=== PATIENT | female | born 1945 | race Caucasian/White ===

== ENCOUNTER → 2023-04-27 16:15 | Outpatient (REF) | payer MEDICARE, OTHER, SELFPAY | LOC: RAD 16:15 | PROVIDERS: ATTENDING PHYSICIAN Internal Medicine; FAMILY PHYSICIAN Student in an Organized Health Care Education/Training Program | DX: R91.1 Solitary pulmonary nodule (principal) | CPT/HCPCS: 71250 ==

== ENCOUNTER → 2023-09-13 09:53 | Outpatient (REF) | payer MEDICARE, OTHER, SELFPAY | LOC: RCS 09:53 | PROVIDERS: ATTENDING PHYSICIAN Internal Medicine Cardiovascular Disease; FAMILY PHYSICIAN Family Medicine | DX: I10 Essential (primary) hypertension (principal) | CPT/HCPCS: 93306 ==

== ENCOUNTER → 2023-10-02 09:34 | Outpatient (REF) | payer MEDICARE, OTHER, SELFPAY | LOC: RAD 09:34 | PROVIDERS: ATTENDING PHYSICIAN Student in an Organized Health Care Education/Training Program | DX: Z00.00 Encounter for general adult medical examination without abnormal findings (principal); M85.859 Other specified disorders of bone density and structure, unspecified thigh; M81.0 Age-related osteoporosis without current pathological fracture | CPT/HCPCS: 77080 ==

== ENCOUNTER 2024-03-03 15:19 | Emergency (ER) | payer MEDICARE, OTHER, SELFPAY ==
[2024-03-03 15:38] VITALS: BP 188/75
--- NOTE | 2024-03-03 15:43 | ED.GENMED ---
ED Provider Triage
<Vishal Emmanuel Jr., PA-C - Last Filed: 03/03/24 15:45>
-
Patient seen by provider in Triage?: Seen in Triage
Attestation: A medical screening examination has been initiated by a qualified medical provider. Based on the assessment performed at this time, it has been determined that an emergent medical condition may exist and the patient has been informed
that further medical evaluation and possible additional diagnostic testing may be needed.
HPI: 78-year-old female mechanical fall down a few stairs hitting her left forehead no loss of consciousness currently taking aspirin no other blood thinners. No additional concerns. Patient does have a laceration to her left forehead.
GENERAL: Alert , in no apparent distress
EYE: No visual abnormalities.
NECK: Trachea midline
ENT: No visible abnormalities.
LUNGS: No acute respiratory distress
NEUROLOGICAL: Alert and oriented
SKIN: Skin intact. No visible changes.
MUSCULOSKELETAL: Moving extremities normally
PSYCH: Normal and appropriate interaction.
This is a medical evaluation conducted in person to initiate diagnostic evaluation and provide initial therapeutics. Please see further documentation by the treating clinician.
History of Present Illness
<Vishal Emmanuel Jr., PA-C - Last Filed: 03/03/24 15:45>
General
Chief Complaint: Fall
Time Seen by Provider: 03/03/24 16:51
<Shay Duque DO - Last Filed: 03/03/24 17:50>
General
Source: patient
Exam Limitations: none
Nursing documentation reviewed up to this point in time: agreed with
History of Present Illness
History of Present Illness:
78-year-old female presents emergency department after a fall, hitting her left forehead. No loss of consciousness., Agree with ED provider triage HPI
Past History
<DO Pablo Mead Last Filed: 03/03/24 17:50>
Past History
ED Past Medical History: Hypothyroidism and Other (Dermatomyositis)
ED Past Surgical History: Orthopedic (Left arthroscopic knee surgery, right knee arthroscopy, left foot, bilateral total knee replacement, carpal tunnel)
Social History
Tobacco: Non-smoker
Alcohol: None
Drug: None
Personal:
Living: with family
Employment: Retired
Review of Systems
<Shay Duque, DO - Last Filed: 03/03/24 17:50>
Review of Systems
Allergies reviewed?: Yes
All Other Systems: Not applicable
Constitutional: Reports no symptoms
EENT: Reports no symptoms
Respiratory: Reports no symptoms
Cardiac: Reports no symptoms
ABD/GI: Reports no symptoms
: Reports no symptoms
Musculoskeletal: Reports no symptoms
Skin: Reports no symptoms
Neurological: Reports no symptoms
Endocrine: Reports no symptoms
Hematologic/Lymphatic: Reports no symptoms
Psychiatric: Reports no symptoms
Phy Exam
<Shay Duque DO - Last Filed: 03/03/24 17:50>
Physical Exam
Physical Exam:
Physical Exam
General: no apparent distress, not acutely ill
Neck: supple. no meningeal signs. normal posterior pharynx
Heart: s1/s2 regular rate and rhythm, no murmur. equal radial
pulses.
HEENT: Pupils equal round reactive to light, EOMI
Lungs: no acute respiratory distress. clear bilaterally
Abdomen: normal bowel sounds. not tender. no CVAT
Neuro: alert and oriented. no focal neurological deficits cranial nerves II through XII intact
Skin: no rash, laceration contusion left forehead
Psychiatric: well kept. interactive and cooperative
Extremities: no edema. no calf tenderness. negative homans. good distal pulses
Course
<Vishal Emmanuel Jr. PAPabloC - Last Filed: 03/03/24 15:45>
Orders/Labs/Results
Orders:
Orders
03/03/24 15:45
CT Head W/o Iv Contrast Urgent
Comment:
Reason For Exam: fall hit head
03/03/24 16:23
CT Cervical Spine W/o Iv Contr Urgent
Comment:
Reason For Exam: fall
Vital Signs
Initial and Last Documented VS:
Initial Vital Signs
Temp Pulse Resp BP Pulse Ox
98.3 F 65 18 188/75 99
03/03/24 15:38 03/03/24 15:38 03/03/24 15:38 03/03/24 15:38 03/03/24 15:38
Last Documented Vital Signs
Temp Pulse Resp BP Pulse Ox
98.3 F 65 18 188/75 99
03/03/24 15:38 03/03/24 15:38 03/03/24 15:38 03/03/24 15:38 03/03/24 15:38
<Shay Duque, DO - Last Filed: 03/03/24 17:50>
Orders/Labs/Results
Orders:
Orders
03/03/24 15:45
CT Head W/o Iv Contrast Urgent
Comment:
Reason For Exam: fall hit head
03/03/24 16:23
CT Cervical Spine W/o Iv Contr Urgent
Comment:
Reason For Exam: fall
Vital Signs
Initial and Last Documented VS:
Initial Vital Signs
Temp Pulse Resp BP Pulse Ox
98.3 F 65 18 188/75 99
03/03/24 15:38 03/03/24 15:38 03/03/24 15:38 03/03/24 15:38 03/03/24 15:38
Last Documented Vital Signs
Temp Pulse Resp BP Pulse Ox
98.3 F 65 18 188/75 99
03/03/24 15:38 03/03/24 15:38 03/03/24 15:38 03/03/24 15:38 03/03/24 15:38
Procedures
<DO Pablo Mead Last Filed: 03/03/24 17:50>
Laceration Closure
Left Forehead:
Status of Wound: clean
Size of Wound in cm: 2
Description of Wound Edges: sharp and flap-well vascularized
Preparation: cleaned with saline
Anesthesia: 1% Lidocaine with epi
Revision/Debridement: routine- no revision
Wound exploration: explored to base- no FB
Type of Closure: single layer closure
Skin Closure Material: 4-0 nylon
Number of sutures: 4
<DO Pablo Mead Last Filed: 03/03/24 17:50>
MDM/Problems Addressed
Differential Diagnosis Includes:
Intracranial hemorrhage, facial fracture, C-spine fracture
MDM/Problems Addressed:
78-year-old female with fall, head contusion, left forehead laceration. CT head and cervical spine showed no fracture or intracranial hemorrhage. Tetanus within 5 years.
Chronic conditions affecting care: HTN
Acute Exacerbation and/or Progression of Chronic Illness: HTN
<Shay Duque, DO - Last Filed: 03/03/24 17:50>
*Radiology
Radiology exam reviewed: preliminary read by ED provider (CT head and cervical spine no acute findings) and radiology read reviewed (CT head and cervical spine no acute findings)
*Pulse Oximetry
Patient hypoxic: no
*Critical Care Note
Total Time (30-74mins, 75-104mins- exclusive of procedures): Not Applicable
<Shay Duque DO - Last Filed: 03/03/24 17:50>
Patient Management
Social determinants of health affecting care: Living situation
Escalation/DeEscalation of care consider admission/obs:
admit not indicated
ED Attending Note
<Vishal Emmanuel Jr., CHERELLE - Last Filed: 03/03/24 15:45>
-
Portions of this chart may have been created with voice recognition software.� Occasional wrong word or��sound alike� substitutions may have occurred due to the inherent limitations of voice recognition software.
Discharge Plan
Departure
Patient Disposition: Home (Routine Discharge)
Date of Disposition: 03/03/24
Time of Disposition: 17:49
Patient with high blood pressure during this ER visit?: Yes
Condition: Good
Discharge Problem:
Forehead laceration, Fall
Instructions: Wound Care (DC), Head Injury in Adults (DC), Laceration Repair With Stitches (DC), Preventing falls in adults
Prescriptions:
No Action
levothyroxine [Levothroid] 75 MCG tablet
75 mcg PO DAILY
trazodone 50 MG tablet
50 mg PO HS PRN (Reason: sleep)
furosemide [Lasix] 40 MG tablet
40 mg PO BID
carvedilol 6.25 MG tablet
6.25 mg PO BID
cyanocobalamin (vitamin B-12) 1,000 MCG tablet
2,000 mcg PO DAILY
amlodipine [Norvasc] 5 MG tablet
5 mg PO DAILY
aspirin [Aspir-Low] 81 MG tablet,delayed release (DR/EC)
81 mg PO DAILY
gabapentin 100 MG capsule
100 mg PO DAILY PRN (Reason: pain)
benazepril 40 MG tablet
40 mg PO DAILY
Centrum Silver 1 EACH tablet
1 tab PO DAILY
Cholecalciferol (Vitamin D3) [Vitamin D3] 50 MCG Capsule
50 mcg PO DAILY
acetaminophen 650 mg Tablet
650 mg PO Q8HPRN PRN (Reason: pain)
ezetimibe [Zetia] 10 mg Tablet
10 mg PO DAILY
CoQmax Ubiquinol 200 mg Capsule
400 mg PO DAILY
prednisone 50 mg tablet
50 mg PO DAILY Qty: 4 0RF
albuterol sulfate 90 mcg/actuation HFA aerosol inhaler
2 puff inhalation Q6H PRN (Reason: shortness of breath or wheezing) Qty: 8.5 0RF
Referrals:
UNKNOWN - PT DOES,NOT KNOW [Family Provider] -
Activity Restrictions/Additional Instructions:
Follow-up with primary care in 4 to 5 days for suture removal. Return for any concerns.
Interventions
Interventions:
*Risk Screen - Suicide Last Done: 03/03/24 17:20
*General Assessment Last Done: 03/03/24 17:20
*Neglect/Abuse Screening Last Done: 03/03/24 17:20
ED- Fall Risk Assessment Last Done: 03/03/24 17:23
*ED COVID-19 Vaccine History Last Done: 03/03/24 15:38
ED-Musculoskeletal Assessment Last Done: 03/03/24 17:22
ED- Neurological Assessment Last Done: 03/03/24 17:22
ED-Skin Assessment Last Done: 03/03/24 17:22
Discharge Date and Time
Print Language: FRISIAN
== END 2024-03-03 18:07 | disposition home or self-care (01) ==
LOC: EMR 15:19
PROVIDERS: EMERGENCY PHYSICIAN Emergency Medicine
DX: S01.81XA Laceration without foreign body of other part of head, initial encounter (principal); W10.9XXA Fall (on) (from) unspecified stairs and steps, initial encounter; E03.9 Hypothyroidism, unspecified; M33.90 Dermatopolymyositis, unspecified, organ involvement unspecified; I10 Essential (primary) hypertension; Z96.653 Presence of artificial knee joint, bilateral
CPT/HCPCS: 99284; 12011; 70450; 72125

== ENCOUNTER → 2024-04-07 15:02 | Outpatient (REF) | payer MEDICARE, OTHER, SELFPAY | LOC: RAD 15:02 | PROVIDERS: ATTENDING PHYSICIAN Family Medicine; REFERRING PHYSICIAN Emergency Medicine | DX: R29.6 Repeated falls (principal); I65.29 Occlusion and stenosis of unspecified carotid artery; I67.2 Cerebral atherosclerosis | CPT/HCPCS: 93880 ==

== ENCOUNTER → 2024-05-09 09:51 | Outpatient (REF) | payer MEDICARE, OTHER, SELFPAY | LOC: PAVMRI 09:51 | PROVIDERS: ATTENDING PHYSICIAN Internal Medicine Gastroenterology; FAMILY PHYSICIAN Emergency Medicine | DX: K86.1 Other chronic pancreatitis (principal) | CPT/HCPCS: 74183; A9575 ==

== ENCOUNTER 2024-05-15 06:23 | Day surgery (SDC) | payer MEDICARE, OTHER, SELFPAY | END 2024-05-15 09:36 | disposition home or self-care (01) | LOC: GI 06:23 | PROVIDERS: ATTENDING PHYSICIAN Internal Medicine Gastroenterology | DX: Z12.11 Encounter for screening for malignant neoplasm of colon (principal); K64.8 Other hemorrhoids; K57.30 Diverticulosis of large intestine without perforation or abscess without bleeding; D12.0 Benign neoplasm of cecum; D12.2 Benign neoplasm of ascending colon; D12.3 Benign neoplasm of transverse colon; D12.4 Benign neoplasm of descending colon; D12.8 Benign neoplasm of rectum; Z86.0101 Personal history of adenomatous and serrated colon polyps | CPT/HCPCS: 45385; 45380; 88305 ==

== ENCOUNTER 2024-05-28 18:14 | Inpatient (IN) | payer MEDICARE, OTHER, SELFPAY ==
[2024-05-28] VITALS (20 sets, daily range): BP systolic 140–249; BP diastolic 59–185; BMI 32.7
[2024-05-28 14:57] LABS: Hematocrit 33.5 % (37.0-47.0); Hemoglobin 11.1 g/dL (12.0-16.0); Mean Corp Hgb Conc. 33.1 g/dL (33.0-37.0); Mean Corpuscular Hgb 30.7 pg (27.0-31.0); Mean Corpuscular Volume 92.5 fL (81.0-99.0); Platelet Count 137 10^3/uL (130-400); Red Blood Cell Count 3.62 10^6/uL (4.20-5.40); White Blood Cell Count 6.3 10^3/uL (4.8-10.8)
[2024-05-28 15:15] LABS: ALT (SGPT) 322 U/L (0-35); AST (SGOT) 193 U/L (14-36); Albumin 3.4 g/dl (3.5-5.0); Alkaline Phosphatase 134 U/L (38-126); Blood Urea Nitrogen 42 mg/dl (7-17); Calcium 9.1 mg/dl (8.4-10.2); Carbon Dioxide 22 mmol/L (22-30); Chloride 112 mmol/L (98-107); Glucose 113 mg/dl (70-99); Sodium 141 mmol/L (135-145); Total Bilirubin 0.7 mg/dl (0.2-1.3); Total Protein 5.3 g/dl (6.3-8.2); eGFR 22.39
--- NOTE | 2024-05-28 15:48 | ED.GENMED ---
History of Present Illness
General
Chief Complaint: Fall
Time Seen by Provider: 05/28/24 14:22
History of Present Illness
History of Present Illness:
78-year-old female with history of hypertension, hyperlipidemia, and hypothyroidism presents to the emergency department for evaluation of multiple falls occurring since 1 AM tonight. These falls have occurred when she is attempting to get herself
out of bed to go to the bathroom. She typically ambulates with a walker. She does have a history of frequent falls but her is concerned due to the frequency of these today. She denies other complaints. Specifically denies headache, chest
pain, shortness of breath, or hip/back pain after these falls.
Past History
Past History
ED Past Medical History: Hypothyroidism and Other (Dermatomyositis)
ED Past Surgical History: Orthopedic (Left arthroscopic knee surgery, right knee arthroscopy, left foot, bilateral total knee replacement, carpal tunnel)
Social History
Tobacco: Non-smoker
Alcohol: None
Drug: None
Personal:
Living: with family
Employment: Retired
Review of Systems
Review of Systems
Allergies reviewed?: Yes
All Other Systems: ROS reviewed and negative except as documented in HPI and ROS
Phy Exam
Physical Exam
Physical Exam:
GEN: Well appearing, NAD, WDWN
HEENT: Oral mucosa moist, no scleral icterus
Cardiac: Regular rate and rhythm
Lung: No respiratory distress, no tachypnea, lungs clear to auscultation bilaterally
MSK: No gross deformity or injuries, moderate to severe lower extremity edema. No tenderness or crepitus to bilateral hips, no midline cervical, thoracic, or lumbar spinal tenderness, minor ecchymosis noted to the left superior scapula, nontender
Skin: Good color, no pallor or jaundice, no rashes
Neuro: AO x3, moves all extremities freely
Psych: Calm, cooperative
Course
Orders/Labs/Results
Orders:
Orders
05/28/24 14:40
CR Hip - LT w/wo Pel 2-3 Vw* Urgent
Comment:
Reason For Exam: pain
Include a pelvis x-ray?: No
CR Hip - RT w/wo Pel 2-3 Vw* Urgent
Comment:
Reason For Exam: fall
Include a pelvis x-ray?: No
05/28/24 14:41
CT Head W/o Iv Contrast Urgent
Comment:
Reason For Exam: falls
CR Chest - 2 Views Urgent
Comment:
Reason For Exam: fall, chest injury
05/28/24 14:49
Complete Blood Count/No Diff Urgent
Comprehensive Metabolic Panel Urgent
05/28/24 15:45
HydrALAZINE [Apresoline] 10 mg IV NOW STA
05/28/24 16:34
Labetalol HCl [Trandate] 10 mg IV NOW STA
05/28/24 16:54
Labetalol HCl [Trandate] 10 mg IV NOW STA
US Abdomen Complete/Upper Urgent
Comment:
Reason For Exam: transaminitis
05/28/24 16:55
Add On- LAB Urgent
Tests Added?: acetaminophen level
Prothrombin Time Urgent
Abnormal Lab Results
05/28/24
14:49
RBC 3.62 L 10^6/uL
(4.20-5.40)
Hgb 11.1 L g/dL
(12.0-16.0)
Hct 33.5 L %
(37.0-47.0)
MPV 11.0 H fL
(7.4-10.4)
Chloride 112 H mmol/L
(98-107)
BUN 42 H mg/dl
(7-17)
Creatinine 2.2 H mg/dL
(0.6-1.0)
Glucose 113 H mg/dl
(70-99)
AST 193 H U/L
(14-36)
ALT 322 H U/L
(0-35)
Alkaline Phosphatase 134 H U/L
(38-126)
Total Protein 5.3 L g/dl
(6.3-8.2)
Albumin 3.4 L g/dl
(3.5-5.0)
05/28/24 14:49
05/28/24 14:49
Vital Signs
Initial and Last Documented VS:
Initial Vital Signs
Temp Pulse Resp BP Pulse Ox
97.8 F 81 16 227/104 98
05/28/24 13:45 05/28/24 13:45 05/28/24 13:45 05/28/24 13:45 05/28/24 13:45
Last Documented Vital Signs
Temp Pulse Resp BP Pulse Ox
97.8 F 67 22 211/95 99
05/28/24 13:45 05/28/24 16:45 05/28/24 16:45 05/28/24 16:40 05/28/24 16:45
MDM/Problems Addressed
MDM/Problems Addressed:
78-year-old female presenting after multiple falls, seems that she has severe difficulty get herself up out of bed. No findings of traumatic injuries on x-rays or head CT. She is noted to have transaminitis of uncertain etiology however T. bili is
normal. On questioning it appears the patient does take at least 1 g of Tylenol 3-4 times daily for the past several months thus we will send Tylenol levels to assess for chronic toxicity as well as coags. Will send for ultrasound for further
workup of the transaminitis. She is also noted to be profoundly hypertensive requiring numerous doses of IV antihypertensives for further control. While at this time she does not have symptoms of endorgan damage it is certainly concerning that she
remains this uncontrolled. Given the multitude of issues we will admit to the hospitalist service for further blood pressure management and workup of transaminitis
*Critical Care Note
Total Time (30-74mins, 75-104mins- exclusive of procedures): Not Applicable
ED Attending Note
-
Portions of this chart may have been created with voice recognition software.� Occasional wrong word or��sound alike� substitutions may have occurred due to the inherent limitations of voice recognition software.
Discharge Plan
Departure
Patient Disposition: Admit
Date of Disposition: 05/28/24
Time of Disposition: 16:56
Admit to: Med/Surg
Presentation/result/management discussed w/ accepting MD/DO: Hospitalist
Discharge Problem:
Hypertensive urgency, Transaminitis
Prescriptions:
No Action
levothyroxine [Levothroid] 75 MCG tablet
75 mcg PO DAILY
trazodone 50 MG tablet
50 mg PO HS PRN (Reason: sleep)
furosemide [Lasix] 40 MG tablet
40 mg PO BID
carvedilol 6.25 MG tablet
6.25 mg PO BID
cyanocobalamin (vitamin B-12) 1,000 MCG tablet
2,000 mcg PO DAILY
amlodipine [Norvasc] 5 MG tablet
5 mg PO DAILY
aspirin [Aspir-Low] 81 MG tablet,delayed release (DR/EC)
81 mg PO DAILY
gabapentin 100 MG capsule
100 mg PO DAILY PRN (Reason: pain)
benazepril 40 MG tablet
40 mg PO DAILY
Centrum Silver 1 EACH tablet
1 tab PO DAILY
Cholecalciferol (Vitamin D3) [Vitamin D3] 50 MCG Capsule
50 mcg PO DAILY
acetaminophen 650 mg Tablet
650 mg PO Q8HPRN PRN (Reason: pain)
ezetimibe [Zetia] 10 mg Tablet
10 mg PO DAILY
CoQmax Ubiquinol 200 mg Capsule
400 mg PO DAILY
prednisone 50 mg tablet
50 mg PO DAILY Qty: 4 0RF
albuterol sulfate 90 mcg/actuation HFA aerosol inhaler
2 puff inhalation Q6H PRN (Reason: shortness of breath or wheezing) Qty: 8.5 0RF
Referrals:
Osei Hay DO [Family Provider] -
Interventions
Interventions:
*Risk Screen - Suicide Last Done: 05/28/24 13:45
*General Assessment Last Done: 05/28/24 14:25
*Neglect/Abuse Screening Last Done: 05/28/24 13:45
*ED- Fall Risk Assessment Last Done: 05/28/24 14:25
*ED COVID-19 Vaccine History Last Done: 05/28/24 14:25
ED-Musculoskeletal Assessment Last Done: 05/28/24 14:25
ED- Neurological Assessment Last Done: 05/28/24 14:25
ED-Skin Assessment Last Done: 05/28/24 14:25
Discharge Date and Time
Print Language: SYRIAC
[2024-05-28] MEDS: APRESOLINE 10 MG IV ×2 (15:53→20:25)
[2024-05-28] MEDS: TRANDATE 10 MG IV ×2 (16:36→17:01)
[2024-05-28 17:39] LABS: INR 0.98; PT 13.5 Sec (11.4-14.6)
[2024-05-28 17:41] LABS: Acetaminophen < 10 ug/ml (10-30)
--- NOTE | 2024-05-28 17:52 | W.PN.UPDATE ---
Update Note
Progress Note Update
I personally performed a history and physical exam of the patient and discussed management with the resident. I reviewed the resident's note and agree with the documented findings and plan of care HPI/CC.
Patient is a 78-year-old female with past medical history of multidrug-resistant hypertension, CKD stage IIIb, hyperlipidemia, history of atrial flutter, pulmonary nodules, hypothyroidism came to ER after having recurrent fall. Patient have history
of previous falls uses walker. Today patient unable to get out of bed and was having fall when trying to get around. Denies of having any dizziness. Denies of having any head trauma/laceration. Patient spouse was concerned and brought patient in
for further evaluation. Patient was incidentally found to be hypertensive with systolic blood pressure in 220, patient stated of not taking morning medication today. Patient has questionable compliance with patient stating of forgetting some time
nighttime medication. Patient denies of having any ongoing headaches/chest discomfort/shortness of breath/abdominal pain/nausea/vomiting.
HEENT: No pallor, cyanosis, or jaundice. Throat clear.
NECK: Supple. No JVD.
RESPIRATORY: Lungs clear to auscultation.
CVS: S1, S2 normal. RRR. No murmur, rub or gallop.
ABDOMEN: Soft, non-tender. No distension. BS+/normal.
EXTREMITIES: No peripheral cyanosis or edema.
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 No focal deficits.
Hypertensive urgency
Multidrug resistant hypertension
-Patient systolic blood pressure in 200-20 despite IV hydralazine/labetalol
-Resuming home medication of carvedilol/hydralazine/Norvasc for the night
-Patient takes benazepril in the morning
-Continue as needed IV hydralazine for systolic blood pressure greater than 160
-Will adjust further blood pressure medication based on response
-Patient may require Cardene drip if blood pressure continues to remain elevated despite taking oral medications for the evening
Recurrent fall
History of ambulatory dysfunction
-Patient denies of having any predizziness/cardiac symptoms
-PT OT evaluation ordered
Chronic diastolic congestive heart failure
Moderate to severe asymmetric septal hypertrophy
-Have some lower extremity swelling
-No crackles/dyspnea/hypoxia
-Continue home dose of oral Lasix 40 mg daily for now
CKD stage IIIb
-Last known creatinine of 2 in December 18, today creatinine 2.2
-Follows with Dr. Cortes
Acute transaminitis
-Check liver gallbladder ultrasound
-Follow-up LFT
-Denies abdominal pain/nausea vomiting
Full code
Total time spent : 78 mins
I personally saw and examined the patient.
I have reviewed all diagnostic interpretations and treatment plans as written.
Time includes patient management by me, time spent at the patients bedside, time to review lab and imaging results, discussing patient care, documentation in the medical record, and time spent with the family or caregiver and discussing care plan
with RN/Consultants.
[2024-05-28] MEDS: APRESOLINE 100 MG PO (18:08)
[2024-05-28] MEDS: COREG 12.5 MG PO (18:08)
--- NOTE | 2024-05-28 18:16 | HPS.HSE ---
Family Physician
-
Family Physician: Osei Hay, DO
Chief Complaint
-
Recurrent falls
History of Present Illness
73-year-old female with past medical history of HTN, hypothyroidism, dermatomyositis, osteoarthritis, PE, atrial arrhythmia, hyperlipidemia, focal segmental glomerulosclerosis presents, LVH to ED due to recurrent falls. In the last 2 days she has
fallen 3 times. She denies hitting her head. She states that she falls when she pivots too quickly and uses things around her house to balance. She denies passing out, feeling lightheaded, dizziness, vision changes prior to falling. She has
recently been having headaches for which she takes Tylenol close to 4 g a day (2 x650 up to 3x a day). She denies any abdominal pain, nausea, vomiting, change in bowel habits. She has not taking her home meds today. Her home blood pressure
usually runs around 140/90 when she takes her meds.
In the ED, blood pressure 227/104, heart rate 76, respiratory rate 22, afebrile, 99% on room air. AST 193, ALT 322, alk phos 134, Cr 2.2, BUN 42. Head CT, chest x-ray, hip x-ray all inconclusive for acute cause of fall. Hip x-ray does [place]
reveal severe osteoarthritis. Abdominal MRI on 05/09/2024 did reveal chronic pancreatitis and gallstones. She denied hearing of having chronic pancreatitis. She was labetalol 10 mg x 2 and hydralazine 10 mg x 1, however blood pressure still
elevated.
Medical History
Past Medical History
Past Medical History: Reports Other (Hypertension, hyperlipidemia, hypothyroidism, dermatomyositis, left ventricular hypertrophy, osteoarthritis, history of PE, atrial arrhythmia, focal segmental glomerulosclerosis)
Past Surgical History: Reports Other (Surgery for spinal stenosis, bilateral knee replacement)
Social History
Tobacco: Non-smoker
Alcohol: Occasional
Drug: None
Personal:
Living: With Family
Employment: Retired
Family History
Family History: Not pertinent
Allergies / Home Medications
Allergies reflects when Allergies were last updated in [employer].
Home Medications with original date entered in [employer]
Allergy/Medication List:
Allergies
Allergy/AdvReac Type Severity Reaction Status Date / Time
No Known Allergies Allergy Verified 05/28/24 13:45
Home Medications
trazodone 50 mg tablet 50 mg PO HSPRN PRN sleep 01/30/20
amlodipine 5 mg tablet (Norvasc) 5 mg PO BID 09/15/20
benazepril 40 mg tablet 40 mg PO DAILY 09/15/20
cholecalciferol (vitamin D3) 50 mcg (2,000 unit) tablet (Vitamin D3) 50 mcg PO DAILY 09/15/20
cyanocobalamin (vitamin B-12) 1,000 mcg tablet 2,000 mcg PO DAILY 09/15/20
furosemide 40 mg tablet (Lasix) 40 mg PO DAILY 09/15/20
coQ10 (ubiquinol) 200 mg capsule (CoQmax Ubiquinol) 400 mg PO DAILY 09/15/21
ezetimibe 10 mg tablet (Zetia) 10 mg PO DAILY 09/15/21
acetaminophen 650 mg tablet,extended release (Tylenol 8 Hour) 1,300 mg PO Q8HPRN PRN mild pain/fever 05/28/24
albuterol sulfate 90 mcg/actuation aerosol inhaler 2 puff inhalation R Q6HPRN PRN shortness of breath or wheezing 05/28/24
aspirin 81 mg tablet,delayed release 81 mg PO DAILY 05/28/24
carvedilol 12.5 mg tablet 12.5 mg PO BID 05/28/24
hydralazine 100 mg tablet 100 mg PO BID 05/28/24
levothyroxine 75 mcg tablet 75 mcg PO DAILY 05/28/24
mometasone 0.1 % topical cream 1 applic topical DAILYPRN PRN itching ear 05/28/24
sodium bicarbonate 650 mg tablet 1,300 mg PO BID 05/28/24
Review of Systems
-
A 12 point ROS was completed and negative except as noted: Yes
Respiratory: Reports No Symptoms
Cardiac: Reports No Symptoms
Abdomen/GI: Reports No Symptoms
: Reports No Symptoms
Musculoskeletal: Reports No Symptoms
Neurological: Reports No Symptoms
Psych: Reports Calm
Physical Exam
Vital Signs
Vital Signs
Temp Pulse Resp BP Pulse Ox
97.8 F 66 21 215/89 98
05/28/24 13:45 05/28/24 18:00 05/28/24 18:00 05/28/24 17:40 05/28/24 18:00
Physical Exam
General: No Apparent Distress and Comfortable
HEENT: NormoCephalic
Respiratory: Clear
Cardiac: S1/S2 and Regular Rhythm
GI: Soft, Non Tender, Non Distended and Normal Bowel Sounds
Musculoskeletal: No Edema and Other (Tenderness around bilateral rib cages with palpation)
Skin: Warm and Dry
Neuro: AO x 3
Psych: Calm
Laboratory Results
-
05/28/24 14:49
05/28/24 14:49
Laboratory Results
PT 13.5 Sec (11.4-14.6) 05/28/24 17:04
INR 0.98 05/28/24 17:04
Total Bilirubin 0.7 mg/dl (0.2-1.3) 05/28/24 14:49
AST 193 U/L (14-36) H 05/28/24 14:49
ALT 322 U/L (0-35) H 05/28/24 14:49
Alkaline Phosphatase 134 U/L (38-126) H 05/28/24 14:49
Impression/Plan
-
IMPRESSION:
73-year-old female with past medical history of HTN, hypothyroidism, dermatomyositis, osteoarthritis, PE, atrial arrhythmia, hyperlipidemia, focal segmental glomerulosclerosis presents, LVH to ED due to recurrent falls. In the last 2 days she has
fallen 3 times. Blood pressure 227/104 in ED. She was given labetalol 10 mg x 2, hydralazine 10 mg x 1 however remains hypertensive. She had not taken her home meds this morning. She is being admitted for hypertensive urgency and transaminitis
with concurrent comorbidities.
PLAN:
#Hypertensive urgency
-In ED blood pressure 227/104
-labetalol 10 mg x 2, hydralazine 10 mg x 1 however remains hypertensive
-Has not taken medications this a.m.
-Have patient take home medications amlodipine 5 BID, benzapril 40, hydralizine 100 BID, carvidolol 12.5 BID and reevaluate
-Hydralazine PRN sbp >160
-If remains hypertensive, consider nicardipine drip
-Admit to IMU
-Monitor for any neurologic changes as blood pressure is high increasing her risk for hemorrhage
#Transaminitis
-Takes on average close to 4g Tylenol daily
-Acetaminophen level less than 10
-Chronic pancreatitis noticed on abdominal MRI 05/09/2024 with gallstones
-Denies any abdominal pain, nausea, vomiting, diarrhea
-Right upper quadrant ultrasound pending
-Monitor CMP
#Fall
-Appears mechanical
-Head CT (-) for bleed, chest x-ray no signs of rib fracture, hip xray no fracture
-PT/OT
#Focal segmental glomerulosclerosis
-Creatinine 2.2, baseline 2.0
-Continue sodium bicarb
-Follows with Dr. Rooney
#Left ventricular hypertrophy
#Atrial arrhythmia
-Echo on 09/13/2023 revealed diastolic dysfunction, septal hypertrophy, LVEF 55%
-Atrial tach versus flutter per Dr. Florence's note, patient not interested in anticoagulation, cont,
-Cont ASA 81, lasix, carvedilol
-Follows with Dr. Lane
#sleep difficulties
-Continue trazodone
# Hypothyroidism
-Continue levothyroxine
# Hyperlipidemia
-Continue Zetia
# Osteoarthritis
# History of dermatomyositis 2010 stable
# History of PE follows with Dr. Arevalo
# History 1 cm pulmonary nodule
# Vitamin D deficiency
Full code
DVT heparin
Low-sodium diet
[2024-05-28 19:56] LABS: Lipase 29 U/L (23-300)
[2024-05-28] MEDS: HEPARIN 5000 UNITS SC (20:20)
[2024-05-28] MEDS: NORVASC 5 MG PO (20:21)
[2024-05-28] MEDS: ROXICODONE 2.5 MG PO (21:33)
--- NOTE | 2024-05-28 23:40 | PTCARENOTE ---
Assumed care of pt from keri DONATO. Pt aaox3, TANANA. Pt c/o 5/10 pain over her right ribs and 10/10 pain over her left ribs. Pt stated she is unable to describe the pain. Notified AYANNA Kenny and received an Rx for oxycodone (see MAR). NSR on
monitor. 95% on RA. Admission assessment as documented. Hygiene completed. Pt resting in bed with call hunter in reach.
[2024-05-29] VITALS (28 sets, daily range): BP systolic 80–190; BP diastolic 50–110; PULSE 77–81; O2SAT 94
[2024-05-29] MEDS: APRESOLINE 10 MG IV ×2 (00:25→04:53)
[2024-05-29 04:59] LABS: % Basophils 0.9 % (0-2); % Eosinophils 1.6 % (0-6); % Immature Granulocytes 0.4 % (0-0.5); % Lymphocytes 16.2 % (20.5-51.1); % Monocytes 7.5 % (1.7-9.3); % Neutrophils 73.4 % (42.2-75.2); Absolute Basophils 0.1 10^3/uL (0-0.2); Absolute Eosinophils 0.1 10^3/uL (0-0.7); Absolute Lymphocytes 0.9 10^3/uL (1.2-3.4); Absolute Monocytes 0.4 10^3/uL (0.1-0.6); Hematocrit 33.1 % (37.0-47.0); Mean Corp Hgb Conc. 33.2 g/dL (33.0-37.0); Mean Corpuscular Hgb 30.6 pg (27.0-31.0); Mean Corpuscular Volume 92.2 fL (81.0-99.0); Mean Platelet Volume 11.4 fL (7.4-10.4); Nucleated Red Blood Cells % 0 %; Platelet Count 141 10^3/uL (130-400); Red Blood Cell Count 3.59 10^6/uL (4.20-5.40); White Blood Cell Count 5.5 10^3/uL (4.8-10.8)
[2024-05-29 05:23] LABS: ALT (SGPT) 222 U/L (0-35); AST (SGOT) 94 U/L (14-36); Alkaline Phosphatase 123 U/L (38-126); Blood Urea Nitrogen 38 mg/dl (7-17); Calcium 8.9 mg/dl (8.4-10.2); Carbon Dioxide 20 mmol/L (22-30); Chloride 116 mmol/L (98-107); Estimated Creatinine Clearance 20 ml/min; Glucose 87 mg/dl (70-99); Potassium 3.9 mmol/L (3.5-5.1); Sodium 142 mmol/L (135-145); Total Bilirubin 0.6 mg/dl (0.2-1.3); Total Protein 4.8 g/dl (6.3-8.2); eGFR 23.67
[2024-05-29] MEDS: SYNTHROID 75 MCG PO (05:52)
[2024-05-29] MEDS: LASIX 40 MG PO (06:43)
[2024-05-29] MEDS: NORVASC 5 MG PO (06:43)
--- NOTE | 2024-05-29 08:18 | W.PN.HOSP.TC ---
Addendum entered and electronically signed by Antony Borjas MD 05/29/24 14:23:
I saw and evaluated the patient. I reviewed the resident�s note and agree with findings and plan as documented in the resident�s note.
Hypertensive urgency
Multidrug resistant hypertension
-Patient systolic blood pressure in 200-220 despite IV hydralazine/labetalol
-Continue as needed IV hydralazine for systolic blood pressure greater than 160
-Patient resumed on home blood pressure medication
-Amlodipine changed to nicardipine. Follow-up response and will increase medication further as needed
Recurrent fall
History of ambulatory dysfunction
-Patient denies of having any predizziness/cardiac symptoms
-PT OT evaluation ordered
Chronic diastolic congestive heart failure
Moderate to severe asymmetric septal hypertrophy
-Have some lower extremity swelling
-No crackles/dyspnea/hypoxia
-Continue home dose of oral Lasix 40 mg daily for now
CKD stage IIIb
-Last known creatinine of 2 in December 18, today creatinine 2.2
-Follows with Dr. Cortes
Acute transaminitis - Trending down
-Liver/gallbladder showing cholelithiasis. Minimal gallbladder wall thickening. No CBD dilation
-LFT trended down, reason for elevation remains unclear although Tylenol versus possible passed stone situation
Full code
If patient blood pressure control can be downgraded to MedSurg
Original Note:
Today's Communication/Plan
-
RUQ US pending
BP management
Likely discharge today pending [facility] results
Assessment / Plan
Assessment / Plan
73-year-old female with past medical history of HTN, hypothyroidism, dermatomyositis, osteoarthritis, PE, atrial arrhythmia, hyperlipidemia, focal segmental glomerulosclerosis presents, LVH to ED due to recurrent falls. In the last 2 days she has
fallen 3 times. Blood pressure 227/104 in ED. She was given labetalol 10 mg x 2, hydralazine 10 mg x 1 however remains hypertensive. She had not taken her home meds this morning. She is being admitted for hypertensive urgency and transaminitis
with concurrent comorbidities.
#Hypertensive emergency
#Multi drug resistant HTN
-In ED blood pressure 227/104
-labetalol 10 mg x 2, hydralazine 10 mg x 1 however remains hypertensive
-Has not taken medications this a.m.
-Have patient take home medications amlodipine 5 BID, benzapril 40, hydralizine 100 BID, carvidolol 12.5 BID and reevaluate
-Hydralazine PRN sbp >160
-If remains hypertensive, consider nicardipine drip
-Admit to IMU
-Monitor for any neurologic changes as blood pressure is high increasing her risk for hemorrhage
-Today, BP 160s/70s
-Add nifedipine ER 30 BID and dc amlodipine 5 BID
#Transaminitis
-Takes on average close to 4g Tylenol daily
-Acetaminophen level less than 10
-Chronic pancreatitis noticed on abdominal MRI 05/09/2024 with gallstones
-Denies any abdominal pain, nausea, vomiting, diarrhea
-Right upper quadrant ultrasound pending
-LFTs downtrending
-Monitor CMP
#Fall
-Appears mechanical
-Head CT (-) for bleed, chest x-ray no signs of rib fracture, hip x-ray no fracture
-PT/OT
#Focal segmental glomerulosclerosis
#CKD stage 3b
-Creatinine 2.2->2.1 today, baseline 2.0
-Continue sodium bicarb
-Follows with Dr. Rooney
#Left ventricular hypertrophy/ HFpEF
#Atrial arrhythmia
-Echo on 09/13/2023 revealed diastolic dysfunction, septal hypertrophy, LVEF 55%
-Atrial tach versus flutter per Dr. Florence's note, patient not interested in anticoagulation, cont,
-Cont ASA 81, lasix, carvedilol
-Follows with Dr. Lane
#sleep difficulties
-Continue trazodone
# Hypothyroidism
-Continue levothyroxine
# Hyperlipidemia
-Continue Zetia
# Osteoarthritis
# History of dermatomyositis 2010 stable
# History of PE follows with Dr. Arevalo
# History 1 cm pulmonary nodule
# Vitamin D deficiency
Full code
DVT heparin
Low-sodium diet
Anticipated Discharge: Within 24 hours
Subjective/Interval History
-
Date of Service: May 29, 2024
Objective Data
-
Labs:
Laboratory Results
05/29/24
04:38
WBC 5.5
Hgb 11.0 L
Hct 33.1 L
Plt Count 141
Sodium 142
Potassium 3.9
Chloride 116 H
Carbon Dioxide 20 L
BUN 38 H
Creatinine 2.1 H
Glucose 87
Calcium 8.9
Total Bilirubin 0.6
AST 94 H
ALT 222 H
Alkaline Phosphatase 123
Vital Signs:
Vital Signs
Temp Pulse Resp BP Pulse Ox
98.1 F 66 19 168/72 95
05/29/24 04:31 05/29/24 06:43 05/29/24 02:00 05/29/24 06:43 05/29/24 02:00
I&O
05/28/24 05/29/24 05/30/24
06:59 06:59 06:59
Output Total 150 / 150
Balance -150 / -150
Review of Systems
-
History Source: Patient
Respiratory: Reports No Symptoms
Cardiac: Reports No Symptoms
Abdomen/GI: Reports No Symptoms
Genitourinary: Reports No Symptoms
Musculoskeletal: Reports Other (Some bilateral rib cage pain )
Neuro: Reports No Symptoms
Physical Exam
-
General: No Apparent Distress and Comfortable
HEENT: Normocephalic
Respiratory: Clear to Auscultation
Cardiac: Regular Rhythm and S1/S2
GI: Soft, Nontender, Nondistended and Normal Bowel Sounds
Musculoskeletal: No Edema and Other (Bilateral lower rib cage tenderness with palpation )
Skin: Warm and Dry
Neuro: AO x 3
Psych: Calm
[2024-05-29] MEDS: ZESTRIL 40 MG PO (08:40)
[2024-05-29] MEDS: ZETIA 10 MG PO (08:40)
[2024-05-29] MEDS: VITAMIN B-12 2000 MCG PO (08:40)
[2024-05-29] MEDS: APRESOLINE 100 MG PO ×2 (08:40→19:50)
[2024-05-29] MEDS: VITAMIN D3 (cholecalciferol) 50 MCG PO (08:41)
[2024-05-29] MEDS: COREG 12.5 MG PO ×2 (08:42→19:50)
[2024-05-29] MEDS: HEPARIN 5000 UNITS SC ×2 (08:42→19:49)
[2024-05-29] MEDS: ASPIR LOW (ENTERIC COATED) 81 MG PO (08:42)
[2024-05-29] MEDS: PROCARDIA XL (EXTENDED RELEASE) 30 MG PO ×2 (08:45→19:49)
--- NOTE | 2024-05-29 08:59 | PTCARENOTE ---
Pt AAOx3 wants to go to [facility] , explained to pt until seen by therapy i was not getting her up, as she falls getting OOB and has hurt her ribs. She states she has fallen 3 times getting OOB . Pt sitting on bed burrell trying to have a BM
--- NOTE | 2024-05-29 09:18 | PN.CDI ---
CDI
- -
CDI:
Physician Documentation Request
Admit Date: 05/28/24 18:14
Dear Doctor Juan,
Please review the following and provide your response in the progress notes.
Clinical Indicators:
ED, 05/28
#...noted to be profoundly hypertensive requiring
#...numerous doses of IV antihypertensives for further control.
#...at this time she does not have symptoms of endorgan damage it is
#...certainly concerning that she remains this uncontrolled.
PN, 05/29
#Hypertensive urgency
#Multi drug resistant HTN
#...-In ED blood pressure 227/104
#-labetalol 10 mg x 2, hydralazine 10 mg x 1 however remains hypertensive
Based on the above and your clinical assessment, please clarify which, if any of the following, is a more accurate diagnosis reflecting the type and acuity of the documented hypertension:
Hypertensive Emergency - B/P is severely elevated (systolic > or = to 180 or diastolic > or = to 110) but can occur at lower levels especially in patients who did not previously have high B/P. There is usually associated organ damage. Symptoms may
include: memory loss, LOC, CVA, ME, angina, renal failure, pulmonary edema. Generally requires more aggressive treatment and a hospitalization.
Hypertensive Urgency - B/P is severely elevated (systolic > or = to 180 or diastolic > or = to 110) but there is no associated organ damage. Symptoms may include: headache, shortness of breath, nosebleeds, severe anxiety. Treatment usually consists
of addition to or adjusting of oral medications and does not generally necessitate hospitalization.
Hypertensive Crisis - an acute elevation in B/P that can lead to organ damage. Broad term that is further differentiated to include urgency or emergency based on presence of organ damage.
Other (please specify)
Use of terms such as suspected, likely, concern for, or probable (associated with a specific diagnosis that is being evaluated, monitored, or treated as if it exists) are acceptable and can be coded in the inpatient setting, when documented at the
time of discharge.
Thank you,
Holly Ledezma RN BSN CCDS
CDI Specialist
Please contact via tiger text
Please use your independent medical judgment in providing your response.
[2024-05-29 12:17] LABS: Glucose - Point of Care 185 mg/dl (70-99)
--- NOTE | 2024-05-29 16:12 | PTCARENOTE ---
Pt confused states she is cold,has her pants on and her jacket given blankets . Asked again not to get OOB by herself. Pt is impulsive and forgetful. states he is suing the hospital because the room is cold the heat in rom is turned up
--- NOTE | 2024-05-29 16:28 | PTCARENOTE ---
plant ops called to check heat in pt room
--- NOTE | 2024-05-29 17:24 | CM ---
Patient with Dx Hypertensive urgency, Recurrent falls. Room air. PT recommends home PT v skilled rehab. OT recommends skilled rehab.
Met with patient who resides at home with her in a 2 story house.
She has been independent in ADLs and ambulation.
The patient alternates using her RW, SPC and rollator.
Prior [facility]. No prior SNF.
PCP Osei Hay
Pharmacy - [facility]
Patient agreed to d/c to home with VN and chose [facility]
Spoke with patient's Kings; he confirms patient had 3 recent falls at home. ambulates with cane himself and cannot assist her with her mobility. There are 3 steps at entrance to house and 12 stairs up to Bedroom- there is no
ability to create a first floor bedroom. says patient has been showing signs of dementia since 2020 which is worsening. She resists doing anything that suggests. Patient has been mismanaging their finances and she can account for
the huge depletion of their savings from [phone] to [phone]. She is not taking all her BP meds as scheduled. He says patient will decline SNF for rehab so he would be in agreement with [facility]. They cannot afford to hire a caregiver at home.
His son in [place] does not help very much and the other son is in [place]. Suggested contact [facility] or [facility] re; getting POA to manage finances and other resources.
Plan referral to VN.
Plan home with VN.
--- NOTE | 2024-05-29 17:54 | CM ---
Patient with Dx Hypertensive urgency, Recurrent falls. Room air. PT recommends home PT v skilled rehab. OT recommends skilled rehab.
Met with patient who resides at home with her in a 2 story house.
She has been independent in ADLs and ambulation.
The patient alternates using her RW, SPC and rollator.
Prior [facility]. No prior SNF.
PCP Osei Hay
Pharmacy - [facility]
Patient agreed to d/c to home with VN and chose [facility]
Spoke with patient's Kings; he confirms patient had 3 recent falls at home. ambulates with cane himself and cannot assist her with her mobility. There are 3 steps at entrance to house and 12 stairs up to Bedroom- there is no
ability to create a first floor bedroom. says patient has been showing signs of dementia since 2020 which is worsening. She resists doing anything that suggests. Per , patient has been mismanaging their finances and she
cannot account for the huge depletion of their savings from $[phone] to [phone]. She is not taking all her BP meds as scheduled. He says patient will decline SNF for rehab so he would be in agreement with [facility] instead. They cannot afford to hire a
caregiver at home. His son in [place] does not help very much and the other son is in [place]. Suggested contact [facility] or [facility] re; getting POA to manage finances and other resources.
Plan referral to [facility].
Plan home with VN.
--- NOTE | 2024-05-29 18:08 | PTCARENOTE ---
Plant op checked room temp 78.8 in room. Pt remains impulsive and forgetful
[2024-05-29 19:44] LABS: Hepatitis C Antibody Negative (Negative)
[2024-05-29] MEDS: SODIUM BICARBONATE 1300 MG PO (19:49)
[2024-05-29] MEDS: DESYREL 50 MG PO (21:44)
--- NOTE | 2024-05-29 23:24 | PTCARENOTE ---
assumed care of patient from previous RN. Patient AAOx2, thinks she is home at times. Patient is very forgetful and can be confused at times. Explained to patient that she is not to get up without help from staff, chair alarm went off due to patient
attempting to get up on own. at bedside for a few hours. purewick in place while patient is in bed. assessment and vital signs as documented. call hunter in reach
[2024-05-30] VITALS (9 sets, daily range): BP systolic 114–153; BP diastolic 23–74; BMI 33.1
[2024-05-30] MEDS: SYNTHROID 75 MCG PO (04:46)
[2024-05-30 05:02] LABS: % Basophils 0.5 % (0-2); % Eosinophils 2.6 % (0-6); % Immature Granulocytes 0.2 % (0-0.5); % Lymphocytes 17.6 % (20.5-51.1); % Monocytes 9.6 % (1.7-9.3); % Neutrophils 69.5 % (42.2-75.2); Absolute Eosinophils 0.2 10^3/uL (0-0.7); Absolute Monocytes 0.6 10^3/uL (0.1-0.6); Hematocrit 32.5 % (37.0-47.0); Hemoglobin 10.9 g/dL (12.0-16.0); Mean Corp Hgb Conc. 33.5 g/dL (33.0-37.0); Mean Corpuscular Hgb 30.5 pg (27.0-31.0); Mean Platelet Volume 11.6 fL (7.4-10.4); Nucleated Red Blood Cells % 0 %; Platelet Count 173 10^3/uL (130-400); Red Blood Cell Count 3.57 10^6/uL (4.20-5.40); Red Cell Dist. Width 14.2 % (11.5-14.5); White Blood Cell Count 5.7 10^3/uL (4.8-10.8)
[2024-05-30 05:16] LABS: ALT (SGPT) 158 U/L (0-35); AST (SGOT) 49 U/L (14-36); Albumin 3.2 g/dl (3.5-5.0); Alkaline Phosphatase 120 U/L (38-126); Blood Urea Nitrogen 45 mg/dl (7-17); Calcium 8.9 mg/dl (8.4-10.2); Carbon Dioxide 18 mmol/L (22-30); Chloride 111 mmol/L (98-107); Estimated Creatinine Clearance 19 ml/min; Glucose 114 mg/dl (70-99); Sodium 140 mmol/L (135-145); Total Bilirubin 0.5 mg/dl (0.2-1.3); eGFR 22.39
--- NOTE | 2024-05-30 06:31 | PTCARENOTE ---
Patient was downgraded to 3 butte room 3360, called and gavee verbal report. Explained to patient she would be moving rooms and patient became very agitated and refused to move, began yelling and telling RN not to touch her or her belongings. Patient
wanted to talk to , call an explained to patient as well. 2 other RN also attempted to explain to patient why she was moving rooms but patient still very agitated and confused and refusing. Patient is now pulling at wires and
purewick. patient states she will not move until she speaks to her doctor. Continuing to monitor
--- NOTE | 2024-05-30 07:22 | W.PN.HOSP.TC ---
Addendum entered and electronically signed by Antony Borjas MD 05/30/24 13:16:
I saw and evaluated the patient. I reviewed the resident�s note and agree with findings and plan as documented in the resident�s note.
Hypertensive urgency
Multidrug resistant hypertension
-Patient systolic blood pressure in 200-220 despite IV hydralazine/labetalol
-Continue as needed IV hydralazine for systolic blood pressure greater than 160
-Patient resumed on home blood pressure medication
-Patient blood pressure better controlled with change of Norvasc to Procardia
Recurrent fall
History of ambulatory dysfunction
-Patient denies of having any predizziness/cardiac symptoms
-PT OT evaluated may benefit with SNF rehab although patient and spouse prefer for patient to go home
Chronic diastolic congestive heart failure
Moderate to severe asymmetric septal hypertrophy
-Have some lower extremity swelling
-No crackles/dyspnea/hypoxia
-Continue home dose of oral Lasix 40 mg daily for now
CKD stage IIIb
-Last known creatinine of 2 in December 18, today creatinine 2.2
-Follows with Dr. Cortes
Acute transaminitis - Trending down
-Liver/gallbladder showing cholelithiasis. Minimal gallbladder wall thickening. No CBD dilation
-LFT trended down, reason for elevation remains unclear although Tylenol versus possible passed stone situation
Cognitive changes
-spouse reported some ongoing problems with patient having good days. Have not been evaluated by neurology and recommended follow-up as patient potentially minimal dementia
-Patient seems more disoriented/confused today. Check vitamin B12/TSH/COVID/UA
-Hold home dose of trazodone providing Zyprexa 5 mg at night for sleep disturbance
Full code
/ patient's spouse updated over the phone. All questions answered. Clarified to spouse that patient may have undiagnosed dementia with which spouse in agreement and will try to have patient follow-up with neurology. Patient also have problem
with recurrent fall and spouse likely not in a condition to help the patient although preferring for patient to go home rather than to a SNF rehab. Patient herself wants to go home as well.
Total time spent : 52 mins
Original Note:
Today's Communication/Plan
-
Discharge pending results and discussion with about home vs SNF
Assessment / Plan
Assessment / Plan
73-year-old female with past medical history of HTN, hypothyroidism, dermatomyositis, osteoarthritis, PE, atrial arrhythmia, hyperlipidemia, focal segmental glomerulosclerosis presents, LVH to ED due to recurrent falls. In the last 2 days she has
fallen 3 times. Blood pressure 227/104 in ED. She was given labetalol 10 mg x 2, hydralazine 10 mg x 1 however remains hypertensive. She had not taken her home meds this morning. She is being admitted for hypertensive urgency and transaminitis
with concurrent comorbidities.
#Hypertensive emergency
#Multi drug resistant HTN
-In ED blood pressure 227/104
-labetalol 10 mg x 2, hydralazine 10 mg x 1 however remains hypertensive
-Has not taken medications this a.m.
-Have patient take home medications amlodipine 5 BID, benzapril 40, hydralizine 100 BID, carvidolol 12.5 BID and reevaluate
-Hydralazine PRN sbp >160
-If remains hypertensive, consider nicardipine drip
-Admit to IMU
-Monitor for any neurologic changes as blood pressure is high increasing her risk for hemorrhage
-Added nifedipine ER 30 BID and dc amlodipine 5 BID
-BP much better today. Well controlled.
#Confusion
-Pt woke up very confused this am
-Unaware why she changed rooms and why we were taking care of her
-No acute lab abnormalities to explain change, no FND, no hx alcohol use
-Denies any weakness, numbness, tinging, URI symptoms
-dc trazadone as could have contributed
-UA, Covid and flu pending
#Transaminitis
-Takes on average close to 4g Tylenol daily
-Acetaminophen level less than 10
-Chronic pancreatitis noticed on abdominal MRI 05/09/2024 with gallstones
-Denies any abdominal pain, nausea, vomiting, diarrhea
-Right upper quadrant ultrasound reveals no evidence of acute cholecystitis
-LFTs downtrending
-Monitor CMP
#Fall
-Appears mechanical
-Head CT (-) for bleed, chest x-ray no signs of rib fracture, hip x-ray no fracture
-PT/OT
#Focal segmental glomerulosclerosis
#CKD stage 3b
-Creatinine at baseline
-Continue sodium bicarb
-Follows with Dr. Rooney
#Left ventricular hypertrophy/ HFpEF
#Atrial arrhythmia
-Echo on 09/13/2023 revealed diastolic dysfunction, septal hypertrophy, LVEF 55%
-Atrial tach versus flutter per Dr. Florence's note, patient not interested in anticoagulation, cont,
-Cont ASA 81, lasix, carvedilol
-Follows with Dr. Lane
#sleep difficulties
-dc trazodone
# Hypothyroidism
-Continue levothyroxine
# Hyperlipidemia
-Continue Zetia
# Osteoarthritis
# History of dermatomyositis 2011 stable
# History of PE follows with Dr. Arevalo
# History 1 cm pulmonary nodule
# Vitamin D deficiency
#Bilateral renal cysts
#Left lobe liver cyst
Full code
DVT heparin
Low-sodium diet
Anticipated Discharge: Within 24 hours
Subjective/Interval History
-
Date of Service: May 30, 2024
New onset confusion. Pt was unaware why she moved rooms and why we were treating her.
Objective Data
-
Labs:
Laboratory Results
05/30/24
03:35
WBC 5.7
Hgb 10.9 L
Hct 32.5 L
Plt Count 173 D
Sodium 140
Potassium 4.0
Chloride 111 H
Carbon Dioxide 18 L
BUN 45 H
Creatinine 2.2 H
Glucose 114 H
Calcium 8.9
Total Bilirubin 0.5
AST 49 H
ALT 158 H
Alkaline Phosphatase 120
Vital Signs:
Vital Signs
Temp Pulse Resp BP Pulse Ox
98.0 F 80 20 128/23 92
05/30/24 03:00 05/30/24 04:00 05/30/24 04:00 05/30/24 03:00 05/30/24 02:00
I&O
05/29/24 05/30/24 05/31/24
06:59 06:59 06:59
Output Total 150 / 150 400 / 400
Balance -150 / -150 -400 / -400
Review of Systems
-
History Source: Patient
EENT: Reports No Symptoms Reported
Respiratory: Reports No Symptoms
Cardiac: Reports No Symptoms
Abdomen/GI: Reports No Symptoms
Genitourinary: Reports No Symptoms
Neuro: Reports No Symptoms
Physical Exam
-
General: No Apparent Distress and Comfortable
HEENT: Normocephalic
Respiratory: Clear to Auscultation
Cardiac: Regular Rhythm and S1/S2
GI: Soft, Nontender, Nondistended and Normal Bowel Sounds
Skin: Warm and Dry
Neuro: AO x 3 and No Motor Deficits; Negative Slurred Speech or Facial Droop
Psych: Confused
--- NOTE | 2024-05-30 09:01 | CM ---
Patient with Dx Hypertensive urgency, Recurrent falls. Room air. PT recommends home PT v skilled rehab. OT recommends skilled rehab.
Spoke with SHARON Miller; provided update for referral for SN/PT/OT re; patient's prior level of function and difficulty managing her medications at home.
Plan home with [facility].
[2024-05-30] MEDS: ASPIR LOW (ENTERIC COATED) 81 MG PO (09:11)
[2024-05-30] MEDS: ZETIA 10 MG PO (09:11)
[2024-05-30] MEDS: PROCARDIA XL (EXTENDED RELEASE) 30 MG PO ×2 (09:11→20:22)
[2024-05-30] MEDS: LASIX 40 MG PO (09:12)
[2024-05-30] MEDS: VITAMIN D3 (cholecalciferol) 50 MCG PO (09:12)
[2024-05-30] MEDS: VITAMIN B-12 2000 MCG PO (09:12)
[2024-05-30] MEDS: COREG 12.5 MG PO ×2 (09:12→20:17)
[2024-05-30] MEDS: APRESOLINE 100 MG PO ×2 (09:13→20:16)
[2024-05-30] MEDS: HEPARIN 5000 UNITS SC ×2 (09:13→20:18)
[2024-05-30] MEDS: SODIUM BICARBONATE 1300 MG PO ×2 (09:20→20:22)
[2024-05-30] MEDS: ZESTRIL 40 MG PO (09:46)
--- NOTE | 2024-05-30 11:55 | VNURNOTE ---
Home health liaison met with patient to discuss [facility] services, visit scheduling/frequency, homebound status and pet policy. Patient confused and irritable. Agreeable for home health liaison to call spouse. Spoke to spouse Kings about patient's
confusion and safety at home. Kings does not feel patient will do well in SNF and also does not feel she will be receptive to homecare services. Kings would like to go ahead and try [facility] and will be the primary contact for visits. Kings understands
home visits will be 1-2 times a week to assess and teach medical management. Kings is aware a visiting nurse will contact him for start of care within 1-2 days after discharge from . [facility] Referral completed in care port
[2024-05-30 13:32] LABS: Urine Albumin 4+ (Neg - Trace); Urine Bilirubin Negative (Negative); Urine Character Clear (Clear); Urine Color Yellow; Urine Glucose Negative (Negative); Urine Ketone Negative (Negative); Urine Leukocyte Negative (Negative); Urine Nitrite Negative (Negative); Urine Occult Blood Negative (Negative); Urine Specific Gravity 1.015 (<1.030); Urine Urobilinogen Negative (Neg - 1+)
[2024-05-30 14:22] LABS: Urine Bacteria Few (Negative); Urine Red Blood Cell 0-2 /HPF (0-2)
[2024-05-30 20:25] LABS: COVID-19 Antigen Negative (Negative)
[2024-05-30] MEDS: ZYPREXA 5 MG PO (21:26)
[2024-05-31 03:19] VITALS: BP 133/63
[2024-05-31] MEDS: SYNTHROID 75 MCG PO (05:50)
[2024-05-31 06:00] VITALS: BMI 32.9
[2024-05-31 07:49] VITALS: BP 160/67
[2024-05-31 08:03] LABS: Hematocrit 29.7 % (37.0-47.0); Hemoglobin 9.8 g/dL (12.0-16.0); Mean Corpuscular Hgb 30.6 pg (27.0-31.0); Mean Corpuscular Volume 92.8 fL (81.0-99.0); Mean Platelet Volume 10.3 fL (7.4-10.4); Platelet Count 132 10^3/uL (130-400); Red Cell Dist. Width 14.5 % (11.5-14.5); White Blood Cell Count 4.8 10^3/uL (4.8-10.8)
[2024-05-31 08:32] LABS: ALT (SGPT) 94 U/L (0-35); AST (SGOT) 27 U/L (14-36); Albumin 2.7 g/dl (3.5-5.0); Alkaline Phosphatase 94 U/L (38-126); Blood Urea Nitrogen 46 mg/dl (7-17); Calcium 8.4 mg/dl (8.4-10.2); Carbon Dioxide 21 mmol/L (22-30); Chloride 113 mmol/L (98-107); Estimated Creatinine Clearance 18 ml/min; Glucose 105 mg/dl (70-99); Potassium 3.5 mmol/L (3.5-5.1); Sodium 141 mmol/L (135-145); Total Bilirubin 0.4 mg/dl (0.2-1.3); Total Protein 4.5 g/dl (6.3-8.2); eGFR 21.22
[2024-05-31] MEDS: PROCARDIA XL (EXTENDED RELEASE) 30 MG PO ×2 (08:50→21:10)
[2024-05-31] MEDS: VITAMIN B-12 2000 MCG PO (08:50)
[2024-05-31] MEDS: VITAMIN D3 (cholecalciferol) 50 MCG PO (08:50)
[2024-05-31] MEDS: ZETIA 10 MG PO (08:50)
[2024-05-31] MEDS: LASIX 40 MG PO (08:50)
[2024-05-31] MEDS: APRESOLINE 100 MG PO ×2 (08:50→20:48)
[2024-05-31] MEDS: SODIUM BICARBONATE 1300 MG PO ×2 (08:51→21:11)
[2024-05-31] MEDS: ASPIR LOW (ENTERIC COATED) 81 MG PO (08:51)
[2024-05-31] MEDS: COREG 12.5 MG PO (08:51)
[2024-05-31] MEDS: ZESTRIL 40 MG PO (08:51)
[2024-05-31] MEDS: HEPARIN 5000 UNITS SC ×2 (08:51→21:07)
[2024-05-31 09:02] LABS: TSH 3.36 uIU/ml (0.47-4.68)
[2024-05-31 09:21] LABS: Vitamin B12 > 1000 pg/ml (239-931)
--- NOTE | 2024-05-31 10:27 | PTCARENOTE ---
HR decreased, 40's. Pt sleeping. made aware.
[2024-05-31 11:30] VITALS: BP 134/52
--- NOTE | 2024-05-31 13:10 | W.PN.HOSP.TC ---
Addendum entered and electronically signed by Antony Borjas MD 05/31/24 13:42:
I saw and evaluated the patient. I reviewed the resident�s note and agree with findings and plan as documented in the resident�s note.
Hypertensive urgency - discontinued
Multidrug resistant hypertension
Bradycardia
-Patient systolic blood pressure in 200-220 despite IV hydralazine/labetalol
-Continue as needed IV hydralazine for systolic blood pressure greater than 160
-Patient resumed on home blood pressure medication
-Patient blood pressure better controlled with change of Norvasc to Procardia
-Decreased dose of coreg as patient is asymptomatic bradycardic. will need to increase procardia if BP not controlled.
Recurrent fall
History of ambulatory dysfunction
-Patient denies of having any pre-dizziness/cardiac symptoms
-PT OT evaluated may benefit with SNF rehab , discussed with patient - who is agreeable for snf rehab
Chronic diastolic congestive heart failure
Moderate to severe asymmetric septal hypertrophy
-Have some lower extremity swelling
-No crackles/dyspnea/hypoxia
-Continue home dose of oral Lasix 40 mg daily for now
CKD stage IIIb
-Last known creatinine of 2 in December 18, today creatinine 2.2
-Follows with Dr. Cortes
Acute transaminitis - Trending down
-Liver/gallbladder showing cholelithiasis. Minimal gallbladder wall thickening. No CBD dilation
-LFT trended down, reason for elevation remains unclear although Tylenol versus possible passed stone situation
Cognitive changes
-spouse reported some ongoing problems with patient having good days. Have not been evaluated by neurology and recommended follow-up as patient potentially minimal dementia
- Test normal for B12/TSH/COVID/UA
-Patient mentation better with Zyprexa at night. Home dose of trazodone may have some added unwanted anticholinergic effect making patient confused during the daytime. This does not rule out any underlying cognitive impairment and will still need
to be evaluated by neurology
Full code
05/30 patient's spouse updated over the phone. All questions answered. Clarified to spouse that patient may have undiagnosed dementia with which spouse in agreement and will try to have patient follow-up with neurology. Patient also have problem
with recurrent fall and spouse likely not in a condition to help the patient although preferring for patient to go home rather than to a SNF rehab. Patient herself wants to go home as well.
Patient is medically stable and can be discharged to SNF rehab. Patient is agreeable for this
Original Note:
Today's Communication/Plan
-
Discharge pending bed placement
Assessment / Plan
Assessment / Plan
73-year-old female with past medical history of HTN, hypothyroidism, dermatomyositis, osteoarthritis, PE, atrial arrhythmia, hyperlipidemia, focal segmental glomerulosclerosis presents, LVH to ED due to recurrent falls. In the last 2 days she has
fallen 3 times. Blood pressure 227/104 in ED. She was given labetalol 10 mg x 2, hydralazine 10 mg x 1 however remains hypertensive. She had not taken her home meds this morning. She is being admitted for hypertensive urgency and transaminitis
with concurrent comorbidities.
#Hypertensive emergency
#Multi drug resistant HTN
-In ED blood pressure 227/104
-labetalol 10 mg x 2, hydralazine 10 mg x 1 however remains hypertensive
-home medications amlodipine 5 BID, benzapril 40, hydralizine 100 BID, carvidolol 12.5 BID and reevaluate
-Hydralazine PRN sbp >160
-Added nifedipine ER 30 BID and dc amlodipine 5 BID
-BP much better. Well controlled.
#Bradycardia
-Noted by nursing
-change carvedilol 12.5 BID to 6.25 BID
-Monitor
#Confusion
-Pt woke up very confused yesterday
-Unaware why she changed rooms and why we were taking care of her
-No acute lab abnormalities to explain change, no FND, no hx alcohol use
-Denies any weakness, numbness, tinging, URI symptoms
-dc trazodone as could have contributed
-UA, Covid and flu all (-)
-Resolved today after receiving olanzapine last night instead of trazodone
-Dc trazodone at discharge
#Transaminitis
-Takes on average close to 4g Tylenol daily
-Acetaminophen level less than 10
-Chronic pancreatitis noticed on abdominal MRI 05/09/2024 with gallstones
-Denies any abdominal pain, nausea, vomiting, diarrhea
-Right upper quadrant ultrasound reveals no evidence of acute cholecystitis
-LFTs downtrending
-Monitor CMP
#Fall
-Appears mechanical
-Head CT (-) for bleed, chest x-ray no signs of rib fracture, hip x-ray no fracture
-PT/OT
#Focal segmental glomerulosclerosis
#CKD stage 3b
-Creatinine at baseline
-Continue sodium bicarb
-Follows with Dr. Rooney
#Left ventricular hypertrophy/ HFpEF
#Atrial arrhythmia
-Echo on 09/13/2023 revealed diastolic dysfunction, septal hypertrophy, LVEF 55%
-Atrial tach versus flutter per Dr. Florence's note, patient not interested in anticoagulation, cont,
-Cont ASA 81, lasix, carvedilol
-Follows with Dr. Lane
#sleep difficulties
-dc trazodone
# Hypothyroidism
-Continue levothyroxine
# Hyperlipidemia
-Continue Zetia
# Osteoarthritis
# History of dermatomyositis 2011 stable
# History of PE follows with Dr. Arevalo
# History 1 cm pulmonary nodule
# Vitamin D deficiency
#Bilateral renal cysts
#Left lobe liver cyst
Full code
DVT heparin
Low-sodium diet
Pt agreeable to go to SNF today. She appears to be in a better mood. Ongoing discussions between CM, and pt.
Anticipated Discharge: Within 24 hours
Subjective/Interval History
-
Date of Service: May 31, 2024
Feeling much better than yesterday. Less groggy and in a good mood.
Objective Data
-
Labs:
Laboratory Results
05/31/24
07:45
WBC 4.8
Hgb 9.8 L
Hct 29.7 L
Plt Count 132 D
Sodium 141
Potassium 3.5
Chloride 113 H
Carbon Dioxide 21 L
BUN 46 H
Creatinine 2.3 H
Glucose 105 H
Calcium 8.4
Total Bilirubin 0.4
AST 27
ALT 94 H
Alkaline Phosphatase 94
Vital Signs:
Vital Signs
Temp Pulse Resp BP Pulse Ox
97.4 F 62 16 134/52 94
05/31/24 11:30 05/31/24 11:30 05/31/24 11:30 05/31/24 11:30 05/31/24 11:30
I&O
05/30/24 05/31/24 06/01/24
06:59 06:59 06:59
Intake Total 1060 / 1060
Output Total 400 / 400 300 / 300
Balance -400 / -400 760 / 760
Review of Systems
-
History Source: Patient
EENT: Reports No Symptoms Reported
Respiratory: Reports No Symptoms
Cardiac: Reports No Symptoms
Abdomen/GI: Reports No Symptoms
Genitourinary: Reports No Symptoms
Neuro: Reports No Symptoms
Physical Exam
-
General: No Apparent Distress and Comfortable
HEENT: Normocephalic
Respiratory: Clear to Auscultation
Cardiac: Regular Rhythm and S1/S2
GI: Soft, Nontender, Nondistended and Normal Bowel Sounds
Musculoskeletal: No Edema
Skin: Warm and Dry
Neuro: AO x 3
Psych: Calm
--- NOTE | 2024-05-31 13:48 | CM ---
Referral for [facility] confirmed for home care services via [facility].
[2024-05-31 15:32] VITALS: BP 124/52
--- NOTE | 2024-05-31 17:42 | SUR.PHASEI ---
Son informed this RN he is not comfortable with patient going home. made aware.
[2024-05-31 19:00] VITALS: BP 143/61
[2024-05-31] MEDS: COREG 6.25 MG PO (20:50)
[2024-05-31] MEDS: ZYPREXA 5 MG PO (22:29)
[2024-05-31 23:00] VITALS: BP 134/54
[2024-06-01] VITALS (8 sets, daily range): BP systolic 97–157; BP diastolic 50–99; PULSE 54; O2SAT 94–97; BMI 32.3
--- NOTE | 2024-06-01 04:19 | PTCARENOTE ---
Pt's HR consistenly dipping to 32-39 on tele monitor throughout shift. External medical summary stated 'Patient admits to snoring and EDS. Multiple risk factors suspicious for underlying OSAS. She never had a sleep study. She has declined testing'.
Pt denies sleep apnea and CPAP use. pt 94% on RA, placed on 2L and is 97%. LEGAL TECHNICIAN notified, O2 ordered. Plan of care ongoing.
[2024-06-01] MEDS: SYNTHROID 75 MCG PO (05:46)
[2024-06-01 06:40] LABS: Hematocrit 32.5 % (37.0-47.0); Hemoglobin 10.6 g/dL (12.0-16.0); Mean Corp Hgb Conc. 32.6 g/dL (33.0-37.0); Mean Corpuscular Hgb 30.8 pg (27.0-31.0); Mean Corpuscular Volume 94.5 fL (81.0-99.0); Mean Platelet Volume 11.3 fL (7.4-10.4); Platelet Count 170 10^3/uL (130-400); Red Blood Cell Count 3.44 10^6/uL (4.20-5.40); Red Cell Dist. Width 14.9 % (11.5-14.5); White Blood Cell Count 4.5 10^3/uL (4.8-10.8)
[2024-06-01 06:48] LABS: ALT (SGPT) 81 U/L (0-35); AST (SGOT) 22 U/L (14-36); Albumin 2.9 g/dl (3.5-5.0); Alkaline Phosphatase 97 U/L (38-126); Blood Urea Nitrogen 48 mg/dl (7-17); Calcium 8.6 mg/dl (8.4-10.2); Carbon Dioxide 23 mmol/L (22-30); Chloride 110 mmol/L (98-107); Estimated Creatinine Clearance 17 ml/min; Glucose 98 mg/dl (70-99); Potassium 3.8 mmol/L (3.5-5.1); Sodium 141 mmol/L (135-145); Total Bilirubin 0.4 mg/dl (0.2-1.3); Total Protein 4.8 g/dl (6.3-8.2)
[2024-06-01] MEDS: SODIUM BICARBONATE 1300 MG PO ×2 (08:38→20:44)
[2024-06-01] MEDS: PROCARDIA XL (EXTENDED RELEASE) 30 MG PO ×2 (08:38→20:43)
[2024-06-01] MEDS: ZETIA 10 MG PO (08:39)
[2024-06-01] MEDS: ASPIR LOW (ENTERIC COATED) 81 MG PO (08:39)
[2024-06-01] MEDS: COREG 6.25 MG PO (08:39)
[2024-06-01] MEDS: LASIX 40 MG PO (08:40)
[2024-06-01] MEDS: HEPARIN 5000 UNITS SC ×2 (08:40→20:41)
[2024-06-01] MEDS: ZESTRIL 40 MG PO (08:40)
[2024-06-01] MEDS: VITAMIN D3 (cholecalciferol) 50 MCG PO (08:40)
[2024-06-01] MEDS: APRESOLINE 100 MG PO ×2 (08:40→20:40)
[2024-06-01] MEDS: VITAMIN B-12 2000 MCG PO (08:40)
--- NOTE | 2024-06-01 08:56 | W.PN.HOSP.TC ---
Today's Communication/Plan
-
Hold lasix today - restart tmrw if cr good
dc carvidolol for low HR in 30s
Monitor BP - increase nifedipine dose if BP increases
Assessment / Plan
Assessment / Plan
73-year-old female with past medical history of HTN, hypothyroidism, dermatomyositis, osteoarthritis, PE, atrial arrhythmia, hyperlipidemia, focal segmental glomerulosclerosis presents, LVH to ED due to recurrent falls. In the last 2 days she has
fallen 3 times. Blood pressure 227/104 in ED. She was given labetalol 10 mg x 2, hydralazine 10 mg x 1 however remains hypertensive. She had not taken her home meds this morning. She is being admitted for hypertensive urgency and transaminitis
with concurrent comorbidities.
#Hypertensive emergency
#Multi drug resistant HTN
-In ED blood pressure 227/104
-labetalol 10 mg x 2, hydralazine 10 mg x 1 however remains hypertensive
-home medications amlodipine 5 BID, benzapril 40, hydralizine 100 BID, carvidolol 12.5 BID and reevaluate
-Hydralazine PRN sbp >160
-Added nifedipine ER 30 BID and dc amlodipine 5 BID
-BP much better. Well controlled.
#Bradycardia
-Noted by nursing
-change carvedilol 12.5 BID to 6.25 BID
-Overnight leah in the 30s, but no seg >3sec and asymptomatic
-dc carvedilol and monitor for BP changes
#Confusion
-Pt woke up very confused yesterday
-Unaware why she changed rooms and why we were taking care of her
-No acute lab abnormalities to explain change, no FND, no hx alcohol use
-Denies any weakness, numbness, tinging, URI symptoms
-dc trazodone as could have contributed
-UA, Covid and flu all (-)
-Resolved today after receiving olanzapine last night instead of trazodone
-Dc trazodone at discharge
-Consider outpatient neurology eval for underlying condition as pt appears to have moments where she is very with it, and others where she feels confused, although better on zyprexa.
#Transaminitis
-Takes on average close to 4g Tylenol daily
-Acetaminophen level less than 10
-Chronic pancreatitis noticed on abdominal MRI 05/09/2024 with gallstones
-Denies any abdominal pain, nausea, vomiting, diarrhea
-Right upper quadrant ultrasound reveals no evidence of acute cholecystitis
-LFTs downtrending
-Monitor CMP
#Fall
-Appears mechanical
-Head CT (-) for bleed, chest x-ray no signs of rib fracture, hip x-ray no fracture
-PT/OT
#Focal segmental glomerulosclerosis
#CKD stage 3b
-Creatinine slow trend upward - hold home lasix today and restart tmrw if cr okay
-Continue sodium bicarb
-Follows with Dr. Rooney
#Left ventricular hypertrophy/ HFpEF
#Atrial arrhythmia
-Echo on 09/13/2023 revealed diastolic dysfunction, septal hypertrophy, LVEF 55%
-Atrial tach versus flutter per Dr. Florence's note, patient not interested in anticoagulation, cont,
-Current EKG reveal junctional rhythm
-Cont ASA 81, lasix, carvedilol on hold for leah in 30s
-Follows with Dr. Lane
#sleep difficulties
-dc trazodone
# Hypothyroidism
-Continue levothyroxine
# Hyperlipidemia
-Continue Zetia
# Osteoarthritis
# History of dermatomyositis 2010 stable
# History of PE follows with Dr. Arevalo
# History 1 cm pulmonary nodule
# Vitamin D deficiency
#Bilateral renal cysts
#Left lobe liver cyst
Full code
DVT heparin
Low-sodium diet
Pt agreeable to go to SNF today. She appears to be in a better mood. Will go to SNF when bed available.
Anticipated Discharge: Within 24 hours
Subjective/Interval History
-
Date of Service: June 01, 2024
Objective Data
-
Labs:
Laboratory Results
06/01/24
04:50
WBC 4.5 L
Hgb 10.6 L
Hct 32.5 L
Plt Count 170 D
Sodium 141
Potassium 3.8
Chloride 110 H
Carbon Dioxide 23
BUN 48 H
Creatinine 2.5 H
Glucose 98
Calcium 8.6
Total Bilirubin 0.4
AST 22
ALT 81 H
Alkaline Phosphatase 97
Vital Signs:
Vital Signs
Temp Pulse Resp BP Pulse Ox
98.2 F 64 18 149/57 96
06/01/24 08:46 06/01/24 08:46 06/01/24 08:46 06/01/24 08:46 06/01/24 08:46
I&O
05/31/24 06/01/24 06/02/24
06:59 06:59 06:59
Intake Total 1060 / 1060 1380 / 1380
Output Total 300 / 300
Balance 760 / 760 1380 / 1380
Review of Systems
-
History Source: Patient
Constitutional: Reports No Symptoms
EENT: Reports No Symptoms Reported
Respiratory: Reports No Symptoms
Cardiac: Reports No Symptoms
Abdomen/GI: Reports No Symptoms
Musculoskeletal: Reports Other (Slight bilateral lower rib pain)
Neuro: Reports No Symptoms
Physical Exam
-
General: No Apparent Distress and Comfortable
HEENT: Normocephalic
Respiratory: Clear to Auscultation
Cardiac: Regular Rhythm and S1/S2
GI: Soft, Nontender, Nondistended and Normal Bowel Sounds
Musculoskeletal: No Edema and Other (Tenderness with palpation of bilateral lower ribs where pt fell)
Skin: Warm and Dry
Neuro: AO x 3
Psych: Calm
--- NOTE | 2024-06-01 11:08 | CM ---
CM following re: d/c planning.
CM met with pt and spouse at bedside.
At this time, they would like to proceed with SNF.
PT/OT will see pt for updated recs/notes.
Pt's spouse has been to [facility] and pt interested in this one, as well as [facility].
She is agreeable to other local referrals also.
[facility]s [facility], awaiting bed offers.
--- NOTE | 2024-06-01 12:12 | W.PN.UPDATE ---
Update Note
Progress Note Update
I saw and evaluated the patient. I reviewed the resident�s note and agree with findings and plan as documented in the resident�s note.
Hypertensive urgency - discontinued
Multidrug resistant hypertension
Bradycardia -asymptomatic
-Patient systolic blood pressure in 200-220 despite IV hydralazine/labetalol
-Continue as needed IV hydralazine for systolic blood pressure greater than 160
-Patient resumed on home blood pressure medication
-Patient blood pressure better controlled with change of Norvasc to Procardia.
-Continues to remains bradycardic in the night, discontinue coreg. will require dose escalation on other medication.
Recurrent fall
History of ambulatory dysfunction
-Patient denies of having any pre-dizziness/cardiac symptoms
-PT OT evaluated may benefit with SNF rehab , discussed with patient - who is agreeable for snf rehab
Chronic diastolic congestive heart failure
Moderate to severe asymmetric septal hypertrophy
-Have some lower extremity swelling
-No crackles/dyspnea/hypoxia
-Continue home dose of oral Lasix 40 mg daily for now
CKD stage IIIb
-Last known creatinine of 2 in December 18, today creatinine 2.2
-Follows with Dr. Cortes
Acute transaminitis - Trending down
-Liver/gallbladder showing cholelithiasis. Minimal gallbladder wall thickening. No CBD dilation
-LFT trended down, reason for elevation remains unclear although Tylenol versus possible passed stone situation
Cognitive changes
-spouse reported some ongoing problems with patient having good days. Have not been evaluated by neurology and recommended follow-up as patient potentially minimal dementia
-Test normal for B12/TSH/COVID/UA
-Patient mentation better with Zyprexa at night. Home dose of trazodone may have some added unwanted anticholinergic effect making patient confused during the daytime. This does not rule out any underlying cognitive impairment and will still need
to be evaluated by neurology outpatient.
Full code
05/30 patient's spouse updated over the phone. All questions answered. Clarified to spouse that patient may have undiagnosed dementia with which spouse in agreement and will try to have patient follow-up with neurology. Patient also have problem
with recurrent fall and spouse likely not in a condition to help the patient although preferring for patient to go home rather than to a SNF rehab. Patient herself wants to go home as well.
4/6 patient's family is agreeable to rehab at this point. Discussed with patient persistent bradycardia will need to monitor tonight and likely rehab early as tomorrow will be possible
[2024-06-01] MEDS: ZYPREXA 5 MG PO (22:14)
[2024-06-02 03:00] VITALS: BP 143/64
[2024-06-02] MEDS: SYNTHROID 75 MCG PO (05:48)
[2024-06-02 06:00] VITALS: BMI 31.9
[2024-06-02 06:51] LABS: Hematocrit 37.7 % (37.0-47.0); Hemoglobin 12.1 g/dL (12.0-16.0); Mean Corp Hgb Conc. 32.1 g/dL (33.0-37.0); Mean Corpuscular Hgb 30.9 pg (27.0-31.0); Mean Corpuscular Volume 96.4 fL (81.0-99.0); Mean Platelet Volume 11.1 fL (7.4-10.4); Platelet Count 227 10^3/uL (130-400); Red Blood Cell Count 3.91 10^6/uL (4.20-5.40); Red Cell Dist. Width 14.9 % (11.5-14.5); White Blood Cell Count 6.3 10^3/uL (4.8-10.8)
[2024-06-02 07:00] VITALS: BP 147/75
[2024-06-02 07:06] LABS: ALT (SGPT) 73 U/L (0-35); AST (SGOT) 21 U/L (14-36); Albumin 3.9 g/dl (3.5-5.0); Alkaline Phosphatase 108 U/L (38-126); Blood Urea Nitrogen 52 mg/dl (7-17); Calcium 9.4 mg/dl (8.4-10.2); Carbon Dioxide 24 mmol/L (22-30); Chloride 106 mmol/L (98-107); Estimated Creatinine Clearance 16 ml/min; Glucose 117 mg/dl (70-99); Potassium 4.2 mmol/L (3.5-5.1); Sodium 140 mmol/L (135-145); Total Bilirubin 0.6 mg/dl (0.2-1.3); Total Protein 5.9 g/dl (6.3-8.2); eGFR 18.32
[2024-06-02] MEDS: VITAMIN B-12 2000 MCG PO (07:49)
[2024-06-02] MEDS: ZETIA 10 MG PO (07:49)
[2024-06-02] MEDS: ZESTRIL 40 MG PO (07:49)
[2024-06-02] MEDS: ASPIR LOW (ENTERIC COATED) 81 MG PO (07:49)
[2024-06-02] MEDS: PROCARDIA XL (EXTENDED RELEASE) 30 MG PO ×2 (07:49→22:03)
[2024-06-02] MEDS: VITAMIN D3 (cholecalciferol) 50 MCG PO (07:49)
[2024-06-02] MEDS: HEPARIN 5000 UNITS SC ×2 (07:50→21:58)
[2024-06-02] MEDS: SODIUM BICARBONATE 1300 MG PO ×2 (07:50→21:59)
[2024-06-02] MEDS: APRESOLINE 100 MG PO ×2 (07:50→21:58)
--- NOTE | 2024-06-02 09:01 | W.PN.HOSP.TC ---
Addendum entered and electronically signed by Alonso Brandt MD 06/02/24 23:27:
Attending Addendum-
I saw and evaluated the patient. I reviewed the resident�s note and agree with findings and plan as documented in the resident�s note. Sub: seen with and son present. Feels weak urinating as usual. Was confused yesterday per son. 'I wanna
know whats going on' Full 12 point ROS reviewed and negative except as documented Exam: Vitals reviewed in chart GEN-NAD heart RRR lungs clear abd soft LE no missael Neuro AAO x 3
#Hypertensive emergency/TME
#Multi drug resistant HTN
-In ED blood pressure 227/104
-home medications amlodipine 5 BID, benzapril 40, hydralizine 100 BID, carvidolol 12.5 BID
-cont nifedipine hydralazine and lisinopril
-BP much better. Well controlled.
#Bradycardia
-dc carvedilol and monitor for BP changes
#TME from HTN Emergency
- waxing and waning
- possibly underlying dementia
-dc trazodone as could have contributed
-UA, Covid and flu all (-)
-cont new zypreza for now - not sleeping well
-Dc trazodone at discharge
-Consider outpatient neurology eval
#Transaminitis
-Takes on average close to 4g Tylenol daily
-Acetaminophen level less than 10
-Chronic pancreatitis noticed on abdominal MRI 05/09/2024 with gallstones
-Right upper quadrant ultrasound reveals no evidence of acute cholecystitis
-LFTs downtrending
-Monitor CMP
#Fall
-Appears mechanical
-Head CT (-) for bleed, chest x-ray no signs of rib fracture, hip x-ray no fracture
-PT/OT
#Focal segmental glomerulosclerosis
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
-Creatinine slow trend upward
-baseline @ 2.3
-Continue sodium bicarb
-Follows with Dr. Rooney
- c/s nephro for eval
#Left ventricular hypertrophy/ HFpEF
#Atrial arrhythmia
-Echo on 09/13/2023 revealed diastolic dysfunction, septal hypertrophy, LVEF 55%
-Atrial tach versus flutter, patient not interested in anticoagulation
-Cont ASA 81, lasix, carvedilol on hold for leah in 30s
-Follows with Dr. Lane
#sleep difficulties
-dc trazodone
- zyprexa should help
- start melatonin
# Hypothyroidism
-Continue levothyroxine
# Hyperlipidemia
-Continue Zetia
# Osteoarthritis
# History of dermatomyositis 2010 stable
# History of PE follows with Dr. Arevalo
# History 1 cm pulmonary nodule
# Vitamin D deficiency
#Bilateral renal cysts
#Left lobe liver cyst
Full code
DVT heparin
Low-sodium diet
Pt agreeable to go to SNF
Dispo DC to [facility] in am
Time spent coordinating care, review of plan of care with resident, personally reviewed records in EMR, med rec, consults, notes, labs, radiology, d/w nursing son and � 55 mins
Original Note:
Today's Communication/Plan
-
Dc planning
Assessment / Plan
Assessment / Plan
73-year-old female with history of HTN, hypothyroidism, dermatomyositis, osteoarthritis, PE, atrial arrhythmia, hyperlipidemia, focal segmental glomerulosclerosis, LVH presented with mechanical falls and hypertensive urgency (BP 227/104 on arrival).
#Hypertensive urgency
#Multi drug resistant HTN
227/104 on presentation, persistently high after labetalol and hydralazine.
Now better controlled after home Amlodipine 5mg BID was switched to Nifedipine 30mg BID
-continue home meds Benazepril (Lisinopril per formulary), hydralazine
-Continue hydralazine PRN sbp >160 - has not required in last 4 days
-Coreg discontinued for nocturnal bradycardia, BP and HR remains stable
#Recurrent falls:
Mechanical. Patient denies any prodromal symptoms. Known history of ambulatory dysfunction
CT head, CXR, hip xray with no evidence of trauma
-PT/OT eval with recs for SNF. Pt and family in agreement
#Cognitive changes:
Family reports some intermittent confusion at home although they state she appears more confused while admitted. reports that she has gotten lost in very familiar places and near her home. Pt with intermittent confusion here. Concern for
significant dementia.
CT head with no acute abnormality. B12/TSH/COVID/UA all normal
-Trazodone discontinued for potential contribution but confusion recurrent. Likely baseline dementia with hospital stay contributory.
-Continue Zyprexa HS
-Dc trazodone at discharge
-Recommend outpatient neurology eval
#Transaminitis
-Unclear cause. Tylenol use vs passed stone vs other cause. Took on average close to 4g Tylenol daily for headache, tylenol level <10 on arrival.
-Avoid acetaminophen with elevated transaminases
-Chronic pancreatitis noticed on abdominal MRI 05/09/2024 with gallstones. RUQ US showed no evidence of acute cholecystitis
-Denies any GI symptoms
-LFTs downtrending, Monitor CMP
#Focal segmental glomerulosclerosis
#CKD stage 4
-appreciate nephro recs
-Cr 2.6 not far from baseline of 2 in February.
-Continue holding lasix. Follow BMP
-Follows with Dr. Rooney, outpt follow up upon discharge. To undergo modality training
#Left ventricular hypertrophy/ HFpEF
#Atrial arrhythmia
-Echo on 09/13/2023 revealed diastolic dysfunction, septal hypertrophy, LVEF 55%
-Atrial tach versus flutter per Dr. Florence's note, patient not interested in anticoagulation, cont,
-Current EKG reveal junctional rhythm
-Cont ASA 81, lasix, carvedilol discontinued for leah in 30s
#sleep difficulties
-dc trazodone
# Hypothyroidism
-Continue levothyroxine
# Hyperlipidemia
-Continue Zetia
# Osteoarthritis
# History of dermatomyositis 2010 stable
# History of PE follows with Dr. Arevalo
# History 1 cm pulmonary nodule
# Vitamin D deficiency
#Bilateral renal cysts
#Left lobe liver cyst
Full code
DVT heparin
Low-sodium diet
Dispo: SNF
Anticipated Discharge: Within 24 hours
Subjective/Interval History
-
Date of Service: June 02, 2024
No acute events overnight
Pt offered no complaints today
Son reports months of forgetfulness and some confusion. Family states confusion 'never as bad as this'. does report that she gets lost in very familiar places, including her neighborhood.
Objective Data
-
Labs:
Laboratory Results
06/02/24
06:04
WBC 6.3
Hgb 12.1
Hct 37.7
Plt Count 227 D
Sodium 140
Potassium 4.2
Chloride 106
Carbon Dioxide 24
BUN 52 H
Creatinine 2.6 H
Glucose 117 H
Calcium 9.4
Total Bilirubin 0.6
AST 21
ALT 73 H
Alkaline Phosphatase 108
Vital Signs:
Vital Signs
Temp Pulse Resp BP Pulse Ox
97.5 F 71 16 147/75 97
06/02/24 07:00 06/02/24 07:00 06/02/24 07:00 06/02/24 07:00 06/02/24 07:00
I&O
06/01/24 06/02/24 06/03/24
06:59 06:59 06:59
Intake Total 1380 / 1380 720 / 720
Balance 1380 / 1380 720 / 720
Review of Systems
-
History Source: Patient
Respiratory: Denies Trouble Breathing
Cardiac: Denies Chest Pain
Abdomen/GI: Denies Nausea, Vomiting, Diarrhea or Constipated
Genitourinary: Denies Dysuria or Difficulty Voiding
Neuro: Denies Dizzy or Headache
Physical Exam
-
General: Well Developed, Well Nourished, No Apparent Distress and Comfortable
HEENT: Normocephalic, Atraumatic and Moist Mucous Membranes
Respiratory: Clear to Auscultation and Non Labored Respirations; Negative Wheezes, Rales, Rhonchi or Crackles
Cardiac: Regular Rhythm and S1/S2; Negative Murmur, Rub or Calf Tenderness
GI: Soft, Nontender, Nondistended and Normal Bowel Sounds
Musculoskeletal: Edema, Right Lower Extrem (mild), Edema, Left Lower Extrem (mild) and Other
Skin: Warm and Dry
Psych: Confused
--- NOTE | 2024-06-02 12:51 | CM ---
Patient seen at bedside with and son
Referrals in [facility] accepted, family agreeable
no preauth needed
PLAN: [facility], pending bed availability
family to transport
--- NOTE | 2024-06-02 12:52 | WOUNDNOTE ---
[facility] RN NOTE: Reviewed chart and met with patient. [facility] RN consult received for stage 2 of sacrum. No open wound noted at this time. Heels intact. Patient reports continence at home. Patient stood with minimal assistance. She is on a [facility]
bed. She reports good appetite and is awaiting placement. Will sign off.
--- NOTE | 2024-06-02 15:07 | W.CON.NEPH ---
Consultation
-
Date/Time Consultation Requested: 06/02/2024 2 PM
Date/Time Consultation Performed: 06/02/2024 3 PM
Requesting Provider: Dr. Borjas
Performing Provider: Dr. Allen
Reason for Consultation: CKD 4
Medical History
-
Chief Complaint: CKD 4
History of Present Illness:
This is a 78-year-old female who is well-known to Dr. Rooney who has CKD 4 with baseline creatinine running approximately 2.3 up to 2.6. She has biopsy-proven secondary focal segmental glomerulosclerosis, likely due to longstanding hypertension.
She also has proteinuria subnephrotic less than 1 g/day. Her hypertension is significant and currently controlled with a multidrug regimen though she was admitted with hypertensive urgency. This was ultimately corrected with adjustment of her
medications. She has metabolic acidosis which is controlled with bicarbonate therapy. Her last visit in our office was February of this year. It was recommended at that time that she undergo modality training though she never did. Creatinine at
the time of admission was 2. 2 and has risen slowly up to 2.6
Past Medical History
Hypertension, hyperlipidemia, hypothyroidism, dermatomyositis, left ventricular hypertrophy, osteoarthritis, history of PE, atrial arrhythmia, secondary focal segmental glomerulosclerosis, subnephrotic proteinuria, spinal stenosis surgery, bilateral
knee replacement
Social History
Tobacco: Non-Smoker
Alcohol: Occasional
Family History
Family History: Not Pertinent
Allergies / Home Medications
Allergy/AdvReac Type Severity Reaction Status Date / Time
No Known Allergies Allergy Verified 05/28/24 13:45
�Medication �Instructions �Recorded �Confirmed �Type
trazodone 50 mg tablet 50 mg PO HSPRN PRN sleep 01/30/20 05/28/24 History
amlodipine 5 mg tablet (Norvasc) 5 mg PO BID Blood Pressure 09/15/20 05/28/24 History
benazepril 40 mg tablet 40 mg PO DAILY Blood Pressure 09/15/20 05/28/24 History
cholecalciferol (vitamin D3) 50 50 mcg PO DAILY Supplement 09/15/20 05/28/24 History
mcg (2,000 unit) tablet (Vitamin
D3)
cyanocobalamin (vitamin B-12) 2,000 mcg PO DAILY Supplement 09/15/20 05/28/24 History
1,000 mcg tablet
furosemide 40 mg tablet (Lasix) 40 mg PO DAILY Fluid 09/15/20 05/28/24 History
Retention/Swelling
coQ10 (ubiquinol) 200 mg capsule 400 mg PO DAILY Supplement 09/15/21 05/28/24 History
(CoQmax Ubiquinol)
ezetimibe 10 mg tablet (Zetia) 10 mg PO DAILY High Cholesterol 09/15/21 05/28/24 History
acetaminophen 650 mg 1,300 mg PO Q8HPRN PRN mild 05/28/24 05/28/24 History
tablet,extended release (Tylenol 8 pain/fever
Hour)
albuterol sulfate 90 mcg/actuation 2 puff inhalation R Q6HPRN PRN 05/28/24 05/28/24 History
aerosol inhaler shortness of breath or wheezing
aspirin 81 mg tablet,delayed 81 mg PO DAILY Blood Clot 05/28/24 05/28/24 History
release Prevention/Tx
carvedilol 12.5 mg tablet 12.5 mg PO BID Blood Pressure 05/28/24 05/28/24 History
hydralazine 100 mg tablet 100 mg PO BID Blood Pressure 05/28/24 05/28/24 History
levothyroxine 75 mcg tablet 75 mcg PO DAILY Thyroid 05/28/24 05/28/24 History
mometasone 0.1 % topical cream 1 applic topical DAILYPRN PRN 05/28/24 05/28/24 History
itching ear
sodium bicarbonate 650 mg tablet 1,300 mg PO BID Electrolyte 05/28/24 05/28/24 History
Repletion
Review of Systems
-
No chest pain or shortness of breath
All other systems: Negative unless noted
Physical Exam
Vital Signs
Vital Signs
Temp Pulse Resp BP Pulse Ox
97.5 F 71 16 147/75 97
06/02/24 07:00 06/02/24 07:00 06/02/24 07:00 06/02/24 07:00 06/02/24 08:30
Lab Results
WBC 6.3 10^3/uL (4.8-10.8) 06/02/24 06:04
RBC 3.91 10^6/uL (4.20-5.40) L 06/02/24 06:04
Hgb 12.1 g/dL (12.0-16.0) 06/02/24 06:04
Hct 37.7 % (37.0-47.0) 06/02/24 06:04
Plt Count 227 10^3/uL (130-400) D 06/02/24 06:04
Sodium 140 mmol/L (135-145) 06/02/24 06:04
Potassium 4.2 mmol/L (3.5-5.1) 06/02/24 06:04
Chloride 106 mmol/L (98-107) 06/02/24 06:04
Carbon Dioxide 24 mmol/L (22-30) 06/02/24 06:04
BUN 52 mg/dl (7-17) H 06/02/24 06:04
Creatinine 2.6 mg/dL (0.6-1.0) H 06/02/24 06:04
eGFR 18.32 06/02/24 06:04
Glucose 117 mg/dl (70-99) H 06/02/24 06:04
Calcium 9.4 mg/dl (8.4-10.2) 06/02/24 06:04
Albumin 3.9 g/dl (3.5-5.0) 06/02/24 06:04
Laboratory Tests
12/04/22 05/28/24
14:18 14:49
Creatinine 2.0 H 2.2 H
Physical Exam
Patient is awake alert oriented and in no distress. Mood and affect were pleasant, insight and judgment were good. Pupils are equal round and reactive to light, extraocular movements are intact, sclera were anicteric. Hearing was normal, ears and
nose are intact. Oropharynx was clear. Neck was supple with trachea midline and no thyromegaly. Heart was regular rate and rhythm without rubs. Lower extremities without edema. Lungs were clear to auscultation bilaterally and with normal
excursion. Abdomen was soft, nontender, with normal active bowel sounds, and no hepatosplenomegaly. Skin was without rash and with normal turgor.
Data Reviewed
-
Radiology: Image Personally Visualized and interpreted (Chest x-ray 06-20 by my reading shows no acute disease)
Ultrasound: Report Reviewed by me (Abdominal ultrasound 05/29/2024 right kidney 11.6 cm, left kidney 10.9 cm no hydronephrosis)
Medical Tests (Nuc Med, Echo etc): Image Personally Visualized and interpreted (EKG 05/31/2024 by my reading shows a flutter LVH repolarization abnormality, prolonged QT)
Assessment/Plan
-
Assessment
CKD 4 progressive
Biopsy-proven secondary glomerulosclerosis
Hypertension
Metabolic acidosis
Heart failure preserved ejection fraction compensated
Plan
I discussed with the patient as well as the family at length. Her overall creatinine trend currently is not grossly unusual from her past.
We will follow her basic metabolic panel at this time to ensure that it is not continuing to climb further. If it is lisinopril will need to be discontinued
I discussed with her again regarding long-term management of her CKD. She will need to undergo modality training and I have emphasized this again.
We also discussed dialysis and she suggested that she would except dialysis should it be required in the future.
There is currently no objection to rehab placement at this time
[2024-06-02 15:09] VITALS: BP 135/65
[2024-06-02 19:00] VITALS: BP 177/65
[2024-06-02] MEDS: MELATONIN 5 MG PO (22:00)
[2024-06-02] MEDS: ZYPREXA 5 MG PO (22:00)
[2024-06-02 23:00] VITALS: BP 119/81
[2024-06-03 03:00] VITALS: BP 129/51
[2024-06-03 06:00] VITALS: BMI 32.3
[2024-06-03] MEDS: SYNTHROID 75 MCG PO (06:29)
[2024-06-03 06:56] LABS: Blood Urea Nitrogen 59 mg/dl (7-17); Calcium 8.4 mg/dl (8.4-10.2); Carbon Dioxide 25 mmol/L (22-30); Chloride 109 mmol/L (98-107); Estimated Creatinine Clearance 15 ml/min; Glucose 98 mg/dl (70-99); Sodium 141 mmol/L (135-145); eGFR 16.76
[2024-06-03 07:30] VITALS: BP 173/64
[2024-06-03] MEDS: ZETIA 10 MG PO (08:47)
[2024-06-03] MEDS: ASPIR LOW (ENTERIC COATED) 81 MG PO (08:48)
[2024-06-03] MEDS: VITAMIN D3 (cholecalciferol) 50 MCG PO (08:48)
[2024-06-03] MEDS: PROCARDIA XL (EXTENDED RELEASE) 30 MG PO ×2 (08:48→21:55)
[2024-06-03] MEDS: SODIUM BICARBONATE 1300 MG PO ×2 (08:48→21:56)
[2024-06-03] MEDS: VITAMIN B-12 2000 MCG PO (08:49)
[2024-06-03] MEDS: APRESOLINE 100 MG PO ×2 (08:49→21:57)
[2024-06-03] MEDS: ZESTRIL 40 MG PO (08:49)
[2024-06-03] MEDS: HEPARIN 5000 UNITS SC ×2 (08:53→21:57)
--- NOTE | 2024-06-03 10:06 | W.PN.HOSP.TC ---
Addendum entered and electronically signed by Alonso Brandt MD 06/03/24 22:18:
Attending Addendum-
I saw and evaluated the patient. I reviewed the resident�s note and agree with findings and plan as documented in the resident�s note. Sub: seen with present. Feels weak urinating as usual. complains if left sided rib pain. No CP Full 12
point ROS reviewed and negative except as documented Exam: Vitals reviewed in chart GEN-NAD heart RRR lungs clear abd soft LE +2 pitting edema B/L Neuro AAO x 3 MSK- TTP left side of lower ribcage
Plan:
#Hypertensive emergency/TME
#Multi drug resistant HTN
-In ED blood pressure 227/104
-home medications amlodipine, benzapril, hydralazine, carvedilol
-cont nifedipine hydralazine
-BP starting to increase-CTM adjust as able
#Bradycardia
-dc carvedilol and monitor for BP changes
#TME from HTN Emergency
- waxing and waning
- possibly underlying dementia
- dc trazodone
- cont new zypreza for now - not sleeping well
- Dc trazodone at discharge
- Consider outpatient neurology eval
#Transaminitis
-Takes on average close to 4g Tylenol daily
-Right upper quadrant ultrasound reveals no evidence of acute cholecystitis
-LFTs downtrending
-Monitor CMP in am
#Fall
-Appears mechanical
-Head CT (-) for bleed, chest x-ray, hip x-ray no fracture
-check cxr
-PT/OT
#Focal segmental glomerulosclerosis
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
-Creatinine trending upward
-baseline @ 2.3
-Continue sodium bicarb
-Follows with Dr. Rooney
-nephro on boards- patient amenable to HD if required
#Left ventricular hypertrophy/ HFpEF
#Atrial arrhythmia
-Echo on 09/13/2023 revealed diastolic dysfunction, septal hypertrophy, LVEF 55%
-Atrial tach versus flutter, patient not interested in anticoagulation
-Cont ASA 81
-check BNP
-lasix on hold due to ZAIRE, carvedilol on hold for leah in 30s
-Follows with Dr. Lane
#sleep difficulties
- dc trazodone
- zyprexa should help
- start melatonin
# Hypothyroidism
-Continue levothyroxine
# Hyperlipidemia
-Continue Zetia
# Osteoarthritis
# History of dermatomyositis 2010 stable
# History of PE follows with Dr. Arevalo
# History 1 cm pulmonary nodule
# Vitamin D deficiency
# Bilateral renal cysts
# Left lobe liver cyst
Full code
DVT heparin
Low-sodium diet
Pt agreeable to go to SNF
Dispo DC to [facility] when medically stable
Time spent coordinating care, review of plan of care with resident, personally reviewed records in EMR, med rec, consults, notes, labs, radiology, d/w nursing � 54 mins
Original Note:
Today's Communication/Plan
-
Hold lisinopril. Monitor BMP
Assessment / Plan
Assessment / Plan
73-year-old female with history of HTN, hypothyroidism, dermatomyositis, osteoarthritis, PE, atrial arrhythmia, hyperlipidemia, focal segmental glomerulosclerosis, LVH presented with mechanical falls and hypertensive urgency (BP 227/104 on arrival).
#Hypertensive urgency
#Multi drug resistant HTN
227/104 on presentation, persistently high after labetalol and hydralazine.
Now better controlled after home Amlodipine 5mg BID was switched to Nifedipine 30mg BID
-holding lisopril for worsening kidney function. Continue hydralazine BID
-Continue hydralazine PRN sbp >160
-Coreg discontinued for nocturnal bradycardia, HR remains stable
#Recurrent falls:
Mechanical. Patient denies any prodromal symptoms. Known history of ambulatory dysfunction
CT head, CXR, hip xray with no acute findings.
Patient complained of bilateral rib pain L>R, Rib xray showed old rib fractures with questionable L anterior 7th rib fracture.
-Incentive spirometry, lidocaine patch
-PT/OT eval with recs for SNF. Pt and family in agreement
#Cognitive changes:
Family reports some intermittent confusion at home although they state she appears more confused while admitted. reports that she has gotten lost in very familiar places and near her home. Pt with intermittent confusion here. Concern for
significant dementia.
CT head with no acute abnormality. B12/TSH/COVID/UA all normal
-Trazodone discontinued for potential contribution but confusion recurrent. Likely baseline dementia with hospital stay contributory.
-Continue Zyprexa HS
-Dc trazodone at discharge
-Recommend outpatient neurology eval
#Transaminitis
-Unclear cause. Tylenol use vs passed stone vs other cause. Took on average close to 4g Tylenol daily for headache, tylenol level <10 on arrival.
-Avoid acetaminophen with elevated transaminases
-Chronic pancreatitis noticed on abdominal MRI 05/09/2024 with gallstones. RUQ US showed no evidence of acute cholecystitis
-Denies any GI symptoms
-LFTs downtrending, Monitor CMP
#Focal segmental glomerulosclerosis
#CKD stage 4, progressive
-appreciate nephro recs
-Cr 2.6 with slow uptrend
-Continue holding lasix. hold Lisinopril. Follow BMP
-Follows with Dr. Rooney, outpt follow up upon discharge. To undergo modality training
#Left ventricular hypertrophy/ HFpEF
#Atrial arrhythmia
-Echo on 09/13/2023 revealed diastolic dysfunction, septal hypertrophy, LVEF 55%
-Atrial tach versus flutter, patient not interested in anticoagulation
-Cont ASA 81, lasix, carvedilol discontinued for leah in 30s
-Follows with Dr. Lane
#sleep difficulties
-dc trazodone
-Continue melatonin
Zyprexa HS should help
# Hypothyroidism
-Continue levothyroxine
# Hyperlipidemia
-Continue Zetia
# Osteoarthritis
# History of dermatomyositis 2010 stable
# History of PE follows with Dr. Arevalo
# History 1 cm pulmonary nodule
# Vitamin D deficiency
#Bilateral renal cysts
#Left lobe liver cyst
Full code
DVT heparin
Low-sodium diet
Dispo: SNF
Anticipated Discharge: Within 24 hours
Subjective/Interval History
-
Date of Service: June 03, 2024
Complains of left rib pain
Objective Data
-
Labs:
Laboratory Results
06/03/24
05:59
Sodium 141
Potassium 4.0
Chloride 109 H
Carbon Dioxide 25
BUN 59 H
Creatinine 2.8 H
Glucose 98
Calcium 8.4
Vital Signs:
Vital Signs
Temp Pulse Resp BP Pulse Ox
97.4 F 76 18 173/64 97
06/03/24 07:30 06/03/24 07:30 06/03/24 07:30 06/03/24 08:48 06/03/24 07:30
I&O
06/02/24 06/03/24 06/04/24
06:59 06:59 06:59
Intake Total 720 / 720 480 / 480
Balance 720 / 720 480 / 480
Review of Systems
-
History Source: Patient
EENT: Denies Blurry Vision
Respiratory: Denies Trouble Breathing
Cardiac: Denies Chest Pain
Abdomen/GI: Denies Abdominal Pain, Nausea, Vomiting, Diarrhea or Constipated
Genitourinary: Denies Dysuria or Difficulty Voiding
Musculoskeletal: Reports Other (left rib pain)
Neuro: Denies Headache
Physical Exam
-
General: Well Developed, Well Nourished, No Apparent Distress and Comfortable
HEENT: Normocephalic, Atraumatic, Moist Mucous Membranes and Anicteric
Respiratory: Clear to Auscultation and Non Labored Respirations; Negative Wheezes, Rales, Rhonchi or Crackles
Cardiac: Regular Rhythm and S1/S2
GI: Soft, Nontender, Nondistended and Normal Bowel Sounds
Musculoskeletal: No Clubbing, No Cyanosis, Edema, Right Lower Extrem, Edema, Left Lower Extrem and Other (Bilateral anterolateral rib pain L>R)
Skin: Warm and Dry
Neuro: Awake, Alert and Oriented
Psych: Calm
--- NOTE | 2024-06-03 10:09 | W.PN.NEPH.PH ---
Today's Communication / Plan
-
follow BMP
Assessment/Plan
-
Assessment
CKD 4 progressive
Biopsy-proven secondary glomerulosclerosis
Hypertension
Metabolic acidosis
Heart failure preserved ejection fraction compensated
Plan
hold lisinopril
follow BMP
d/w son. she seems to be sundowning. he has concerns about her competency as the is not able to manage anything at home (finances especially).
recommended that he seek POA. CM can offer assistance if able.
I discussed with her again regarding long-term management of her CKD. She will need to undergo modality training and I have emphasized this again.
We also discussed dialysis and she suggested that she would accept dialysis should it be required in the future.
There is currently no objection to rehab placement at this time
-
-
Date of Service: June 03, 2024
CC / HPI / ROS
-
Chief Complaint:
ZAIRE
History of Present Illness:
ZAIRE/Cr up to 2.8
BP stable high
confused at night
Review of Systems:
rib pain
no SOB
Labs
-
Labs:
WBC 6.3 10^3/uL (4.8-10.8) 06/02/24 06:04
RBC 3.91 10^6/uL (4.20-5.40) L 06/02/24 06:04
Hgb 12.1 g/dL (12.0-16.0) 06/02/24 06:04
Hct 37.7 % (37.0-47.0) 06/02/24 06:04
Plt Count 227 10^3/uL (130-400) D 06/02/24 06:04
Sodium 141 mmol/L (135-145) 06/03/24 05:59
Potassium 4.0 mmol/L (3.5-5.1) 06/03/24 05:59
Chloride 109 mmol/L (98-107) H 06/03/24 05:59
Carbon Dioxide 25 mmol/L (22-30) 06/03/24 05:59
BUN 59 mg/dl (7-17) H 06/03/24 05:59
Creatinine 2.8 mg/dL (0.6-1.0) H 06/03/24 05:59
eGFR 16.76 06/03/24 05:59
Glucose 98 mg/dl (70-99) 06/03/24 05:59
Calcium 8.4 mg/dl (8.4-10.2) 06/03/24 05:59
Albumin 3.9 g/dl (3.5-5.0) 06/02/24 06:04
Physical Exam
-
Vital Signs:
Vital Signs
Temp Pulse Resp BP Pulse Ox
97.4 F 76 18 173/64 97
06/03/24 07:30 06/03/24 07:30 06/03/24 07:30 06/03/24 08:48 06/03/24 07:30
Cardiovascular:: Regular rate and rhythm
Respiratory:: Bilateral: CTA
Lung Excursion:: Normal
Abdomen:: Nontender and Soft
Bowel Sounds:: Normal
Extremity Edema:: +1: Bilateral:
[2024-06-03] MEDS: LIDOCAINE 4% PATCH 1 PATCH TOPICAL (10:51)
--- NOTE | 2024-06-03 11:03 | CM ---
Met with son.
Requested information regarding [facility] glide. ([employer] number provided)
Called Mer at [facility] regarding bed availability, she will get back to CM
tt hospitalist
IMM explained & signed. In chart
PLAN: [facility] SNF, pending bed availaibility
--- NOTE | 2024-06-03 15:20 | PTCARENOTE ---
this am notified [facility] resident as patient c/o left rib pain intermittently with moving/coughing/deep breaths. she ordered Lidocaine patch and x-ray. x-ray report findings are negative for acute rib fracture. patient asleep currently,
vss, will continue to monitor.
[2024-06-03 15:30] VITALS: BP 141/52
[2024-06-03 19:30] VITALS: BP 176/63
[2024-06-03] MEDS: ZYPREXA 5 MG PO (21:56)
[2024-06-03] MEDS: MELATONIN 5 MG PO (21:56)
[2024-06-03 22:12] LABS: Glucose - Point of Care 199 mg/dl (70-99)
[2024-06-03 23:10] VITALS: BP 162/54
[2024-06-04 03:44] VITALS: BP 153/53
[2024-06-04 04:44] VITALS: BMI 32.9
[2024-06-04] MEDS: SYNTHROID 75 MCG PO (05:37)
[2024-06-04 06:41] LABS: NT-proBNP 14400 pg/ml
[2024-06-04 06:44] LABS: ALT (SGPT) 42 U/L (0-35); AST (SGOT) 18 U/L (14-36); Albumin 3.1 g/dl (3.5-5.0); Alkaline Phosphatase 94 U/L (38-126); Blood Urea Nitrogen 65 mg/dl (7-17); Calcium 8.8 mg/dl (8.4-10.2); Carbon Dioxide 25 mmol/L (22-30); Chloride 108 mmol/L (98-107); Direct Bilirubin 0.3 mg/dl (0.0-0.4); Estimated Creatinine Clearance 16 ml/min; Glucose 108 mg/dl (70-99); Potassium 4.2 mmol/L (3.5-5.1); Sodium 142 mmol/L (135-145); Total Bilirubin 0.5 mg/dl (0.2-1.3); Total Protein 5.1 g/dl (6.3-8.2); eGFR 17.51
[2024-06-04 07:24] VITALS: BP 157/72
[2024-06-04] MEDS: VITAMIN D3 (cholecalciferol) 50 MCG PO (08:55)
[2024-06-04] MEDS: SODIUM BICARBONATE 1300 MG PO (08:55)
[2024-06-04] MEDS: PROCARDIA XL (EXTENDED RELEASE) 30 MG PO (08:55)
[2024-06-04] MEDS: VITAMIN B-12 2000 MCG PO (08:55)
[2024-06-04] MEDS: ASPIR LOW (ENTERIC COATED) 81 MG PO (08:55)
[2024-06-04] MEDS: HEPARIN 5000 UNITS SC (08:55)
[2024-06-04] MEDS: ZETIA 10 MG PO (08:56)
[2024-06-04] MEDS: APRESOLINE 100 MG PO (08:56)
[2024-06-04] MEDS: LIDOCAINE 4% PATCH TOPICAL ×2 (08:56→09:02)
[2024-06-04 11:03] VITALS: BP 143/60
--- NOTE | 2024-06-04 11:36 | CM ---
Spoke with Mer at [facility]
bed available today
tt hospitalist
IMM signed yesterday
PLAN: [facility]
Report #: [phone]
Fax #: [phone]
to transport at 3:30 - notified [facility]
--- NOTE | 2024-06-04 13:20 | W.PN.NEPH.PH ---
Today's Communication / Plan
-
ok for d/c
f/u labs
Assessment/Plan
-
Assessment
CKD 4 progressive
Biopsy-proven secondary glomerulosclerosis
Hypertension
Metabolic acidosis
Heart failure preserved ejection fraction compensated
Plan
cr stable at 2.7
BP stable with adjustment,
holding ACEI -may need to resume based on renal function and proteinuria
Need labs Sunday or Sunday at [facility]
ok for d/c
d/w pt
d/w primary
f/u Dr Rooney
Dr Allen d/w son on 06/03. she seems to be . he has concerns about her competency as the is not able to manage anything at home (finances especially). recommended that he seek POA. CM can offer assistance if able.
discussed with her again regarding long-term management of her CKD. She will need to undergo modality training and I have emphasized this again.
We also discussed dialysis and she suggested that she would accept dialysis should it be required in the future.
-
-
Date of Service: June 04, 2024
CC / HPI / ROS
-
Chief Complaint:
ZAIRE
History of Present Illness:
ZAIRE/Cr stable 2.7
BP stable high
confused from baseline
Review of Systems:
no cp
no SOB
Labs
-
Labs:
WBC 6.3 10^3/uL (4.8-10.8) 06/02/24 06:04
RBC 3.91 10^6/uL (4.20-5.40) L 06/02/24 06:04
Hgb 12.1 g/dL (12.0-16.0) 06/02/24 06:04
Hct 37.7 % (37.0-47.0) 06/02/24 06:04
Plt Count 227 10^3/uL (130-400) D 06/02/24 06:04
Sodium 142 mmol/L (135-145) 06/04/24 05:50
Potassium 4.2 mmol/L (3.5-5.1) 06/04/24 05:50
Chloride 108 mmol/L (98-107) H 06/04/24 05:50
Carbon Dioxide 25 mmol/L (22-30) 06/04/24 05:50
BUN 65 mg/dl (7-17) H 06/04/24 05:50
Creatinine 2.7 mg/dL (0.6-1.0) H 06/04/24 05:50
eGFR 17.51 06/04/24 05:50
Glucose 108 mg/dl (70-99) H 06/04/24 05:50
Calcium 8.8 mg/dl (8.4-10.2) 06/04/24 05:50
Qai-Y-Tdszcrymrkq Pept 83895 pg/ml 06/04/24 05:50
Albumin 3.1 g/dl (3.5-5.0) L 06/04/24 05:50
Physical Exam
-
Vital Signs:
Vital Signs
Temp Pulse Resp BP Pulse Ox
97.6 F 64 17 143/60 97
06/04/24 11:03 06/04/24 11:03 06/04/24 11:03 06/04/24 11:03 06/04/24 11:03
Cardiovascular:: Regular rate and rhythm
Respiratory:: Bilateral: CTA
Lung Excursion:: Normal
Abdomen:: Nontender and Soft
Bowel Sounds:: Normal
Extremity Edema:: +1: Bilateral:
Richards Catheter: No
[2024-06-04 15:07] VITALS: BP 153/62
--- NOTE | 2024-06-04 16:56 | W.PN.HOSP.TC ---
Addendum entered and electronically signed by Alonso Brandt MD 06/04/24 23:21:
Attending Addendum-
I saw and evaluated the patient. I reviewed the resident�s note and agree with findings and plan as documented in the resident�s note. Sub: seen with present 'i feel pretty good'. Full 12 point ROS reviewed and negative except as documented
Exam: Vitals reviewed in chart GEN-NAD heart RRR lungs clear abd soft LE +2 pitting edema B/L Neuro AAO x 3 MSK- TTP left side of lower ribcage
Plan:
#Hypertensive emergency/TME
#Multi drug resistant HTN
-In ED blood pressure 227/104
-home medications amlodipine, benzapril, hydralazine, carvedilol
-cont nifedipine hydralazine
-BP starting to increase-CTM adjust as able
- d/w nephro restart lisinopril
#Bradycardia
-dc carvedilol and monitor for BP changes
#TME from HTN Emergency
- waxing and waning
- possibly underlying dementia
- dc'd trazodone
- cont new zypreza for now
- Consider outpatient neurology eval
#Transaminitis
-Takes on average close to 4g Tylenol daily
-Right upper quadrant ultrasound reveals no evidence of acute cholecystitis
-LFTs downtrending
-Monitor CMP in am
#Fall/rib fx
-Appears mechanical
-Head CT (-) for bleed, chest x-ray, hip x-ray no fracture
-PT/OT
#Focal segmental glomerulosclerosis
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
-Creatinine trending down
-baseline @ 2.3
-Continue sodium bicarb
-Follows with Dr. Ambrocio
-nephro on board- patient amenable to HD if required
#Left ventricular hypertrophy/ HFpEF
#Atrial arrhythmia
-Echo on 09/13/2023 revealed diastolic dysfunction, septal hypertrophy, LVEF 55%
-Atrial tach versus flutter, patient not interested in anticoagulation
-Cont ASA 81
-check BNP
-lasix on hold due to ZAIRE, carvedilol on hold for leah in 30s
-Follows with Dr. Lane
#sleep difficulties
- dc trazodone
- zyprexa should help
- start melatonin
# Hypothyroidism
-Continue levothyroxine
# Hyperlipidemia
-Continue Zetia
# Osteoarthritis
# History of dermatomyositis 2010 stable
# History of PE follows with Dr. Arevalo
# History 1 cm pulmonary nodule
# Vitamin D deficiency
# Bilateral renal cysts
# Left lobe liver cyst
Full code
DVT heparin
Low-sodium diet
Pt agreeable to go to SNF
Dispo DC to [place]
Time spent coordinating care, DC planning, review of DC plan of care with resident, transition of care, review of records, med rec/scripts sent electronically, consults, notes, d/w consultants, nursing, family, and CM� 35 mins
Original Note:
Today's Communication/Plan
-
DC planning
Assessment / Plan
Assessment / Plan
73-year-old female with history of HTN, hypothyroidism, dermatomyositis, osteoarthritis, PE, atrial arrhythmia, hyperlipidemia, focal segmental glomerulosclerosis, LVH presented with mechanical falls and hypertensive urgency (BP 227/104 on arrival).
#Hypertensive emergency
#Multi drug resistant HTN
227/104 on presentation, persistently high after labetalol and hydralazine.
Now better controlled after home Amlodipine 5mg BID was switched to Nifedipine 30mg BID
-holding lisopril for worsening kidney function. Continue hydralazine BID
-Continue hydralazine PRN sbp >160
-Coreg discontinued for nocturnal bradycardia, HR remains stable
#Recurrent falls:
Mechanical. Patient denies any prodromal symptoms. Known history of ambulatory dysfunction
CT head, CXR, hip xray with no acute findings.
Patient complained of bilateral rib pain L>R, Rib xray showed old rib fractures with questionable L anterior 7th rib fracture.
-Incentive spirometry, lidocaine patch
-PT/OT eval with recs for SNF. Pt and family in agreement
#Cognitive changes:
#TME from hypertensive emergency
Family reports some intermittent confusion at home although they state she appears more confused while admitted. Visit with Dr. ambrocio a few months ago with normal mentation noted.
reports that she has gotten lost in familiar places. There is concern for underlying dementia.
CT head with no acute abnormality. B12/TSH/COVID/UA all normal
-Trazodone discontinued for potential contribution but confusion recurrent. Likely baseline dementia with hospital stay contributory.
-Continue Zyprexa HS
-Dc trazodone at discharge
-Recommend outpatient neurology eval
#Transaminitis
-Unclear cause. Tylenol use vs passed stone vs other cause. Took on average close to 4g Tylenol daily for headache, tylenol level <10 on arrival.
-Avoid excessive acetaminophen with elevated transaminases
-Chronic pancreatitis noticed on abdominal MRI 05/09/2024 with gallstones. RUQ US showed no evidence of acute cholecystitis
-Denies any GI symptoms
-LFTs downtrending
#Focal segmental glomerulosclerosis
#CKD stage 4, progressive
-appreciate nephro recs
-Cr 2.7 today
-Continue holding lasix. hold Lisinopril. Follow BMP in 2-5 days upon discharge
-Follows with Dr. Ambrocio, outpt follow up upon discharge. To undergo modality training
#Left ventricular hypertrophy/ HFpEF
#Atrial arrhythmia
-Echo on 09/13/2023 revealed diastolic dysfunction, septal hypertrophy, LVEF 55%
-Atrial tach versus flutter, patient not interested in anticoagulation
-Cont ASA, continue lasix upon DC, carvedilol discontinued for leah in 30s
-Follows with Dr. Lane
#sleep difficulties
-dc trazodone since ineffective for sleep
-Continue melatonin
-Zyprexa HS should help
# Hypothyroidism
-Continue levothyroxine
# Hyperlipidemia
-Continue Zetia
# Osteoarthritis
# History of dermatomyositis 2010 stable
# History of PE follows with Dr. Arevalo
# History 1 cm pulmonary nodule
# Vitamin D deficiency
#Bilateral renal cysts
#Left lobe liver cyst
Full code
DVT heparin
Low-sodium diet
Dispo: SNF
Anticipated Discharge: Today
Subjective/Interval History
-
Date of Service: June 04, 2024
Objective Data
-
Labs:
Laboratory Results
06/04/24
05:50
Sodium 142
Potassium 4.2
Chloride 108 H
Carbon Dioxide 25
BUN 65 H
Creatinine 2.7 H
Glucose 108 H
Calcium 8.8
Total Bilirubin 0.5
AST 18
ALT 42 H
Alkaline Phosphatase 94
Vital Signs:
Vital Signs
Temp Pulse Resp BP Pulse Ox
97.4 F 65 16 153/62 98
06/04/24 15:07 06/04/24 15:07 06/04/24 15:07 06/04/24 15:07 06/04/24 15:07
I&O
06/03/24 06/04/24 06/05/24
06:59 06:59 06:59
Intake Total 480 / 480 1200 / 1200
Balance 480 / 480 1200 / 1200
Review of Systems
-
History Source: Patient
Respiratory: Denies Trouble Breathing
Cardiac: Denies Chest Pain
Abdomen/GI: Denies Abdominal Pain, Nausea or Vomiting
Genitourinary: Reports Other; Denies Dysuria or Difficulty Voiding
Musculoskeletal: Reports Edema and Other (right anterior rib pain)
Neuro: Denies Headache
Physical Exam
-
General: Well Developed, Well Nourished, No Apparent Distress and Comfortable
HEENT: Normocephalic, Atraumatic, Moist Mucous Membranes and Anicteric
Respiratory: Clear to Auscultation and Non Labored Respirations; Negative Wheezes, Rales, Rhonchi or Crackles
Cardiac: Regular Rhythm and S1/S2; Negative Murmur
GI: Soft, Nontender, Nondistended and Normal Bowel Sounds
Musculoskeletal: Edema, Right Lower Extrem and Edema, Left Lower Extrem
Skin: Warm and Dry
Neuro: Awake and Alert
Psych: Confused
--- NOTE | 2024-06-04 20:55 | W.DCSUMMARY ---
Addendum entered and electronically signed by Alonso Brandt MD 06/04/24 23:22:
Read, reviewed, and agree. See same day progress note for additional details. error on med rec- Coreg to be dc'd- d/w accepting facility
Vipul Brandt MD
Original Note:
Documented by User: Elizabeth Church MD, Resident 06/04/24 21:41
Discharge Summary
Discharge Data
Date of Admission: 05/28/24
Date of Discharge: 06/04/24
-
Pending Results: No
Hospital Course
Discharging Physician : Elizabeth Church MD., Alonso Brandt MD.
Disposition : SNF
Primary care physician : Osei Hay DO.
Principal Discharge diagnosis : Hypertensive emergency, multidrug resistant hypertension, hypertensive encephalopathy, falls, bradycardia, transaminitis, fall, ZAIRE on CKD 4, left anterior seventh rib fracture
Chronic Discharge diagnosis : Focal segmental glomerular sclerosis, HFpEF, atrial arrhythmia, left ventricular hypertrophy hypothyroidism, hyperlipidemia, osteoarthritis, history of dermatomyositis, history of pulmonary embolism, insomnia
Hospital Course :
73-year-old female with above past medical history who presents with hypertensive emergency, confusion, and multiple falls within the prior 2 days. She denied any headache chest pain shortness of breath or prodromal symptoms. In the ED, blood
pressure 227/104, heart rate 76, respiratory rate 22, afebrile, 99% on room air. AST 193, ALT 322, alk phos 134, Cr 2.2, BUN 42. Head CT, chest x-ray, hip x-ray all inconclusive for acute cause of fall. Hip x-ray revealed severe osteoarthritis. In
ED, she was given labetalol 10 mg x 2 and hydralazine 10 mg x 1, however hypertension persisted.
Initially home antihypertensives were continued including amlodipine 5 mg twice daily, Benzapril 40mg (Lisinopril hospital formulary), hydralazine 100 mg twice daily, carvedilol 12.5mg twice daily. However, with continuously elevated blood
pressures, amlodipine was switched to nifedipine 30 mg twice daily with significant improvement in blood pressures. As needed IV hydralazine for breakthrough hypertension was added. Unfortunately kidney function started to worsen with elevated
creatinine noted, and lasix was held. Creatinine continued to trend slowly upwards from 2.2 on arrival to 2.8 at time of discharge. She is known to our nephrology group, and creatinine elevation was noted to not be grossly unusual from her past.
Recurrent falls at home were deemed mechanical given no history of prodromal symptoms and known history of ambulatory dysfunction. PT/OT evaluation was done with recommendations for discharge to SNF. Patient and family was in agreement.
She did have intermittent confusion during her stay. While family noted intermittent confusion at home, states confusion was worse while admitted. Mental status change potentially related to hypertensive emergency in context of potential
underlying dementia.
She complained of left anterior rib pain, with rib x-ray showing questionable acute fracture in left anterior seventh rib. Lidocaine patch was applied for pain, and incentive spirometer prescribed. She was also prescribed 2.5 mg oxycodone as
needed for pain upon discharge.
Trazodone which she takes for insomnia was discontinued as it has been ineffective, and Zyprexa at bedtime was started for nighttime confusion, with melatonin added to aid sleep.
Other chronic home medications were continued as appropriate. Lasix was continued upon discharge.
She was deemed stable for discharge to [facility] with recommendations to:
- Monitor blood pressure, with potential adjustment to nifedipine dosing (currently at 30 mg twice daily)
- Repeat BMP in 2 to 5 days
- Monitor urine output for oliguria/anuria
- Outpatient nephrology follow-up with Dr. Rooney
- Outpatient neurology follow-up given concern for underlying dementia
- PCP follow-up shortly
Important imaging findings :
Bilateral hip x-ray 05/28/24:
No acute fracture or dislocation. Severe osteoarthrosis of the left hip.
Chest x-ray 05/28/24:
No acute cardiopulmonary process.
Head CT 05/28/24:
Moderate age-related parenchymal atrophy. No intra- or extra-axial mass, hemorrhage, or fluid collection. Moderate subcortical, deep, and periventricular white matter low-attenuation, compatible with changes of chronic small vessel ischemic disease.
The imaged paranasal sinuses and mastoid air cells are clear. No acute intracranial abnormality.
Abdomen ultrasound 05/29/24:
Single shadowing gallstone is identified. Gallbladder wall appears slightly thickened with no evidence of pericholecystic edema and negative sonographic Smart's sign. There is no evidence for biliary ductal dilation.
Bilateral rib x-ray 06/03/2024:
Findings suggesting multiple bilateral old rib fractures. No definitive acute fractures are noted. An acute fracture of the anterior right seventh rib is questioned on one view. Clinical correlation recommended.
Discharge Plan
-
Patient Disposition: Retirement/SNF
Discharge Diagnosis/Procedures: Hypertensive urgency, elevated transaminases, recurrent falls, cognitive impairment
Condition: Good
Diet: As tolerated
Activity: No restrictions
Driving Restrictions: No driving
Bathing Restrictions: None
Blood Work: BMP within 5 days
Referrals:
Aditya Patrick MD [Active] - in three to four weeks
Osei Hay DO [Family Provider] - in less than 1 week
Prescriptions:
New
nifedipine 30 mg Tablet Extended Release
30 mg PO BID 30 Days Qty: 0 0RF
olanzapine 5 mg Tablet
5 mg PO HS Qty: 30 0RF
lidocaine 4 % Adhesive Patch,Medicated
1 patch topical DAILY Qty: 0 0RF
melatonin 5 mg Tablet
5 mg PO HS Qty: 0 0RF
oxycodone 5 mg tablet
2.5 mg PO Q6H PRN (Reason: severe pain) Qty: 12 0RF
Continued
furosemide [Lasix] 40 MG tablet
40 mg PO DAILY
cyanocobalamin (vitamin B-12) 1,000 MCG tablet
2,000 mcg PO DAILY
benazepril 40 MG tablet
40 mg PO DAILY
cholecalciferol (vitamin D3) [Vitamin D3] 50 mcg (2,000 unit) Tablet
50 mcg PO DAILY
ezetimibe [Zetia] 10 mg Tablet
10 mg PO DAILY
CoQmax Ubiquinol 200 mg Capsule
400 mg PO DAILY
carvedilol 12.5 mg Tablet
12.5 mg PO BID
aspirin 81 mg Tablet,Delayed Release (Dr/Ec)
81 mg PO DAILY
levothyroxine 75 mcg Tablet
75 mcg PO DAILY
sodium bicarbonate 650 mg Tablet
1,300 mg PO BID
hydralazine 100 mg Tablet
100 mg PO BID
mometasone 0.1 % Cream
1 applic TOPICAL DAILYPRN PRN (Reason: itching ear)
albuterol sulfate 90 mcg/actuation HFA aerosol inhaler
2 puff inhalation R Q6HPRN PRN (Reason: shortness of breath or wheezing)
Changed
acetaminophen [Tylenol 8 Hour] 650 mg Tablet Extended Release
650 mg PO Q8HPRN PRN (Reason: mild pain/fever) Qty: 0 0RF
Discontinued
trazodone 50 MG tablet
50 mg PO HSPRN PRN (Reason: sleep)
amlodipine [Norvasc] 5 MG tablet
5 mg PO BID
Discharge Orders:
Discharge Patient (As Directed); Ordered 06/04/24
Ordered By: Elizabeth Church
Discharge Date and Time
Discharge Date/Time: 06/04/24 15:26
Print Language: ALBANIAN

Documented by User: Alonso Brandt MD 06/04/24 23:14
Discharge Summary
Discharge Data
Date of Admission: 05/28/24
Date of Discharge: 06/04/24
Discharge Plan
-
Patient Disposition: Retirement/SNF
Discharge Diagnosis/Procedures: Hypertensive urgency, elevated transaminases, recurrent falls, cognitive impairment
Condition: Good
Diet: As tolerated
Activity: No restrictions
Driving Restrictions: No driving
Bathing Restrictions: None
Blood Work: BMP within 5 days
Referrals:
Aditya Patrick MD [Active] - in three to four weeks
Osei Hay DO [Family Provider] - in less than 1 week
Prescriptions:
New
nifedipine 30 mg Tablet Extended Release
30 mg PO BID 30 Days Qty: 0 0RF
olanzapine 5 mg Tablet
5 mg PO HS Qty: 30 0RF
lidocaine 4 % Adhesive Patch,Medicated
1 patch topical DAILY Qty: 0 0RF
melatonin 5 mg Tablet
5 mg PO HS Qty: 0 0RF
oxycodone 5 mg tablet
2.5 mg PO Q6H PRN (Reason: severe pain) Qty: 12 0RF
Continued
furosemide [Lasix] 40 MG tablet
40 mg PO DAILY
cyanocobalamin (vitamin B-12) 1,000 MCG tablet
2,000 mcg PO DAILY
benazepril 40 MG tablet
40 mg PO DAILY
cholecalciferol (vitamin D3) [Vitamin D3] 50 mcg (2,000 unit) Tablet
50 mcg PO DAILY
ezetimibe [Zetia] 10 mg Tablet
10 mg PO DAILY
CoQmax Ubiquinol 200 mg Capsule
400 mg PO DAILY
carvedilol 12.5 mg Tablet
12.5 mg PO BID
aspirin 81 mg Tablet,Delayed Release (Dr/Ec)
81 mg PO DAILY
levothyroxine 75 mcg Tablet
75 mcg PO DAILY
sodium bicarbonate 650 mg Tablet
1,300 mg PO BID
hydralazine 100 mg Tablet
100 mg PO BID
mometasone 0.1 % Cream
1 applic TOPICAL DAILYPRN PRN (Reason: itching ear)
albuterol sulfate 90 mcg/actuation HFA aerosol inhaler
2 puff inhalation R Q6HPRN PRN (Reason: shortness of breath or wheezing)
Changed
acetaminophen [Tylenol 8 Hour] 650 mg Tablet Extended Release
650 mg PO Q8HPRN PRN (Reason: mild pain/fever) Qty: 0 0RF
Discontinued
trazodone 50 MG tablet
50 mg PO HSPRN PRN (Reason: sleep)
amlodipine [Norvasc] 5 MG tablet
5 mg PO BID
Discharge Orders:
Discharge Patient (As Directed); Ordered 06/04/24
Ordered By: Elizabeth Church
Discharge Date and Time
Discharge Date/Time: 06/04/24 15:26
Print Language: ALBANIAN
== END 2024-06-04 15:26 | DRG 305 ==
LOC: 3 WEST ACU 18:14
PROVIDERS: Physician Assistant; Student in an Organized Health Care Education/Training Program; ADMITTING PHYSICIAN Hospitalist; ATTENDING PHYSICIAN Family Medicine; EMERGENCY PHYSICIAN Emergency Medicine; FAMILY PHYSICIAN Family Medicine; OTHER PHYSICIAN Specialist
DX: I16.1 Hypertensive emergency (principal); N18.4 Chronic kidney disease, stage 4 (severe); I50.32 Chronic diastolic (congestive) heart failure; E87.20 Acidosis, unspecified; K86.1 Other chronic pancreatitis; E03.9 Hypothyroidism, unspecified; E78.00 Pure hypercholesterolemia, unspecified; I13.0 Hypertensive heart and chronic kidney disease with heart failure and stage 1 through stage 4 chronic kidney disease, or unspecified chronic kidney disease; E55.9 Vitamin D deficiency, unspecified; G47.00 Insomnia, unspecified; Z79.82 Long term (current) use of aspirin; Z79.899 Other long term (current) drug therapy; Z86.711 Personal history of pulmonary embolism; Z91.81 History of falling; Z96.653 Presence of artificial knee joint, bilateral
CPT/HCPCS: 70450; 71046; 71111; 73502; 76700; 80048; 80053; 80143; 81003; 81015; 82248; 82607; 82962; 83690; 83880; 84443; 85025; 85027; 85610; 86803; 87502; 87811; 93005; 96374; 96375; 97116; 97162; 97167; 97530; 99285

== ENCOUNTER → 2024-06-06 11:25 | Outpatient (REF) | payer OTHER, MEDICARE, SELFPAY ==
[2024-06-06 12:12] LABS: % Basophils 0.7 % (0-2); % Eosinophils 2.9 % (0-6); % Immature Granulocytes 0.7 % (0-0.5); % Lymphocytes 30.9 % (20.5-51.1); % Monocytes 11.3 % (1.7-9.3); % Neutrophils 53.5 % (42.2-75.2); Absolute Eosinophils 0.1 10^3/uL (0-0.7); Absolute Lymphocytes 1.4 10^3/uL (1.2-3.4); Absolute Monocytes 0.5 10^3/uL (0.1-0.6); Absolute Neutrophils 2.4 10^3/uL (1.4-6.5); Hematocrit 31.5 % (37.0-47.0); Mean Corp Hgb Conc. 31.7 g/dL (33.0-37.0); Mean Corpuscular Hgb 30.9 pg (27.0-31.0); Mean Corpuscular Volume 97.2 fL (81.0-99.0); Mean Platelet Volume 11.5 fL (7.4-10.4); Nucleated Red Blood Cells % 0 %; Platelet Count 244 10^3/uL (130-400); Red Blood Cell Count 3.24 10^6/uL (4.20-5.40); Red Cell Dist. Width 14.4 % (11.5-14.5); White Blood Cell Count 4.4 10^3/uL (4.8-10.8)
[2024-06-06 12:31] LABS: Blood Urea Nitrogen 74 mg/dl (7-17); Calcium 9.2 mg/dl (8.4-10.2); Carbon Dioxide 27 mmol/L (22-30); Chloride 106 mmol/L (98-107); Glucose 97 mg/dl (70-99); Sodium 140 mmol/L (135-145); eGFR 17.51
== END ==
LOC: OLABP 11:25
PROVIDERS: ATTENDING PHYSICIAN Family Medicine
DX: I16.1 Hypertensive emergency (principal); R41.0 Disorientation, unspecified; R00.1 Bradycardia, unspecified; N26.9 Renal sclerosis, unspecified
CPT/HCPCS: 36415; 80048; 85025

== ENCOUNTER → 2024-06-07 08:45 | Outpatient (REF) | payer OTHER, MEDICARE, SELFPAY ==
[2024-06-07 10:01] LABS: Urine Albumin 3+ (Neg - Trace); Urine Bilirubin Negative (Negative); Urine Character Clear (Clear); Urine Color Yellow; Urine Glucose Negative (Negative); Urine Ketone Negative (Negative); Urine Leukocyte Negative (Negative); Urine Nitrite Negative (Negative); Urine Occult Blood Negative (Negative); Urine Specific Gravity 1.015 (<1.030); Urine Urobilinogen Negative (Neg - 1+)
[2024-06-07 10:50] LABS: Urine Bacteria Few (Negative); Urine Red Blood Cell 0-2 /HPF (0-2); Urine Squamous Cell 0-2 /LPF (Few)
== END ==
LOC: OLABP 08:45
PROVIDERS: ATTENDING PHYSICIAN Family Medicine
DX: I16.1 Hypertensive emergency (principal); R00.1 Bradycardia, unspecified; R41.0 Disorientation, unspecified; N26.9 Renal sclerosis, unspecified; K86.1 Other chronic pancreatitis; I10 Essential (primary) hypertension; R74.01 Elevation of levels of liver transaminase levels; N18.4 Chronic kidney disease, stage 4 (severe); I50.9 Heart failure, unspecified
CPT/HCPCS: 81003; 81015; 87086

== ENCOUNTER → 2024-06-11 11:58 | Outpatient (REF) | payer OTHER, MEDICARE, SELFPAY ==
[2024-06-11 13:00] LABS: ALT (SGPT) 21 U/L (0-35); AST (SGOT) 18 U/L (14-36); Albumin 2.9 g/dl (3.5-5.0); Alkaline Phosphatase 89 U/L (38-126); Blood Urea Nitrogen 92 mg/dl (7-17); Calcium 8.3 mg/dl (8.4-10.2); Carbon Dioxide 22 mmol/L (22-30); Chloride 106 mmol/L (98-107); Glucose 87 mg/dl (70-99); Potassium 5.7 mmol/L (3.5-5.1); Sodium 137 mmol/L (135-145); Total Bilirubin 0.3 mg/dl (0.2-1.3); Total Protein 4.7 g/dl (6.3-8.2); eGFR 14.28
== END ==
LOC: OLABP 11:58
PROVIDERS: ATTENDING PHYSICIAN Family Medicine
DX: I50.9 Heart failure, unspecified (principal); N18.4 Chronic kidney disease, stage 4 (severe); I16.1 Hypertensive emergency; R00.1 Bradycardia, unspecified; R41.0 Disorientation, unspecified; N26.9 Renal sclerosis, unspecified; K86.1 Other chronic pancreatitis; R74.01 Elevation of levels of liver transaminase levels
CPT/HCPCS: 36415; 80053

== ENCOUNTER → 2024-06-13 11:30 | Outpatient (REF) | payer OTHER, MEDICARE, SELFPAY ==
[2024-06-13 12:56] LABS: Blood Urea Nitrogen 85 mg/dl (7-17); Calcium 8.5 mg/dl (8.4-10.2); Carbon Dioxide 23 mmol/L (22-30); Chloride 105 mmol/L (98-107); Glucose 85 mg/dl (70-99); Potassium 4.9 mmol/L (3.5-5.1); Sodium 142 mmol/L (135-145); eGFR 12.82
== END ==
LOC: OLABP 11:30
PROVIDERS: ATTENDING PHYSICIAN Family Medicine
DX: I16.1 Hypertensive emergency (principal); R00.1 Bradycardia, unspecified; R41.0 Disorientation, unspecified; N26.9 Renal sclerosis, unspecified; K86.1 Other chronic pancreatitis; I10 Essential (primary) hypertension; R74.01 Elevation of levels of liver transaminase levels; N18.4 Chronic kidney disease, stage 4 (severe); I50.9 Heart failure, unspecified
CPT/HCPCS: 36415; 80048

== ENCOUNTER → 2024-06-16 11:21 | Outpatient (REF) | payer OTHER, MEDICARE, SELFPAY ==
[2024-06-16 12:49] LABS: Blood Urea Nitrogen 81 mg/dl (7-17); Calcium 8.5 mg/dl (8.4-10.2); Carbon Dioxide 21 mmol/L (22-30); Chloride 109 mmol/L (98-107); Glucose 87 mg/dl (70-99); Potassium 5.1 mmol/L (3.5-5.1); Sodium 140 mmol/L (135-145); eGFR 12.82
== END ==
LOC: OLABP 11:21
PROVIDERS: ATTENDING PHYSICIAN Family Medicine
DX: I16.1 Hypertensive emergency (principal); R00.1 Bradycardia, unspecified; R41.0 Disorientation, unspecified; N26.9 Renal sclerosis, unspecified; K86.1 Other chronic pancreatitis; I10 Essential (primary) hypertension; R74.01 Elevation of levels of liver transaminase levels; N18.4 Chronic kidney disease, stage 4 (severe); I50.9 Heart failure, unspecified
CPT/HCPCS: 36415; 80048

== ENCOUNTER → 2024-06-19 12:27 | Outpatient (REF) | payer OTHER, MEDICARE, SELFPAY ==
[2024-06-19 13:48] LABS: Blood Urea Nitrogen 74 mg/dl (7-17); Calcium 8.5 mg/dl (8.4-10.2); Carbon Dioxide 18 mmol/L (22-30); Chloride 109 mmol/L (98-107); Glucose 87 mg/dl (70-99); Potassium 4.6 mmol/L (3.5-5.1); Sodium 141 mmol/L (135-145); eGFR 15.43
== END ==
LOC: OLABP 12:27
PROVIDERS: ATTENDING PHYSICIAN Family Medicine
DX: I16.1 Hypertensive emergency (principal); R00.1 Bradycardia, unspecified; R41.0 Disorientation, unspecified; N26.9 Renal sclerosis, unspecified; K86.1 Other chronic pancreatitis; I10 Essential (primary) hypertension; R74.01 Elevation of levels of liver transaminase levels; N18.4 Chronic kidney disease, stage 4 (severe); I50.9 Heart failure, unspecified
CPT/HCPCS: 36415; 80048

== ENCOUNTER → 2024-06-20 10:32 | Outpatient (REF) | payer OTHER, MEDICARE, SELFPAY ==
[2024-06-20 11:39] LABS: Blood Urea Nitrogen 71 mg/dl (7-17); Calcium 8.9 mg/dl (8.4-10.2); Carbon Dioxide 21 mmol/L (22-30); Chloride 110 mmol/L (98-107); Glucose 103 mg/dl (70-99); Potassium 4.5 mmol/L (3.5-5.1); Sodium 143 mmol/L (135-145); eGFR 14.83
== END ==
LOC: OLABP 10:32
PROVIDERS: ATTENDING PHYSICIAN Family Medicine
DX: I16.1 Hypertensive emergency (principal); R00.1 Bradycardia, unspecified; R41.0 Disorientation, unspecified; N26.9 Renal sclerosis, unspecified; K86.1 Other chronic pancreatitis; I10 Essential (primary) hypertension; R74.01 Elevation of levels of liver transaminase levels; N18.4 Chronic kidney disease, stage 4 (severe); I50.9 Heart failure, unspecified
CPT/HCPCS: 36415; 80048

== ENCOUNTER 2024-07-02 15:52 | Emergency (ER) | payer MEDICARE, OTHER, SELFPAY ==
[2024-07-02] VITALS (9 sets, daily range): BP systolic 161–231; BP diastolic 59–153; BMI 33.2
[2024-07-02 16:29] LABS: % Basophils 1.1 % (0-2); % Eosinophils 2.3 % (0-6); % Immature Granulocytes 0.4 % (0-0.5); % Lymphocytes 15.9 % (20.5-51.1); % Monocytes 9.6 % (1.7-9.3); % Neutrophils 70.7 % (42.2-75.2); Absolute Basophils 0.1 10^3/uL (0-0.2); Absolute Eosinophils 0.1 10^3/uL (0-0.7); Absolute Lymphocytes 0.9 10^3/uL (1.2-3.4); Absolute Monocytes 0.5 10^3/uL (0.1-0.6); Absolute Neutrophils 3.9 10^3/uL (1.4-6.5); Hematocrit 27.1 % (37.0-47.0); Hemoglobin 8.5 g/dL (12.0-16.0); Mean Corp Hgb Conc. 31.4 g/dL (33.0-37.0); Mean Corpuscular Hgb 30.8 pg (27.0-31.0); Mean Corpuscular Volume 98.2 fL (81.0-99.0); Mean Platelet Volume 11.2 fL (7.4-10.4); Nucleated Red Blood Cells % 0 %; Platelet Count 178 10^3/uL (130-400); Red Blood Cell Count 2.76 10^6/uL (4.20-5.40); Red Cell Dist. Width 14.2 % (11.5-14.5); White Blood Cell Count 5.5 10^3/uL (4.8-10.8)
[2024-07-02 16:40] LABS: ALT (SGPT) 20 U/L (0-35); AST (SGOT) 24 U/L (14-36); Albumin 3.4 g/dl (3.5-5.0); Alkaline Phosphatase 78 U/L (38-126); Blood Urea Nitrogen 62 mg/dl (7-17); Calcium 9.5 mg/dl (8.4-10.2); Carbon Dioxide 17 mmol/L (22-30); Chloride 116 mmol/L (98-107); Glucose 94 mg/dl (70-99); Potassium 4.8 mmol/L (3.5-5.1); Sodium 141 mmol/L (135-145); Total Bilirubin 0.4 mg/dl (0.2-1.3); Total Protein 5.4 g/dl (6.3-8.2); eGFR 18.32
--- NOTE | 2024-07-02 19:15 | ED.GENMED ---
History of Present Illness
General
Chief Complaint: Blood Pressure Problem
Source: patient and spouse
Time Seen by Provider: 07/02/24 19:01
History of Present Illness
History of Present Illness:
This patient is a 78-year-old female was recently admitted to the hospital for hypertensive urgency, had her medications adjusted, and transition to [place] before being discharged to home about a week ago. Today, the visiting nurse came to see
her and noted that her blood pressure was elevated and referred to the emergency department. The patient is completely asymptomatic. She denies headache, dizziness, numbness, tingling, visual changes, nausea, vomiting, chest pain, pressure,
dyspnea, abdominal pain, focal weakness, change in speech, change in balance, or any other complaints. She is urinating as usual. Patient admits that she is very reluctant to take her medications and has not been taking them recently. She also
recommit to being compliant with her medications given that her blood pressure is elevated without them. She denies side effects or unpleasant reactions to the medications
Past History
Past History
ED Past Medical History: Hypothyroidism and Other (Dermatomyositis, PE, heart failure, arthritis, LVH, hypertension)
ED Past Surgical History: Orthopedic (Left arthroscopic knee surgery, right knee arthroscopy, left foot, bilateral total knee replacement, carpal tunnel)
Social History
Tobacco: Non-smoker
Alcohol: None
Drug: None
Personal:
Living: with family
Employment: Retired
Phy Exam
Physical Exam
Physical Exam:
GENERAL: Alert , in no apparent distress
EYE: pupils equal and reactive, EOMI, no nystagmus
NECK: Supple, no significant adenopathy.
ENT: o/p clr, mmm.
CARDIAC: Regular rate and rhythm .
LUNGS: Clear breath sounds bilaterally, no acute respiratory distress, no wheezes/rales/rhonchi
ABDOMEN: Soft, without focal tenderness, no r/g, no cvat
NEUROLOGICAL: Alert and oriented, no focal neuro deficits, motor 5 out of 5, [id number] normal, sensory intact, cranial nerves II through XII intact
SKIN: Warm and dry, skin intact.
MUSCULOSKELETAL: 1+ bilateral lower extremity edema, well perfused.
PSYCH: Normal and appropriate interaction.
Course
Orders/Labs/Results
Orders:
Orders
07/02/24 16:12
Complete Blood Count/With Diff Urgent
Comprehensive Metabolic Panel Urgent
07/02/24 19:14
Carvedilol [Coreg] 12.5 mg PO NOW STA
HydrALAZINE [Apresoline] 100 mg PO NOW STA
Lisinopril [Zestril] 20 mg PO NOW STA
NIFEdipine EXTENDED RELEASE [Procardia Xl (Extended Release)] 30 mg PO NOW STA
07/02/24 19:15
Electrocardiogram (*1) Urgent
Reason for Study: Other
Other Reason for Exam: htn
EKG- Treatment ONCE
07/02/24 19:19
Lisinopril [Zestril] 40 mg PO NOW STA
Abnormal Lab Results
07/02/24
16:12
RBC 2.76 L 10^6/uL
(4.20-5.40)
Hgb 8.5 L g/dL
(12.0-16.0)
Hct 27.1 L %
(37.0-47.0)
MCHC 31.4 L g/dL
(33.0-37.0)
MPV 11.2 H fL
(7.4-10.4)
Absolute Lymphs (auto) 0.9 L 10^3/uL
(1.2-3.4)
Lymphocytes % 15.9 L %
(20.5-51.1)
Monocytes % 9.6 H %
(1.7-9.3)
Chloride 116 H mmol/L
(98-107)
Carbon Dioxide 17 L mmol/L
(22-30)
BUN 62 H mg/dl
(7-17)
Creatinine 2.6 H mg/dL
(0.6-1.0)
Total Protein 5.4 L g/dl
(6.3-8.2)
Albumin 3.4 L g/dl
(3.5-5.0)
07/02/24 16:12
07/02/24 16:12
Vital Signs
Initial and Last Documented VS:
Initial Vital Signs
Temp Pulse Resp BP Pulse Ox
97.6 F 72 16 221/92 98
07/02/24 16:03 07/02/24 16:03 07/02/24 16:03 07/02/24 16:03 07/02/24 16:03
Last Documented Vital Signs
Temp Pulse Resp BP Pulse Ox
97.6 F 69 17 214/73 98
07/02/24 16:03 07/02/24 20:00 07/02/24 20:00 07/02/24 20:00 07/02/24 19:45
Update Note
Update Note:
Patient presents to the Emergency Department with _elevated blood pressure
Number and Complexity of Problems Addressed at the Encounter
� Chronic conditions affecting care:
� Acute Exacerbation and/or Progression of Chronic Illness:
� Differential Diagnosis includes: But not limited to hypertensive urgency, hypertensive emergency, medication noncompliance, etc. etc.
Amount and/or Complexity of Data to be Reviewed and Analyzed
� I performed an independent evaluation of and my interpretation is:
EKG: Read by me, normal sinus rhythm, normal axis, no acute ischemia
CT:
Xrays:
Laboratory Studies: Essentially baseline, anemia slightly greater compared to baseline, renal function abnormal but unchanged.
Other:
� Review of other/old records reveals: Patient was admitted to the hospital recently discharge summary reviewed patient had medication modifications before discharge
� Clinical information was obtained by an independent historian: who is bedside
� Prescriptions/Medications Considered but not given:
� Further testing considered but not performed:
Risk of Complications and/or Morbidity or Mortality of Patient Management
� Social determinants of health affecting care:
� Discussion with other providers (PCP, Hospitalists, Consultants, etc):
� Escalation of care including admission/observation vs risk of discharge considered: Patient given her usual nighttime medications. Her blood pressure is now 161/59. She remains asymptomatic. Long discussion with patient
regarding importance of taking her medications and she is very agreeable to this. at bedside who is very supportive. Patient is lucid, and expresses understanding. Discussed with patient to follow-up and reasons to return to the ER.
NOte: pt also advised re:sl woreening of anemia and close f/u regarding.
ED Attending Note
-
Portions of this chart may have been created with voice recognition software.� Occasional wrong word or��sound alike� substitutions may have occurred due to the inherent limitations of voice recognition software.
Discharge Plan
Departure
Patient Disposition: Home (Routine Discharge)
Date of Disposition: 07/02/24
Time of Disposition: 21:41
Patient with high blood pressure during this ER visit?: Yes
Condition: Good
Discharge Problem:
Hypertension
Instructions: High Blood Pressure (DC), BLOOD PRESSURE
Prescriptions:
No Action
furosemide [Lasix] 40 MG tablet
40 mg PO DAILY
cyanocobalamin (vitamin B-12) 1,000 MCG tablet
2,000 mcg PO DAILY
benazepril 40 MG tablet
40 mg PO DAILY
cholecalciferol (vitamin D3) [Vitamin D3] 50 mcg (2,000 unit) Tablet
50 mcg PO DAILY
ezetimibe [Zetia] 10 mg Tablet
10 mg PO DAILY
CoQmax Ubiquinol 200 mg Capsule
400 mg PO DAILY
carvedilol 12.5 mg Tablet
12.5 mg PO BID
aspirin 81 mg Tablet,Delayed Release (Dr/Ec)
81 mg PO DAILY
levothyroxine 75 mcg Tablet
75 mcg PO DAILY
sodium bicarbonate 650 mg Tablet
1,300 mg PO BID
hydralazine 100 mg Tablet
100 mg PO BID
mometasone 0.1 % Cream
1 applic TOPICAL DAILYPRN PRN (Reason: itching ear)
albuterol sulfate 90 mcg/actuation HFA aerosol inhaler
2 puff inhalation R Q6HPRN PRN (Reason: shortness of breath or wheezing)
nifedipine 30 mg Tablet Extended Release
30 mg PO BID 30 Days Qty: 0 0RF
olanzapine 5 mg Tablet
5 mg PO HS Qty: 30 0RF
lidocaine 4 % Adhesive Patch,Medicated
1 patch topical DAILY Qty: 0 0RF
melatonin 5 mg Tablet
5 mg PO HS Qty: 0 0RF
oxycodone 5 mg tablet
2.5 mg PO Q6H PRN (Reason: severe pain) Qty: 12 0RF
acetaminophen [Tylenol 8 Hour] 650 mg Tablet Extended Release
650 mg PO Q8HPRN PRN (Reason: mild pain/fever) Qty: 0 0RF
Referrals:
Fozia Wing MD [Family Provider] - Tomorrow
Activity Restrictions/Additional Instructions:
IS VERY IMPORTANT THAT YOU TAKE YOUR MEDICATION PRESCRIBED! IF YOU HAVE ANY TROUBLE DOING THIS PLEASE NOTIFY YOUR DOCTOR IMMEDIATELY. IF YOU DEVELOP CHEST PAIN, SHORTNESS OF BREATH, DIZZINESS, SEVERE HEADACHE, NUMBNESS, WEAKNESS, OR OTHER
WORRISOME SIGNS, PLEASE RETURN TO THE ER IMMEDIATELY!
Interventions
Interventions:
*Risk Screen - Suicide Last Done: 07/02/24 19:12
*General Assessment Last Done: 07/02/24 18:25
*Neglect/Abuse Screening Last Done: 07/02/24 19:12
*ED- Fall Risk Assessment Last Done: 07/02/24 18:25
*ED COVID-19 Vaccine History Last Done: 07/02/24 18:25
ED- Cardiac Assessment Last Done: 07/02/24 18:27
ED- Neurological Assessment Last Done: 07/02/24 18:27
ED- Pulmonary Assessment Last Done: 07/02/24 18:27
Discharge Date and Time
Print Language: SAO TOMEAN
[2024-07-02] MEDS: PROCARDIA XL (EXTENDED RELEASE) 30 MG PO (19:22)
[2024-07-02] MEDS: APRESOLINE 100 MG PO (19:23)
[2024-07-02] MEDS: COREG 12.5 MG PO (19:23)
[2024-07-02] MEDS: ZESTRIL 40 MG PO (19:23)
== END 2024-07-02 22:00 | disposition home or self-care (01) ==
LOC: EMR 15:52
PROVIDERS: Emergency Medicine; EMERGENCY PHYSICIAN Emergency Medicine; FAMILY PHYSICIAN Emergency Medicine
DX: I11.0 Hypertensive heart disease with heart failure (principal); I50.9 Heart failure, unspecified; E03.9 Hypothyroidism, unspecified
CPT/HCPCS: 99283; 80053; 85025; 93005

== ENCOUNTER 2024-07-07 10:00 | Inpatient (IN) | payer MEDICARE, OTHER, SELFPAY ==
[2024-07-07] VITALS (14 sets, daily range): BP systolic 128–206; BP diastolic 56–88; BMI 35.5; BMI 34.7
[2024-07-07 03:40] LABS: % Basophils 1.1 % (0-2); % Eosinophils 3.9 % (0-6); % Immature Granulocytes 0.5 % (0-0.5); % Lymphocytes 21.2 % (20.5-51.1); % Monocytes 11.3 % (1.7-9.3); Absolute Basophils 0.1 10^3/uL (0-0.2); Absolute Eosinophils 0.2 10^3/uL (0-0.7); Absolute Lymphocytes 1.2 10^3/uL (1.2-3.4); Absolute Monocytes 0.6 10^3/uL (0.1-0.6); Absolute Neutrophils 3.5 10^3/uL (1.4-6.5); Hemoglobin 8.9 g/dL (12.0-16.0); Mean Corp Hgb Conc. 31.8 g/dL (33.0-37.0); Mean Corpuscular Hgb 31.9 pg (27.0-31.0); Mean Corpuscular Volume 100.4 fL (81.0-99.0); Mean Platelet Volume 10.8 fL (7.4-10.4); Nucleated Red Blood Cells % 0 %; Platelet Count 189 10^3/uL (130-400); Red Blood Cell Count 2.79 10^6/uL (4.20-5.40); Red Cell Dist. Width 15.3 % (11.5-14.5); White Blood Cell Count 5.7 10^3/uL (4.8-10.8)
[2024-07-07 03:55] LABS: ALT (SGPT) 43 U/L (0-35); AST (SGOT) 39 U/L (14-36); Albumin 3.8 g/dl (3.5-5.0); Alkaline Phosphatase 119 U/L (38-126); Blood Urea Nitrogen 75 mg/dl (7-17); Calcium 8.7 mg/dl (8.4-10.2); Carbon Dioxide 18 mmol/L (22-30); Chloride 116 mmol/L (98-107); Glucose 99 mg/dl (70-99); Potassium 5.1 mmol/L (3.5-5.1); Sodium 144 mmol/L (135-145); Total Bilirubin 0.4 mg/dl (0.2-1.3); Total Protein 5.6 g/dl (6.3-8.2); eGFR 15.43
[2024-07-07 04:03] LABS: NT-proBNP 12300 pg/ml
--- NOTE | 2024-07-07 06:49 | ED.GENMED ---
History of Present Illness
General
Chief Complaint: Breathing Problem
Time Seen by Provider: 07/07/24 06:48
History of Present Illness
History of Present Illness:
TIME OF INITIAL ENCOUNTER: 6:50 AM
HPI: Patient presents with shortness of breath associated with distal extremity edema over the last several days. Review of old records show history of HFpEF but she states she was not told about heart failure. There has been no cough. She has
not had any chest pain or pressure.
EXAM:
GENERAL: Well appearing in no distress
HEENT: Moist oral mucosa
CARDIOVASCULAR: No murmurs, normal heart rate, regular rhythm, No chest wall tenderness
PULMONARY: No respiratory distress but she does appear slightly tachypneic, breath sounds are somewhat diminished equally
ABDOMEN: Soft with no peritoneal signs, no tenderness
NEUROLOGIC: Excellent strength all extremities, no coordination deficits
PSYCHIATRIC: Appropriate mental status, normal insight and judgement
EXTREMITIES: Nontender, 2+ bilateral edema, moves all extremities equally, trace edema to the hands bilaterally
SKIN: No rash, no lesions
NUMBER AND COMPLEXITY OF PROBLEMS ADDRESSED AT THE ENCOUNTER
� Chronic conditions affecting care: High blood pressure, hyperlipidemia, dermatomyositis, hypothyroidism, CKD, HFpEF
� Acute Exacerbation and/or Progression of Chronic Illness: This is an acute problem
� Differential Diagnosis includes: Heart failure, hypertensive urgency, pneumonia unlikely as she has no cough
AMOUNT AND/OR COMPLEXITY OF DATA TO BE REVIEWED AND ANALYZED
� I performed an independent evaluation of and my interpretation is:
EKG: Suspect sinus with first-degree AV block, left axis deviation, rate 71
CT:
X-rays: Chest x-ray by my read suggests interstitial edema
Laboratory Studies: White count normal, hemoglobin 8.9 which is near baseline, bicarb 18, creatinine 3.0 which is near baseline, BNP 12,300
Other:
� Review of other/old records: The patient was admitted May 28 through June 04, 2024. She has history of HFpEF and FSGS who at that time came to the hospital with multiple falls and confusion. Her blood pressure was markedly
elevated at that time. She was discharged to a SNF. There was also question for potential underlying dementia. The patient had echo last August that showed normal LV function but did have grade 2 diastolic dysfunction.
� Clinical information was obtained by an independent historian: I spoke to at bedside
� Prescriptions/Medications Considered but not given:
� Further testing considered but not performed:
RISK OF COMPLICATIONS AND/OR MORBIDITY OR MORTALITY OF PATIENT MANAGEMENT
� Social determinants of health affecting care: Lives at home
� Discussion with other providers: Hospitalist, Dr. Cazares for admission.
� Escalation of care including admission/observation vs risk of discharge considered: The patient's BNP again is rather elevated but she is not aware of a history of heart failure. She reports several days of increasing
shortness of breath. She states she does take a diuretic related to swelling in the legs.
ANY OTHER UPDATES:
8:20 AM: The patient remains somewhat tachypneic. Labs are relatively unchanged. BNP remains elevated. Will give IV Lasix as I suspect that she does have worsening heart failure. Of note, the patient was not aware of any diagnosis of heart
failure.
Past History
Past History
ED Past Medical History: Hypothyroidism and Other (Dermatomyositis, PE, heart failure, arthritis, LVH, hypertension)
ED Past Surgical History: Orthopedic (Left arthroscopic knee surgery, right knee arthroscopy, left foot, bilateral total knee replacement, carpal tunnel)
Social History
Tobacco: Non-smoker
Alcohol: None
Drug: None
Personal:
Living: with family
Employment: Retired
Phy Exam
Physical Exam
Physical Exam:
See HPI
Scores
Heart Failure Risk
Heart Failure Risk Score: Not Applicable
Course
Orders/Labs/Results
Orders:
Orders
07/07/24 03:02
ECG [Electrocardiogram (*1)] Urgent
Reason for Study: Shortness of Breath
07/07/24 03:03
EKG- Treatment ONCE
07/07/24 03:20
Complete Blood Count/With Diff Urgent
Comprehensive Metabolic Panel Urgent
NT-proBNP Urgent
07/07/24 06:53
CR Chest - 2 Views Urgent
Comment:
Reason For Exam: sob
07/07/24 08:08
Furosemide [Lasix] 40 mg IV NOW STA
Abnormal Lab Results
07/07/24
03:20
RBC 2.79 L 10^6/uL
(4.20-5.40)
Hgb 8.9 L g/dL
(12.0-16.0)
Hct 28.0 L %
(37.0-47.0)
MCV 100.4 H fL
(81.0-99.0)
MCH 31.9 H pg
(27.0-31.0)
MCHC 31.8 L g/dL
(33.0-37.0)
RDW 15.3 H %
(11.5-14.5)
MPV 10.8 H fL
(7.4-10.4)
Monocytes % 11.3 H %
(1.7-9.3)
Chloride 116 H mmol/L
(98-107)
Carbon Dioxide 18 L mmol/L
(22-30)
BUN 75 H mg/dl
(7-17)
Creatinine 3.0 H mg/dL
(0.6-1.0)
AST 39 H U/L
(14-36)
ALT 43 H U/L
(0-35)
Total Protein 5.6 L g/dl
(6.3-8.2)
07/07/24 03:20
07/07/24 03:20
Vital Signs
Initial and Last Documented VS:
Initial Vital Signs
Temp Pulse Resp BP Pulse Ox
36.3 C 74 24 190/70 97
07/07/24 02:58 07/07/24 02:58 07/07/24 02:58 07/07/24 02:58 07/07/24 02:58
Last Documented Vital Signs
Temp Pulse Resp BP Pulse Ox
36.8 C 65 19 185/80 97
07/07/24 07:11 07/07/24 07:07 07/07/24 07:07 07/07/24 07:07 07/07/24 07:07
*Critical Care Note
Total Time (30-74mins, 75-104mins- exclusive of procedures): Not Applicable
ED Attending Note
-
Portions of this chart may have been created with voice recognition software.� Occasional wrong word or��sound alike� substitutions may have occurred due to the inherent limitations of voice recognition software.
Discharge Plan
Departure
Patient Disposition: Admit
Date of Disposition: 07/07/24
Time of Disposition: 08:17
Presentation/result/management discussed w/ accepting MD/DO: Hospitalist
Discharge Problem:
CHF (congestive heart failure)
Prescriptions:
No Action
furosemide [Lasix] 40 MG tablet
40 mg PO DAILY
cyanocobalamin (vitamin B-12) 1,000 MCG tablet
2,000 mcg PO DAILY
benazepril 40 MG tablet
40 mg PO DAILY
cholecalciferol (vitamin D3) [Vitamin D3] 50 mcg (2,000 unit) Tablet
50 mcg PO DAILY
ezetimibe [Zetia] 10 mg Tablet
10 mg PO DAILY
CoQmax Ubiquinol 200 mg Capsule
400 mg PO DAILY
carvedilol 12.5 mg Tablet
12.5 mg PO BID
aspirin 81 mg Tablet,Delayed Release (Dr/Ec)
81 mg PO DAILY
levothyroxine 75 mcg Tablet
75 mcg PO DAILY
sodium bicarbonate 650 mg Tablet
1,300 mg PO BID
hydralazine 100 mg Tablet
100 mg PO BID
mometasone 0.1 % Cream
1 applic TOPICAL DAILYPRN PRN (Reason: itching ear)
albuterol sulfate 90 mcg/actuation HFA aerosol inhaler
2 puff inhalation R Q6HPRN PRN (Reason: shortness of breath or wheezing)
nifedipine 30 mg Tablet Extended Release
30 mg PO BID 30 Days Qty: 0 0RF
olanzapine 5 mg Tablet
5 mg PO HS Qty: 30 0RF
lidocaine 4 % Adhesive Patch,Medicated
1 patch topical DAILY Qty: 0 0RF
melatonin 5 mg Tablet
5 mg PO HS Qty: 0 0RF
oxycodone 5 mg tablet
2.5 mg PO Q6H PRN (Reason: severe pain) Qty: 12 0RF
acetaminophen [Tylenol 8 Hour] 650 mg Tablet Extended Release
650 mg PO Q8HPRN PRN (Reason: mild pain/fever) Qty: 0 0RF
Referrals:
Fozia Wing MD [Family Provider] -
Interventions
Interventions:
*Risk Screen - Suicide Last Done: 07/07/24 02:58
*General Assessment Last Done: 07/07/24 07:07
*Neglect/Abuse Screening Last Done: 07/07/24 02:58
*ED- Fall Risk Assessment Last Done: 07/07/24 07:07
*ED COVID-19 Vaccine History Last Done: 07/07/24 07:07
ED- Cardiac Assessment Last Done: 07/07/24 07:07
ED- Pulmonary Assessment Last Done: 07/07/24 07:07
Discharge Date and Time
Print Language: WOLOF
--- NOTE | 2024-07-07 08:21 | HPS.HSE ---
Family Physician
-
Family Physician: Foiza Wing MD
Chief Complaint
-
Shortness of breath
History of Present Illness
Patient is a pleasant 78 years old with past medical history known for hypertension, hypothyroidism, osteoarthritis, history of PE, vitamin D deficiency, who was recently admitted to the hospital and discharged on June 04 with hypertensive
urgency/emergency who came to the ER today with shortness of breath and lower extremity edema, denies personal history of CHF but patient has documented history of diastolic CHF with echo done in August 2023 showing EF 55%, also patient takes Lasix at
home.
Patient seen and examined at bedside, denies any chest pain, no abdominal pain, no nausea, no vomiting, no diarrhea or constipation.
Patient received Lasix in the ER and will be admitted under hospitalist service.
Medical History
Past Medical History
Past Medical History: Reports Other
Additional Past Medical History:
Hypothyroidism and Other (Dermatomyositis, PE, heart failure, arthritis, LVH, hypertension)
Past Surgical History: Reports Other
Additional Past Surgical History:
Orthopedic (Left arthroscopic knee surgery, right knee arthroscopy, left foot, bilateral total knee replacement, carpal tunnel)
Social History
Tobacco: Non-smoker
Alcohol: None
Drug: None
Personal:
Living: With Family
Employment: Retired
Family History
Family History: Not pertinent
Allergies / Home Medications
Allergies reflects when Allergies were last updated in [employer].
Home Medications with original date entered in [employer]
Allergy/Medication List:
Allergies
Allergy/AdvReac Type Severity Reaction Status Date / Time
No Known Allergies Allergy Verified 07/02/24 16:07
Home Medications
benazepril 40 mg tablet 40 mg PO DAILY Blood Pressure 09/15/20
cholecalciferol (vitamin D3) 50 mcg (2,000 unit) tablet (Vitamin D3) 50 mcg PO DAILY Supplement 09/15/20
cyanocobalamin (vitamin B-12) 1,000 mcg tablet 2,000 mcg PO DAILY Supplement 09/15/20
furosemide 40 mg tablet (Lasix) 40 mg PO DAILY Fluid Retention/Swelling 09/15/20
coQ10 (ubiquinol) 200 mg capsule (CoQmax Ubiquinol) 400 mg PO DAILY Supplement 09/15/21
ezetimibe 10 mg tablet (Zetia) 10 mg PO DAILY High Cholesterol 09/15/21
albuterol sulfate 90 mcg/actuation aerosol inhaler 2 puff inhalation R Q6HPRN PRN shortness of breath or wheezing 05/28/24
aspirin 81 mg tablet,delayed release 81 mg PO DAILY Blood Clot Prevention/Tx 05/28/24
carvedilol 12.5 mg tablet 12.5 mg PO BID Blood Pressure 05/28/24
hydralazine 100 mg tablet 100 mg PO BID Blood Pressure 05/28/24
levothyroxine 75 mcg tablet 75 mcg PO DAILY Thyroid 05/28/24
mometasone 0.1 % topical cream 1 applic topical DAILYPRN PRN itching ear 05/28/24
sodium bicarbonate 650 mg tablet 1,300 mg PO BID Electrolyte Repletion 05/28/24
nifedipine 30 mg tablet,extended release 30 mg PO BID Blood pressure 30 days #0 tabs 05/30/24
olanzapine 5 mg tablet 5 mg PO HS Mental Health/Anxiety #30 tabs 06/03/24
acetaminophen 650 mg tablet,extended release (Tylenol 8 Hour) 650 mg PO Q8HPRN PRN mild pain/fever #0 tabs 06/04/24
lidocaine 4 % topical patch 1 patch topical DAILY #0 ea 06/04/24
melatonin 5 mg tablet 5 mg PO HS Sleep #0 tabs 06/04/24
oxycodone 5 mg tablet 2.5 mg (1/2 x 5 mg) PO Q6H PRN severe pain #12 tabs 06/04/24
Review of Systems
-
A 12 point ROS was completed and negative except as noted: Yes
Constitutional: Denies Fever, Weight Gain, Weight Loss, Fatigue or Sleep Disturbance
EENT: Denies Tearing, Sore Throat, Mouth Pain, Mouth Swelling or Runny Nose
Respiratory: Denies Cough, Hemoptysis or Trouble Breathing
Cardiac: Denies Chest Pain, Diaphoresis, Palpitations or Syncope
Abdomen/GI: Denies Abdominal Pain, Nausea, Vomiting, Diarrhea, Constipated, Bloody Stools or Black Stools
: Denies Dysuria, Frequency, Flank Pain, Incontinence, Difficulty Voiding, Urgency, Bleeding or Dark Urine
Musculoskeletal: Denies Joint Pain, Joint Swelling, Muscle Pain, Muscle Stiffness or Edema
Skin: Denies Itching or Rash
Neurological: Denies Dizzy, Headache, Weakness or Numbness
Endocrine: Denies Polyuria, Polydipsia or Temp Intolerance
Hematologic/Lymphatic: Denies Bleeding, Swollen Glands or Bruising
Psych: Reports Calm; Denies Depression, Anxiety or Panic Disorder
Physical Exam
Vital Signs
Vital Signs
Temp Pulse Resp BP Pulse Ox
98.2 F 65 19 185/80 97
07/07/24 07:11 07/07/24 07:07 07/07/24 07:07 07/07/24 07:07 07/07/24 07:07
Physical Exam
General: Well Developed, Well Nourished, No Apparent Distress, Comfortable and Good Appetite; No Pain, Chills or Sweats
HEENT: NormoCephalic, Moist mucous membranes, Atraumatic, Good Dentition, PERRLA, Nose Appears Normal and Ears Appear Normal
Respiratory: Rales, Rhonchi and Crackles
Cardiac: S1/S2 and Regular Rhythm
Breast: Deferred by me
GI: Soft, Non Tender, Non Distended and Normal Bowel Sounds
Genito-urinary: Deferred by me
Musculoskeletal: No Clubbing, No Cyanosis, Edema, Left Lower Extremity and Edema, Right Lower Extremity
Skin: Warm; No Rash, Jaundice, Ulcers, Lesions or Decubitus Ulcers
Neuro: Awake, Alert, Oriented, AO x 3, No Motor Deficits, Nonfocal/grossly intact and Cranial Nerves Intact
Hematologic/Lymphatic: No Lymphadenopathy
Psych: Calm
Laboratory Results
-
07/07/24 03:20
07/07/24 03:20
Laboratory Results
Total Bilirubin 0.4 mg/dl (0.2-1.3) 07/07/24 03:20
AST 39 U/L (14-36) H 07/07/24 03:20
ALT 43 U/L (0-35) H 07/07/24 03:20
Alkaline Phosphatase 119 U/L (38-126) 07/07/24 03:20
Data Reviewed
-
Diagnostic Radiology: Report Reviewed by me
CT Scan: Report Reviewed by me
Medical Tests (Nuc Med, Echo, EKG etc): Report Reviewed by me
Lab Data: Labs Reviewed by me
Old Records: Reviewed
Impression/Plan
-
IMPRESSION:
Patient is a pleasant 78 years old with past medical history known for hypertension, hypothyroidism, osteoarthritis, history of PE, vitamin D deficiency, who was recently admitted to the hospital and discharged on June 04 with hypertensive
urgency/emergency who came to the ER today with shortness of breath and lower extremity edema, denies personal history of CHF but patient has documented history of diastolic CHF with echo done in August 2023 showing EF 55%, patient readmitted for CHF
exacerbation, cardiology consulted.
Assessment/plan:
Acute CHF Exacerbation:
Patient Acute on chronic diastolic congestive heart failure.
Patient presented with shortness of breath and lower [place] [address]
Continue IV diuresing in form of Lasix 40 mg twice daily
Daily weight.
Strict I's and O's.
Consulted cardiology.
Echo on 09/13/2023 revealed diastolic dysfunction, septal hypertrophy, LVEF 55%
Echocardiogram pending
Uncontrolled hypertension
Continue carvedilol.
Hydralazine
Nifedipine
Continue Lasix
Bradycardia (noted on previous admit)
Carvedilol dose adjusted
Elevated LFTs
Patient had Right upper quadrant ultrasound on previous admission which revealed no evidence of acute cholecystitis
Continue to monitor
History of recent fall with rib fracture
Continue lidocaine patches
Chronic kidney disease stage IV
Creatinine at baseline.
Consider fluid consult if worsening creatinine after IV diuresis
Insomnia
Continue melatonin/trazodone
History of hypothyroidism
-Continue levothyroxine
History of Hyperlipidemia
-Continue Zetia
CODE STATUS: Full code
DVT prophylaxis: Heparin
Diet: cardiac diet
Total time spent on today's encounter was 75 minutes which included time spent in counseling the patient/family regarding diagnosis and treatment plan as listed above, goals of care, and symptom management. Case was discussed with nursing staff,
specialists, and care coordinators/case management. All labs and imaging personally reviewed by me. Remainder the time spent in detailed review of previous records, lab data, imaging, and other medical provider documentation.
[2024-07-07] MEDS: LASIX 40 MG IV ×2 (09:01→16:41)
--- NOTE | 2024-07-07 13:22 | CM ---
CM spoke with spouse
Pt and spouse reside in a 2SH with 3STE, full flight to 2nd floor
Unable to set up 1st floor set up in home due to clutter
Pt is typically indep with use of a rollator/WW/SPC
Pt with dementia and hoarding tendencies
Spouse ambulates with a SPC and not able to physically assist pt
Spouse notes being overwhelmed with caregiving burden
Pt has historically always managed finances and filing taxes, has not been doing so for the past few years
Spouse with little insight into their finances and starting process of taking over management
Spouse notes he is unable to leave the home due to pt's need for 24/7supervision
Pt has a son in [place] who is not helpful
Other son in [place] with plans to move to [place] next month
Spouse notes that son and DIL will be helpful
Not able to afford private duty care
Pt recently discharged from [facility] and current with [facility]
Will likely benefit from PT/OT
Spouse provided info on [employer] and [facility] info during last admission for home and community based services
Has not had time to call or set up
If plan for home with [facility], they might benefit from support for LTC planning and services
Discharge Disposition- anticipate home with [facility]
--- NOTE | 2024-07-07 14:32 | CON.CAR ---
Addendum entered and electronically signed by Delonte Duncan DO 07/07/24 17:27:
I saw and examined the patient.
The Log Cut Off Sawyer's note was reviewed and I agree with the note.
Comment:
Evidence of HF likely multifactorial including aFib, HTN.
IV lasix diuresis
Check echo
Cont rate control for AFib, cont Coreg.
Anticoagulation given elevlated CHADSVASC score.
Original Note:
Consultation
Consultation Request
Date/Time Consultation Requested: 07/07/24
Date/Time Consultation Performed: 07/07/24
Requesting Provider: Dr. Allen
Performing Provider: Dr. Duncan
Reason for Consultation: Acute HF
Medical History
-
History of Present Illness:
Patient came to [facility] ER early this morning with SOB and edema and was admitted with acute HF and cardiology has been consulted. Patient was just admitted to [facility] with HTN emergency 05/28/24 until 06/04/24. Patient's reported possible dementia to
CM at that time and reported that his had stopped paying bills and taxes and that large sums of money were missing. There was concern that patient was not taking BP meds and was in HTN emergency on admission. Patient went to rehab and then
returned home, but home care could not be established due to clutter in the home and patient's also reported that patient had been hoarding. Patient says that she has been taking meds, but just had an ER visit last week and reported that she
was not taking meds because she did not trust them. Patient complains of SOB, POE and edema, but denies chest pain. Patient denies palpitations and had new Afib on ECG. Patient had Atach vs atrial flutter on a pre-op ECG at [facility] years ago, but no
evidence of arrhythmia on monitor.
PMH:
h/o HTN
Recent admission for HTN emergency and HTN encephalopathy 05/28/24 until 06/04/24
Recent ER visit for HTN and medication noncompliance 07/02/24
Possible h/o atrial arrhythmia
Atach vs atrial flutter on ECG at [facility]
s/p coronary CTA with no significant disease LM, LAD, Circ, but mild prox RCA disease 01/30/20
CKD 4
Hypothyroid
Hyperlipidemia
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
Focal segmental glomerulosclerosis
h/o DVT/PE in 2010
h/o hyperkalemia with spironolactone
h/o fatigue and cough with metoprolol, although tolerating Coreg
Past Medical History
Past Medical History: Other (in HPI)
Past Surgical History: Orthopedic
Social History
Tobacco: Non-Smoker
Alcohol: Occasional (less than once a week)
Drug: None
Personal:
Living: With Family
Family History
Family History: Diabetes
Allergies / Home Medications
Allergy/AdvReac Type Severity Reaction Status Date / Time
No Known Allergies Allergy Verified 07/02/24 16:07
�Medication �Instructions �Recorded �Confirmed �Type
cholecalciferol (vitamin D3) 50 50 mcg PO DAILY Supplement 09/15/20 07/07/24 History
mcg (2,000 unit) tablet (Vitamin
D3)
cyanocobalamin (vitamin B-12) 2,000 mcg PO DAILY Supplement 09/15/20 07/07/24 History
1,000 mcg tablet
furosemide 40 mg tablet (Lasix) 60 mg PO DAILY Fluid 09/15/20 07/07/24 History
Retention/Swelling
coQ10 (ubiquinol) 200 mg capsule 400 mg PO DAILY Supplement 09/15/21 07/07/24 History
(CoQmax Ubiquinol)
ezetimibe 10 mg tablet (Zetia) 10 mg PO DAILY High Cholesterol 09/15/21 07/07/24 History
albuterol sulfate 90 mcg/actuation 2 puff inhalation R Q6HPRN PRN 05/28/24 07/07/24 History
aerosol inhaler shortness of breath or wheezing
aspirin 81 mg tablet,delayed 81 mg PO DAILY Blood Clot 05/28/24 07/07/24 History
release Prevention/Tx
carvedilol 12.5 mg tablet 6.25 mg PO BID Blood Pressure 05/28/24 07/07/24 History
hydralazine 100 mg tablet 100 mg PO TID Blood Pressure 05/28/24 07/07/24 History
levothyroxine 75 mcg tablet 75 mcg PO DAILY@0600 Thyroid 05/28/24 07/07/24 History
mometasone 0.1 % topical cream 1 applic topical DAILYPRN PRN 05/28/24 07/07/24 History
itching ear
sodium bicarbonate 650 mg tablet 1,300 mg PO BID Electrolyte 05/28/24 07/07/24 History
Repletion
nifedipine 30 mg tablet,extended 30 mg PO BID Blood pressure 30 05/30/24 07/07/24 Rx
release days #0 tabs
fluticasone propionate 50 1 spray intranasal DAILYPRN PRN 07/07/24 07/07/24 History
mcg/actuation nasal allergies
spray,suspension
lidocaine 4 % topical patch 1 patch topical DAILYPRN PRN rib 07/07/24 07/07/24 History
pain
trazodone 50 mg tablet 75 mg PO HS mental health/sleep 07/07/24 07/07/24 History
Review of Systems
-
History Source: Patient
All other systems: Negative unless noted
Physical Exam
Vital Signs
Temp Pulse Resp BP Pulse Ox
98.2 F 63 28 173/61 96
07/07/24 07:11 07/07/24 13:45 07/07/24 13:45 07/07/24 13:00 07/07/24 13:30
GEN: NAD. AAOx3
HEENT: EOMI
LUNGS: RA. Clear anterolaterally. No wheeze or rales B/L
CV: SR on tele. Reg, S1/S2, no murmur
ABD: soft, BS+, NT, ND
EXT: No clubbing, cyanosis, lesions or edema B/L
NEURO: Gross non-focal
SKIN: Warm, dry and pink. No rash
Lab Results
07/07/24 03:20
07/07/24 03:20
Ofe-A-Ljbkpunxidu Pept 18854 pg/ml 07/07/24 03:20
Impression / Plan
-
PCP: Dr. Wing
Card: Dr. Logan
Impression:
Admitted with acute HFpEF and newly diagnosed Afib 07/07/24
Acute HFpEF
HTN emergency
Elevated LFTs
h/o HTN
Recent admission for HTN emergency and HTN encephalopathy 05/28/24 until 06/04/24
Recent ER visit for HTN and medication noncompliance 07/02/24
Newly diagnosed paroxysmal Afib with controlled ventricular response
Possible h/o atrial arrhythmia
Atach vs atrial flutter on ECG at [facility]
s/p coronary CTA with no significant disease LM, LAD, Circ, but mild prox RCA disease 01/30/20
ZAIRE on CKD 4
Hypothyroid
Hyperlipidemia
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
Focal segmental glomerulosclerosis
h/o DVT/PE in 2010
h/o hyperkalemia with spironolactone
h/o fatigue and cough with metoprolol, although tolerating Coreg
Echo 09/13/23: EF 55%, mod to sev asymmetric septal hypertrophy, IVSD 1.7cm, grade 2 diastolic dysfunction, normal RV size and systolic function, no significant valve disease
Plan:
-Patient came to [facility] ER early this morning with SOB and edema and was admitted with acute HF and cardiology has been consulted. Patient was just admitted to [facility] with HTN emergency 05/28/24 until 06/04/24. Patient's reported possible dementia
to CM at that time and reported that his had stopped paying bills and taxes and that large sums of money were missing. There was concern that patient was not taking BP meds and was in HTN emergency on admission. Patient went to rehab and then
returned home, but home care could not be established due to clutter in the home and patient's also reported that patient had been hoarding. Patient says that she has been taking meds, but just had an ER visit last week and reported that she
was not taking meds because she did not trust them. Patient complains of SOB, POE and edema, but denies chest pain. Patient denies palpitations and had new Afib on ECG. Patient had Atach vs atrial flutter on a pre-op ECG at [facility] years ago, but no
evidence of arrhythmia on monitor.
-ECG reviewed by me is Afib
-Afib is a new diagnosis although patient was in atrial flutter during her 05/2024 admission and was in Afib in the ER 07/02/24. Patient is asymptomatic. Start Eliquis 5 mg BID (age 78, Cre 3.0, wt 80.5 kg) tonight. Will ask CM to check on cost.
-PT/OT, but patient denies falls
-Check echo
-Acute HF could be from HTN or Afib.
-Agree with Lasix 40 mg IV BID and follow Cre. Patient was taking Lasix 60 mg PO daily prior to admission
-Cont Coreg 6.25 mg BID, dose was lowered for bradycardia last admission
-Cannot add ADDISON/ARB/ARNI/aldosterone antagonist due to ZAIRE on CKD 4
-Would not add SGLT-2 inhibitor in a patient with probably dementia
--- NOTE | 2024-07-07 16:15 | PTCARENOTE ---
Received pt form ER via stretcher, accompanied by ER staff. Pt AAO x3, BAILON; ambulatory to bed with assist x1; occ uses walker. VSS. PLaced on telemetry:Afib. On room air- pulse ox 91 %, pt denies SOB at present; has (+) slight POE. Abd obese,
soft, to start chol lowering 2 Gm Na diet; 64 oz fl restriction reviewed with pt. Voided in BR; has stress incont; commode placed at bedside for use. Afebrile; skin warm and dry; scattered bruised areas on arms/legs; skin lower legs reddened.
Oriented to 4[place], resting in bed at present. Will continue to monitor.
[2024-07-07] MEDS: APRESOLINE 100 MG PO ×2 (16:35→22:46)
[2024-07-07] MEDS: HEPARIN 5000 UNITS SC (16:40)
[2024-07-07] MEDS: FLUSH (NSS) 1 FLUSH IV (16:41)
[2024-07-07] MEDS: ELIQUIS 5 MG PO (20:44)
[2024-07-07] MEDS: PROCARDIA XL (EXTENDED RELEASE) 30 MG PO (20:45)
[2024-07-07] MEDS: SODIUM BICARBONATE 1300 MG PO (20:45)
[2024-07-07] MEDS: COREG 6.25 MG PO (20:45)
[2024-07-07] MEDS: MELATONIN 5 MG PO (22:45)
[2024-07-07] MEDS: DESYREL 75 MG PO (22:46)
[2024-07-08] VITALS (9 sets, daily range): BP systolic 114–171; BP diastolic 47–74; PULSE 53; O2SAT 96; BMI 34.6
--- NOTE | 2024-07-08 06:02 | W.PN.UPDATE ---
Update Note
Progress Note Update
~ 5:51 Asked to evaluate patient for unwitnessed fall. RN found patient sitting on her buttocks on the floor. Reviewed event with patient, who stated she was walking to the bathroom and her feet got tripped up. Patient denied dizziness,
lightheadedness, palpitations, vertigo or syncope symptoms. Patient denied any injury, denied hitting her head. Evaluated patient, no acute injuries noted, able to move all extremities. Patient states she has no pain. Patient declined any additional
testing. Patient able to ambulate with assistance at baseline. Vital signs: BP 149/58, HR 78, Resp 18, 94% on Room air, temp 97.4. Pt on telemetry, noted occasional pauses approx 2-2.5 seconds throughout shift. Patient started on Eliquis 07/07/24 @
1999. Monitor for bruising. Repeat H&H Q6H.
Placed on bed alarm. Patient appreciative of care. RN to pass along in report. Cardiology previously consulted.
[2024-07-08] MEDS: SYNTHROID 75 MCG PO (06:05)
--- NOTE | 2024-07-08 06:22 | PTCARENOTE ---
Pt AAOx3, previously using the call hunter for assistance to bedside commode. Pt dropped call hunter button, attempted to push bedside table out of her way but pinned it over her bedside commode at the bedside, making it inaccessible. Pt was attempting
to use the restroom, denies dizziness, states she lost her footing and landed directly down on her buttocks. RN entered the room moments after on rounds/med pass. Pt remains AAOx3, denies pain/injury. VSS. Assisted up onto bedside commode, once pt
was standing on her feet, remained a standby assist with RW. Covering CASING GRADER notified, responded bedside for evaluation. Pt denies injury and has no visible signs fo injury. Received her first dose of Eliquis last night. Assisted back to bed without
issue. Yellow fall band in place, bed alarm in place, resting comfortably in bed, call hunter in left hand.
[2024-07-08 06:55] LABS: Hematocrit 30.8 % (37.0-47.0); Hemoglobin 9.5 g/dL (12.0-16.0); Mean Corp Hgb Conc. 30.8 g/dL (33.0-37.0); Mean Corpuscular Hgb 30.9 pg (27.0-31.0); Mean Corpuscular Volume 100.3 fL (81.0-99.0); Mean Platelet Volume 11.3 fL (7.4-10.4); Platelet Count 222 10^3/uL (130-400); Red Blood Cell Count 3.07 10^6/uL (4.20-5.40); Red Cell Dist. Width 15.7 % (11.5-14.5); White Blood Cell Count 4.6 10^3/uL (4.8-10.8)
[2024-07-08 07:01] LABS: NT-proBNP 13700 pg/ml
[2024-07-08 07:03] LABS: Troponin I 0.032 ng/ml
[2024-07-08 07:05] LABS: ALT (SGPT) 33 U/L (0-35); AST (SGOT) 25 U/L (14-36); Albumin 3.7 g/dl (3.5-5.0); Alkaline Phosphatase 113 U/L (38-126); Blood Urea Nitrogen 75 mg/dl (7-17); Calcium 8.8 mg/dl (8.4-10.2); Carbon Dioxide 17 mmol/L (22-30); Chloride 119 mmol/L (98-107); Direct Bilirubin 0.4 mg/dl (0.0-0.4); Estimated Creatinine Clearance 16 ml/min; Glucose 105 mg/dl (70-99); Magnesium 2.1 mg/dl (1.6-2.3); Potassium 5.3 mmol/L (3.5-5.1); Sodium 144 mmol/L (135-145); Total Bilirubin 0.5 mg/dl (0.2-1.3); Total Protein 5.6 g/dl (6.3-8.2); eGFR 16.76
[2024-07-08] MEDS: ZETIA 10 MG PO (08:18)
[2024-07-08] MEDS: ASPIR LOW (ENTERIC COATED) 81 MG PO (08:18)
[2024-07-08] MEDS: VITAMIN D3 (cholecalciferol) 50 MCG PO (08:18)
[2024-07-08] MEDS: PROCARDIA XL (EXTENDED RELEASE) 30 MG PO ×2 (08:18→21:11)
[2024-07-08] MEDS: COREG 6.25 MG PO (08:19)
[2024-07-08] MEDS: LASIX 40 MG IV ×2 (08:19→18:00)
[2024-07-08] MEDS: VITAMIN B-12 2000 MCG PO (08:19)
[2024-07-08] MEDS: ELIQUIS 5 MG PO (08:19)
[2024-07-08] MEDS: SODIUM BICARBONATE 1300 MG PO ×2 (08:19→21:14)
[2024-07-08] MEDS: APRESOLINE 100 MG PO ×3 (08:19→21:14)
--- NOTE | 2024-07-08 08:35 | VNURNOTE ---
Chart reviewed. Patient is current with [facility] nursing. Will continue to follow hospital course and DC plans.
--- NOTE | 2024-07-08 10:06 | W.PN.CARDCBS ---
Today's Communication / Plan
-
Remains rate controlled aFib.
With fall AM 07/08 will hold on further Eliquis for now and reassess fall risk with PT. Given possible dementia and falls she may be a poor candidate for anticoagulation
She received one dose of Eliquis before fall. She declined testing at that time. Defer further testing to hospital service with reference to fall.
Check echo
Hold Coreg with bradycardia and may resume at lower dose to 3.125 mg BID if HR improves. She had dose lowered previously for bradycardia. Patient was taking Lasix 60 mg PO daily prior to admission
No significant pauses with fall.
Cont IV lasix diuresis, cr improving with diuresis.
HF likely multifactorial and can be secondary to HTH and AFib.
Cannot add ADDISON/ARB/ARNI/aldosterone antagonist due to ZAIRE on CKD 4
Impression / Plan
-
.
PCP: Dr. Wing
Card: Dr. Logan
Impression:
Admitted with acute HFpEF and newly diagnosed Afib 07/07/24
Acute HFpEF
HTN emergency
s/p fall AM 07/08 2024
Bradycardia
Elevated LFTs
h/o HTN
Recent admission for HTN emergency and HTN encephalopathy 05/28/24 until 06/04/24
Recent ER visit for HTN and medication noncompliance 07/02/24
Newly diagnosed paroxysmal Afib with controlled ventricular response
Possible h/o atrial arrhythmia
Atach vs atrial flutter on ECG at [facility]
s/p coronary CTA with no significant disease LM, LAD, Circ, but mild prox RCA disease 01/30/20
ZAIRE on CKD 4
Hypothyroid
Hyperlipidemia
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
Focal segmental glomerulosclerosis
h/o DVT/PE in 2010
h/o hyperkalemia with spironolactone
h/o fatigue and cough with metoprolol, although tolerating Coreg
Echo 09/13/23: EF 55%, mod to sev asymmetric septal hypertrophy, IVSD 1.7cm, grade 2 diastolic dysfunction, normal RV size and systolic function, no significant valve disease
Plan:
Remains rate controlled aFib.
With fall AM 07/08 will hold on further Eliquis for now and reassess fall risk with PT. Given possible dementia and falls she may be a poor candidate for anticoagulation
She received one dose of Eliquis before fall. She declined testing at that time. Defer further testing to hospital service with reference to fall.
Check echo
Will hold Coreg for now with bradycardia and possibly resume Coreg at lower dose 3.125 mg BID if HR improves. She had dose lowered previously for bradycardia. Patient was taking Lasix 60 mg PO daily prior to admission
No significant pauses with fall.
Cont IV lasix diuresis, cr improving with diuresis.
HF likely multifactorial and can be secondary to HTH and AFib.
Cannot add ADDISON/ARB/ARNI/aldosterone antagonist due to ZAIRE on CKD 4
HPI: Patient came to [facility] ER early this morning with SOB and edema and was admitted with acute HF and cardiology has been consulted. Patient was just admitted to [facility] with HTN emergency 05/28/24 until 06/04/24. Patient's reported possible
dementia to at that time and reported that his had stopped paying bills and taxes and that large sums of money were missing. There was concern that patient was not taking BP meds and was in HTN emergency on admission. Patient went to rehab
and then returned home, but home care could not be established due to clutter in the home and patient's also reported that patient had been hoarding. Patient says that she has been taking meds, but just had an ER visit last week and reported
that she was not taking meds because she did not trust them. Patient complains of SOB, POE and edema, but denies chest pain. Patient denies palpitations and had new Afib on ECG. Patient had Atach vs atrial flutter on a pre-op ECG at [facility] years ago,
but no evidence of arrhythmia on monitor.
Progress Note - Technology Recruiter
Subjective
Date of Service: July 08, 2024
Pt seen and examined. No complaints. No chest pain or shortness of breath.
Objective
Labs:
07/08/24 06:09
Labs
Hgb 9.5 g/dL (12.0-16.0) L 07/08/24 06:09
Hct 30.8 % (37.0-47.0) L 07/08/24 06:09
Plt Count 222 10^3/uL (130-400) 07/08/24 06:09
Sodium 144 mmol/L (135-145) 07/08/24 06:09
Potassium 5.3 mmol/L (3.5-5.1) H 07/08/24 06:09
BUN 75 mg/dl (7-17) H 07/08/24 06:09
Creatinine 2.8 mg/dL (0.6-1.0) H 07/08/24 06:09
Glucose 105 mg/dl (70-99) H 07/08/24 06:09
Troponins
07/08/24
06:09
Troponin I 0.032
Vital Signs and I&O:
Vital Signs
Temp Pulse Resp BP Pulse Ox
97.6 F 65 20 171/72 97
07/08/24 07:30 07/08/24 08:19 07/08/24 07:30 07/08/24 08:19 07/08/24 07:30
Vital Signs
Temp Pulse Resp BP Pulse Ox
97.6 F 65 20 171/72 97
07/08/24 07:30 07/08/24 08:19 07/08/24 07:30 07/08/24 08:19 07/08/24 07:30
Intake & Output
07/06/24 07/07/24 07/08/24 07/09/24
06:59 06:59 06:59 06:59
Intake Total 600 / 600
Output Total 1000 / 1000
Balance -400 / -400
Physical Exam
Physical Exam
General: No acute distress, AAOX3
Neck: Negative JVD
Heart: Regular, Negative S3 positive S1/S2, Negative S4, No murmur
Lungs: CTA b/l, negative wheezes/rales/rhonchi
Abd: Positive BS, NT/ND, neg rebound/rigidity/guarding
Ext: Negative cyanosis/clubbing/edema
Neuro: nonfocal
--- NOTE | 2024-07-08 10:42 | W.PN.HOSP.TC ---
Today's Communication/Plan
-
Echo pending
Assessment / Plan
Assessment / Plan
Impression:
Patient is a pleasant 78 years old with past medical history known for hypertension, hypothyroidism, osteoarthritis, history of PE, vitamin D deficiency, who was recently admitted to the hospital and discharged on June 04 with hypertensive
urgency/emergency who came to the ER today with shortness of breath and lower extremity edema, denies personal history of CHF but patient has documented history of diastolic CHF with echo done in August 2023 showing EF 55%, patient readmitted for CHF
exacerbation, cardiology consulted.
The patient had a fall, denies hitting her head and denies further imaging or testing, cardiology commending to hold Eliquis and carvedilol for now.
Assessment/plan:
Acute CHF Exacerbation:
Patient Acute on chronic diastolic congestive heart failure.
Patient presented with shortness of breath and lower extremity.
[place] [address]
Continue IV diuresing in form of Lasix 40 mg twice daily
Daily weight.
Strict I's and O's.
Consulted cardiology.
Echo on 09/13/2023 revealed diastolic dysfunction, septal hypertrophy, LVEF 55%
Echocardiogram pending
Status post fall
Patient denies hitting her head.
Refused further testing and image
Fall precautions.
PT/OT consult.
Social service for discharge planning.
Check orthostatic.
Eliquis on hold.
Paroxysmal A-fib
Currently patient on A-fib with rate control.
Initially started on Eliquis which currently on hold secondary to fall.
Carvedilol on hold secondary to bradycardia
Appreciate cardiology input.
Uncontrolled hypertension
Carvedilol on hold
Hydralazine
Nifedipine
Continue Lasix
Bradycardia (noted on previous admit)
Carvedilol on hold-May resume at lower dose
Elevated LFTs
Patient had Right upper quadrant ultrasound on previous admission which revealed no evidence of acute cholecystitis
LFTs normalized.
History of recent fall with rib fracture
Continue lidocaine patches
Chronic kidney disease stage IV
Creatinine at baseline.
Consider fluid consult if worsening creatinine after IV diuresis
Insomnia
Continue melatonin/trazodone
History of hypothyroidism
-Continue levothyroxine
History of Hyperlipidemia
-Continue Zetia
CODE STATUS: Full code
DVT prophylaxis: Heparin
Diet: cardiac diet
Disposition: PT/OT
Total time spent on today's encounter was 65 minutes which included time spent in counseling the patient/family regarding diagnosis and treatment plan as listed above, goals of care, and symptom management. Case was discussed with nursing staff,
specialists, and care coordinators/case management. All labs and imaging personally reviewed by me. Remainder the time spent in detailed review of previous records, lab data, imaging, and other medical provider documentation.
Anticipated Discharge: 24 - 48 hours
Subjective/Interval History
-
Date of Service: July 08, 2024
Patient had unwitnessed fall last night, denies hitting her head and denies further testing.
Cardiac recommending to hold further Eliquis.
Also carvedilol held for bradycardia
Objective Data
-
Labs:
Laboratory Results
07/08/24 07/08/24
06:09 12:00
WBC 4.6 L
Hgb 9.5 L Pending
Hct 30.8 L Pending
Plt Count 222
Sodium 144
Potassium 5.3 H
Chloride 119 H
Carbon Dioxide 17 L
BUN 75 H
Creatinine 2.8 H
Glucose 105 H
Calcium 8.8
Total Bilirubin 0.5
AST 25
ALT 33
Alkaline Phosphatase 113
Vital Signs:
Vital Signs
Temp Pulse Resp BP Pulse Ox
97.6 F 65 20 171/72 97
07/08/24 07:30 07/08/24 08:19 07/08/24 07:30 07/08/24 08:19 07/08/24 07:30
I&O
07/07/24 07/08/24 07/09/24
06:59 06:59 06:59
Intake Total 600 / 600
Output Total 1000 / 1000
Balance -400 / -400
Physical Exam
-
General: Well Developed, Well Nourished, No Apparent Distress and Comfortable
HEENT: Normocephalic, Atraumatic, Moist Mucous Membranes, No Ptosis, PERRLA and Nose Appears Normal
Respiratory: Wheezes, Rales, Rhonchi, Crackles and Non Labored Respirations
Cardiac: S1/S2 and Irregular Rhythm
Breast: Deferred by me
GI: Soft, Nontender, Nondistended and Normal Bowel Sounds
Genito-urinary: No Costovertebral Tender
Musculoskeletal: No Clubbing, No Cyanosis, No Edema, Edema, Right Lower Extrem and Edema, Left Lower Extrem
Skin: Warm
Neuro: Awake, Alert, Oriented, AO x 3 and No Motor Deficits
Psych: Calm
Data Reviewed
-
Diagnostic Radiology: Image personally visualized and interpreted and Report Reviewed by me
CT Scan: Image personally visualized and interpreted and Report Reviewed by me
Ultrasound: Image personally visualized and interpreted and Report Reviewed by me
MRI: Image personally visualized and interpreted and Report Reviewed by me
Medical Tests (Nuc Med, Echo etc): Image personally visualized and interpreted and Report Reviewed by me
Labs: Labs Reviewed by me
Old Records: Reviewed
--- NOTE | 2024-07-08 12:03 | PTCARENOTE ---
Assumed care of pt from previous nurse. pt denies pain. Pt can be leah at times, running afib on the monitor. Pt back from [facility]. Pt call hunter is within reach, pt does not always ring, bed alarmed, alarm goes off. Pt educated on same, forgetful
and often refuses to ring despite fall risk. will cont to monitor.
[2024-07-08 12:10] LABS: Hematocrit 27.8 % (37.0-47.0); Hemoglobin 8.7 g/dL (12.0-16.0)
[2024-07-08] MEDS: HEPARIN 5000 UNITS SC (17:59)
[2024-07-08] MEDS: MELATONIN 5 MG PO (21:14)
[2024-07-08] MEDS: DESYREL 75 MG PO (21:15)
--- NOTE | 2024-07-08 22:43 | W.PN.UPDATE ---
Update Note
Progress Note Update
Patient noted to be bradycardic, HR in the 50's while awake, and dropping to mid 30's-low 40's while sleeping. Occasionally drops to low 20's and returns to 30's-40's. Noted pauses on video rental clerk 2.38, 2.55, did not note any pauses longer than
3 seconds. Procardia held by Cardiology. Pt received nighttime medications as ordered: Nifedipine 30 mg, Melatonin 5 mg, Sodium bicarb 1300, Hydralazine 100 mg, Trazadone 75 mg. Vital signs at 2100 stable: BP 160/70, HR 68, temp 97.3, resp 16, 97%
on room air.
~ 22:45 Patient noted to be more bradycardic, evaluated HR 20-30's irregular, more frequent and longer pauses measured at 3.4 seconds. EKG showed Junctional rhythm w/occasional PVC's was previously Atrial fibrillation. Patient more lethargic. Vital
signs: BP 119/53, HR 52, Resp 18, 95% on room air, rectal temp 96.0. Placed on barbara hugger.
TT placed to Cardiology, Dr. Rowan, already following patient this admission. Updated on above situation, telemetry strip w/pauses and EKG sent. Patient made NPO for possible pacer placement tomorrow, upgraded level of care and transfer to IVU.
Continue to monitor overnight.
[2024-07-09] VITALS (8 sets, daily range): BP systolic 118–159; BP diastolic 48–77; BMI 34.9
--- NOTE | 2024-07-09 00:17 | PTCARENOTE ---
2244 FOOT GATHERER notified pt's hr bradycardiac 20-30's while sleeping, pt states 'I feel fine', EKG obtained, VS done, temp 96.0 rectal. pt placed on bear hugger at 2300, FOOT GATHERER notified cardiology, junctional rhythm noted with pause of 3.4 secs. pt t/f to IMU
on cardiac transport monitor with 2 RNs.
[2024-07-09] MEDS: HEPARIN 5000 UNITS SC ×4 (01:05→23:09)
--- NOTE | 2024-07-09 01:19 | PTCARENOTE ---
Received report from fourth floor. Transferred patient to IVU. Afib on the monitor, HR in he 40-50s. Temp 97.5 Oriented to self and time, disoriented to place. Bed alarm on. Oriented pt to unit. No complaints from pt at this time, call hunter within
reach.
[2024-07-09 03:57] LABS: Hematocrit 26.2 % (37.0-47.0); Hemoglobin 8.5 g/dL (12.0-16.0); Mean Corp Hgb Conc. 32.4 g/dL (33.0-37.0); Mean Corpuscular Hgb 32.1 pg (27.0-31.0); Mean Corpuscular Volume 98.9 fL (81.0-99.0); Mean Platelet Volume 11.5 fL (7.4-10.4); Platelet Count 192 10^3/uL (130-400); Red Blood Cell Count 2.65 10^6/uL (4.20-5.40); Red Cell Dist. Width 15.4 % (11.5-14.5); White Blood Cell Count 4.4 10^3/uL (4.8-10.8)
[2024-07-09 04:24] LABS: Blood Urea Nitrogen 76 mg/dl (7-17); Calcium 8.6 mg/dl (8.4-10.2); Carbon Dioxide 20 mmol/L (22-30); Chloride 117 mmol/L (98-107); Estimated Creatinine Clearance 16 ml/min; Glucose 88 mg/dl (70-99); Potassium 5.1 mmol/L (3.5-5.1); Sodium 143 mmol/L (135-145); eGFR 16.76
[2024-07-09] MEDS: SYNTHROID 75 MCG PO (06:07)
[2024-07-09 06:48] LABS: Urine Albumin 3+ (Neg - Trace); Urine Bilirubin Negative (Negative); Urine Character Clear (Clear); Urine Color Yellow; Urine Glucose Negative (Negative); Urine Ketone Negative (Negative); Urine Leukocyte 1+ (Negative); Urine Nitrite Negative (Negative); Urine Occult Blood Negative (Negative); Urine Specific Gravity 1.015 (<1.030); Urine Urobilinogen Negative (Neg - 1+)
[2024-07-09 07:02] LABS: Urine Red Blood Cell 0-2 /HPF (0-2); Urine Squamous Cell 16-20 /LPF (Few)
[2024-07-09 07:03] LABS: Urine Bacteria Few (Negative); Urine White Cell 16-20 /HPF (0-5)
--- NOTE | 2024-07-09 08:15 | W.PN.CARDCBS ---
Addendum entered and electronically signed by Tyler Harrell MD 07/09/24 10:28:
I saw and examined the patient.
The Lap Winding Machine Operator's note was reviewed and I agree with the note.
Comment: Briefly, 78-year-old woman presenting with acute heart failure with preserved ejection fraction and newly diagnosed atrial fibrillation. Patient was noted to be bradycardic overnight including with 3-second pauses and she was transferred
to IVU for closer monitoring.
#HFpEF:
Still appears mildly volume overloaded on exam
Recommend continuing IV Lasix today
Follow daily standing weights, renal function/electrolytes
#Atrial fibrillation:
Has been bradycardic in atrial fibrillation including with nocturnal pauses of around 3 seconds overnight
Plan to hold beta-noble
Continue to monitor on telemetry
Eliquis on hold given fall risk; was found on the floor earlier this admission
Rest per Ceci Paul
Original Note:
Today's Communication / Plan
-
Persistent Afib with pauses up to 3 seconds on IVU tele, hold Coreg and assess for PAT with nocturnal pulse ox, ordered by me
Also hypothermic overnight and repeat urine culture pending
No indication for PPM at this point
Weight is up 1 lb overnight despite ongoing Lasix 40 mg IV BID, cont diuresis
Impression / Plan
-
PCP: Dr. Wing
Card: Dr. Logan
Impression:
Admitted with acute HFpEF and newly diagnosed Afib 07/07/24
Pause up to 3 seconds on tele 07/08/24 PM
Suspected PAT
Acute HFpEF
HTN emergency
s/p fall AM 07/08 2024
Bradycardia
Elevated LFTs
h/o HTN
Recent admission for HTN emergency and HTN encephalopathy 05/28/24 until 06/04/24
Recent ER visit for HTN and medication noncompliance 07/02/24
Newly diagnosed paroxysmal to persistent Afib with controlled ventricular response
Possible h/o atrial arrhythmia
Atach vs atrial flutter on ECG at [facility]
s/p coronary CTA with no significant disease LM, LAD, Circ, but mild prox RCA disease 01/30/20
ZAIRE on CKD 4
Hypothyroid
Hyperlipidemia
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
Focal segmental glomerulosclerosis
h/o DVT/PE in 2010
h/o hyperkalemia with spironolactone
h/o fatigue and cough with metoprolol, although tolerating Coreg
Echo 09/13/23: EF 55%, mod to sev asymmetric septal hypertrophy, IVSD 1.7cm, grade 2 diastolic dysfunction, normal RV size and systolic function, no significant valve disease
Echo 07/08/24: EF 55%, normal wall motion, mild MR, no /AI, mild TR with PAP 35-40 mmHg
Plan:
-Patient was newly diagnosed with Afib in controlled ventricular response on admission 07/07/24, but in hindsight was in atrial flutter during her 05/2024 admission and was in Afib in the ER 07/02/24.
-HRs controlled with her outpatient dose of Coreg 6.25 mg BID on admission, but noted to be bradycardic and Coreg placed on hold starting with 07/08/24 PM dose. Patient's tele and nursing notes reviewed by me from overnight, patient noted to be
bradycardic with HRs in the 30s while observed to be sleeping and patient was awakened and denied any symptoms. Patient was hypothermic with temp of 96.0 rectal and was placed on Yessenia hugger and then fell back to sleep. Patient then noted to recur
with bradycardia and a pause of 3.4 seconds. Patient was transferred to IVU and temperature improved. IVU tele reviewed by me 07/09/24 AM and patient with pauses up to 3 seconds that were associated with sleeping.
-Patient does not carry a diagnosis of PAT, but when she last saw Pulm in 2021 they suspected PAT and recommended a sleep study which the patient declined.
-Recommend holding Coreg and checking nocturnal pulse ox while inpatient and then strongly recommend an outpatient sleep study.
-Patient is more persistent with Afib/flutter. Overall HRs have been controlled and will continue to observe on tele now that Coreg is on hold
-Patient was started on Eliquis 5 mg BID 07/07/24 PM, but then had an unwitnessed fall on the night of 07/07/24 and OAC was held starting 07/08/24 AM. Patient had falls prior to her 05/2024 admission and completed rehab stay a few weeks prior to this
admission. PT is recommending rehab again as of 07/08/24. Will have to decide whether or not to restart Eliquis at rehab vs never restarting OAC due to likely dementia and fall risk
-Echo reviewed by me above and EF stable without significant valve disease
-Weight is up 1 lb overnight despite ongoing Lasix 40 mg IV BID. Patient was taking Lasix 60 mg PO daily prior to admission
-ZAIRE on CKD 4 on admission, Cre was 3.0 on admission and is stable at 2.8 on labs reviewed by me 07/09/24
-Coreg as above
-Cannot add ADDISON/ARB/ARNI/aldosterone antagonist due to ZAIRE on CKD 4
-Would not add SGLT-2 inhibitor in a patient with probable dementia
-Hypothermic overnight and repeat urine culture pending
HPI: Patient came to [facility] ER early this morning with SOB and edema and was admitted with acute HF and cardiology has been consulted. Patient was just admitted to [facility] with HTN emergency 05/28/24 until 06/04/24. Patient's reported possible
dementia to at that time and reported that his had stopped paying bills and taxes and that large sums of money were missing. There was concern that patient was not taking BP meds and was in HTN emergency on admission. Patient went to rehab
and then returned home, but home care could not be established due to clutter in the home and patient's also reported that patient had been hoarding. Patient says that she has been taking meds, but just had an ER visit last week and reported
that she was not taking meds because she did not trust them. Patient complains of SOB, POE and edema, but denies chest pain. Patient denies palpitations and had new Afib on ECG. Patient had Atach vs atrial flutter on a pre-op ECG at [facility] years ago,
but no evidence of arrhythmia on monitor.
Progress Note - Color Adviser
Subjective
Date of Service: July 09, 2024
Opens her eyes and then back to sleep, no complaints
Objective
Labs:
07/09/24 03:21
07/09/24 03:21
Labs
Hgb 8.5 g/dL (12.0-16.0) L 07/09/24 03:21
Hct 26.2 % (37.0-47.0) L 07/09/24 03:21
Plt Count 192 10^3/uL (130-400) 07/09/24 03:21
Sodium 143 mmol/L (135-145) 07/09/24 03:21
Potassium 5.1 mmol/L (3.5-5.1) 07/09/24 03:21
BUN 76 mg/dl (7-17) H 07/09/24 03:21
Creatinine 2.8 mg/dL (0.6-1.0) H 07/09/24 03:21
Glucose 88 mg/dl (70-99) 07/09/24 03:21
Troponins
07/08/24
06:09
Troponin I 0.032
Vital Signs and I&O:
Vital Signs
Temp Pulse Resp BP Pulse Ox
98.1 F 60 22 118/48 93
07/09/24 07:44 07/09/24 07:52 07/09/24 07:44 07/09/24 07:52 07/09/24 07:44
Vital Signs
Temp Pulse Resp BP Pulse Ox
98.1 F 60 22 118/48 93
07/09/24 07:44 07/09/24 07:52 07/09/24 07:44 07/09/24 07:52 05/14/25 07:44
Intake & Output
07/07/24 07/08/24 07/09/24 07/10/24
06:59 06:59 06:59 06:59
Intake Total 600 / 600 720 / 720
Output Total 1000 / 1000 400 / 400
Balance -400 / -400 320 / 320
Physical Exam
Physical Exam
GEN: NAD. AAOx3
HEENT: EOMI
LUNGS: RA.
CV: Afib on tele.
EXT: No edema B/L
NEURO: Gross non-focal
SKIN: No rash
[2024-07-09] MEDS: APRESOLINE 100 MG PO ×3 (10:18→21:01)
[2024-07-09] MEDS: SODIUM BICARBONATE 1300 MG PO ×2 (10:18→21:01)
[2024-07-09] MEDS: ZETIA 10 MG PO (10:18)
[2024-07-09] MEDS: VITAMIN B-12 2000 MCG PO (10:19)
[2024-07-09] MEDS: LASIX 40 MG IV ×2 (10:20→16:03)
[2024-07-09] MEDS: ASPIR LOW (ENTERIC COATED) 81 MG PO (10:20)
[2024-07-09] MEDS: VITAMIN D3 (cholecalciferol) 50 MCG PO (10:20)
[2024-07-09] MEDS: PROCARDIA XL (EXTENDED RELEASE) PO (10:20)
--- NOTE | 2024-07-09 11:23 | W.PN.UPDATE ---
Update Note
Progress Note Update
Talked with patient and in the room. Reviewed admission 05/2024, rehab stay and ER visit 07/02/24 followed by current admission. Talked about PT/OT recommendations for rehab stay again and patient is agreeable. Suggested patient's
oversee patient's meds at home and he refuses and says that he is busy trying to manage his own meds and cannot be responsible for patient's meds as well. Suggested asking children or other family for help and he says that his involved son is in
[place] and is not in this area long enough to be of any real help. Suggested a trusted neighbor or friend that might be able to help and they could not think of anyone. Finally suggested paying out of pocket for help at home and they cannot do that
either. Talked about possible long-term senior care placement if patient cannot seem to stay out of the hospital and is unsafe at home, but patient says she would not want that. Plan is to think about what we discussed and then talk again later. CM
is also involved. We also reviewed admission thus far including CHF, new diagnosis of Afib and fall requiring cessation of newly started Eliquis. Also reviewed overnight events and suggested a work-up for PAT which patient's told me was
ridiculous and that no human on Earth could possibly sleep with a CPAP and that the patient would never go through such a work-up, he believes they are nonsense. Also reviewed that patient does not require a PPM and that primary treatment would be
on PAT evaluation and treatment and cessation of AV cam blockers.
--- NOTE | 2024-07-09 11:32 | CM ---
Chart reviewed. Patient is independent of ADLS, lives with her in a [address], [address], ambulates with a SPC and RW. PT evaluation recommending SNF. Patient was recently at [facility]. Patient is agreeable to go back. Referral sent to [place].
Plan is for the patient to go to SNF. CM to follow
--- NOTE | 2024-07-09 12:22 | W.PN.HOSP.TC ---
Today's Communication/Plan
-
Continue import manager for bradycardia
Assessment / Plan
Assessment / Plan
Impression:
Patient is a pleasant 78 years old with past medical history known for hypertension, hypothyroidism, osteoarthritis, history of PE, vitamin D deficiency, who was recently admitted to the hospital and discharged on June 04 with hypertensive
urgency/emergency who came to the ER today with shortness of breath and lower extremity edema, denies personal history of CHF but patient has documented history of diastolic CHF with echo done in August 2023 showing EF 55%, patient readmitted for CHF
exacerbation, cardiology consulted.
The patient had a fall, denies hitting her head and denies further imaging or testing, cardiology commending to hold Eliquis and carvedilol for now.
Patient developed bradycardia overnight, nifedipine and carvedilol held, currently moved to IVU.
Cardiology recommending to continue monitor.
Assessment/plan:
Acute CHF Exacerbation:
Patient Acute on chronic diastolic congestive heart failure.
Patient presented with shortness of breath and lower [place] [address]
Continue IV diuresing in form of Lasix 40 mg twice daily
Daily weight.
Strict I's and O's.
Consulted cardiology.
Echo on 09/13/2023 revealed diastolic dysfunction, septal hypertrophy, LVEF 55%
Echocardiogram pending
Status post fall
Patient denies hitting her head.
Refused further testing and image
Fall precautions.
PT/OT consult.
Social service for discharge planning.
Check orthostatic.
Eliquis on hold.
Bradycardia (noted on previous admit)
Carvedilol and Nifedipine held.
Patient developed bradycardia overnight, moved to IVU.
Cardiology recommending to continue monitor.
Paroxysmal A-fib
Currently patient on A-fib with rate control.
Initially started on Eliquis which currently on hold secondary to fall.
Carvedilol on hold secondary to bradycardia
Appreciate cardiology input.
Uncontrolled hypertension
Carvedilol on hold
Nifedipine on hold
Hydralazine
Continue Lasix
Elevated LFTs
Patient had Right upper quadrant ultrasound on previous admission which revealed no evidence of acute cholecystitis
LFTs normalized.
History of recent fall with rib fracture
Continue lidocaine patches
Chronic kidney disease stage IV
Creatinine at baseline.
Insomnia
Continue melatonin/trazodone
History of hypothyroidism
-Continue levothyroxine
History of Hyperlipidemia
-Continue Zetia
CODE STATUS: Full code
DVT prophylaxis: Heparin
Diet: cardiac diet
Disposition: PT/OT
Total time spent on today's encounter was 65 minutes which included time spent in counseling the patient/family regarding diagnosis and treatment plan as listed above, goals of care, and symptom management. Case was discussed with nursing staff,
specialists, and care coordinators/case management. All labs and imaging personally reviewed by me. Remainder the time spent in detailed review of previous records, lab data, imaging, and other medical provider documentation.
Anticipated Discharge: > 48 hours
Subjective/Interval History
-
Date of Service: July 09, 2024
Patient seen and examined at bedside, denies any chest pain, improved shortness of breath, no abdominal pain, no nausea, no vomiting, no diarrhea or constipation.
Patient developed bradycardia overnight, nifedipine and carvedilol held, currently moved to IVU.
Cardiology commending to continue monitor.
Objective Data
-
Labs:
Laboratory Results
07/09/24
03:21
WBC 4.4 L
Hgb 8.5 L
Hct 26.2 L
Plt Count 192
Sodium 143
Potassium 5.1
Chloride 117 H
Carbon Dioxide 20 L
BUN 76 H
Creatinine 2.8 H
Glucose 88
Calcium 8.6
Vital Signs:
Vital Signs
Temp Pulse Resp BP Pulse Ox
97.5 F 63 20 141/65 96
07/09/24 11:57 07/09/24 12:00 07/09/24 11:57 07/09/24 11:56 07/09/24 12:01
I&O
07/08/24 07/09/24 07/10/24
06:59 06:59 06:59
Intake Total 600 / 600 720 / 720 120 / 120
Output Total 1000 / 1000 400 / 400
Balance -400 / -400 320 / 320 120 / 120
Physical Exam
-
General: Well Developed, Well Nourished, No Apparent Distress and Comfortable
HEENT: Normocephalic, Atraumatic, Moist Mucous Membranes, No Ptosis, PERRLA and Nose Appears Normal
Respiratory: Wheezes, Rales, Rhonchi, Crackles and Non Labored Respirations
Cardiac: S1/S2 and Irregular Rhythm
Breast: Deferred by me
GI: Soft, Nontender, Nondistended and Normal Bowel Sounds
Genito-urinary: No Costovertebral Tender
Musculoskeletal: No Clubbing, No Cyanosis, No Edema, Edema, Right Lower Extrem and Edema, Left Lower Extrem
Skin: Warm
Neuro: Awake, Alert, Oriented, AO x 3 and No Motor Deficits
Psych: Calm
Data Reviewed
-
Diagnostic Radiology: Image personally visualized and interpreted and Report Reviewed by me
CT Scan: Image personally visualized and interpreted and Report Reviewed by me
Ultrasound: Image personally visualized and interpreted and Report Reviewed by me
MRI: Image personally visualized and interpreted and Report Reviewed by me
Medical Tests (Nuc Med, Echo etc): Image personally visualized and interpreted and Report Reviewed by me
Labs: Labs Reviewed by me
Old Records: Reviewed
--- NOTE | 2024-07-09 18:30 | PTCARENOTE ---
Pt in atrial fib at a rate of 47-72 with occasional pauses up to 2.65 seconds. Coreg held today. Pt OOB to the chair and assisted to bedside commode.
Pt oriented to herself mostly and occasionally time. She clearly does not know why she is in the hospital and neither she or her state any understanding of her medications or that either of them reliably take them. Continued attempts to
reorient pt and explain plan of care. Pt maintained on fall precautions with bed and chair alarms and close monitoring.
[2024-07-09] MEDS: DESYREL 75 MG PO (21:02)
[2024-07-09] MEDS: MELATONIN 5 MG PO (21:03)
--- NOTE | 2024-07-09 22:02 | PTCARENOTE ---
Received patient at change of shift. Afib on the monitor, HR in the 50s with occasional 2 second pauses. Patiet disoriented to place and forgetful, bed alarm in place. No complaints from pt at this time, call hunter within reach.
[2024-07-10 02:51] VITALS: BP 101/77
[2024-07-10 03:10] VITALS: BMI 35.1
[2024-07-10 03:34] LABS: Hematocrit 28.8 % (37.0-47.0); Mean Corp Hgb Conc. 31.3 g/dL (33.0-37.0); Mean Corpuscular Hgb 31.3 pg (27.0-31.0); Mean Platelet Volume 11.3 fL (7.4-10.4); Platelet Count 179 10^3/uL (130-400); Red Blood Cell Count 2.88 10^6/uL (4.20-5.40); Red Cell Dist. Width 15.4 % (11.5-14.5); White Blood Cell Count 4.4 10^3/uL (4.8-10.8)
[2024-07-10 03:55] LABS: Blood Urea Nitrogen 82 mg/dl (7-17); Calcium 8.1 mg/dl (8.4-10.2); Carbon Dioxide 20 mmol/L (22-30); Chloride 114 mmol/L (98-107); Estimated Creatinine Clearance 15 ml/min; Glucose 99 mg/dl (70-99); Magnesium 2.1 mg/dl (1.6-2.3); Potassium 5.1 mmol/L (3.5-5.1); Sodium 141 mmol/L (135-145); eGFR 16.07
[2024-07-10] MEDS: SYNTHROID 75 MCG PO (06:04)
[2024-07-10 07:50] VITALS: BP 142/58
[2024-07-10] MEDS: APRESOLINE 100 MG PO ×2 (08:59→15:11)
[2024-07-10] MEDS: ASPIR LOW (ENTERIC COATED) 81 MG PO (08:59)
[2024-07-10] MEDS: ZETIA 10 MG PO (08:59)
[2024-07-10] MEDS: VITAMIN B-12 2000 MCG PO (08:59)
[2024-07-10] MEDS: SODIUM BICARBONATE 1300 MG PO (08:59)
[2024-07-10] MEDS: VITAMIN D3 (cholecalciferol) 50 MCG PO (08:59)
[2024-07-10] MEDS: HEPARIN 5000 UNITS SC ×2 (09:00→15:10)
[2024-07-10] MEDS: LASIX 40 MG IV (10:17)
--- NOTE | 2024-07-10 10:46 | CM ---
Chart reviewed. Patient is independent of ADLS, lives with her in a 2 [address], 4 [address], ambulates with a RW and SPC. Patient was recently hospitalized from 05/28-06/04 and was discharged to [facility] SNF and then went home. PT evaluation
recommending SNF. Patient is agreeable to [facility]. Referral sent and accepted. Plan is for the patient to go to SNF when medically stable. CM to follow
[2024-07-10 11:15] VITALS: BP 144/53
--- NOTE | 2024-07-10 12:57 | W.PN.HOSP.TC ---
Today's Communication/Plan
-
Discharge to rehab if cleared by cardio
Assessment / Plan
Assessment / Plan
Impression:
Patient is a pleasant 78 years old with past medical history known for hypertension, hypothyroidism, osteoarthritis, history of PE, vitamin D deficiency, who was recently admitted to the hospital and discharged on June 04 with hypertensive
urgency/emergency who came to the ER today with shortness of breath and lower extremity edema, denies personal history of CHF but patient has documented history of diastolic CHF with echo done in August 2023 showing EF 55%, patient readmitted for CHF
exacerbation, cardiology consulted.
The patient had a fall, denies hitting her head and denies further imaging or testing, cardiology commending to hold Eliquis and carvedilol for now.
Patient developed bradycardia overnight, nifedipine and carvedilol held, currently moved to IVU.
Cardiology recommending to continue monitor.
No further bradycardia or pause.
Assessment/plan:
Acute CHF Exacerbation:
Patient Acute on chronic diastolic congestive heart failure.
Patient presented with shortness of breath and lower [place] [address]
Continue IV diuresing in form of Lasix 40 mg twice daily
Daily weight.
Strict I's and O's.
Consulted cardiology.
Echo on 09/13/2023 revealed diastolic dysfunction, septal hypertrophy, LVEF 55%
Echocardiogram pending
Status post fall
Patient denies hitting her head.
Refused further testing and image
Fall precautions.
PT/OT consult.
Social service for discharge planning.
Check orthostatic.
Eliquis on hold.
Bradycardia (noted on previous admit)
Carvedilol and Nifedipine held.
Patient developed bradycardia overnight, moved to IVU.
Cardiology recommending to continue monitor.
Paroxysmal A-fib
Currently patient on A-fib with rate control.
Initially started on Eliquis which currently on hold secondary to fall.
Carvedilol on hold secondary to bradycardia
Appreciate cardiology input.
Uncontrolled hypertension
Carvedilol on hold
Nifedipine on hold
Hydralazine
Continue Lasix
Elevated LFTs
Patient had Right upper quadrant ultrasound on previous admission which revealed no evidence of acute cholecystitis
LFTs normalized.
History of recent fall with rib fracture
Continue lidocaine patches
Chronic kidney disease stage IV
Creatinine at baseline.
Insomnia
Continue melatonin/trazodone
History of hypothyroidism
-Continue levothyroxine
History of Hyperlipidemia
-Continue Zetia
CODE STATUS: Full code
DVT prophylaxis: Heparin
Diet: cardiac diet
Disposition: PT/OT
Total time spent on today's encounter was 65 minutes which included time spent in counseling the patient/family regarding diagnosis and treatment plan as listed above, goals of care, and symptom management. Case was discussed with nursing staff,
specialists, and care coordinators/case management. All labs and imaging personally reviewed by me. Remainder the time spent in detailed review of previous records, lab data, imaging, and other medical provider documentation.
Anticipated Discharge: Today
Subjective/Interval History
-
Date of Service: July 10, 2024
Patient seen and examined at bedside, denies any chest pain or shortness of breath, no abdominal pain, no nausea, no vomiting, no diarrhea or constipation.
Objective Data
-
Labs:
Laboratory Results
07/10/24
03:02
WBC 4.4 L
Hgb 9.0 L
Hct 28.8 L
Plt Count 179
Sodium 141
Potassium 5.1
Chloride 114 H
Carbon Dioxide 20 L
BUN 82 H
Creatinine 2.9 H
Glucose 99
Calcium 8.1 L
Vital Signs:
Vital Signs
Temp Pulse Resp BP Pulse Ox
98.5 F 61 20 144/53 95
07/10/24 11:16 07/10/24 11:15 07/10/24 11:16 07/10/24 11:15 07/10/24 11:16
I&O
07/09/24 07/10/24 07/11/24
06:59 06:59 06:59
Intake Total 720 / 720 300 / 300 180 / 180
Output Total 400 / 400
Balance 320 / 320 300 / 300 180 / 180
Physical Exam
-
General: Well Developed, Well Nourished, No Apparent Distress and Comfortable
HEENT: Normocephalic, Atraumatic, Moist Mucous Membranes, No Ptosis, PERRLA and Nose Appears Normal
Respiratory: Rales, Rhonchi and Non Labored Respirations
Cardiac: S1/S2 and Irregular Rhythm
Breast: Deferred by me
GI: Soft, Nontender, Nondistended and Normal Bowel Sounds
Genito-urinary: No Costovertebral Tender
Musculoskeletal: No Clubbing, No Cyanosis, No Edema, Edema, Right Lower Extrem and Edema, Left Lower Extrem
Skin: Warm
Neuro: Awake, Alert, Oriented, AO x 3 and No Motor Deficits
Psych: Calm
Data Reviewed
-
Diagnostic Radiology: Image personally visualized and interpreted and Report Reviewed by me
CT Scan: Image personally visualized and interpreted and Report Reviewed by me
Ultrasound: Image personally visualized and interpreted and Report Reviewed by me
MRI: Image personally visualized and interpreted and Report Reviewed by me
Medical Tests (Nuc Med, Echo etc): Image personally visualized and interpreted and Report Reviewed by me
Labs: Labs Reviewed by me
Old Records: Reviewed
--- NOTE | 2024-07-10 13:12 | W.PN.CARDCBS ---
Addendum entered and electronically signed by Kassandra Logan DO 07/10/24 15:09:
I saw and examined the patient.
The Molecular Spectroscopist's note was reviewed and I agree with the note.
Comment: Patient was seen and examined. Overnight and events this hospitalization reviewed. Currently no complaints of chest pain/shortness of breath.
NAD on nasal cannula
Irregularly irregular positive S1-S2 distant heart sounds with no significant murmur
Bronchovesicular breath sounds decreased at the bases with fine crackles right base
Soft, obese. Nontender.
++ Edema with chronic venous stasis changes
Plan:
Acute on chronic heart failure with preserved ejection fraction
- Volume status difficult to ascertain with likely chronic venous insufficiency. Overall volume status is better with increasing creatinine
- Transition Lasix to 40 mg twice daily
- Continue carvedilol.
- Contraindication to ADDISON/ARB/Arni/aldosterone antagonist due to acute renal insufficiency with underlying chronic kidney disease stage IV. Will not add SGLT2 inhibitor at this point but can reassess as an outpatient
- Carvedilol discontinued secondary to bradycardia and nocturnal pauses
- Discussed sleep apnea and recommended outpatient sleep apnea evaluation and treatment
- Overnight pulse oximetry without significant desaturation
Atrial fibrillation with relatively controlled rates and atrial flutter during May 2024 admission, newer diagnosis
- Patient is seems generally asymptomatic but is an unreliable historian
- Carvedilol discontinued secondary to bradycardia
-Patient was started on Eliquis 5 mg BID 07/07/24 PM, but then had an unwitnessed fall on the night of 07/07/24 and OAC was stopped.
- Stroke risk and stroke risk reduction was discussed with patient and her on 07/09/2024. Anticoagulation has not been initiated secondary to frequent falls.
- If patient becomes a resident at a long-term care facility would reevaluate anticoagulation for stroke risk reduction
No contraindications to patient being discharged to acute rehab today
Original Note:
Today's Communication / Plan
-
Recommend Lasix 40 mg PO BID
Would NOT d/c on OAC
Coreg has been stopped due to bradycardia
No desaturation events on nocturnal pulse ox last night
Impression / Plan
-
PCP: Dr. Wing
Card: Dr. Logan
Impression:
Admitted with acute HFpEF and newly diagnosed Afib 07/07/24
Pause up to 3 seconds on tele 07/08/24 PM
Suspected PAT
Acute HFpEF
HTN emergency
s/p fall AM 07/08 2024
Bradycardia
Elevated LFTs
h/o HTN
Recent admission for HTN emergency and HTN encephalopathy 05/28/24 until 06/04/24
Recent ER visit for HTN and medication noncompliance 07/02/24
Newly diagnosed paroxysmal to persistent Afib with controlled ventricular response
Possible h/o atrial arrhythmia
Atach vs atrial flutter on ECG at H
s/p coronary CTA with no significant disease LM, LAD, Circ, but mild prox RCA disease 01/30/20
ZAIRE on CKD 4
Hypothyroid
Hyperlipidemia
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
Focal segmental glomerulosclerosis
h/o DVT/PE in 2010
h/o hyperkalemia with spironolactone
h/o fatigue and cough with metoprolol, although tolerating Coreg
Echo 09/13/23: EF 55%, mod to sev asymmetric septal hypertrophy, IVSD 1.7cm, grade 2 diastolic dysfunction, normal RV size and systolic function, no significant valve disease
Echo 07/08/24: EF 55%, normal wall motion, mild MR, no /AI, mild TR with PAP 35-40 mmHg
Plan:
-Remains in rate controlled Afib. Afib is a new diagnosis this admission.
-In hindsight was in atrial flutter during her 05/2024 admission and was in Afib in the ER 07/02/24.
-Outpatient dose of Coreg 6.25 mg BID has been held for bradycardia and pauses up to 3 seconds during sleep.
-Nocturnal pulse ox did not demonstrate desaturation events, but Pulm office had previously suggested PAT evaluation. As per conversation with patient and 07/09/24, they do not believe in PAT or CPAP treatment and will not pursue any
additional work-up.
-Patient was started on Eliquis 5 mg BID 07/07/24 PM, but then had an unwitnessed fall on the night of 07/07/24 and OAC was stopped. Reviewed risk of stroke with patient and on 07/09/24. Patient was falling at home prior to this admission as
well. Patient is not going to be placed on OAC.
-Echo reviewed by me above and EF stable without significant valve disease
-Weight continues to increase 1 lb a day despite ongoing Lasix 40 mg IV BID. Cre now also increasing to 2.9 on 07/10/24 labs reviewed by me. Patient was taking Lasix 60 mg PO daily prior to admission, but recommend Lasix 40 mg PO BID upon discharge.
-ZAIRE on CKD 4 on admission, Cre was 3.0 on admission.
-Coreg as above
-Cannot add ADDISON/ARB/ARNI/aldosterone antagonist due to ZAIRE on CKD 4
-Would not add SGLT-2 inhibitor in a patient with probable dementia
-Patient is going to [facility] for additional rehab. Patient was just at rehab at [facility] last month. Patient could not have home health due to hoarding in the home. Patient's told me 07/09/24 that he cannot be responsible for managing patient's
medications because he has to take care of his own medications. Patient's has also recently taken over handling all of the household financials and is overwhelmed.
HPI: Patient came to [facility] ER early this morning with SOB and edema and was admitted with acute HF and cardiology has been consulted. Patient was just admitted to [facility] with HTN emergency 05/28/24 until 06/04/24. Patient's reported possible
dementia to at that time and reported that his had stopped paying bills and taxes and that large sums of money were missing. There was concern that patient was not taking BP meds and was in HTN emergency on admission. Patient went to rehab
and then returned home, but home care could not be established due to clutter in the home and patient's also reported that patient had been hoarding. Patient says that she has been taking meds, but just had an ER visit last week and reported
that she was not taking meds because she did not trust them. Patient complains of SOB, POE and edema, but denies chest pain. Patient denies palpitations and had new Afib on ECG. Patient had Atach vs atrial flutter on a pre-op ECG at [facility] years ago,
but no evidence of arrhythmia on monitor.
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
Subjective
Date of Service: July 10, 2024
She denies pain
Objective
Labs:
07/10/24 03:02
07/10/24 03:02
Labs
Hgb 9.0 g/dL (12.0-16.0) L 07/10/24 03:02
Hct 28.8 % (37.0-47.0) L 07/10/24 03:02
Plt Count 179 10^3/uL (130-400) 07/10/24 03:02
Sodium 141 mmol/L (135-145) 07/10/24 03:02
Potassium 5.1 mmol/L (3.5-5.1) 07/10/24 03:02
BUN 82 mg/dl (7-17) H 07/10/24 03:02
Creatinine 2.9 mg/dL (0.6-1.0) H 07/10/24 03:02
Glucose 99 mg/dl (70-99) 07/10/24 03:02
Troponins
07/08/24
06:09
Troponin I 0.032
Vital Signs and I&O:
Vital Signs
Temp Pulse Resp BP Pulse Ox
98.5 F 61 20 144/53 95
07/10/24 11:16 07/10/24 11:15 07/10/24 11:16 07/10/24 11:15 07/10/24 11:16
Vital Signs
Temp Pulse Resp BP Pulse Ox
98.5 F 61 20 144/53 95
07/10/24 11:16 07/10/24 11:15 07/10/24 11:16 07/10/24 11:15 07/10/24 11:16
Intake & Output
07/08/24 07/09/24 07/10/24 07/11/24
06:59 06:59 06:59 06:59
Intake Total 600 / 600 720 / 720 300 / 300 180 / 180
Output Total 1000 / 1000 400 / 400
Balance -400 / -400 320 / 320 300 / 300 180 / 180
Physical Exam
Physical Exam
GEN: NAD. AAOx3
HEENT: EOMI
LUNGS: RA.
CV: Afib on tele.
EXT: No edema B/L
NEURO: Gross non-focal
SKIN: No rash
--- NOTE | 2024-07-10 14:56 | W.DCSUMMARY ---
Discharge Summary
Discharge Data
Date of Admission: 07/07/24
Date of Discharge: 07/10/24
-
Pending Results: No
Hospital Course
Hospital course
Patient is a pleasant 78 years old with past medical history known for hypertension, hypothyroidism, osteoarthritis, history of PE, vitamin D deficiency, who was recently admitted to the hospital and discharged on June 04 with hypertensive
urgency/emergency who came to the ER today with shortness of breath and lower extremity edema, denies personal history of CHF but patient has documented history of diastolic CHF with echo done in August 2023 showing EF 55%, patient readmitted for CHF
exacerbation, cardiology consulted.
The patient had a fall, denies hitting her head and denies further imaging or testing, cardiology commending to hold Eliquis and carvedilol for now.
Patient developed bradycardia overnight, nifedipine and carvedilol held, currently moved to IVU.
Cardiology recommending to continue monitor.
No further bradycardia or pause.
During hospitalization patient was treated from the following
Acute CHF Exacerbation:
Patient Acute on chronic diastolic congestive heart failure.
Patient presented with shortness of breath and lower [place] [address]
Continue IV diuresing in form of Lasix 40 mg twice daily
Daily weight.
Strict I's and O's.
Consulted cardiology.
Echo on 09/13/2023 revealed diastolic dysfunction, septal hypertrophy, LVEF 55%
Echocardiogram pending
Status post fall
Patient denies hitting her head.
Refused further testing and image
Fall precautions.
PT/OT consult.
Social service for discharge planning.
Check orthostatic.
Eliquis on hold.
Bradycardia (noted on previous admit)
Carvedilol and Nifedipine held.
Patient developed bradycardia overnight, moved to IVU.
Cardiology recommending to continue monitor.
Paroxysmal A-fib
Currently patient on A-fib with rate control.
Initially started on Eliquis which currently on hold secondary to fall.
Carvedilol on hold secondary to bradycardia
Appreciate cardiology input.
Uncontrolled hypertension
Carvedilol on hold
Nifedipine on hold
Hydralazine
Continue Lasix
Elevated LFTs
Patient had Right upper quadrant ultrasound on previous admission which revealed no evidence of acute cholecystitis
LFTs normalized.
History of recent fall with rib fracture
Continue lidocaine patches
Chronic kidney disease stage IV
Creatinine at baseline.
Insomnia
Continue melatonin/trazodone
History of hypothyroidism
-Continue levothyroxine
History of Hyperlipidemia
-Continue Zetia
CODE STATUS: Full code
DVT prophylaxis: Heparin
Diet: cardiac diet
Disposition: PT/OT
Total time spent on today's encounter was 40 minutes which included time spent in counseling the patient/family regarding diagnosis and treatment plan as listed above, goals of care, and symptom management. Case was discussed with nursing staff,
specialists, and care coordinators/case management. All labs and imaging personally reviewed by me. Remainder the time spent in detailed review of previous records, lab data, imaging, and other medical provider documentation.
Anticipated Discharge: Today
Discharge Plan
-
Patient Disposition: Usp/SNF
Discharge Diagnosis/Procedures: Acute on chronic diastolic congestive heart failure.
Status post fall.
Bradycardia with pauses.
Paroxysmal A-fib.
Uncontrolled hypertension.
Diet: Low Cholesterol and Low Sodium
Activity: As tolerated
Specialty Instructions: Weigh Daily- Call MD for wt gain/loss 3 lbs overnight/5 lbs in 1 week
Instructions: *[facility] Heart Failure Instructions
Referrals:
Fozia Wing MD [Family Provider] -
Kassandra Logan DO [Active] - 07/28/24 2:00 pm (You have an appt to see Dr. Logan's physician drafter assistant, Edelmira at the [place] office on 07/28/24 at 2 PM. )
Additional Discharge Medication Instructions: -STOP taking Coreg (carvedilol) due to slow heart rate
-Increase Lasix (furosemide) to 40 mg twice a day at 8 AM and 4 PM.
Prescriptions:
New
ipratropium-albuterol 0.5 mg-3 mg(2.5 mg base)/3 mL Solution For Nebulization
3 ml inhalation R Q4HPRN PRN (Reason: shortness of breath) Qty: 0 0RF
furosemide [Lasix] 40 mg tablet
40 mg PO BID AT 0800,1600 Qty: 60 6RF
Continued
cyanocobalamin (vitamin B-12) 1,000 MCG tablet
2,000 mcg PO DAILY
cholecalciferol (vitamin D3) [Vitamin D3] 50 mcg (2,000 unit) Tablet
50 mcg PO DAILY
ezetimibe [Zetia] 10 mg Tablet
10 mg PO DAILY
CoQmax Ubiquinol 200 mg Capsule
400 mg PO DAILY
aspirin 81 mg Tablet,Delayed Release (Dr/Ec)
81 mg PO DAILY
levothyroxine 75 mcg Tablet
75 mcg PO DAILY@0600
sodium bicarbonate 650 mg Tablet
1,300 mg PO BID
hydralazine 100 mg Tablet
100 mg PO TID
mometasone 0.1 % Cream
1 applic TOPICAL DAILYPRN PRN (Reason: itching ear)
albuterol sulfate 90 mcg/actuation HFA aerosol inhaler
2 puff inhalation R Q6HPRN PRN (Reason: shortness of breath or wheezing)
trazodone 50 mg tablet
75 mg PO HS
fluticasone propionate 50 mcg/actuation Everetts,Suspension
1 spray INTRANASAL DAILYPRN PRN (Reason: allergies)
lidocaine 4 % adhesive patch,medicated
1 patch topical DAILYPRN PRN (Reason: rib pain)
Discontinued
furosemide [Lasix] 40 MG tablet
60 mg PO DAILY
carvedilol 12.5 mg Tablet
6.25 mg PO BID
nifedipine 30 mg Tablet Extended Release
30 mg PO BID 30 Days Qty: 0 0RF
Discharge Orders:
Discharge Patient (As Directed); Ordered 07/10/24
Ordered By: Charles Allen
Care Plan Goals
Care Plan Goals:
Problem: Readiness for enhanced knowledge related to diagnosis and treatment plan
Goal: Understand your diagnosis and treatment plan needs, including medications if applicable.
Instructions: Know your diagnosis, underlying causes and treatment plan options, including medications if applicable. Consult with your health care team to learn about your diagnosis and treatment plan, including medications if applicable.
Discharge Date and Time
Print Language: KYRGYZ
[2024-07-10 15:01] VITALS: BP 141/55
--- NOTE | 2024-07-10 16:38 | PTCARENOTE ---
Pt seen by Matthew Logan. Pt in very good spirits today, OOB to chair and bathroom. Reinforced with pt adn her that she can be well if she reliably takes her medicine everyday. Telemetry and IV device removed. Report called to
Tammy at [facility]. Pt escorted out via wheelchair with her and all belongings, he is transporting her to [facility].
--- NOTE | 2024-07-11 11:54 | W.HF.CON ---
Heart Failure
- LV Function
Left ventricular function study result: LV Ejection fraction >/= 50%
Ejection Fraction Percentage: 55
- ARNI
Patient already on ARNI: No
Heart Failure ARNI Contraindication: Acute Renal Failure
Heart Failure ARNI Not Indicated: LV Ejection Fraction >/= 40%
- ACEI/ARB
Patient already on ACEI/ARB: No
Heart Failure ACEI/ARB Contraindication: Acute Renal Failure
Heart Failure ACEI/ARB Not Indicated: LV Ejection Fraction > 40%
- Beta Madalyn
Patient already on Evidence Based Beta Madalyn: No
Heart Failure Evidence Based Beta Madalyn: Heart Rate < 60 bpm
Heart Failure Evidence Based Beta Madalyn Not Indicated: LV Ejection Fraction > 40%
- Mineralocorticord Receptor Antagonist
Patient already on MRA: No
Heart Failure MRA Contraindication: Acute Renal Insufficiency
Heart Failure MRA Not Indicated: LV Ejection Fraction > 40%
- SGLT-2 Inhibitor
Patient already on SGLT-2 Inhibitor: No
Heart Failure SGLT-2 Inhibitor Contraindication: eGFR < 25
- Afib Anticoagulation
Patient already on Anticoagulation for Afib: No
Heart Failure Afib Anticoagulation Contraindication: History of Falls
== END 2024-07-10 16:15 | DRG 291 ==
LOC: IVU 10:00
PROVIDERS: Emergency Medicine; Nurse Practitioner Family; ADMITTING PHYSICIAN General Practice; EMERGENCY PHYSICIAN Emergency Medicine; FAMILY PHYSICIAN Emergency Medicine; OTHER PHYSICIAN Nuclear Medicine Nuclear Cardiology
DX: I13.0 Hypertensive heart and chronic kidney disease with heart failure and stage 1 through stage 4 chronic kidney disease, or unspecified chronic kidney disease (principal); I50.33 Acute on chronic diastolic (congestive) heart failure; N18.4 Chronic kidney disease, stage 4 (severe); F03.918 Unspecified dementia, unspecified severity, with other behavioral disturbance; M33.13 Other dermatomyositis without myopathy; N17.9 Acute kidney failure, unspecified; W19.XXXA Unspecified fall, initial encounter; I48.0 Paroxysmal atrial fibrillation; Z79.890 Hormone replacement therapy; G47.00 Insomnia, unspecified; E03.9 Hypothyroidism, unspecified; Z86.711 Personal history of pulmonary embolism; Z96.653 Presence of artificial knee joint, bilateral; Z79.82 Long term (current) use of aspirin; Z79.899 Other long term (current) drug therapy; E78.00 Pure hypercholesterolemia, unspecified; Z86.718 Personal history of other venous thrombosis and embolism; R68.0 Hypothermia, not associated with low environmental temperature
CPT/HCPCS: 71046; 80048; 80053; 81003; 81015; 82248; 83735; 83880; 84484; 85014; 85018; 85025; 85027; 87086; 93005; 93306; 94762; 96374; 97116; 97163; 97167; 97535; 99285

== ENCOUNTER → 2024-07-14 11:53 | Outpatient (REF) | payer OTHER, MEDICARE, SELFPAY ==
[2024-07-14 12:29] LABS: % Basophils 0.3 % (0-2); % Eosinophils 2.3 % (0-6); % Immature Granulocytes 0.3 % (0-0.5); % Monocytes 11.9 % (1.7-9.3); % Neutrophils 73.2 % (42.2-75.2); Absolute Eosinophils 0.2 10^3/uL (0-0.7); Absolute Lymphocytes 0.8 10^3/uL (1.2-3.4); Absolute Monocytes 0.8 10^3/uL (0.1-0.6); Absolute Neutrophils 4.8 10^3/uL (1.4-6.5); Hematocrit 25.8 % (37.0-47.0); Hemoglobin 8.1 g/dL (12.0-16.0); Mean Corp Hgb Conc. 31.4 g/dL (33.0-37.0); Mean Platelet Volume 11.9 fL (7.4-10.4); Nucleated Red Blood Cells % 0 %; Platelet Count 139 10^3/uL (130-400); Red Blood Cell Count 2.53 10^6/uL (4.20-5.40); Red Cell Dist. Width 14.6 % (11.5-14.5); White Blood Cell Count 6.6 10^3/uL (4.8-10.8)
[2024-07-14 13:14] LABS: Blood Urea Nitrogen 71 mg/dl (7-17); Calcium 8.1 mg/dl (8.4-10.2); Carbon Dioxide 27 mmol/L (22-30); Chloride 107 mmol/L (98-107); Glucose 86 mg/dl (70-99); Potassium 4.1 mmol/L (3.5-5.1); Sodium 140 mmol/L (135-145); eGFR 15.43
== END ==
LOC: OLABP 11:53
PROVIDERS: ATTENDING PHYSICIAN Family Medicine
DX: I50.33 Acute on chronic diastolic (congestive) heart failure (principal); R68.0 Hypothermia, not associated with low environmental temperature; I49.2 Junctional premature depolarization; K86.1 Other chronic pancreatitis; I48.0 Paroxysmal atrial fibrillation; I13.0 Hypertensive heart and chronic kidney disease with heart failure and stage 1 through stage 4 chronic kidney disease, or unspecified chronic kidney disease; R00.1 Bradycardia, unspecified; F03.90 Unspecified dementia, unspecified severity, without behavioral disturbance, psychotic disturbance, mood disturbance, and anxiety; I10 Essential (primary) hypertension; E03.9 Hypothyroidism, unspecified; E78.5 Hyperlipidemia, unspecified
CPT/HCPCS: 36415; 80048; 85025

== ENCOUNTER → 2024-07-16 10:48 | Outpatient (REF) | payer OTHER, MEDICARE, SELFPAY ==
[2024-07-16 12:05] LABS: Blood Urea Nitrogen 74 mg/dl (7-17); Calcium 8.3 mg/dl (8.4-10.2); Carbon Dioxide 28 mmol/L (22-30); Chloride 103 mmol/L (98-107); Glucose 96 mg/dl (70-99); Potassium 4.2 mmol/L (3.5-5.1); Sodium 137 mmol/L (135-145); eGFR 14.83
[2024-07-16 12:18] LABS: Hematocrit 25.7 % (37.0-47.0); Hemoglobin 7.8 g/dL (12.0-16.0); Mean Corp Hgb Conc. 30.4 g/dL (33.0-37.0); Mean Platelet Volume 11.8 fL (7.4-10.4); Platelet Count 148 10^3/uL (130-400); Red Blood Cell Count 2.52 10^6/uL (4.20-5.40); Red Cell Dist. Width 13.9 % (11.5-14.5); White Blood Cell Count 4.2 10^3/uL (4.8-10.8)
== END ==
LOC: OLABP 10:48
PROVIDERS: ATTENDING PHYSICIAN Family Medicine
DX: I50.33 Acute on chronic diastolic (congestive) heart failure (principal); R68.0 Hypothermia, not associated with low environmental temperature; I49.2 Junctional premature depolarization; K86.1 Other chronic pancreatitis; I48.0 Paroxysmal atrial fibrillation; I13.0 Hypertensive heart and chronic kidney disease with heart failure and stage 1 through stage 4 chronic kidney disease, or unspecified chronic kidney disease; R00.1 Bradycardia, unspecified; F03.90 Unspecified dementia, unspecified severity, without behavioral disturbance, psychotic disturbance, mood disturbance, and anxiety; E03.9 Hypothyroidism, unspecified; E78.5 Hyperlipidemia, unspecified
CPT/HCPCS: 36415; 80048; 85027

== ENCOUNTER → 2024-07-18 09:46 | Outpatient (REF) | payer OTHER, MEDICARE, SELFPAY ==
[2024-07-18 11:22] LABS: Hematocrit 25.4 % (37.0-47.0); Hemoglobin 7.8 g/dL (12.0-16.0); Mean Corp Hgb Conc. 30.7 g/dL (33.0-37.0); Mean Corpuscular Hgb 31.1 pg (27.0-31.0); Mean Corpuscular Volume 101.2 fL (81.0-99.0); Mean Platelet Volume 11.9 fL (7.4-10.4); Platelet Count 148 10^3/uL (130-400); Red Blood Cell Count 2.51 10^6/uL (4.20-5.40); Red Cell Dist. Width 13.5 % (11.5-14.5); White Blood Cell Count 4.1 10^3/uL (4.8-10.8)
[2024-07-18 11:43] LABS: Blood Urea Nitrogen 74 mg/dl (7-17); Carbon Dioxide 31 mmol/L (22-30); Chloride 103 mmol/L (98-107); Glucose 91 mg/dl (70-99); Potassium 3.9 mmol/L (3.5-5.1); Sodium 139 mmol/L (135-145); eGFR 12.82
== END ==
LOC: OLABP 09:46
PROVIDERS: ATTENDING PHYSICIAN Family Medicine
DX: I50.33 Acute on chronic diastolic (congestive) heart failure (principal); R68.0 Hypothermia, not associated with low environmental temperature; I49.2 Junctional premature depolarization; K86.1 Other chronic pancreatitis; I13.0 Hypertensive heart and chronic kidney disease with heart failure and stage 1 through stage 4 chronic kidney disease, or unspecified chronic kidney disease; R00.1 Bradycardia, unspecified; F03.90 Unspecified dementia, unspecified severity, without behavioral disturbance, psychotic disturbance, mood disturbance, and anxiety; W19.XXXA Unspecified fall, initial encounter; I10 Essential (primary) hypertension
CPT/HCPCS: 36415; 80048; 85027

== ENCOUNTER → 2024-07-22 13:11 | Outpatient (REF) | payer OTHER, MEDICARE, SELFPAY ==
[2024-07-22 13:24] LABS: % Basophils 0.8 % (0-2); % Eosinophils 3.3 % (0-6); % Immature Granulocytes 0.2 % (0-0.5); % Lymphocytes 26.1 % (20.5-51.1); % Monocytes 10.2 % (1.7-9.3); % Neutrophils 59.4 % (42.2-75.2); Absolute Eosinophils 0.2 10^3/uL (0-0.7); Absolute Lymphocytes 1.3 10^3/uL (1.2-3.4); Absolute Monocytes 0.5 10^3/uL (0.1-0.6); Absolute Neutrophils 2.9 10^3/uL (1.4-6.5); Hematocrit 29.1 % (37.0-47.0); Hemoglobin 8.8 g/dL (12.0-16.0); Mean Corp Hgb Conc. 30.2 g/dL (33.0-37.0); Mean Corpuscular Hgb 31.3 pg (27.0-31.0); Mean Corpuscular Volume 103.6 fL (81.0-99.0); Mean Platelet Volume 11.8 fL (7.4-10.4); Nucleated Red Blood Cells % 0 %; Platelet Count 167 10^3/uL (130-400); Red Blood Cell Count 2.81 10^6/uL (4.20-5.40); White Blood Cell Count 4.9 10^3/uL (4.8-10.8)
[2024-07-22 13:42] LABS: Blood Urea Nitrogen 74 mg/dl (7-17); Calcium 8.8 mg/dl (8.4-10.2); Carbon Dioxide 31 mmol/L (22-30); Chloride 101 mmol/L (98-107); Glucose 95 mg/dl (70-99); Potassium 4.2 mmol/L (3.5-5.1); Sodium 140 mmol/L (135-145); eGFR 13.28
== END ==
LOC: OLABP 13:11
PROVIDERS: ATTENDING PHYSICIAN Family Medicine
DX: I50.33 Acute on chronic diastolic (congestive) heart failure (principal); R68.0 Hypothermia, not associated with low environmental temperature; I49.2 Junctional premature depolarization; K86.1 Other chronic pancreatitis; I48.0 Paroxysmal atrial fibrillation; I13.0 Hypertensive heart and chronic kidney disease with heart failure and stage 1 through stage 4 chronic kidney disease, or unspecified chronic kidney disease; R00.1 Bradycardia, unspecified; F03.90 Unspecified dementia, unspecified severity, without behavioral disturbance, psychotic disturbance, mood disturbance, and anxiety; E03.9 Hypothyroidism, unspecified; E78.5 Hyperlipidemia, unspecified
CPT/HCPCS: 36415; 80048; 85025

== ENCOUNTER → 2024-07-25 10:46 | Outpatient (REF) | payer OTHER, MEDICARE, SELFPAY ==
[2024-07-25 12:53] LABS: Blood Urea Nitrogen 75 mg/dl (7-17); Calcium 8.6 mg/dl (8.4-10.2); Carbon Dioxide 29 mmol/L (22-30); Chloride 103 mmol/L (98-107); Glucose 92 mg/dl (70-99); Potassium 3.9 mmol/L (3.5-5.1); Sodium 138 mmol/L (135-145); eGFR 16.07
== END ==
LOC: OLABP 10:46
PROVIDERS: ATTENDING PHYSICIAN Family Medicine
DX: I50.33 Acute on chronic diastolic (congestive) heart failure (principal); R68.0 Hypothermia, not associated with low environmental temperature; I49.2 Junctional premature depolarization; K86.1 Other chronic pancreatitis; I48.0 Paroxysmal atrial fibrillation; I13.0 Hypertensive heart and chronic kidney disease with heart failure and stage 1 through stage 4 chronic kidney disease, or unspecified chronic kidney disease; R00.1 Bradycardia, unspecified; F03.90 Unspecified dementia, unspecified severity, without behavioral disturbance, psychotic disturbance, mood disturbance, and anxiety; I10 Essential (primary) hypertension; E03.9 Hypothyroidism, unspecified; E78.5 Hyperlipidemia, unspecified
CPT/HCPCS: 36415; 80048

== ENCOUNTER 2024-10-10 15:39 | Inpatient (IN) | payer MEDICARE, OTHER, SELFPAY ==
[2024-10-10] VITALS (22 sets, daily range): BP systolic 109–235; BP diastolic 50–96; BMI 32.2; BMI 28.1
[2024-10-10 13:03] LABS: Hematocrit 31.8 % (37.0-47.0); Hemoglobin 10.0 g/dL (12.0-16.0); Mean Corp Hgb Conc. 31.4 g/dL (33.0-37.0); Mean Corpuscular Volume 97.0 fL (81.0-99.0); Nucleated Red Blood Cells % 0 %; Platelet Count 174 10^3/uL (130-400); Red Cell Dist. Width 13.4 % (11.5-14.5)
[2024-10-10 13:16] LABS: ALT (SGPT) 23 U/L (0-35); AST (SGOT) 30 U/L (14-36); Albumin 3.8 g/dl (3.5-5.0); Alkaline Phosphatase 57 U/L (38-126); Blood Urea Nitrogen 52 mg/dl (7-17); Calcium 9.2 mg/dl (8.4-10.2); Carbon Dioxide 25 mmol/L (22-30); Chloride 109 mmol/L (98-107); Glucose 111 mg/dl (70-99); Potassium 4.4 mmol/L (3.5-5.1); Sodium 139 mmol/L (135-145); Total Protein 5.8 g/dl (6.3-8.2); eGFR 20.04
[2024-10-10 13:32] LABS: Troponin I 0.038 ng/ml
--- NOTE | 2024-10-10 14:15 | ED.GENMED ---
History of Present Illness
General
Chief Complaint: Breathing Problem
Source: patient, records and spouse
Time Seen by Provider: 10/10/24 13:54
History of Present Illness
History of Present Illness:
79-year-old female with past medical history of atrial fibrillation, CHF, hypertension, hyperlipidemia, CKD presenting to the emergency department with for evaluation of gradually worsening shortness of breath over the last week, today
patient states she felt she had a hard time taking a deep breath then, states that patient noted to her that she had some chest discomfort within the lower sternal/upper abdomen area but patient stating this pain is no longer present.
Patient did not take anything for her symptoms. notes that patient sleeps greater than 12 hours/day and believes she is too sedentary which may be contributing to her symptoms. Patient notes that while she is compliant with her medications
she did cut back on her Lasix dosing due to needing to urinate too much at nighttime stating she is now only taking 140 mg tablet in the daytime, not taking her nighttime dose of 40 mg. Patient and both note patient chronically has lower
extremity ankle edema which is may be slightly worse today than usual. No fevers or infectious symptoms, cough, pleurisy, hemoptysis or any other concerns. Patient denies any anticoagulant use but does take a daily 81 mg aspirin. She follows with
meter and service line inspector, Dr. Dietz
Past History
Past History
ED Past Medical History: Arrthythmia, HTN, Hypercholesterolemia, Renal failure, Valvular disease, Hypothyroidism and Other (Dermatomyositis, PE, heart failure, arthritis, LVH, hypertension)
ED Past Surgical History: Orthopedic (Left arthroscopic knee surgery, right knee arthroscopy, left foot, bilateral total knee replacement, carpal tunnel)
Social History
Tobacco: Non-smoker
Alcohol: None
Drug: None
Personal:
Living: with family
Employment: Retired
Review of Systems
Review of Systems
All Other Systems: ROS reviewed and negative except as documented in HPI and ROS
Phy Exam
Physical Exam
Physical Exam:
GENERAL: Alert , in no apparent distress
EYE: conjunctiva clear
NECK: Supple.
ENT: o/p clr, mmm.
CARDIAC: Irregularly irregular but rate controlled, systolic murmur left sternal border
LUNGS: Diminished lung sounds at the bases, faint Rales, no wheezing or rhonchi
NEUROLOGICAL: Alert and oriented
SKIN: Warm and dry, skin intact.
MUSCULOSKELETAL: well perfused. 1+ ankle edema bilateral lower extremity
PSYCH: Normal and appropriate interaction.
Scores
Heart Failure Risk
Heart Failure Risk Score: Yes
History of Stroke or TIA: No
History of intubation for respiratory distress: No
Heart rate on ED arrival >/= 110: No
SaO2 <90% on arrival on room air: No
HR >/=110 during 3min walk test (or too ill to perform test): Yes
ECG has acute ischemic changes: No
Urea >/=12mmol/L (BUN 33.6mg/dL): Yes
Serum CO2>/=35mmol/L: No
Troponin I or T elevated to CA Level (0.4mg/dL): No
NT-proBNP >/=5,000ng/L (5,000pg/ml): Yes
HF Risk Score: 4
Admission Status: HIGH RISK 26.1% Consider SNF treatment or admission to hospital
Heart Score for Chest Pain Patients
STEMI patient?: No
History: Slightly or Non-Suspicious
ECG: Normal
Age: >/= 65 years
Risk Factors: >/= 3 Risk Factors or History of CAD
Troponin: </= Normal Limit
Heart Score for Chest Pain Patients: 4
Heart Score Risk: 20.3% MACE over next 6 weeks
Course
Orders/Labs/Results
Orders:
Orders
10/10/24 12:41
Electrocardiogram (*1) Urgent
Reason for Study: Other
Other Reason for Exam: Respiratory Distress
EKG- Treatment ONCE
CR Chest - 2 Views Urgent
Comment:
Reason For Exam: respiratory distress
10/10/24 12:52
Complete Blood Count/With Diff Urgent
Comprehensive Metabolic Panel Urgent
NT-proBNP Urgent
Troponin I Urgent
10/10/24 14:11
Furosemide [Lasix] 60 mg IV NOW STA
Nitroglycerin Ointment [Nitro-Bid] 1 inch TOPICAL NOW STA
Abnormal Lab Results
10/10/24
12:52
WBC 4.2 L 10^3/uL
(4.8-10.8)
RBC 3.28 L 10^6/uL
(4.20-5.40)
Hgb 10.0 L g/dL
(12.0-16.0)
Hct 31.8 L %
(37.0-47.0)
MCHC 31.4 L g/dL
(33.0-37.0)
Absolute Lymphs (auto) 0.8 L 10^3/uL
(1.2-3.4)
Lymphocytes % 20.0 L %
(20.5-51.1)
Chloride 109 H mmol/L
(98-107)
BUN 52 H mg/dl
(7-17)
Creatinine 2.4 H mg/dL
(0.6-1.0)
Glucose 111 H mg/dl
(70-99)
Troponin I 0.038 H* ng/ml
Total Protein 5.8 L g/dl
(6.3-8.2)
10/10/24 12:52
10/10/24 12:52
Vital Signs
Initial and Last Documented VS:
Initial Vital Signs
Temp Pulse Resp BP Pulse Ox
98.3 F 62 18 212/96 95
10/10/24 12:37 10/10/24 12:37 10/10/24 12:37 10/10/24 12:37 10/10/24 12:37
Last Documented Vital Signs
Temp Pulse Resp BP Pulse Ox
98.3 F 61 14 224/70 97
10/10/24 12:37 10/10/24 14:18 10/10/24 14:05 10/10/24 14:18 10/10/24 14:30
Instrument Setter consulted with Physician
Instrument Setter consulted with physician?: Yes
Name of Physician Consulted: Rao
MDM/Problems Addressed
Differential Diagnosis Includes:
Congestive heart failure
Worsening valvular disfucntion
Medication noncompliance
Volume overload
Worsening renal function
ACS
Cardiac arrhythmia
Venous insufficiency
Hypertensive urgency/hypertensive emergency
MDM/Problems Addressed:
79-year-old female presenting the ER for evaluation of worsening shortness of breath over the last week, she reportedly noted chest pain to her earlier today but is currently denying this. Patient does have increased risk factors for ACS.
She is in no acute distress. Noted to be profoundly hypertensive with multiple systolic blood pressures greater than 200. Labs were initiated on arrival which shows a mild leukopenia which patient has had in the past as well as a stable anemia.
Patient's chemistry reveals stable chronic kidney disease. BNP is greater than 20,000 which is significantly higher than previous. Troponin is also mildly elevated at 0.038 which I suspect is related to demand ischemia and volume overload as
opposed to ACS. Will treat elevated blood pressure with topical Nitropaste as I suspect CHF exacerbation is most likely component of her current symptoms. Lasix IV ordered. Plan to admit to hospitalist team with cardiology to evaluate and consult.
Chronic conditions affecting care: HTN, Arrhythmia, Kidney disease and Other (Congestive heart failure)
Acute Exacerbation and/or Progression of Chronic Illness: HTN, Kidney disease and Other (CHF)
*Radiology
Radiology exam reviewed: preliminary read by ED provider (Bilateral pleural effusions with interstitial edema)
*Pulse Oximetry
SaO2: 97
Oxygen Mode of Delivery: Room air
Patient hypoxic: no
*EKG
Heart Rate: 61
Rate: normal
Rhythm: a-fib
Ischemia: non-specific ST changes
*Interventional Tech Interpretation
Rate: normal
Heart Rate: 62
Rhythm: a-fib
*Critical Care Note
Total Time (30-74mins, 75-104mins- exclusive of procedures): 30
comment:
Critical care statement: A total of 30 minutes of critical care time was provided for this patient. This includes management of unstable vital signs, evaluation of the patient at bedside, reviewing the patient's pertinent medical records, discussion
with consultants, review of old EKGs and review of pertinent medical records. This time with separate from time utilized to perform the aforementioned documented procedures
Data Reviewed
Review of Other/Old Records Reveals: Labs, Records, Radiology Studies and Discharge Summary
Source: patient and records
Patient Management
Discussion with other providers: Hospitalist
Escalation/DeEscalation of care consider admission/obs:
Hospitalist team is aware and accepts for continued evaluation and treatment. Cardiology to evaluate and consult
ED Attending Note
-
Portions of this chart may have been created with voice recognition software.� Occasional wrong word or��sound alike� substitutions may have occurred due to the inherent limitations of voice recognition software.
Discharge Plan
Departure
Patient Disposition: Admit
Date of Disposition: 10/10/24
Time of Disposition: 14:15
Presentation/result/management discussed w/ accepting MD/DO: Hospitalist
Discharge Problem:
Congestive heart failure, Hypertensive urgency, CKD (chronic kidney disease)
Prescriptions:
No Action
cyanocobalamin (vitamin B-12) 1,000 MCG tablet
1,000 mcg PO DAILY
cholecalciferol (vitamin D3) [Vitamin D3] 50 mcg (2,000 unit) Tablet
50 mcg PO DAILY
ezetimibe [Zetia] 10 mg Tablet
10 mg PO DAILY
CoQmax Ubiquinol 200 mg Capsule
400 mg PO DAILY
aspirin 81 mg Tablet,Delayed Release (Dr/Ec)
81 mg PO DAILY
levothyroxine 75 mcg Tablet
75 mcg PO DAILY@0600
sodium bicarbonate 650 mg Tablet
1,300 mg PO BID
hydralazine 100 mg Tablet
100 mg PO BID
trazodone 50 mg tablet
50 mg PO HS
carvedilol [Coreg] 12.5 mg Tablet
12.5 mg PO BID
amlodipine [Norvasc] 5 mg Tablet
5 mg PO BID
acetaminophen [Tylenol 8 Hour] 650 mg Tablet Extended Release
1,300 mg PO [id number] PRN (Reason: mild pain)
benazepril 40 mg Tablet
40 mg PO DAILY
furosemide [Lasix] 40 mg tablet
40 mg PO DAILY
Interventions
Interventions:
*Risk Screen - Suicide Last Done: 10/10/24 12:37
*General Assessment Last Done: 10/10/24 13:59
*Neglect/Abuse Screening Last Done: 10/10/24 12:37
*ED- Fall Risk Assessment Last Done: 10/10/24 13:59
*ED COVID-19 Vaccine History Last Done: 10/10/24 13:59
ED- Cardiac Assessment Last Done: 10/10/24 14:03
ED- Pulmonary Assessment Last Done: 10/10/24 14:03
Discharge Date and Time
Print Language: BULGARIAN
[2024-10-10] MEDS: NITRO-BID 1 INCH TOPICAL (14:18)
[2024-10-10] MEDS: LASIX 60 MG IV (14:19)
--- NOTE | 2024-10-10 14:51 | HPS.HSE ---
Family Physician
-
Family Physician: Cinthya Bustamante
Chief Complaint
-
chest pain
History of Present Illness
79-year-old female with past medical history of atrial fibrillation, CHF, hypertension, hyperlipidemia, CKD presenting to the emergency department with for evaluation mid sternum pain since yesterday. she denied sob. stated worsening LE
edema. denied weight gain. stated very weak and sleeping more than usual.Patient notes that while she is compliant with her medications she did cut back on her Lasix dosing due to needing to urinate too much. No fevers or infectious
symptoms, cough, pleurisy, hemoptysis or any other concerns. denied YANCEY, dizzy or syncope.denied abdominal pain,nv,,d. denied dysuria or hematuria.
Upon arrival she was noted hypertensive as well as CHF exacerbation. Patient received a dose of Lasix, nitroglycerin in ER. Admitting for further management
Medical History
Past Medical History
Past Medical History: Reports Other
Additional Past Medical History:
Osteoporosis
Hypercholesterolemia
Hypothyroidism
Hypertension
CKD stage III
Dermatomyositis
GFR
Pulmonary nodule
Coronary artery disease
Osteopenia
Paroxysmal A-fib
Lumbar spondylosis
Past Surgical History: Reports Other
Additional Past Surgical History:
Hammertoe surgery
Bilateral knee replacement
Bilateral carpal tunnel
Bilateral cataract surgery
L3-L5 surgery
Social History
Tobacco: Non-smoker
Alcohol: None
Drug: None
Personal:
Living: With Family
Family History
Family History: Not pertinent
Allergies / Home Medications
Allergies reflects when Allergies were last updated in [facility].
Home Medications with original date entered in [facility]
Allergy/Medication List:
Allergies
Allergy/AdvReac Type Severity Reaction Status Date / Time
No Known Allergies Allergy Verified 10/10/24 12:37
Home Medications
cholecalciferol (vitamin D3) 50 mcg (2,000 unit) tablet (Vitamin D3) 50 mcg PO DAILY Supplement 09/15/20
cyanocobalamin (vitamin B-12) 1,000 mcg tablet 1,000 mcg PO DAILY Supplement 09/15/20
coQ10 (ubiquinol) 200 mg capsule (CoQmax Ubiquinol) 400 mg PO DAILY Supplement 09/15/21
ezetimibe 10 mg tablet (Zetia) 10 mg PO DAILY High Cholesterol 09/15/21
aspirin 81 mg tablet,delayed release 81 mg PO DAILY Blood Clot Prevention/Tx 05/28/24
hydralazine 100 mg tablet 100 mg PO BID Blood Pressure 05/28/24
levothyroxine 75 mcg tablet 75 mcg PO DAILY@0600 Thyroid 05/28/24
sodium bicarbonate 650 mg tablet 1,300 mg PO BID Electrolyte Repletion 05/28/24
trazodone 50 mg tablet 50 mg PO HS mental health/sleep 07/07/24
acetaminophen 650 mg tablet,extended release (Tylenol 8 Hour) 1,300 mg PO [id number] PRN mild pain 10/10/24
amlodipine 5 mg tablet (Norvasc) 5 mg PO BID 10/10/24
benazepril 40 mg tablet 40 mg PO DAILY 10/10/24
carvedilol 12.5 mg tablet (Coreg) 12.5 mg PO BID 10/10/24
furosemide 40 mg tablet (Lasix) 40 mg PO DAILY Heart Failure 10/10/24
Review of Systems
-
Constitutional: Reports No Symptoms
EENT: Reports No Symptoms
Respiratory: Reports No Symptoms
Cardiac: Reports Chest Pain
Abdomen/GI: Reports No Symptoms
: Reports No Symptoms
Musculoskeletal: Reports Edema
Skin: Reports No Symptoms
Neurological: Reports Weakness
Endocrine: Reports No Symptoms
Hematologic/Lymphatic: Reports No Symptoms
Psych: Reports No Symptoms
Physical Exam
Vital Signs
Vital Signs
Temp Pulse Resp BP Pulse Ox
98.3 F 61 14 224/70 97
10/10/24 12:37 10/10/24 14:18 10/10/24 14:05 10/10/24 14:18 10/10/24 14:30
Physical Exam
General: Well Developed, Well Nourished and No Apparent Distress
HEENT: NormoCephalic, Moist mucous membranes and Atraumatic
Respiratory: Clear
Cardiac: S1/S2 and Regular Rhythm; No Murmur or Rub
GI: Soft, Non Tender, Non Distended and Normal Bowel Sounds; No Organomegaly
Rectal: Deferred by Provider
Musculoskeletal: No Clubbing, No Cyanosis and Other (Bilateral lower extremities edema)
Skin: No Rash
Neuro: AO x 3 and Nonfocal/grossly intact
Psych: Calm
Laboratory Results
-
10/10/24 12:52
10/10/24 12:52
Laboratory Results
Total Bilirubin 0.6 mg/dl (0.2-1.3) 10/10/24 12:52
AST 30 U/L (14-36) 10/10/24 12:52
ALT 23 U/L (0-35) 10/10/24 12:52
Alkaline Phosphatase 57 U/L (38-126) 10/10/24 12:52
Troponin I 0.038 ng/ml H* 10/10/24 12:52
Data Reviewed
-
Diagnostic Radiology: Report Reviewed by me
Lab Data: Labs Reviewed by me
Impression/Plan
-
# CHF exacerbation
- IV diuretics continued
- Strict ALFONSO, daily weight, fluid restriction
- Cardiology consulted
- BNP 15157
- Chest x-ray with impression of Low lung volumes with small bilateral pleural effusions.Grossly unchanged 11 mm nodular density within the left upper lobe.
- Recent echo with impression of EF 55%
# Hypertensive emergency
- Nitropaste in the ER
- Norvasc, benazepril, Coreg continued
# Anemia of chronic disease
- Hemoglobin stable 10.0, no active bleeding
- Continue to monitor
# CKD stage Iv
- Creatinine 2.4
- Continue to monitor
# Troponin likely NSTEMI in the setting of CHF exacerbation and hypertension emergency
- EKG with A-fib, nonspecific ST and T wave abnormality
- At present denied chest pain
- Continue to trend troponin
#Paroxysmal A-fib
-Currently patient on A-fib with rate control.
-Coreg continued
Appreciate cardiology input.
#Insomnia
-Continue trazodone
#History of hypothyroidism
-Continue levothyroxine
#History of Hyperlipidemia
-Continue Zetia
# DVT prophylaxis
- Heparin subcu
# CODE STATUS
- Full code
--- NOTE | 2024-10-10 15:34 | CON.CAR ---
Addendum entered and electronically signed by Alcides Rowan MD 10/10/24 18:14:
I saw and examined the patient.
The GEOPHYSICS SCIENTIST or PA's note was reviewed and I agree with the note.
Comment: General: Well developed, well nourished in NAD.
Neck: Supple, no JVD, HJR, carotids +2 B/L, no bruits bilaterally.
Heart: Non displaced PMI, irregular, no murmurs, No S3, S4, no rubs.
Lungs: Scattered rhonchi
Extremities: Moderate lower extremity edema bilaterally with chronic venous stasis changes
Neuro: Grossly nonfocal, awake, alert and oriented x3.
Zunilda has a history of hypertension, A-fib, a flutter and not anticoagulated, coronary CTA with no significant disease in left main, LAD, circumflex but mild proximal RCA disease, CKD 4, hypothyroidism, hyperlipidemia, dermatomyositis, focal
segmental glomerulosclerosis, DVT/PE in 2010, dementia. She is admitted with chest pain and acute diastolic CHF. She has had increasing fatigue and weakness for 2 weeks with worsening lower extremity edema. She decreased her Lasix from 80 to 40
mg due to frequent urination at night as well. Patient also markedly hypertensive with BP of 225/86.
Will treat for CHF with IV Lasix and follow renal function closely. Of note creatinine is 2.4 in admission. She remains in A-fib but has not been anticoagulated due to an unwitnessed fall during hospitalization in June 2024 and anticoagulation was
stopped at that time. Will follow troponins with chest discomfort likely chief conservative given comorbid illnesses and dementia. Will restart her antihypertensive meds and may need additional medications. Discussed with patient and at
bedside.
Original Note:
Consultation
Consultation Request
Date/Time Consultation Requested: 10/10/2024, 1524
Date/Time Consultation Performed: 10/10/2024, 1534
Requesting Provider: ELIAN Junior
Performing Provider: ELIAN Ascencio for Dr Rowan
Reason for Consultation: HF exacerbation and HTN
Medical History
-
Chief Complaint: SOB
History of Present Illness:
Patient presents to [facility] ER for evaluation of midsternal pain since last night, increased fatigue and weakness x 2 weeks, and worsening lower extremity edema. Patient self-reduced Lasix from 80 mg daily to 40 mg daily at least 2 weeks ago due to
freq urination at night.
She has past medical history of hypertension, atrial fibrillation and atrial flutter, chronic kidney disease stage IV. She has had multiple recent admissions to [facility] including June 2024 for acute on chronic heart failure with preserved EF, and
admission for hypertensive emergency and hypertensive encephalopathy in May 2024. During her admission in June 2024, Coreg was stopped due to bradycardia/pauses but she restarted it in outpatient setting. She had been on oral anticoagulation for
afib but it was stopped during 06/2024 admission due to falls..
She denies shortness of breath, PND, orthopnea. Denies palpitations, lightheadedness, syncope
ED workup: proBNP 20,400, troponin 0.038, BUN/creatinine 52/2.4 (creatinine has ranged 2.0-3.5 over past 4 months), Na 139, K4.4, hemoglobin 10.
Chest x-ray: Small bilateral pleural effusions
EKG: Atrial fibrillation 61 bpm, QTc 446 ms
Echo 07/08/24: EF 55%, normal wall motion, mild MR, no /AI, mild TR with PAP 35-40 mmHg
Patient was just admitted to [facility] with HTN emergency 05/28/24 until 06/04/24. Patient's reported possible dementia to at that time and reported that his had stopped paying bills and taxes and that large sums of money were missing. There
was concern that patient was not taking BP meds and was in HTN emergency on admission. Patient went to rehab and then returned home, but home care could not be established due to clutter in the home and patient's also reported that patient
had been hoarding. Patient says that she has been taking meds, but just had an ER visit last week and reported that she was not taking meds because she did not trust them.
PMH:
h/o HTN
-admission for HTN emergency and HTN encephalopathy 05/28/24 until 06/04/24
-ER visit for HTN and medication noncompliance 07/02/24
atrial fibrillation
atrial flutter 05/2024
s/p coronary CTA with no significant disease LM, LAD, Circ, but mild prox RCA disease 01/30/20
CKD 4
Hypothyroid
Hyperlipidemia
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
Focal segmental glomerulosclerosis
h/o DVT/PE in 2010
h/o hyperkalemia with spironolactone
h/o fatigue and cough with metoprolol, although tolerating Coreg
demential
Past Medical History
Past Medical History: Other (in HPI)
Past Surgical History: Orthopedic
Social History
Tobacco: Non-Smoker
Alcohol: Occasional (less than once a week)
Drug: None
Personal:
Living: With Family
Family History
Family History: Diabetes
Allergies / Home Medications
Allergy/AdvReac Type Severity Reaction Status Date / Time
No Known Allergies Allergy Verified 10/10/24 12:37
�Medication �Instructions �Recorded �Confirmed �Type
cholecalciferol (vitamin D3) 50 50 mcg PO DAILY Supplement 09/15/20 10/10/24 History
mcg (2,000 unit) tablet (Vitamin
D3)
cyanocobalamin (vitamin B-12) 1,000 mcg PO DAILY Supplement 09/15/20 10/10/24 History
1,000 mcg tablet
coQ10 (ubiquinol) 200 mg capsule 400 mg PO DAILY Supplement 09/15/21 10/10/24 History
(CoQmax Ubiquinol)
ezetimibe 10 mg tablet (Zetia) 10 mg PO DAILY High Cholesterol 09/15/21 10/10/24 History
aspirin 81 mg tablet,delayed 81 mg PO DAILY Blood Clot 05/28/24 10/10/24 History
release Prevention/Tx
hydralazine 100 mg tablet 100 mg PO BID Blood Pressure 05/28/24 10/10/24 History
levothyroxine 75 mcg tablet 75 mcg PO DAILY@0600 Thyroid 05/28/24 10/10/24 History
sodium bicarbonate 650 mg tablet 1,300 mg PO BID Electrolyte 05/28/24 10/10/24 History
Repletion
trazodone 50 mg tablet 50 mg PO HS mental health/sleep 07/07/24 10/10/24 History
acetaminophen 650 mg 1,300 mg PO [id number] PRN mild pain 10/10/24 10/10/24 History
tablet,extended release (Tylenol 8
Hour)
amlodipine 5 mg tablet (Norvasc) 5 mg PO BID 10/10/24 10/10/24 History
benazepril 40 mg tablet 40 mg PO DAILY 10/10/24 10/10/24 History
carvedilol 12.5 mg tablet (Coreg) 12.5 mg PO BID 10/10/24 10/10/24 History
furosemide 40 mg tablet (Lasix) 40 mg PO DAILY Heart Failure 10/10/24 10/10/24 History
Review of Systems
-
History Source: Patient and Family
Constitutional: No Symptoms
Physical Exam
Vital Signs
Temp Pulse Resp BP Pulse Ox
98.3 F 61 14 224/70 97
10/10/24 12:37 10/10/24 14:18 10/10/24 14:05 10/10/24 14:18 10/10/24 14:30
Lab Results
10/10/24 12:52
10/10/24 12:52
Troponin I 0.038 ng/ml H* 10/10/24 12:52
Hux-V-Asudduiqywd Pept [id number] pg/ml 10/10/24 12:52
GEN: No distress, awake, Ox3
HEENT: supple, anicteric, mmm
LUNGS: crackles bases
CV: Reg, S1/S2, no murmur
ABD: soft, BS+, NT/ND
EXT: 2+ LE edema B/L
NEURO: Gross non-focal
SKIN: No rash
Impression / Plan
-
PCP: Dr. Wing
Card: Dr. Logan
Impression:
Acute HFpEF
Hypertensive emergency
Afib
Stage IV chronic kidney disease
Pause up to 3 seconds on tele 07/08/24
Suspected PAT
Acute HFpEF
s/p fall AM 2024
Bradycardia
Elevated LFTs
HTN
Recent admission for HTN emergency and HTN encephalopathy 05/28/24 until 06/04/24
Recent ER visit for HTN and medication noncompliance 07/02/24
Newly diagnosed paroxysmal to persistent Afib with controlled ventricular response 06/2024
Possible h/o atrial arrhythmia
Atach vs atrial flutter on ECG at [facility]
s/p coronary CTA with no significant disease LM, LAD, Circ, but mild prox RCA disease 01/30/20
Hypothyroid
Hyperlipidemia
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
Focal segmental glomerulosclerosis
h/o DVT/PE in 2010
h/o hyperkalemia with spironolactone
h/o fatigue and cough with metoprolol, although tolerating Coreg
Echo 09/13/23: EF 55%, mod to sev asymmetric septal hypertrophy, IVSD 1.7cm, grade 2 diastolic dysfunction, normal RV size and systolic function, no significant valve disease
Echo 07/08/24: EF 55%, normal wall motion, mild MR, no /AI, mild TR with PAP 35-40 mmHg
Plan:
-Acute heart failure preserved EF
-IV diuresis, started on Lasix 80 mg IV daily
-Recent echo June/2024 showed normal LV function with no significant valvular heart disease. Do not need to repeat at this time
-Continue usual heart failure regimen which includes hydralazine 150 mg 3 times a day, carvedilol 6.25 mg twice daily. Unable to afford SGLT2 due to cost. Had hyperkalemia on spironolactone
-In past had bradycardia with pauses up to 3 seconds during sleep during previous admission and carvedilol was stopped however patient has been back on it for at least past 2 months. No dizziness or syncope. Will continue meds for now but if
recurrent bradycardia will reduce dose or stop.
A-fib-
-Remains in rate controlled Afib. Afib was new diagnosis in June 2024, Also had aflutter in May 2024.
- Previously started on Eliquis but had an unwitnessed fall during hospitalization June 2024 and OAC stopped.
-Denies recurrent falls
Chronic kidney disease
-Creatinine is improved from June 2024 admission, could be because she is taking lower dose of Lasix
- Renal consult
-Cannot add ADDISON/ARB/ARNI/aldosterone antagonist due to ZAIRE on CKD 4
-Nocturnal pulse ox did not demonstrate desaturation events, but Pulm office had previously suggested PAT evaluation. As per conversation with patient and 07/09/24, they do not believe in PAT or CPAP treatment and will not pursue any
additional work-up.
Chest pain
-Trend troponins
-EKG afib with nonspec ST-T wave changes, no signif change from past
-previous coronary CTA with mild prox RCA dz 2019
HTN
- Restart usual home antihypertensive meds. Has not taken any meds yet today
- Getting one-time dose of hydralazine 10 mg IV
-Nitropatch in place
Data Reviewed
-
EKG: Tracing Personally Visualized and interpreted
Labs: Labs Reviewed by me
--- NOTE | 2024-10-10 15:39 | W.PN.UPDATE ---
Update Note
Progress Note Update
This note serves as an addendum to the H&P by re dye hand ISAAC�
Lorena ETHAN
HPI
79F HX atrial fibrillation, chr HFpEF, HTN, CKD4, hyperlipidemia, CKD sen at ER:
- for evaluation mid sternum pain since yesterday.
- denied sob.
- worsening LE edema
- denied weight gain.
- very weak and sleeping more than usual
- compliant with her medications but cut back on her Lasix dosing due to needing to urinate too much.
Upon arrival she was noted in hypertensive emergency with acute HF due to inadeqaue PO lasix dosing from partail compliace
ROS
-no fevers or infectious symptoms, cough, pleurisy, hemoptysis or any other concerns.
- denied YANCEY, dizzy or syncope.denied abdominal pain,nv,,d. denied dysuria or hematuria.
as well as CHF exacerbation. Patient received a dose of Lasix, nitroglycerin in ER. Admitting for further management
Relevant�VS:
Vital Signs
Temp Pulse Resp BP Pulse Ox
98.3 F 61 14 224/70 97
10/10/24 12:37 10/10/24 14:18 10/10/24 14:05 10/10/24 14:18 10/10/24 14:30
07/07/24
15:18 07/10/24
03:10 10/10/24
14:00
Actual Weight 80.541 kg 81.5 kg 74.9 kg
PE
Gen: No Apparent Distress
HEENT: anicteric
Neck: supple
Lungs: CTA
Cor: S1/S2 and Regular Rhythm; No Murmur
Abdomen:�
CROWN POUNCER: NFND
MS: Bilateral lower extremities edema
Psych: apprpriate
Relevant Data
07/08/24 07/22/24 07/25/24
06:09 06:48 06:15
WBC
Hgb 8.8 L
Chloride
Creatinine 2.9 H
eGFR 16.07
Troponin I
Daz-V-Ooiunjpboyz Pept [id number]
10/10/24
12:52
WBC 4.2 L
Hgb 10.0 L
Chloride 109 H
Creatinine 2.4 H
eGFR 20.04
Troponin I 0.038 H*
Lqk-Q-Ouxougtwptq Pept
CXR
- Low lung volumes with small bilateral pleural effusions.
- Grossly unchanged 11 mm nodular density within the left upper lobe.
EKG
ATRIAL FIBRILLATION
MODERATE VOLTAGE CRITERIA FOR LVH, MAY BE NORMAL VARIANT ( R in aVL , [place]
product )
NONSPECIFIC ST AND T WAVE ABNORMALITY
ABNORMAL ECG
WHEN COMPARED WITH ECG OF 08-Jul-2024 22:54,
NO SIGNIFICANT CHANGE WAS FOUND
07/08/24 TTE
LVEF 55% by volumetric assessment.
Normal regional wall motion.
Mild mitral regurgitation.
Structurally normal aortic valve without significant stenosis or regurgitation.
Mild tricuspid regurgitation.
The IVC is of normal size and demonstrates normal respiratory variation.
Estimated pulmonary artery pressure of 35-40 mmHg assuming a right atrial
pressure of 3 mmHg.
NO significant change compared to 2019 echocardiogram
ASSESSMENT & PLAN
Acute on chr HFpEF due to due to cutting down PO lasix dosing from partail compliace
- IV Lasix 80 daily
- daily weight, fluid restriction
- daily BMP
- DCA card consult
Volume mediated Hypertensive emergency due to acute HF
- IV Diuresis and Observe BP
- Nitro paste in the ER
- Norvasc, Benazepril, Coreg continued
Troponin likely NSTEMI in the setting of CHF exacerbation and hypertension emergency
- EKG with A-fib, nonspecific ST and T wave abnormality
- At present denied chest pain
- Continue to trend troponin
HX CKD4
- Creatinine 2.4
- daily Cr with IV diuresis
- Renal consult
Anemia of chronic disease
- Hemoglobin stable 10.0, no active bleeding
- Continue to monitor
HX Paroxysmal A-fib
-Currently patient on A-fib with rate control.
-Coreg continued
- Appreciate cardiology input.
Insomnia
-Continue trazodone
HX hypothyroidism
- Continue levothyroxine
Hyperlipidemia
-Continue Zetia
DVT Px: SQH
Full code
IP TLM
--- NOTE | 2024-10-10 15:49 | W.CON.NEPH ---
Consultation
-
Date/Time Consultation Requested: 10/10/2024 3:45 PM
Date/Time Consultation Performed: 10/10/2024 3:45 PM
Requesting Provider: Dr. Manning
Performing Provider: Dr. Bronson
Reason for Consultation: Chronic kidney disease stage IV/congestive heart failure
Medical History
-
Chief Complaint: CHF/CKD 4
History of Present Illness:
This is a 79-year-old female who is well-known to Dr. Rooney who has CKD 4 with baseline creatinine running approximately 2.3 up to 2.6. She has biopsy-proven secondary focal segmental glomerulosclerosis, likely due to longstanding hypertension.
She also has proteinuria sub nephrotic less than 1 g/day. Her hypertension is significant and currently controlled with hydralazine. Her carvedilol was discontinued due to bradycardia and her ADDISON inhibitor was discontinued due to acute renal
failure. She has metabolic acidosis which is controlled with bicarbonate therapy. She has a history of congestive heart failure and is chronically maintained on Lasix therapy. The patient presented to the emergency room with midsternal and chest
pain since yesterday. She denied shortness of breath but noted worsening lower extremity edema. She states that her weights have been stable. She does note increasing weakness and sleeping more than normal. On presentation she was hypertensive
and then decompensated congestive heart failure. Nephrology was consulted for her history of CKD stage IV
Past Medical History
Hypertension, hyperlipidemia, hypothyroidism, dermatomyositis, left ventricular hypertrophy, osteoarthritis, history of PE, atrial arrhythmia, secondary focal segmental glomerulosclerosis, subnephrotic proteinuria, spinal stenosis surgery, bilateral
knee replacement
Social History
Tobacco: Non-Smoker
Alcohol: Occasional
Family History
Family History: Not Pertinent
Allergies / Home Medications
Allergy/AdvReac Type Severity Reaction Status Date / Time
No Known Allergies Allergy Verified 10/10/24 12:37
�Medication �Instructions �Recorded �Confirmed �Type
cholecalciferol (vitamin D3) 50 50 mcg PO DAILY Supplement 09/15/20 10/10/24 History
mcg (2,000 unit) tablet (Vitamin
D3)
cyanocobalamin (vitamin B-12) 1,000 mcg PO DAILY Supplement 09/15/20 10/10/24 History
1,000 mcg tablet
coQ10 (ubiquinol) 200 mg capsule 400 mg PO DAILY Supplement 09/15/21 10/10/24 History
(CoQmax Ubiquinol)
ezetimibe 10 mg tablet (Zetia) 10 mg PO DAILY High Cholesterol 09/15/21 10/10/24 History
aspirin 81 mg tablet,delayed 81 mg PO DAILY Blood Clot 05/28/24 10/10/24 History
release Prevention/Tx
hydralazine 100 mg tablet 100 mg PO BID Blood Pressure 05/28/24 10/10/24 History
levothyroxine 75 mcg tablet 75 mcg PO DAILY@0600 Thyroid 05/28/24 10/10/24 History
sodium bicarbonate 650 mg tablet 1,300 mg PO BID Electrolyte 05/28/24 10/10/24 History
Repletion
trazodone 50 mg tablet 50 mg PO HS mental health/sleep 07/07/24 10/10/24 History
acetaminophen 650 mg 1,300 mg PO [id number] PRN mild pain 10/10/24 10/10/24 History
tablet,extended release (Tylenol 8
Hour)
amlodipine 5 mg tablet (Norvasc) 5 mg PO BID 10/10/24 10/10/24 History
benazepril 40 mg tablet 40 mg PO DAILY 10/10/24 10/10/24 History
carvedilol 12.5 mg tablet (Coreg) 12.5 mg PO BID 10/10/24 10/10/24 History
furosemide 40 mg tablet (Lasix) 40 mg PO DAILY Heart Failure 10/10/24 10/10/24 History
Review of Systems
-
All other systems: Negative unless noted
Constitutional: Other (Weakness)
EENT: No Symptoms
Cardiac: Chest Pain
Musculoskeletal: Edema
Physical Exam
Vital Signs
Vital Signs
Temp Pulse Resp BP Pulse Ox
98.3 F 61 14 224/70 97
10/10/24 12:37 10/10/24 14:18 10/10/24 14:05 10/10/24 14:18 10/10/24 14:30
Lab Results
10/10/24 12:52
10/10/24 12:52
WBC 4.2 10^3/uL (4.8-10.8) L 10/10/24 12:52
RBC 3.28 10^6/uL (4.20-5.40) L 10/10/24 12:52
Hgb 10.0 g/dL (12.0-16.0) L 10/10/24 12:52
Hct 31.8 % (37.0-47.0) L 10/10/24 12:52
Plt Count 174 10^3/uL (130-400) 10/10/24 12:52
Sodium 139 mmol/L (135-145) 10/10/24 12:52
Potassium 4.4 mmol/L (3.5-5.1) 10/10/24 12:52
Chloride 109 mmol/L (98-107) H 10/10/24 12:52
Carbon Dioxide 25 mmol/L (22-30) 10/10/24 12:52
BUN 52 mg/dl (7-17) H 10/10/24 12:52
Creatinine 2.4 mg/dL (0.6-1.0) H 10/10/24 12:52
eGFR 20.04 10/10/24 12:52
Glucose 111 mg/dl (70-99) H 10/10/24 12:52
Calcium 9.2 mg/dl (8.4-10.2) 10/10/24 12:52
Tnq-S-Bqqfjtnppgx Pept 21355 pg/ml 10/10/24 12:52
Albumin 3.8 g/dl (3.5-5.0) 10/10/24 12:52
Physical Exam
General: AOx3, Nontoxic , NAD
HEENT: PERRL, EOMI, Anicteric, Conjunctivae Clear, Ear/Nose Intact, Hearing Normal, Oropharynx Clear/Moist, Dentition Intact, Facial Symmetry, Neck Supple, Neck: Trachea Midline, No JVD and No Thyromegaly, no Bruits
Respiratory: Clear to auscultation bilaterally with normal lung excursion
Cardiac: S1/S2 and Regular Rate/Rhythm bradycardic
Breast: Deferred by me
Abdomen: Soft, Nontender, Nondistended, Normal Bowel Sounds and No Hepatosplenomegaly
Rectal: Deferred by Provider
Genito-urinary: No Costovertebral Tenderness
Extremities: No Clubbing, No Cyanosis and Noted plus one pitting Edema
Skin: No Rash or open lesions, ecchymosis along extremities
Neuro: Nonfocal/Grossly Intact, CN II-XII (Intact) and Strength (Musculoskeletal exam 5 out of 5 both upper and lower extremities)
Hematologic/Lymphatic: No Cervical Lymphadenopathy, No Submandibular Lymphadenopathy and No Supraclavicular Lymphadenopathy
Psych: Mood/afflect pleasant, Insight/judgement good and Appropriate
Vascular: plus 1 pedal and radial pulses
Data Reviewed
-
Radiology: Image Personally Visualized and interpreted (Chest x-ray personally reviewed notes small pleural effusions and increased pulmonary vascularity)
Old Records: Requested and Reviewed (Reviewed previous nephrology consultation from 06/02/2024 for chronic kidney disease stage IV consult, creatinine 2.9 as of 07/25/2024 per review of EMR)
Assessment/Plan
-
Assessment
CKD 4 progressive (2.4-2.9)
CHF decompensation (HFpEF)
Renal Biopsy-proven secondary glomerulosclerosis (4 grams proteinuria)
Uncontrolled Hypertension
Metabolic acidosis
Heart failure preserved ejection fraction compensated
History of dermatomyositis
Benign left adrenal adenoma
Plan
cr stable at 2.4, and well within baseline, maintain accurate I's and O's and daily weight
IV diuresis for decompensated congestive heart failure (lungs clear and weight down), but increasing edema and uncontrolled HTN, concur with 80 mg IV Lasix to be given now (lasix 80mg IV daily to start)
Check postvoid bladder scan to assess for possible postobstructive component i.e. urinary retention
Outpatient antihypertensive therapy to continue for hypertension: I would add Procardia 30 mg twice daily at this time in addition to hydralazine
If oral antihypertensives cannot control blood pressure she will need to be transferred to ICU for Cardene drip
Heart rate is too low for IV labetalol
Patient was only taking 40 mg of Lasix instead of 80 mg due to polyuria at night
Maintain sodium HCO3 in regards to chronic metabolic acidosis
--- NOTE | 2024-10-10 16:10 | CM ---
Initial assessment completed. Patient is a 79-year-old female with past medical history of atrial fibrillation, CHF, hypertension, hyperlipidemia, CKD presenting to the emergency department with for evaluation mid sternum pain.
Recent admission in June discharged to [facility].
Patient resides w/ spouse in a 2STH, 3 steps to enter from the outside, full flight to 2nd floor. Patient is typically independent with use of a rollator/WW/SPC. Patient with dementia and hoarding tendencies per last assessment. [facility]
recently, current w/ [facility].
Address, point of contact and insurance verified
PCP: Cinthya Bustamante
Pharmacy: [facility]
Plan: Anticipate home, [facility] w/ [facility]
[2024-10-10] MEDS: APRESOLINE 10 MG IV (16:16)
[2024-10-10] MEDS: PROCARDIA XL (EXTENDED RELEASE) 30 MG PO (17:27)
--- NOTE | 2024-10-10 21:00 | PTCARENOTE ---
Received pt from ED at around 20:30. Pulled over from stretcher. Systems reviewed, see flowsheets. Q6h troponin and EKG completed per orders. Partial CHG bath given. Pt SaO2 91-9% on RA so placed on 2L NC, now saturating 95%. SR on heart monitor, HR
in the 60s. Pt wearing brief from home, clean and dry. Purewick removed, then reapplied for I/O monitoring. No complaints of pain at this time. Will continue to monitor.
[2024-10-10] MEDS: APRESOLINE 100 MG PO (21:27)
[2024-10-10] MEDS: HEPARIN 5000 UNITS SC (21:27)
[2024-10-10] MEDS: COREG 12.5 MG PO (21:27)
[2024-10-10] MEDS: SODIUM BICARBONATE 1300 MG PO (21:27)
[2024-10-10] MEDS: DESYREL 50 MG PO (21:28)
[2024-10-10 21:37] LABS: Troponin I 0.037 ng/ml
[2024-10-11] VITALS (15 sets, daily range): BP systolic 100–171; BP diastolic 44–107; PULSE 60; O2SAT 97; BMI 27.6
[2024-10-11 03:05] LABS: Hematocrit 29.7 % (37.0-47.0); Hemoglobin 9.6 g/dL (12.0-16.0); Mean Corp Hgb Conc. 32.3 g/dL (33.0-37.0); Mean Corpuscular Volume 96.1 fL (81.0-99.0); Platelet Count 170 10^3/uL (130-400); Red Cell Dist. Width 13.4 % (11.5-14.5)
[2024-10-11 03:26] LABS: Blood Urea Nitrogen 52 mg/dl (7-17); Calcium 9.0 mg/dl (8.4-10.2); Carbon Dioxide 27 mmol/L (22-30); Chloride 109 mmol/L (98-107); Estimated Creatinine Clearance 18 ml/min; Glucose 101 mg/dl (70-99); HDL Cholesterol 49 mg/dl; LDL Cholesterol, Calculated 65 mg/dl; Magnesium 2.2 mg/dl (1.6-2.3); Potassium 4.1 mmol/L (3.5-5.1); Sodium 140 mmol/L (135-145); Very Low Density Lipoprotein 25 mg/dl (0-30); eGFR 20.04
[2024-10-11 03:47] LABS: Troponin I 0.035 ng/ml
[2024-10-11] MEDS: SYNTHROID 75 MCG PO (05:02)
[2024-10-11] MEDS: PROCARDIA XL (EXTENDED RELEASE) 30 MG PO ×2 (07:49→20:54)
[2024-10-11] MEDS: ZETIA 10 MG PO (07:49)
[2024-10-11] MEDS: APRESOLINE 100 MG PO ×2 (07:49→20:53)
[2024-10-11] MEDS: SODIUM BICARBONATE 1300 MG PO ×2 (07:49→20:53)
[2024-10-11] MEDS: ZESTRIL 40 MG PO (07:50)
[2024-10-11] MEDS: ASPIR LOW (ENTERIC COATED) 81 MG PO (07:50)
[2024-10-11] MEDS: COREG PO (07:50)
[2024-10-11] MEDS: HEPARIN 5000 UNITS SC ×2 (07:52→20:53)
[2024-10-11] MEDS: LASIX 80 MG IV (07:52)
--- NOTE | 2024-10-11 08:53 | W.PN.NEPH.PH ---
Today's Communication / Plan
-
Maintain IV Lasix
Follow BMP
Hemodynamically more stable on oral antihypertensives which now include carvedilol
Check postvoid bladder to assess for urinary retention
Assessment/Plan
-
Assessment
CKD 4 progressive (2.4-2.9)
CHF decompensation (HFpEF)
Renal Biopsy-proven secondary glomerulosclerosis (4 grams proteinuria)
Uncontrolled Hypertension
Metabolic acidosis
Heart failure preserved ejection fraction compensated
History of dermatomyositis
Benign left adrenal adenoma
Plan
cr stable at 2.4, and well within baseline, maintain accurate I's and O's and daily weight
IV diuresis for decompensated congestive heart failure (lungs clear and weight down), but increasing edema and uncontrolled HTN, maintain Lasix 80 mg IV daily urine output not accurately recorded
Check postvoid bladder scan to assess for possible postobstructive component i.e. urinary retention
Outpatient antihypertensive therapy to continue for hypertension (now back on carvedilol)
Patient was only taking 40 mg of Lasix instead of 80 mg due to polyuria at night
Maintain sodium HCO3 in regards to chronic metabolic acidosis
-
-
Date of Service: October 11, 2024
CC / HPI / ROS
-
Chief Complaint:
CKD 4
HTN
CHF
History of Present Illness:
Creatinine stable at 2.4
Hemodynamically stable on oral antihypertensive regimen
Review of Systems:
No reported chest pain or shortness of breath
Weight slightly down
Urine output not accurately recorded
Labs
-
Labs:
WBC 3.9 10^3/uL (4.8-10.8) L 10/11/24 02:55
RBC 3.09 10^6/uL (4.20-5.40) L 10/11/24 02:55
Hgb 9.6 g/dL (12.0-16.0) L 10/11/24 02:55
Hct 29.7 % (37.0-47.0) L 10/11/24 02:55
Plt Count 170 10^3/uL (130-400) 10/11/24 02:55
Sodium 140 mmol/L (135-145) 10/11/24 02:55
Potassium 4.1 mmol/L (3.5-5.1) 10/11/24 02:55
Chloride 109 mmol/L (98-107) H 10/11/24 02:55
Carbon Dioxide 27 mmol/L (22-30) 10/11/24 02:55
BUN 52 mg/dl (7-17) H 10/11/24 02:55
Creatinine 2.4 mg/dL (0.6-1.0) H 10/11/24 02:55
eGFR 20.04 10/11/24 02:55
Glucose 101 mg/dl (70-99) H 10/11/24 02:55
Calcium 9.0 mg/dl (8.4-10.2) 10/11/24 02:55
Hdj-U-Rbklbjjyzzy Pept 78797 pg/ml 10/10/24 12:52
Albumin 3.8 g/dl (3.5-5.0) 10/10/24 12:52
Physical Exam
-
Vital Signs:
Vital Signs
Temp Pulse Resp BP Pulse Ox
98.4 F 56 16 125/50 98
10/11/24 06:43 10/11/24 06:00 10/11/24 06:00 10/11/24 06:00 10/11/24 06:00
Cardiovascular:: Regular rate and rhythm
Respiratory:: Bilateral: CTA
Lung Excursion:: Normal
Abdomen:: Nontender and Soft
Bowel Sounds:: Normal
Extremity Edema:: +1: Bilateral:
Richards Catheter: No
--- NOTE | 2024-10-11 10:29 | W.PN.CARDCBS ---
Today's Communication / Plan
-
Continue IV Lasix
Renal function stable with creatinine of 2.4
Blood pressure much better controlled
Impression / Plan
-
PCP: Dr. Wing
Card: Dr. Logan
Impression:
Acute HFpEF
Hypertensive emergency
Afib
Stage IV chronic kidney disease
Pause up to 3 seconds on tele 07/08/24
Suspected PAT
Acute HFpEF
s/p fall AM 2024
Bradycardia
Elevated LFTs
HTN
Recent admission for HTN emergency and HTN encephalopathy 05/28/24 until 06/04/24
Recent ER visit for HTN and medication noncompliance 07/02/24
Newly diagnosed paroxysmal to persistent Afib with controlled ventricular response 06/2024
Possible h/o atrial arrhythmia
Atach vs atrial flutter on ECG at [facility]
s/p coronary CTA with no significant disease LM, LAD, Circ, but mild prox RCA disease 01/30/20
Hypothyroid
Hyperlipidemia
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
Focal segmental glomerulosclerosis
h/o DVT/PE in 2010
h/o hyperkalemia with spironolactone
h/o fatigue and cough with metoprolol, although tolerating Coreg
Echo 09/13/23: EF 55%, mod to sev asymmetric septal hypertrophy, IVSD 1.7cm, grade 2 diastolic dysfunction, normal RV size and systolic function, no significant valve disease
Echo 07/08/24: EF 55%, normal wall motion, mild MR, no /AI, mild TR with PAP 35-40 mmHg
Plan:
Her weight is down 3 pounds with stable renal function with creatinine of 2.4
Nephrology is following as well and helping to manage diuretic
Remains in A-fib and is not anticoagulated due to prior fall
Blood pressure much better controlled
Progress Note - Software Analyst
Subjective
Date of Service: October 11, 2024
No chest pain or shortness of breath
Objective
Labs:
10/11/24 02:55
10/11/24 02:55
Labs
Hgb 9.6 g/dL (12.0-16.0) L 10/11/24 02:55
Hct 29.7 % (37.0-47.0) L 10/11/24 02:55
Plt Count 170 10^3/uL (130-400) 10/11/24 02:55
Sodium 140 mmol/L (135-145) 10/11/24 02:55
Potassium 4.1 mmol/L (3.5-5.1) 10/11/24 02:55
BUN 52 mg/dl (7-17) H 10/11/24 02:55
Creatinine 2.4 mg/dL (0.6-1.0) H 10/11/24 02:55
Glucose 101 mg/dl (70-99) H 10/11/24 02:55
Troponins
10/10/24 10/10/24 10/11/24
12:52 20:55 02:55
Troponin I 0.038 H* 0.037 H* 0.035 H*
Vital Signs and I&O:
Vital Signs
Temp Pulse Resp BP Pulse Ox
98.4 F 63 20 101/50 88
10/11/24 06:43 10/11/24 09:01 10/11/24 09:01 10/11/24 09:01 10/11/24 09:01
Vital Signs
Temp Pulse Resp BP Pulse Ox
98.4 F 63 20 101/50 88
10/11/24 06:43 10/11/24 09:01 10/11/24 09:01 10/11/24 09:01 10/11/24 09:01
Intake & Output
10/09/24 10/10/24 10/11/24 10/12/24
06:59 06:59 06:59 06:59
Intake Total 100 / 100
Output Total 250 / 250 200 / 200
Balance -150 / -150 -200 / -200
Physical Exam
Physical Exam
General: Well developed, well nourished in NAD.
Neck: Supple, no JVD, HJR, carotids +2 B/L, no bruits bilaterally.
Heart: Non displaced PMI, irregular, no murmurs, No S3, S4, no rubs.
Lungs: Scattered rhonchi
Extremities: No clubbing, cyanosis or edema bilaterally.
Neuro: Grossly nonfocal, awake, alert and oriented x3.
--- NOTE | 2024-10-11 13:26 | W.PN.HOSP.TC ---
Today's Communication/Plan
-
continue IV diuresis
f/u BP
transfer to tele
PT/OT
Assessment / Plan
Assessment / Plan
# Diastolic HF exacerbation
- Strict ALFONSO, daily weight, fluid restriction
- BNP 00378
- Chest x-ray with impression of Low lung volumes with small bilateral pleural effusions.Grossly unchanged 11 mm nodular density within the left upper lobe.
- Recent echo with impression of EF 55%
- On IV lasix
- Cards/nephro help appreciated .
# Hypertensive emergency
- Nitropaste in the ER
- Norvasc, benazepril, Coreg continued
# Troponin elevation
- minimal and with nonischemic myocardial injury related
# Anemia of chronic disease
- Hemoglobin stable 10.0, no active bleeding
- Continue to monitor
# CKD stage Iv
- Creatinine 2.4, close to baseline
#Paroxysmal A-fib
-Currently patient on A-fib with rate control.
-Coreg continued
Appreciate cardiology input.
#Insomnia
-Continue trazodone
#History of hypothyroidism
-Continue levothyroxine
#History of Hyperlipidemia
-Continue Zetia
DVT prophylaxis- Heparin subcu
CODE STATUS - Full code
Total time spent ; 51 mins
Anticipated Discharge: 24 - 48 hours
Subjective/Interval History
-
Date of Service: October 11, 2024
no new complains
not on o2
denies shortness breath/dyspnea
Objective Data
-
Labs:
Laboratory Results
10/11/24
02:55
WBC 3.9 L
Hgb 9.6 L
Hct 29.7 L
Plt Count 170
Sodium 140
Potassium 4.1
Chloride 109 H
Carbon Dioxide 27
BUN 52 H
Creatinine 2.4 H
Glucose 101 H
Calcium 9.0
Vital Signs:
Vital Signs
Temp Pulse Resp BP Pulse Ox
98.0 F 71 20 153/82 97
10/11/24 11:00 10/11/24 11:33 10/11/24 11:33 10/11/24 11:33 10/11/24 13:11
I&O
10/10/24 10/11/24 10/12/24
06:59 06:59 06:59
Intake Total 100 / 100
Output Total 250 / 250 200 / 200
Balance -150 / -150 -200 / -200
Review of Systems
-
Respiratory: Reports No Symptoms
Cardiac: Reports No Symptoms
Abdomen/GI: Reports No Symptoms
Physical Exam
-
General: Negative Appears in Distress
HEENT: Negative Oxygen
Respiratory: Clear to Auscultation
Cardiac: Regular Rhythm and S1/S2; Negative Murmur
GI: Soft, Nontender and Nondistended
Musculoskeletal: Edema, Right Lower Extrem and Edema, Left Lower Extrem
Neuro: Awake, Alert, Oriented and No Motor Deficits
--- NOTE | 2024-10-11 18:30 | PTCARENOTE ---
report given to RN, pt transferred to [address] [place] [address]
[2024-10-11] MEDS: COREG 12.5 MG PO (20:53)
[2024-10-11] MEDS: DESYREL 50 MG PO (20:55)
[2024-10-12 03:30] VITALS: BP 158/75
[2024-10-12] MEDS: SYNTHROID 75 MCG PO (05:28)
[2024-10-12 06:00] VITALS: BMI 27.5
[2024-10-12 07:00] VITALS: BP 138/79
[2024-10-12 07:12] LABS: Blood Urea Nitrogen 55 mg/dl (7-17); Calcium 8.6 mg/dl (8.4-10.2); Carbon Dioxide 27 mmol/L (22-30); Chloride 108 mmol/L (98-107); Estimated Creatinine Clearance 17 ml/min; Glucose 97 mg/dl (70-99); Potassium 3.9 mmol/L (3.5-5.1); Sodium 139 mmol/L (135-145); eGFR 18.21
[2024-10-12 08:00] VITALS: BMI 27.5
[2024-10-12] MEDS: ASPIR LOW (ENTERIC COATED) 81 MG PO (08:22)
[2024-10-12] MEDS: ZETIA 10 MG PO (08:22)
[2024-10-12] MEDS: HEPARIN 5000 UNITS SC ×2 (08:22→20:30)
[2024-10-12] MEDS: SODIUM BICARBONATE 1300 MG PO ×2 (08:22→20:32)
[2024-10-12] MEDS: LASIX 80 MG IV (08:30)
[2024-10-12] MEDS: APRESOLINE 100 MG PO ×2 (08:34→20:30)
[2024-10-12] MEDS: COREG 12.5 MG PO (08:34)
[2024-10-12] MEDS: ZESTRIL 40 MG PO (08:34)
[2024-10-12] MEDS: PROCARDIA XL (EXTENDED RELEASE) 30 MG PO ×2 (08:34→20:31)
--- NOTE | 2024-10-12 09:09 | W.PN.HOSP.TC ---
Today's Communication/Plan
-
rehab placement
diuresis per nephro
continue pt/ot
Assessment / Plan
Assessment / Plan
# Diastolic HF exacerbation - Improved
- Strict ALFONSO, daily weight, fluid restriction
- BNP 75564
- Chest x-ray with impression of Low lung volumes with small bilateral pleural effusions.Grossly unchanged 11 mm nodular density within the left upper lobe.
- Recent echo with impression of EF 55%
- On IV lasix 80mg/d, weight down ~ 0.5Kg
- Cards/nephro help appreciated .
# Hypertensive emergency - Resolved
- Nitropaste in the ER
- Norvasc, benazepril, Coreg continued
# Troponin elevation
- minimal and with nonischemic myocardial injury related
# Anemia of chronic disease
- Hemoglobin stable 10.0, no active bleeding
- Continue to monitor
# CKD stage Iv
- Creatinine 2.4, close to baseline
#Paroxysmal A-fib
-Currently patient on A-fib with rate control.
-Coreg continued
Appreciate cardiology input.
#Insomnia
-Continue trazodone
#History of hypothyroidism
-Continue levothyroxine
#History of Hyperlipidemia
-Continue Zetia
DVT prophylaxis- Heparin subcu
CODE STATUS - Full code
Anticipated Discharge: Within 24 hours
Subjective/Interval History
-
Date of Service: October 12, 2024
denies of having shortness breath
not on o2
Objective Data
-
Labs:
Laboratory Results
10/12/24
06:12
Sodium 139
Potassium 3.9
Chloride 108 H
Carbon Dioxide 27
BUN 55 H
Creatinine 2.6 H
Glucose 97
Calcium 8.6
Vital Signs:
Vital Signs
Temp Pulse Resp BP Pulse Ox
97.6 F 76 18 139/79 94
10/12/24 03:30 10/12/24 03:30 10/12/24 03:30 10/12/24 08:30 10/12/24 03:30
I&O
10/11/24 10/12/24 10/13/24
06:59 06:59 06:59
Intake Total 100 / 100 120 / 120
Output Total 250 / 250 200 / 200
Balance -150 / -150 -80 / -80
Review of Systems
-
Respiratory: Reports No Symptoms
Cardiac: Reports No Symptoms
Abdomen/GI: Reports No Symptoms
Physical Exam
-
General: Negative Appears in Distress
HEENT: Negative Oxygen
Respiratory: Clear to Auscultation
Cardiac: Regular Rhythm and S1/S2; Negative Murmur
GI: Soft, Nontender and Nondistended
Musculoskeletal: Edema, Right Lower Extrem and Edema, Left Lower Extrem
Neuro: Awake, Alert, Oriented and No Motor Deficits
--- NOTE | 2024-10-12 10:25 | W.PN.CARDCBS ---
Today's Communication / Plan
-
Sign off
Impression / Plan
-
PCP: Dr. Wing
Card: Dr. Logan
Impression:
Acute HFpEF
Hypertensive emergency
Afib
Stage IV chronic kidney disease
Pause up to 3 seconds on tele 07/08/24
Suspected PAT
Acute HFpEF
s/p fall AM 2024
Bradycardia
Elevated LFTs
HTN
Recent admission for HTN emergency and HTN encephalopathy 05/28/24 until 06/04/24
Recent ER visit for HTN and medication noncompliance 07/02/24
Newly diagnosed paroxysmal to persistent Afib with controlled ventricular response 06/2024
Possible h/o atrial arrhythmia
Atach vs atrial flutter on ECG at [facility]
s/p coronary CTA with no significant disease LM, LAD, Circ, but mild prox RCA disease 01/30/20
Hypothyroid
Hyperlipidemia
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
Focal segmental glomerulosclerosis
h/o DVT/PE in 2010
h/o hyperkalemia with spironolactone
h/o fatigue and cough with metoprolol, although tolerating Coreg
Echo 09/13/23: EF 55%, mod to sev asymmetric septal hypertrophy, IVSD 1.7cm, grade 2 diastolic dysfunction, normal RV size and systolic function, no significant valve disease
Echo 07/08/24: EF 55%, normal wall motion, mild MR, no /AI, mild TR with PAP 35-40 mmHg
Plan:
Her weight is down possibly 10 pounds since admission with relatively stable renal function but creatinine did increase from 2.4 to 2.6.
Nephrology is following as well and helping to manage diuretic
Remains in A-fib and is not anticoagulated due to prior fall
Blood pressure much better controlled
Discussed with primary service and will sign off
Progress Note - Draw Press Operator
Subjective
Date of Service: October 12, 2024
No chest pain or shortness of breath
Objective
Labs:
10/11/24 02:55
10/12/24 06:12
Labs
Hgb 9.6 g/dL (12.0-16.0) L 10/11/24 02:55
Hct 29.7 % (37.0-47.0) L 10/11/24 02:55
Plt Count 170 10^3/uL (130-400) 10/11/24 02:55
Sodium 139 mmol/L (135-145) 10/12/24 06:12
Potassium 3.9 mmol/L (3.5-5.1) 10/12/24 06:12
BUN 55 mg/dl (7-17) H 10/12/24 06:12
Creatinine 2.6 mg/dL (0.6-1.0) H 10/12/24 06:12
Glucose 97 mg/dl (70-99) 10/12/24 06:12
Troponins
10/10/24 10/10/24 10/11/24
12:52 20:55 02:55
Troponin I 0.038 H* 0.037 H* 0.035 H*
Vital Signs and I&O:
Vital Signs
Temp Pulse Resp BP Pulse Ox
97.8 F 76 18 139/79 95
10/12/24 07:00 10/12/24 07:00 10/12/24 07:00 10/12/24 08:30 10/12/24 07:00
Vital Signs
Temp Pulse Resp BP Pulse Ox
97.8 F 76 18 139/79 95
10/12/24 07:00 10/12/24 07:00 10/12/24 07:00 10/12/24 08:30 10/12/24 07:00
Intake & Output
10/10/24 10/11/24 10/12/24 10/13/24
06:59 06:59 06:59 06:59
Intake Total 100 / 100 120 / 120
Output Total 250 / 250 200 / 200
Balance -150 / -150 -80 / -80
Physical Exam
Physical Exam
General: Well developed, well nourished in NAD.
Neck: Supple, no JVD, HJR, carotids +2 B/L, no bruits bilaterally.
Heart: Non displaced PMI, irregular, no murmurs, No S3, S4, no rubs.
Lungs: Scattered rhonchi
Extremities: No clubbing, cyanosis or edema bilaterally.
Neuro: Grossly nonfocal, awake, alert and oriented x3.
[2024-10-12 11:00] VITALS: BP 126/59
--- NOTE | 2024-10-12 11:32 | W.PN.NEPH.PH ---
Today's Communication / Plan
-
Check postvoid bladder scan to assess for bladder outlet obstruction
Creatinine stable at 2 point
Maintain Lasix 80 mg IV daily
Would ask cardiology to investigate sinus bradycardia and pauses on carvedilol
Assessment/Plan
-
Assessment
CKD 4 progressive (2.4-2.9)
CHF decompensation (HFpEF)
Renal Biopsy-proven secondary glomerulosclerosis (4 grams proteinuria)
Uncontrolled Hypertension
Metabolic acidosis
Heart failure preserved ejection fraction compensated
History of dermatomyositis
Benign left adrenal adenoma
Plan
cr stable at 2.6, and well within baseline, maintain accurate I's and O's and daily weight
IV diuresis for decompensated congestive heart failure (lungs clear and weight down), but increasing edema and uncontrolled HTN, blood pressure now controlled but notable for bradycardia with occasional pauses since carvedilol was placed back on,
will defer to cardiology
Check postvoid bladder scan to assess for possible postobstructive component i.e. urinary retention
Outpatient antihypertensive therapy to continue for hypertension (now back on carvedilol)
Maintain Lasix 80 mg IV daily
Patient was only taking 40 mg of Lasix instead of 80 mg due to polyuria at night
Maintain sodium HCO3 in regards to chronic metabolic acidosis
-
-
Date of Service: October 12, 2024
CC / HPI / ROS
-
Chief Complaint:
CKD 4
HTN
CHF
History of Present Illness:
Creatinine stable at 2.6
Hemodynamically stable on oral antihypertensive regimen
Evolving confusion overnight
Review of Systems:
No reported chest pain or shortness of breath
Weight slightly down
Appears withdrawn slightly confused
Urine output not accurately recorded
Labs
-
Labs:
WBC 3.9 10^3/uL (4.8-10.8) L 10/11/24 02:55
RBC 3.09 10^6/uL (4.20-5.40) L 10/11/24 02:55
Hgb 9.6 g/dL (12.0-16.0) L 10/11/24 02:55
Hct 29.7 % (37.0-47.0) L 10/11/24 02:55
Plt Count 170 10^3/uL (130-400) 10/11/24 02:55
Sodium 139 mmol/L (135-145) 10/12/24 06:12
Potassium 3.9 mmol/L (3.5-5.1) 10/12/24 06:12
Chloride 108 mmol/L (98-107) H 10/12/24 06:12
Carbon Dioxide 27 mmol/L (22-30) 10/12/24 06:12
BUN 55 mg/dl (7-17) H 10/12/24 06:12
Creatinine 2.6 mg/dL (0.6-1.0) H 10/12/24 06:12
eGFR 18.21 10/12/24 06:12
Glucose 97 mg/dl (70-99) 10/12/24 06:12
Calcium 8.6 mg/dl (8.4-10.2) 10/12/24 06:12
Egn-C-Ilpzkwaqaff Pept [id number] pg/ml 10/10/24 12:52
Albumin 3.8 g/dl (3.5-5.0) 10/10/24 12:52
Physical Exam
-
Vital Signs:
Vital Signs
Temp Pulse Resp BP Pulse Ox
97.8 F 76 18 139/79 95
10/12/24 07:00 10/12/24 07:00 10/12/24 07:00 10/12/24 08:30 10/12/24 07:00
Cardiovascular:: Regular rate and rhythm
Respiratory:: Bilateral: CTA
Lung Excursion:: Normal
Abdomen:: Nontender and Soft
Bowel Sounds:: Normal
Extremity Edema:: +1: Bilateral:
Richards Catheter: No
--- NOTE | 2024-10-12 13:16 | PTCARENOTE ---
Patient's heart rate has been sinus leah. low 30's then goes back to 50's. Hospitalist aware. Plan; Coreg dose lower. Plan of care ongoing.
[2024-10-12 15:00] VITALS: BP 134/71
--- NOTE | 2024-10-12 18:49 | PTCARENOTE ---
Hospitalist requested to hold Coreg dose tonight instead of lowering dose.
[2024-10-12 19:31] VITALS: BP 176/65
[2024-10-12] MEDS: COREG PO (20:30)
[2024-10-12] MEDS: DESYREL 50 MG PO (21:14)
[2024-10-12 23:21] VITALS: BP 165/63
[2024-10-13 03:17] VITALS: BP 157/78
[2024-10-13] MEDS: SYNTHROID 75 MCG PO (05:46)
[2024-10-13 05:59] LABS: Blood Urea Nitrogen 57 mg/dl (7-17); Calcium 9.2 mg/dl (8.4-10.2); Carbon Dioxide 29 mmol/L (22-30); Chloride 106 mmol/L (98-107); Estimated Creatinine Clearance 17 ml/min; Glucose 100 mg/dl (70-99); Potassium 3.9 mmol/L (3.5-5.1); Sodium 140 mmol/L (135-145); eGFR 18.21
[2024-10-13 06:00] VITALS: BMI 26.8
[2024-10-13 07:00] VITALS: BP 186/76
[2024-10-13] MEDS: ZETIA 10 MG PO (10:28)
[2024-10-13] MEDS: ASPIR LOW (ENTERIC COATED) 81 MG PO (10:28)
[2024-10-13] MEDS: SODIUM BICARBONATE 1300 MG PO ×2 (10:28→21:08)
[2024-10-13] MEDS: PROCARDIA XL (EXTENDED RELEASE) 30 MG PO (10:28)
[2024-10-13] MEDS: APRESOLINE 10 MG IV (10:29)
[2024-10-13] MEDS: HEPARIN 5000 UNITS SC ×2 (10:30→21:08)
[2024-10-13] MEDS: COREG 12.5 MG PO (10:30)
[2024-10-13] MEDS: RISPERDAL M-TAB (ORALLY DISINTEGRATING) 0.5 MG PO (10:36)
[2024-10-13] MEDS: ZESTRIL 40 MG PO (10:44)
[2024-10-13] MEDS: APRESOLINE 100 MG PO ×2 (10:45→21:08)
[2024-10-13] MEDS: LASIX 80 MG IV (10:45)
[2024-10-13] MEDS: FLUSH (NSS) 2 FLUSH IV (10:46)
[2024-10-13 11:00] VITALS: BP 188/81
[2024-10-13 11:39] VITALS: BP 143/67; PULSE 78; O2SAT 97
--- NOTE | 2024-10-13 12:00 | CM ---
Addendum entered by Kary Branham 10/13/24 12:51:
Patient has been accepted at [facility] tomorrow, 3rd floor.
Original Note:
Chart reviewed and physical therapy are recommending skilled placement, case management specialist reached out to patient's spouse to review options and he has selected [facility], referral sent to [facility] skilled.
Plan; Skilled placement at [facility]
--- NOTE | 2024-10-13 13:21 | W.PN.NEPH.PH ---
Today's Communication / Plan
-
Continue Lasix
Assessment/Plan
-
Assessment
CKD 4 progressive (2.4-2.9)
CHF decompensation (HFpEF)
Renal Biopsy-proven secondary glomerulosclerosis (4 grams proteinuria)
Uncontrolled Hypertension
Metabolic acidosis
Heart failure preserved ejection fraction compensated
History of dermatomyositis
Benign left adrenal adenoma
Plan
cr stable at 2.6, and well within baseline, maintain accurate I's and O's and daily weight
IV diuresis for decompensated congestive heart failure (lungs clear and weight down), but increasing edema and uncontrolled HTN, blood pressure now controlled but notable for bradycardia with occasional pauses
Patient was only taking 40 mg of Lasix instead of 80 mg due to polyuria at night
Maintain sodium HCO3 in regards to chronic metabolic acidosis
Continue Lasix 80 mg with weights down 2 kg
Blood pressures labile continue to monitor will see her response to diuresis we will just as this is
-
-
Date of Service: October 13, 2024
CC / HPI / ROS
-
Chief Complaint:
CKD 4
HTN
CHF
History of Present Illness:
Creatinine stable at 2.6
Hemodynamically stable on oral antihypertensive regimen
Evolving confusion overnight
Review of Systems:
No reported chest pain or shortness of breath
Weight slightly down
Labs
-
Labs:
WBC 3.9 10^3/uL (4.8-10.8) L 10/11/24 02:55
RBC 3.09 10^6/uL (4.20-5.40) L 10/11/24 02:55
Hgb 9.6 g/dL (12.0-16.0) L 10/11/24 02:55
Hct 29.7 % (37.0-47.0) L 10/11/24 02:55
Plt Count 170 10^3/uL (130-400) 10/11/24 02:55
Sodium 140 mmol/L (135-145) 10/13/24 04:59
Potassium 3.9 mmol/L (3.5-5.1) 10/13/24 04:59
Chloride 106 mmol/L (98-107) 10/13/24 04:59
Carbon Dioxide 29 mmol/L (22-30) 10/13/24 04:59
BUN 57 mg/dl (7-17) H 10/13/24 04:59
Creatinine 2.6 mg/dL (0.6-1.0) H 10/13/24 04:59
eGFR 18.21 10/13/24 04:59
Glucose 100 mg/dl (70-99) H 10/13/24 04:59
Calcium 9.2 mg/dl (8.4-10.2) 10/13/24 04:59
Mgj-Z-Pbalunfiurn Pept 33073 pg/ml 10/10/24 12:52
Albumin 3.8 g/dl (3.5-5.0) 10/10/24 12:52
Physical Exam
-
Vital Signs:
Vital Signs
Temp Pulse Resp BP Pulse Ox
97.5 F 76 18 188/81 98
10/13/24 11:00 10/13/24 11:00 10/13/24 11:00 10/13/24 11:00 10/13/24 11:00
Cardiovascular:: Regular rate and rhythm
Respiratory:: Bilateral: CTA
Lung Excursion:: Normal
Abdomen:: Nontender and Soft
Bowel Sounds:: Normal
Extremity Edema:: +1: Bilateral:
Richards Catheter: No
--- NOTE | 2024-10-13 14:58 | W.PN.HOSP.TC ---
Today's Communication/Plan
-
BP uncontrolled, iv hydralazine ordered
Procardia increased to 60mg bid
discharge planning
Assessment / Plan
Assessment / Plan
# Diastolic HF exacerbation - Improved
- Strict ALFONSO, daily weight, fluid restriction
- BNP 09264
- Chest x-ray with impression of Low lung volumes with small bilateral pleural effusions.Grossly unchanged 11 mm nodular density within the left upper lobe.
- Recent echo with impression of EF 55%
- On IV lasix 80mg/d, weight down ~ 0.5Kg
- Cards/nephro help appreciated .
# Hypertensive emergency
- Nitropaste in the ER
- Norvasc, benazepril, Coreg continued
- Hydralazine IV 10mg prn ordered.
# Troponin elevation
- minimal and with nonischemic myocardial injury related
# Anemia of chronic disease
- Hemoglobin stable 10.0, no active bleeding
- Continue to monitor
# CKD stage Iv
- Creatinine 2.4, close to baseline
#Paroxysmal A-fib
-Currently patient on A-fib with rate control.
-Coreg continued
Appreciate cardiology input.
#Insomnia
-Continue trazodone
#History of hypothyroidism
-Continue levothyroxine
#History of Hyperlipidemia
-Continue Zetia
# Dementia
-patient have some behavioral issues.
-Providing oral Risperdal.
DVT prophylaxis- Heparin subcu
CODE STATUS - Full code
Anticipated Discharge: Within 24 hours
Subjective/Interval History
-
Date of Service: October 13, 2024
Patient agitated overnight, currently in Allyson chair
no pulmonary complains
Objective Data
-
Labs:
Laboratory Results
10/13/24
04:59
Sodium 140
Potassium 3.9
Chloride 106
Carbon Dioxide 29
BUN 57 H
Creatinine 2.6 H
Glucose 100 H
Calcium 9.2
Vital Signs:
Vital Signs
Temp Pulse Resp BP Pulse Ox
97.5 F 76 18 188/81 98
10/13/24 11:00 10/13/24 11:00 10/13/24 11:00 10/13/24 11:00 10/13/24 11:00
I&O
10/12/24 10/13/24 10/14/24
06:59 06:59 06:59
Intake Total 120 / 120 720 / 720
Output Total 200 / 200
Balance -80 / -80 720 / 720
Review of Systems
-
Unable to obtain full review of systems at this time due to: Acuity
Physical Exam
-
General: Negative Appears in Distress
HEENT: Negative Oxygen
Respiratory: Clear to Auscultation
Musculoskeletal: Edema, Right Lower Extrem and Edema, Left Lower Extrem
Neuro: Awake, Alert and No Motor Deficits; Negative Oriented
Psych: Agitated
[2024-10-13 19:44] VITALS: BP 126/53
[2024-10-13] MEDS: COREG PO (19:53)
[2024-10-13] MEDS: PROCARDIA XL (EXTENDED RELEASE) PO (20:04)
[2024-10-13] MEDS: DESYREL PO (21:07)
--- NOTE | 2024-10-13 21:49 | PTCARENOTE ---
Patient`s heart rate dropped to the 30`s in AFIB. Patient denies any symptoms. Heart Rate currently fluctuating between 30`s and 40`s. Nurse practitioner made aware. RN will obtain EKG.
[2024-10-13 23:30] VITALS: BP 137/48
[2024-10-14] VITALS (7 sets, daily range): BP systolic 103–156; BP diastolic 40–67; PULSE 58; BMI 26.3
[2024-10-14] MEDS: MELATONIN 5 MG PO ×2 (00:31→22:17)
--- NOTE | 2024-10-14 05:26 | PTCARENOTE ---
Patient`s heart rate dropped to 26 with a 3.12 second pause. Heart rate came up to the 50`s. RN assessed patient, patient was asymptomatic. AYANNA Cochran made aware, no new orders at this time.
[2024-10-14] MEDS: SYNTHROID 75 MCG PO (05:47)
[2024-10-14 08:14] LABS: Hematocrit 29.3 % (37.0-47.0); Hemoglobin 9.5 g/dL (12.0-16.0); Mean Corp Hgb Conc. 32.4 g/dL (33.0-37.0); Mean Corpuscular Volume 97.0 fL (81.0-99.0); Platelet Count 162 10^3/uL (130-400); Red Cell Dist. Width 13.6 % (11.5-14.5)
[2024-10-14] MEDS: HEPARIN 5000 UNITS SC ×2 (08:24→20:32)
[2024-10-14] MEDS: SODIUM BICARBONATE 1300 MG PO ×2 (08:24→20:32)
[2024-10-14] MEDS: ASPIR LOW (ENTERIC COATED) 81 MG PO (08:26)
[2024-10-14] MEDS: LASIX 80 MG IV (08:26)
[2024-10-14] MEDS: ZESTRIL 40 MG PO (08:29)
[2024-10-14] MEDS: APRESOLINE 100 MG PO ×2 (08:30→20:32)
[2024-10-14] MEDS: ZETIA 10 MG PO (08:30)
[2024-10-14] MEDS: PROCARDIA XL (EXTENDED RELEASE) 60 MG PO (08:31)
[2024-10-14] MEDS: COREG PO (08:31)
[2024-10-14 08:41] LABS: Blood Urea Nitrogen 59 mg/dl (7-17); Calcium 9.2 mg/dl (8.4-10.2); Carbon Dioxide 28 mmol/L (22-30); Chloride 105 mmol/L (98-107); Estimated Creatinine Clearance 15 ml/min; Glucose 94 mg/dl (70-99); Potassium 4.0 mmol/L (3.5-5.1); Sodium 138 mmol/L (135-145); eGFR 18.21
--- NOTE | 2024-10-14 13:52 | W.PN.NEPH.PH ---
Today's Communication / Plan
-
Continue diuretics
Assessment/Plan
-
Assessment
CKD 4 progressive (2.4-2.9)
CHF decompensation (HFpEF)
Renal Biopsy-proven secondary glomerulosclerosis (4 grams proteinuria)
Uncontrolled Hypertension
Metabolic acidosis
Heart failure preserved ejection fraction compensated
History of dermatomyositis
Benign left adrenal adenoma
Plan
cr stable at 2.6, and well within baseline, maintain accurate I's and O's and daily weight
IV diuresis for decompensated congestive heart failure (lungs clear and weight down), but increasing edema and uncontrolled HTN, blood pressure now controlled but notable for bradycardia with occasional pauses
Patient was only taking 40 mg of Lasix instead of 80 mg due to polyuria at night
Maintain sodium HCO3 in regards to chronic metabolic acidosis
Continue Lasix 80 mg with improved weight.
Patient continues to be bradycardic= Coreg held defer to cardiology
-
-
Date of Service: October 14, 2024
CC / HPI / ROS
-
Chief Complaint:
CKD 4
HTN
CHF
History of Present Illness:
Creatinine stable at 2.6
Hemodynamically stable on oral antihypertensive regimen
Evolving confusion overnight
Review of Systems:
No reported chest pain or shortness of breath
Weight slightly down
Labs
-
Labs:
WBC 4.4 10^3/uL (4.8-10.8) L 10/14/24 07:50
RBC 3.02 10^6/uL (4.20-5.40) L 10/14/24 07:50
Hgb 9.5 g/dL (12.0-16.0) L 10/14/24 07:50
Hct 29.3 % (37.0-47.0) L 10/14/24 07:50
Plt Count 162 10^3/uL (130-400) 08/19/25 07:50
Sodium 138 mmol/L (135-145) 10/14/24 07:50
Potassium 4.0 mmol/L (3.5-5.1) 10/14/24 07:50
Chloride 105 mmol/L (98-107) 10/14/24 07:50
Carbon Dioxide 28 mmol/L (22-30) 10/14/24 07:50
BUN 59 mg/dl (7-17) H 10/14/24 07:50
Creatinine 2.6 mg/dL (0.6-1.0) H 10/14/24 07:50
eGFR 18.21 10/14/24 07:50
Glucose 94 mg/dl (70-99) 10/14/24 07:50
Calcium 9.2 mg/dl (8.4-10.2) 10/14/24 07:50
Czd-F-Okyhuznwrse Pept [id number] pg/ml 10/10/24 12:52
Albumin 3.8 g/dl (3.5-5.0) 10/10/24 12:52
Physical Exam
-
Vital Signs:
Vital Signs
Temp Pulse Resp BP Pulse Ox
98.0 F 45 16 108/58 96
10/14/24 11:00 10/14/24 11:00 10/14/24 11:00 10/14/24 11:00 10/14/24 11:00
Cardiovascular:: Regular rate and rhythm
Respiratory:: Bilateral: CTA
Lung Excursion:: Normal
Abdomen:: Nontender and Soft
Bowel Sounds:: Normal
Extremity Edema:: +1: Bilateral:
Richards Catheter: No
--- NOTE | 2024-10-14 14:51 | W.PN.CARDCBS ---
Addendum entered and electronically signed by Trevon Ceja MD 10/14/24 15:25:
The patient has asymptomatic nighttime bradycardia. She has an underlying typical atrial flutter and we are now stopping her carvedilol. Her bradycardia is completely asymptomatic. At home I suspect she has been doing this for years. Up to
3-second pauses overnight without any symptoms. Agree with holding Coreg. Can follow telemetry. She has no current indication for permanent pacing. An alternative blood pressure medication for Coreg can be used for her hypertension�hypertension
emergency in the past. We are currently addressing her change in volume status with diuresis.
Original Note:
Today's Communication / Plan
-
Avoid all AV cam blocking agents
Continue diuresis
Does not meet clinical criteria for pacemaker at this time
Impression / Plan
-
PCP: Dr. Wing
Card: Dr. Logan
Impression:
Presented 10/10/2024 with fatigue, weakness and worsening lower extremity edema
Acute HFpEF, 20,400
Hypertensive emergency
Persistent Afib, discovered June 2024
Stage IV chronic kidney disease
Pause up to 3 seconds on tele 07/08/24
Suspected PAT
Chronic HFpEF
s/p fall AM
Bradycardia
Elevated LFTs
HTN
Recent admission for HTN emergency and HTN encephalopathy 05/28/24 until 06/04/24
Recent ER visit for HTN and medication noncompliance 07/02/24
s/p coronary CTA with no significant disease LM, LAD, Circ, but mild prox RCA disease 01/30/20
Hypothyroid
Hyperlipidemia
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
Focal segmental glomerulosclerosis
h/o DVT/PE in 2010
h/o hyperkalemia with spironolactone
h/o fatigue and cough with metoprolol, although tolerating Coreg
Echo 09/13/23: EF 55%, mod to sev asymmetric septal hypertrophy, IVSD 1.7cm, grade 2 diastolic dysfunction, normal RV size and systolic function, no significant valve disease
Echo 07/08/24: EF 55%, normal wall motion, mild MR, no /AI, mild TR with PAP 35-40 mmHg
Plan:
A-fib-
-Remains in rate controlled Afib. Afib was new diagnosis in June 2024, Also had aflutter in May 2024.
-Previously started on Eliquis but had an unwitnessed fall during hospitalization June 2024 and OAC stopped.
- Now found to have episodes of asymptomatic bradycardia particularly nocturnal ROM patient is sleeping with heart rates dipping down into the 30s and 40s.
-Stop carvedilol.
-Avoid AV cam blocking agents.
-Currently patient does not meet criteria for pacemaker implant
Acute heart failure preserved EF, likely due to poor compliance with Lasix as outpatient
-Excellent response to IV diuresis with weight down at least 10 pounds. Ongoing diuresis with Lasix IV 80 mg
-Creatinine relatively stable at 2.6 which is within patient baseline of 2.4-2.9
-Appreciate nephrology input regarding blood pressure and diuretic dosing
-Recent echo June 2024 showed normal LV function with no significant valvular heart disease. Do not need to repeat at this time
-Continue hydralazine 150 mg 3 times a day and lisinopril
-Unable to afford SGLT2 due to cost. Had hyperkalemia on spironolactone.
-Discontinued carvedilol on prior admission and again this admission for bradycardia with pauses and heart rates in the 30s to 40s as noted above. Would avoid on resuming AV cam blocking agents
- Elevated troponin with peak of 0.38 likely nonischemic myocardial injury secondary to acute heart failure exacerbation. Previous coronary CTA with mild prox RCA dz 2019
Chronic kidney disease
- Baseline creatinine of 2.4-2.9 per nephrology
- Renal Biopsy-proven secondary glomerulosclerosis (4 grams proteinuria)
-Maintain sodium HCO3 in regards to chronic metabolic acidosis
-Nocturnal pulse ox did not demonstrate desaturation events, but Pulm office had previously suggested PAT evaluation. As per conversation with patient and 07/09/24, they do not believe in PAT or CPAP treatment and will not pursue any
additional work-up.
HTN
- Blood pressure now reasonably controlled with increased dose of hydralazine 100 mg twice daily, nifedipine 60 mg twice daily and lisinopril 40 mg daily
History of Present Illness 10/10/2024:
Patient presents to [facility] ER for evaluation of midsternal pain since last night, increased fatigue and weakness x 2 weeks, and worsening lower extremity edema. Patient self-reduced Lasix from 80 mg daily to 40 mg daily at least 2 weeks ago due to
freq urination at night.
She has past medical history of hypertension, atrial fibrillation and atrial flutter, chronic kidney disease stage IV. She has had multiple recent admissions to [facility] including June 2024 for acute on chronic heart failure with preserved EF, and
admission for hypertensive emergency and hypertensive encephalopathy in May 2024. During her admission in June 2024, Coreg was stopped due to bradycardia/pauses but she restarted it in outpatient setting. She had been on oral anticoagulation for
afib but it was stopped during 06/2024 admission due to falls..
She denies shortness of breath, PND, orthopnea. Denies palpitations, lightheadedness, syncope
ED workup: proBNP 20,400, troponin 0.038, BUN/creatinine 52/2.4 (creatinine has ranged 2.0-3.5 over past 4 months), Na 139, K4.4, hemoglobin 10.
Chest x-ray: Small bilateral pleural effusions
EKG: Atrial fibrillation 61 bpm, QTc 446 ms
Patient was just admitted to [facility] with HTN emergency 05/28/24 until 06/04/24. Patient's reported possible dementia to at that time and reported that his had stopped paying bills and taxes and that large sums of money were missing. There
was concern that patient was not taking BP meds and was in HTN emergency on admission. Patient went to rehab and then returned home, but home care could not be established due to clutter in the home and patient's also reported that patient
had been hoarding. Patient says that she has been taking meds, but just had an ER visit last week and reported that she was not taking meds because she did not trust them.
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
Subjective
Date of Service: October 14, 2024
Patient seen and examined. Patient resting comfortably in bed without complaints. Dozing off easily. Noted to have periods of asymptomatic bradycardia particularly when she is sleeping.
Objective
Labs:
10/14/24 07:50
10/14/24 07:50
Labs
Hgb 9.5 g/dL (12.0-16.0) L 10/14/24 07:50
Hct 29.3 % (37.0-47.0) L 10/14/24 07:50
Plt Count 162 10^3/uL (130-400) 10/14/24 07:50
Sodium 138 mmol/L (135-145) 10/14/24 07:50
Potassium 4.0 mmol/L (3.5-5.1) 10/14/24 07:50
BUN 59 mg/dl (7-17) H 10/14/24 07:50
Creatinine 2.6 mg/dL (0.6-1.0) H 10/14/24 07:50
Glucose 94 mg/dl (70-99) 10/14/24 07:50
Vital Signs and I&O:
Vital Signs
Temp Pulse Resp BP Pulse Ox
98.0 F 45 16 108/58 96
10/14/24 11:00 10/14/24 11:00 10/14/24 11:00 10/14/24 11:00 10/14/24 11:00
Vital Signs
Temp Pulse Resp BP Pulse Ox
98.0 F 45 16 108/58 96
10/14/24 11:00 10/14/24 11:00 10/14/24 11:00 10/14/24 11:00 10/14/24 11:00
Intake & Output
10/12/24 10/13/24 10/14/24 08/20/25
06:59 06:59 06:59 06:59
Intake Total 120 / 120 720 / 720 480 / 480
Output Total 200 / 200 200 / 200
Balance -80 / -80 720 / 720 480 / 480 -200 / -200
Physical Exam
Physical Exam
GEN: No distress, falling asleep easily
HEENT: supple, anicteric, mmm
LUNGS: CTA, no wheezes/rales
CV: Irregularly irregular, bradycardic, S1/S2, no murmur, rub or gallop
ABD: soft, BS+, NT/ND
EXT: No edema, clubbing or cyanosis
NEURO: Gross non-focal
SKIN: No rash, warm, dry, pink
--- NOTE | 2024-10-14 16:41 | W.PN.HOSP.TC ---
Today's Communication/Plan
-
hold coreg
monitor HR
likely discharge tomorrow
Assessment / Plan
Assessment / Plan
# Diastolic HF exacerbation - Improved
- Strict ALFONSO, daily weight, fluid restriction
- BNP 74799
- Chest x-ray with impression of Low lung volumes with small bilateral pleural effusions.Grossly unchanged 11 mm nodular density within the left upper lobe.
- Recent echo with impression of EF 55%
- On IV lasix 80mg/d, nephrology asked for further evaluation.
# Hypertensive emergency - Improved
- Nitropaste in the ER
- Norvasc, benazepril, Procardia
- Coreg has been discontinued due to bradycardia
- Hydralazine IV 10mg prn ordered.
# Asymptomatic bradycardia
- Patient have underlying bradycardia with 3-second pauses with afib
- cardio evaluated and no indication for PPM
- Discontinuing further Coreg. Avoid any rate control medication going forward.
# Troponin elevation
- minimal and with nonischemic myocardial injury related
# Anemia of chronic disease
- Hemoglobin stable 10.0, no active bleeding
- Continue to monitor
# CKD stage Iv
- Creatinine 2.4, close to baseline
#Paroxysmal A-fib
-Currently patient on A-fib with rate control.
-Coreg continued
Appreciate cardiology input.
#Insomnia
-Continue trazodone
#History of hypothyroidism
-Continue levothyroxine
#History of Hyperlipidemia
-Continue Zetia
# Dementia
-patient have some behavioral issues.
-Providing oral Risperdal.
DVT prophylaxis- Heparin subcu
CODE STATUS - Full code
Anticipated Discharge: Within 24 hours
Subjective/Interval History
-
Date of Service: October 14, 2024
Patient had episodes of bradycardia in the morning today on telemetry
Patient somewhat lethargic
No other reported problems
Objective Data
-
Labs:
Laboratory Results
10/14/24
07:50
WBC 4.4 L
Hgb 9.5 L
Hct 29.3 L
Plt Count 162
Sodium 138
Potassium 4.0
Chloride 105
Carbon Dioxide 28
BUN 59 H
Creatinine 2.6 H
Glucose 94
Calcium 9.2
Vital Signs:
Vital Signs
Temp Pulse Resp BP Pulse Ox
97.9 F 55 18 118/53 96
10/14/24 15:00 10/14/24 15:00 10/14/24 15:00 10/14/24 15:00 10/14/24 15:00
I&O
10/13/24 10/14/24 10/15/24
06:59 06:59 06:59
Intake Total 720 / 720 480 / 480
Output Total 200 / 200
Balance 720 / 720 480 / 480 -200 / -200
Review of Systems
-
Unable to obtain full review of systems at this time due to: Dementia and Acuity
Physical Exam
-
General: Negative Appears in Distress
HEENT: Negative Oxygen
Respiratory: Clear to Auscultation
Cardiac: Irregular Rhythm and Bradycardic
Neuro: Awake, Alert and No Motor Deficits; Negative Oriented
Psych: Agitated
[2024-10-14] MEDS: PROCARDIA XL (EXTENDED RELEASE) PO (20:28)
[2024-10-14] MEDS: DESYREL PO (21:37)
--- NOTE | 2024-10-15 02:54 | DOWNTIME ---
There was a [facility] [employer] Downtime on 10/15/2024 from 0100 to 10/15/2024 at 0235. Downtime documentation of patient's care, including medication administrations, has been reconciled in the electronic record per guidelines. Refer to the
patient's paper chart under the miscellaneous tab to see printed paper medication records and downtime forms.
[2024-10-15 03:42] VITALS: BP 130/46
[2024-10-15] MEDS: SYNTHROID 75 MCG PO (05:19)
[2024-10-15 05:23] VITALS: BMI 26.3
[2024-10-15 07:00] VITALS: BP 149/50
[2024-10-15 07:18] LABS: Hematocrit 29.3 % (37.0-47.0); Hemoglobin 9.2 g/dL (12.0-16.0); Mean Corp Hgb Conc. 31.4 g/dL (33.0-37.0); Mean Corpuscular Volume 97.7 fL (81.0-99.0); Platelet Count 180 10^3/uL (130-400); Red Cell Dist. Width 13.8 % (11.5-14.5)
[2024-10-15 07:52] LABS: Blood Urea Nitrogen 61 mg/dl (7-17); Calcium 8.6 mg/dl (8.4-10.2); Carbon Dioxide 29 mmol/L (22-30); Chloride 102 mmol/L (98-107); Estimated Creatinine Clearance 14 ml/min; Glucose 89 mg/dl (70-99); Potassium 4.4 mmol/L (3.5-5.1); Sodium 138 mmol/L (135-145); eGFR 17.40
[2024-10-15] MEDS: ASPIR LOW (ENTERIC COATED) 81 MG PO (09:53)
[2024-10-15] MEDS: SODIUM BICARBONATE 1300 MG PO (09:54)
[2024-10-15] MEDS: ZESTRIL 40 MG PO (09:54)
[2024-10-15] MEDS: ZETIA 10 MG PO (09:55)
[2024-10-15] MEDS: HEPARIN 5000 UNITS SC (09:55)
[2024-10-15] MEDS: PROCARDIA XL (EXTENDED RELEASE) 60 MG PO (10:02)
[2024-10-15] MEDS: APRESOLINE 100 MG PO (10:04)
[2024-10-15] MEDS: LASIX 80 MG IV (10:05)
[2024-10-15] MEDS: FLUSH (NSS) 2 FLUSH IV (10:07)
[2024-10-15 11:00] VITALS: BP 111/53
--- NOTE | 2024-10-15 11:40 | CM ---
Patient is for skilled placement at [facility] today, needs ambulance transport.
[employer]
Report [phone]
--- NOTE | 2024-10-15 14:03 | W.PN.HOSP.TC ---
Today's Communication/Plan
-
d/c snf rehab
Assessment / Plan
Assessment / Plan
# Diastolic HF exacerbation - Improved
- Strict ALFONSO, daily weight, fluid restriction
- BNP 55259
- Chest x-ray with impression of Low lung volumes with small bilateral pleural effusions.Grossly unchanged 11 mm nodular density within the left upper lobe.
- Recent echo with impression of EF 55%
- On IV lasix 80mg/d, at discharge will change regimen to oral Lasix 40 g twice daily. Follow BMP prescription for diuretic for check in 1 week.
# Hypertensive emergency - Improved
- Nitropaste in the ER
- Norvasc, benazepril, Procardia
- Coreg has been discontinued due to bradycardia
- Hydralazine IV 10mg prn ordered.
# Asymptomatic bradycardia
- Patient have underlying bradycardia with 3-second pauses with afib
- cardio evaluated and no indication for PPM
- Discontinuing further Coreg. Avoid any rate control medication going forward.
# Troponin elevation
- minimal and with nonischemic myocardial injury related
# Anemia of chronic disease
- Hemoglobin stable 10.0, no active bleeding
- Continue to monitor
# CKD stage Iv
- Creatinine 2.4, close to baseline
#Paroxysmal A-fib
-Currently patient on A-fib with rate control.
Appreciate cardiology input.
#Insomnia
-Continue trazodone
#History of hypothyroidism
-Continue levothyroxine
#History of Hyperlipidemia
-Continue Zetia
# Dementia
-patient have some behavioral issues.
-Providing oral Risperdal.
DVT prophylaxis- Heparin subcu
CODE STATUS - Full code
More than 30 minutes spent in discharge including
Final examination of the patient
Summarizing hospital stay
Instructions for continuing care to all relevant caregivers
Preparation of discharge records, prescriptions, and referral forms
Total time spent (in minutes): 43 mins
Anticipated Discharge: Today
Subjective/Interval History
-
Date of Service: October 15, 2024
No reported issues overnight
Telemetry reviewed and no significant sinus bradycardia, continue to have less than 3-second pauses with underlying A-fib
Objective Data
-
Labs:
Laboratory Results
10/15/24
05:57
WBC 4.0 L
Hgb 9.2 L
Hct 29.3 L
Plt Count 180
Sodium 138
Potassium 4.4
Chloride 102
Carbon Dioxide 29
BUN 61 H
Creatinine 2.7 H
Glucose 89
Calcium 8.6
Vital Signs:
Vital Signs
Temp Pulse Resp BP Pulse Ox
97.4 F 63 16 111/53 96
10/15/24 11:00 10/15/24 11:00 10/15/24 11:00 10/15/24 11:00 10/15/24 11:00
I&O
10/14/24 10/15/24 10/16/24
06:59 06:59 06:59
Intake Total 480 / 480 720 / 720
Output Total 200 / 200
Balance 480 / 480 520 / 520
Review of Systems
-
Respiratory: Reports No Symptoms
Cardiac: Reports No Symptoms
Abdomen/GI: Reports No Symptoms
Physical Exam
-
General: Negative Appears in Distress
HEENT: Negative Oxygen
Respiratory: Clear to Auscultation
Cardiac: Irregular Rhythm
Neuro: Awake, Alert and No Motor Deficits; Negative Oriented
Psych: Agitated
--- NOTE | 2024-10-15 14:06 | W.PN.NEPH.PH ---
Today's Communication / Plan
-
For discharge on Lasix 80 mg twice daily
Follow-up BMP next week sent to Dr. Jacques of nephrology
Assessment/Plan
-
Assessment
CKD 4 progressive (2.4-2.9)
CHF decompensation (HFpEF)
Renal Biopsy-proven secondary glomerulosclerosis (4 grams proteinuria)
Uncontrolled Hypertension
Metabolic acidosis
Heart failure preserved ejection fraction compensated
History of dermatomyositis
Benign left adrenal adenoma
Plan
cr stable at 2.7, and well within baseline, maintain accurate I's and O's and daily weight
IV diuresis for decompensated congestive heart failure (lungs clear and weight down), but increasing edema and uncontrolled HTN, blood pressure now controlled but notable for bradycardia with occasional pauses
Patient was only taking 40 mg of Lasix instead of 80 mg due to polyuria at night
Maintain sodium HCO3 in regards to chronic metabolic acidosis
Continue Lasix 80 mg with improved weight.
Patient continues to be bradycardic= Coreg held defer to cardiology
Okay for discharge at 80 mg p.o. twice daily
Will follow-up as outpatient with Dr. jacques
-
-
Date of Service: October 15, 2024
CC / HPI / ROS
-
Chief Complaint:
CKD 4
HTN
CHF
History of Present Illness:
Creatinine stable at 2.2
Hemodynamically stable on oral antihypertensive regimen
Evolving confusion overnight
Review of Systems:
No reported chest pain or shortness of breath
Weight slightly down
Labs
-
Labs:
WBC 4.0 10^3/uL (4.8-10.8) L 10/15/24 05:57
RBC 3.00 10^6/uL (4.20-5.40) L 10/15/24 05:57
Hgb 9.2 g/dL (12.0-16.0) L 10/15/24 05:57
Hct 29.3 % (37.0-47.0) L 10/15/24 05:57
Plt Count 180 10^3/uL (130-400) 10/15/24 05:57
Sodium 138 mmol/L (135-145) 10/15/24 05:57
Potassium 4.4 mmol/L (3.5-5.1) 10/15/24 05:57
Chloride 102 mmol/L (98-107) 10/15/24 05:57
Carbon Dioxide 29 mmol/L (22-30) 10/15/24 05:57
BUN 61 mg/dl (7-17) H 10/15/24 05:57
Creatinine 2.7 mg/dL (0.6-1.0) H 10/15/24 05:57
eGFR 17.40 10/15/24 05:57
Glucose 89 mg/dl (70-99) 10/15/24 05:57
Calcium 8.6 mg/dl (8.4-10.2) 10/15/24 05:57
Fxf-K-Gjpryafeakb Pept 15392 pg/ml 10/10/24 12:52
Albumin 3.8 g/dl (3.5-5.0) 10/10/24 12:52
Physical Exam
-
Vital Signs:
Vital Signs
Temp Pulse Resp BP Pulse Ox
97.4 F 63 16 111/53 96
10/15/24 11:00 10/15/24 11:00 10/15/24 11:00 10/15/24 11:00 10/15/24 11:00
Cardiovascular:: Regular rate and rhythm
Respiratory:: Bilateral: CTA
Lung Excursion:: Normal
Abdomen:: Nontender and Soft
Bowel Sounds:: Normal
Extremity Edema:: +1: Bilateral:
Richards Catheter: No
--- NOTE | 2024-10-16 16:46 | W.DCSUMMARY ---
Discharge Summary
Discharge Data
Date of Admission: 10/10/24
Date of Discharge: 10/15/24
-
Pending Results: No
Hospital Course
Discharging Physician : Dr Antony Borjas
Disposition : SNF rehab
Primary care physician : Dr Cinthya Bustamante
Principal Discharge diagnosis :
Acute on chronic diastolic congestive heart failure
Hypertensive emergency
Asymptomatic bradycardia
Troponin elevation
Chronic Discharge diagnosis :
Anemia of chronic disease
Chronic conditions stage IV
Paroxysmal atrial fibrillation
History of hypothyroidism
Hyperlipidemia
Dementia
Hospital Course :
Patient is a 79-year-old female with admission past medical history was brought in by for evaluation of sternal pain. Patient was noted to have worsening lower extremity edema as well. In ER on evaluation patient was felt to having heart
failure exacerbation. proBNP was elevated and chest x-ray was showing chronic bilateral pleural effusion. Patient was started on IV diuretic therapy. Cardiology was involved in care. Patient underlying CKD nephrology was also following patient
along. Patient did slow improvement in volume status. At discharge patient Lasix were adjusted to oral Lasix 40 mg twice daily.
Patient also had noted to be having hypertensive urgency at admission and blood pressure medications were adjusted. Patient Coreg dose was increased although patient was unable to tolerate due to bradycardia. Coreg was reinstated at a lower dose
although patient had repeat episodes of bradycardia. Patient was taken off of beta-blockers completely at that point.
After improvement of medical condition patient was [facility].
Important imaging findings :
None
Procedure findings :
None
Discharge Plan
-
Patient Disposition: Senior Living/SNF
Discharge Diagnosis/Procedures: HF excarebation, Hypertensive urgency
Condition: Fair
Diet: 2 Gram Sodium and Restrict fluids to 48 oz
Activity: As tolerated
Driving Restrictions: No driving
Bathing Restrictions: OK to Shower
Blood Work: BMP in 1 week
Referrals:
Cinthya Bustamante MD [Family Provider, [facility]] - in one week
Prescriptions:
New
nifedipine 60 mg Tablet Extended Release
60 mg PO BID Qty: 60 2RF
(DME) bmp
See Rx Instructions .Route .MEDSUPPLY Qty: 1 0RF
Rx Instructions:
BMP in 1 week
Forward result to cardiology and primary care physician
Continued
cyanocobalamin (vitamin B-12) 1,000 MCG tablet
1,000 mcg PO DAILY
cholecalciferol (vitamin D3) [Vitamin D3] 50 mcg (2,000 unit) Tablet
50 mcg PO DAILY
ezetimibe [Zetia] 10 mg Tablet
10 mg PO DAILY
CoQmax Ubiquinol 200 mg Capsule
400 mg PO DAILY
aspirin 81 mg Tablet,Delayed Release (Dr/Ec)
81 mg PO DAILY
levothyroxine 75 mcg Tablet
75 mcg PO DAILY@0600
sodium bicarbonate 650 mg Tablet
1,300 mg PO BID
hydralazine 100 mg Tablet
100 mg PO BID
trazodone 50 mg tablet
50 mg PO HS
amlodipine [Norvasc] 5 mg Tablet
5 mg PO BID
acetaminophen [Tylenol 8 Hour] 650 mg Tablet Extended Release
1,300 mg PO [id number] PRN (Reason: mild pain)
benazepril 40 mg Tablet
40 mg PO DAILY
furosemide [Lasix] 40 mg tablet
40 mg PO BID AT 0800,1600 Qty: 0 0RF
Discontinued
carvedilol [Coreg] 12.5 mg Tablet
12.5 mg PO BID
Discharge Orders:
Discharge Patient (As Directed); Ordered 10/15/24
Ordered By: Antony Borjas
Discharge Date and Time
Discharge Date/Time: 10/15/24 14:11
Print Language: THAI
== END 2024-10-15 14:11 | DRG 291 ==
LOC: 4 WEST ACU 15:39
PROVIDERS: Emergency Medicine; Registered Nurse; ADMITTING PHYSICIAN Internal Medicine; ATTENDING PHYSICIAN Hospitalist; CONSULT PHYSICIAN Internal Medicine Cardiovascular Disease; CONSULT PHYSICIAN Specialist; EMERGENCY PHYSICIAN Emergency Medicine; FAMILY PHYSICIAN Family Medicine
DX: I13.0 Hypertensive heart and chronic kidney disease with heart failure and stage 1 through stage 4 chronic kidney disease, or unspecified chronic kidney disease (principal); I50.33 Acute on chronic diastolic (congestive) heart failure; I48.19 Other persistent atrial fibrillation; N18.4 Chronic kidney disease, stage 4 (severe); M33.10 Other dermatomyositis, organ involvement unspecified; I16.1 Hypertensive emergency; I48.92 Unspecified atrial flutter; E87.22 Chronic metabolic acidosis; N17.9 Acute kidney failure, unspecified; M81.0 Age-related osteoporosis without current pathological fracture; R91.1 Solitary pulmonary nodule; I25.10 Atherosclerotic heart disease of native coronary artery without angina pectoris; E78.00 Pure hypercholesterolemia, unspecified; G47.33 Obstructive sleep apnea (adult) (pediatric); E03.9 Hypothyroidism, unspecified; D63.8 Anemia in other chronic diseases classified elsewhere; D35.02 Benign neoplasm of left adrenal gland; I5A Non-ischemic myocardial injury (non-traumatic); G47.00 Insomnia, unspecified; N26.9 Renal sclerosis, unspecified; I87.8 Other specified disorders of veins; R35.0 Frequency of micturition; E87.5 Hyperkalemia; M47.816 Spondylosis without myelopathy or radiculopathy, lumbar region; Z96.653 Presence of artificial knee joint, bilateral; Z86.711 Personal history of pulmonary embolism; Z91.148 Patient's other noncompliance with medication regimen for other reason; Z79.82 Long term (current) use of aspirin; Z79.890 Hormone replacement therapy; Z83.3 Family history of diabetes mellitus; Z86.718 Personal history of other venous thrombosis and embolism
CPT/HCPCS: 71046; 80048; 80053; 80061; 83735; 83880; 84443; 84484; 85025; 85027; 93005; 96374; 97116; 97162; 97166; 97530; 99291

== ENCOUNTER → 2024-10-17 11:05 | Outpatient (REF) | payer OTHER, MEDICARE, SELFPAY ==
[2024-10-17 11:28] LABS: Hematocrit 27.9 % (37.0-47.0); Hemoglobin 8.7 g/dL (12.0-16.0); Mean Corp Hgb Conc. 31.2 g/dL (33.0-37.0); Mean Corpuscular Volume 98.2 fL (81.0-99.0); Nucleated Red Blood Cells % 0 %; Platelet Count 178 10^3/uL (130-400); Red Cell Dist. Width 13.7 % (11.5-14.5)
[2024-10-17 11:43] LABS: Blood Urea Nitrogen 70 mg/dl (7-17); Calcium 8.9 mg/dl (8.4-10.2); Carbon Dioxide 28 mmol/L (22-30); Chloride 102 mmol/L (98-107); Glucose 87 mg/dl (70-99); Potassium 4.4 mmol/L (3.5-5.1); Sodium 137 mmol/L (135-145); eGFR 13.20
== END ==
LOC: OLABP 11:05
PROVIDERS: ATTENDING PHYSICIAN Family Medicine
DX: I50.33 Acute on chronic diastolic (congestive) heart failure (principal); I13.0 Hypertensive heart and chronic kidney disease with heart failure and stage 1 through stage 4 chronic kidney disease, or unspecified chronic kidney disease; N18.4 Chronic kidney disease, stage 4 (severe); F03.90 Unspecified dementia, unspecified severity, without behavioral disturbance, psychotic disturbance, mood disturbance, and anxiety; I16.1 Hypertensive emergency; K86.1 Other chronic pancreatitis; D64.9 Anemia, unspecified; E03.9 Hypothyroidism, unspecified; I48.0 Paroxysmal atrial fibrillation
CPT/HCPCS: 36415; 80048; 85025

== ENCOUNTER → 2024-10-22 11:22 | Outpatient (REF) | payer OTHER, MEDICARE, SELFPAY ==
[2024-10-22 12:36] LABS: Hematocrit 28.4 % (37.0-47.0); Hemoglobin 8.9 g/dL (12.0-16.0); Mean Corp Hgb Conc. 31.3 g/dL (33.0-37.0); Mean Corpuscular Volume 97.6 fL (81.0-99.0); Platelet Count 189 10^3/uL (130-400); Red Cell Dist. Width 13.0 % (11.5-14.5)
[2024-10-22 12:53] LABS: Blood Urea Nitrogen 74 mg/dl (7-17); Calcium 9.2 mg/dl (8.4-10.2); Carbon Dioxide 26 mmol/L (22-30); Chloride 103 mmol/L (98-107); Glucose 88 mg/dl (70-99); Potassium 5.8 mmol/L (3.5-5.1); Sodium 135 mmol/L (135-145); eGFR 11.19
== END ==
LOC: OLABP 11:22
PROVIDERS: ATTENDING PHYSICIAN Family Medicine
DX: I50.33 Acute on chronic diastolic (congestive) heart failure (principal); I13.0 Hypertensive heart and chronic kidney disease with heart failure and stage 1 through stage 4 chronic kidney disease, or unspecified chronic kidney disease; F03.90 Unspecified dementia, unspecified severity, without behavioral disturbance, psychotic disturbance, mood disturbance, and anxiety; N18.4 Chronic kidney disease, stage 4 (severe); K86.1 Other chronic pancreatitis; D64.9 Anemia, unspecified; E03.9 Hypothyroidism, unspecified
CPT/HCPCS: 36415; 80048; 85027

== ENCOUNTER → 2024-10-24 11:37 | Outpatient (REF) | payer OTHER, MEDICARE, SELFPAY ==
[2024-10-24 12:25] LABS: Hematocrit 26.9 % (37.0-47.0); Hemoglobin 8.6 g/dL (12.0-16.0); Mean Corp Hgb Conc. 32.0 g/dL (33.0-37.0); Mean Corpuscular Volume 96.8 fL (81.0-99.0); Platelet Count 175 10^3/uL (130-400); Red Cell Dist. Width 12.8 % (11.5-14.5)
[2024-10-24 12:38] LABS: Blood Urea Nitrogen 71 mg/dl (7-17); Calcium 9.0 mg/dl (8.4-10.2); Carbon Dioxide 27 mmol/L (22-30); Chloride 101 mmol/L (98-107); Glucose 88 mg/dl (70-99); Potassium 4.9 mmol/L (3.5-5.1); Sodium 134 mmol/L (135-145); eGFR 11.55
== END ==
LOC: OLABP 11:37
PROVIDERS: ATTENDING PHYSICIAN Family Medicine
DX: I48.0 Paroxysmal atrial fibrillation (principal); I50.33 Acute on chronic diastolic (congestive) heart failure; I13.0 Hypertensive heart and chronic kidney disease with heart failure and stage 1 through stage 4 chronic kidney disease, or unspecified chronic kidney disease; N18.4 Chronic kidney disease, stage 4 (severe); F03.90 Unspecified dementia, unspecified severity, without behavioral disturbance, psychotic disturbance, mood disturbance, and anxiety; D64.9 Anemia, unspecified; E03.9 Hypothyroidism, unspecified
CPT/HCPCS: 36415; 80048; 85027

== ENCOUNTER → 2024-10-29 12:33 | Outpatient (REF) | payer OTHER, MEDICARE, SELFPAY ==
[2024-10-29 13:26] LABS: Blood Urea Nitrogen 74 mg/dl (7-17); Calcium 8.8 mg/dl (8.4-10.2); Carbon Dioxide 26 mmol/L (22-30); Chloride 102 mmol/L (98-107); Glucose 86 mg/dl (70-99); Potassium 4.9 mmol/L (3.5-5.1); Sodium 134 mmol/L (135-145); eGFR 9.43
== END ==
LOC: OLABP 12:33
PROVIDERS: ATTENDING PHYSICIAN Family Medicine
DX: I50.33 Acute on chronic diastolic (congestive) heart failure (principal); I13.0 Hypertensive heart and chronic kidney disease with heart failure and stage 1 through stage 4 chronic kidney disease, or unspecified chronic kidney disease; N18.4 Chronic kidney disease, stage 4 (severe); F03.90 Unspecified dementia, unspecified severity, without behavioral disturbance, psychotic disturbance, mood disturbance, and anxiety; I16.1 Hypertensive emergency; K86.1 Other chronic pancreatitis; D64.9 Anemia, unspecified; E03.9 Hypothyroidism, unspecified; I48.0 Paroxysmal atrial fibrillation
CPT/HCPCS: 36415; 80048

== ENCOUNTER → 2024-10-31 12:02 | Outpatient (REF) | payer OTHER, MEDICARE, SELFPAY ==
[2024-10-31 13:00] LABS: Blood Urea Nitrogen 76 mg/dl (7-17); Calcium 9.1 mg/dl (8.4-10.2); Carbon Dioxide 25 mmol/L (22-30); Chloride 103 mmol/L (98-107); Glucose 86 mg/dl (70-99); Potassium 5.0 mmol/L (3.5-5.1); Sodium 136 mmol/L (135-145); eGFR 9.96
== END ==
LOC: OLABP 12:02
PROVIDERS: ATTENDING PHYSICIAN Family Medicine
DX: I50.33 Acute on chronic diastolic (congestive) heart failure (principal); I13.0 Hypertensive heart and chronic kidney disease with heart failure and stage 1 through stage 4 chronic kidney disease, or unspecified chronic kidney disease; F03.90 Unspecified dementia, unspecified severity, without behavioral disturbance, psychotic disturbance, mood disturbance, and anxiety; N18.4 Chronic kidney disease, stage 4 (severe); D64.9 Anemia, unspecified; E03.9 Hypothyroidism, unspecified; I48.0 Paroxysmal atrial fibrillation
CPT/HCPCS: 36415; 80048

== ENCOUNTER → 2024-11-07 10:46 | Outpatient (REF) | payer OTHER, MEDICARE, SELFPAY ==
[2024-11-07 11:20] LABS: Hematocrit 24.6 % (37.0-47.0); Hemoglobin 7.7 g/dL (12.0-16.0); Mean Corp Hgb Conc. 31.3 g/dL (33.0-37.0); Mean Corpuscular Volume 96.5 fL (81.0-99.0); Platelet Count 184 10^3/uL (130-400); Red Cell Dist. Width 12.3 % (11.5-14.5)
[2024-11-07 11:26] LABS: Blood Urea Nitrogen 79 mg/dl (7-17); Calcium 8.8 mg/dl (8.4-10.2); Carbon Dioxide 25 mmol/L (22-30); Chloride 101 mmol/L (98-107); Glucose 94 mg/dl (70-99); Potassium 4.9 mmol/L (3.5-5.1); Sodium 134 mmol/L (135-145); eGFR 8.95
== END ==
LOC: OLABP 10:46
PROVIDERS: ATTENDING PHYSICIAN Family Medicine
DX: N18.4 Chronic kidney disease, stage 4 (severe) (principal); F03.90 Unspecified dementia, unspecified severity, without behavioral disturbance, psychotic disturbance, mood disturbance, and anxiety; I16.1 Hypertensive emergency; K86.1 Other chronic pancreatitis; D64.9 Anemia, unspecified; E03.9 Hypothyroidism, unspecified
CPT/HCPCS: 36415; 80048; 85027

== ENCOUNTER → 2024-11-11 11:44 | Outpatient (REF) | payer MEDICARE, OTHER, SELFPAY ==
[2024-11-11 12:41] LABS: Hematocrit 24.1 % (37.0-47.0); Hemoglobin 7.9 g/dL (12.0-16.0); Mean Corp Hgb Conc. 32.8 g/dL (33.0-37.0); Mean Corpuscular Volume 96.0 fL (81.0-99.0); Nucleated Red Blood Cells % 0 %; Platelet Count 184 10^3/uL (130-400); Red Cell Dist. Width 12.0 % (11.5-14.5)
[2024-11-11 12:56] LABS: Blood Urea Nitrogen 74 mg/dl (7-17); Calcium 8.7 mg/dl (8.4-10.2); Carbon Dioxide 26 mmol/L (22-30); Chloride 99 mmol/L (98-107); Glucose 95 mg/dl (70-99); Potassium 4.5 mmol/L (3.5-5.1); Sodium 133 mmol/L (135-145); eGFR 10.24
== END ==
LOC: OLABP 11:44
PROVIDERS: ATTENDING PHYSICIAN Family Medicine
DX: N18.4 Chronic kidney disease, stage 4 (severe) (principal); I16.1 Hypertensive emergency; I10 Essential (primary) hypertension
CPT/HCPCS: 36415; 80048; 85025

== ENCOUNTER → 2024-11-19 11:27 | Outpatient (REF) | payer OTHER, MEDICARE, SELFPAY ==
[2024-11-19 11:38] LABS: Hematocrit 24.7 % (37.0-47.0); Hemoglobin 8.0 g/dL (12.0-16.0); Mean Corp Hgb Conc. 32.4 g/dL (33.0-37.0); Mean Corpuscular Volume 93.9 fL (81.0-99.0); Nucleated Red Blood Cells % 0 %; Platelet Count 217 10^3/uL (130-400); Red Cell Dist. Width 11.9 % (11.5-14.5)
[2024-11-19 12:50] LABS: Blood Urea Nitrogen 80 mg/dl (7-17); Calcium 9.2 mg/dl (8.4-10.2); Carbon Dioxide 28 mmol/L (22-30); Chloride 98 mmol/L (98-107); Glucose 92 mg/dl (70-99); Potassium 3.9 mmol/L (3.5-5.1); Sodium 134 mmol/L (135-145); eGFR 11.92
== END ==
LOC: OLABP 11:27
PROVIDERS: ATTENDING PHYSICIAN Family Medicine
DX: I48.0 Paroxysmal atrial fibrillation (principal); I50.33 Acute on chronic diastolic (congestive) heart failure; I13.0 Hypertensive heart and chronic kidney disease with heart failure and stage 1 through stage 4 chronic kidney disease, or unspecified chronic kidney disease; N18.4 Chronic kidney disease, stage 4 (severe); F03.90 Unspecified dementia, unspecified severity, without behavioral disturbance, psychotic disturbance, mood disturbance, and anxiety; I16.1 Hypertensive emergency; K86.1 Other chronic pancreatitis; D64.9 Anemia, unspecified; E03.9 Hypothyroidism, unspecified
CPT/HCPCS: 36415; 80048; 85025

== ENCOUNTER → 2024-12-03 11:07 | Outpatient (REF) | payer MEDICARE, OTHER, SELFPAY ==
[2024-12-03 13:05] LABS: Hematocrit 22.6 % (37.0-47.0); Hemoglobin 7.2 g/dL (12.0-16.0); Mean Corp Hgb Conc. 31.9 g/dL (33.0-37.0); Mean Corpuscular Volume 95.8 fL (81.0-99.0); Nucleated Red Blood Cells % 0 %; Platelet Count 213 10^3/uL (130-400); Red Cell Dist. Width 12.7 % (11.5-14.5)
[2024-12-03 13:23] LABS: Albumin 3.6 g/dl (3.5-5.0); Blood Urea Nitrogen 65 mg/dl (7-17); Calcium 8.7 mg/dl (8.4-10.2); Carbon Dioxide 29 mmol/L (22-30); Chloride 100 mmol/L (98-107); Glucose 85 mg/dl (70-99); Potassium 3.4 mmol/L (3.5-5.1); Sodium 136 mmol/L (135-145); eGFR 13.68
== END ==
LOC: OLABP 11:07
PROVIDERS: ATTENDING PHYSICIAN Internal Medicine
DX: I10 Essential (primary) hypertension (principal); R80.9 Proteinuria, unspecified; N17.9 Acute kidney failure, unspecified
CPT/HCPCS: 36415; 80069; 83970; 85025

== ENCOUNTER 2024-12-08 04:26 | Emergency (ER) | payer MEDICARE, OTHER, SELFPAY ==
[2024-12-08 04:26] VITALS: BP 141/55
[2024-12-08 04:28] VITALS: BP 141/55
[2024-12-08 04:40] VITALS: BMI 27.7
--- NOTE | 2024-12-08 04:56 | ED.GENMED ---
History of Present Illness
<Rae Gilmore PA-C - Last Filed: 12/08/24 07:57>
General
Chief Complaint: Fall
Source: patient
Exam Limitations: none
Time Seen by Provider: 12/08/24 04:37
Nursing documentation reviewed up to this point in time: agreed with
History of Present Illness
History of Present Illness:
79-year-old female with a past medical history of A-fib, hypertension, ?developing dementia, hyperlipidemia, CKD stage IV, dermatomyositis, who presents to the ER today with concerns of right sided rib pain and back pain as well as a headache
following a fall. I spoke to staff from [email or web address] who report that she was found yesterday evening face down in front of closet , was moving limbs okay at the time and answering questions appropriately. Normal q15 neuro checks. She seemed like she
was doing well. Staff contacted family and they did not want her sent to hospital as she seemed to be doing well. Later in the morning, she started to ask for medication for headache and was complaining in discomfort in her back. Patient does not
recall if she was sitting or laying in bed at thetime but she does recall trying to reach for a phone clam treader cord that was shorter and she reports that she had trouble reaching and in doing so, she fell onto her right side.
Past History
<CHERELLE Balderas Last Filed: 12/08/24 07:57>
Past History
ED Past Medical History: Arrthythmia, HTN, Hypercholesterolemia, Renal failure, Valvular disease, Hypothyroidism and Other (Dermatomyositis, PE, heart failure, arthritis, LVH, hypertension)
ED Past Surgical History: Orthopedic (Left arthroscopic knee surgery, right knee arthroscopy, left foot, bilateral total knee replacement, carpal tunnel)
Social History
Tobacco: Non-smoker
Alcohol: None
Drug: None
Personal:
Living: with family
Employment: Retired
Review of Systems
<CHERELLE Balderas Last Filed: 12/08/24 07:57>
Review of Systems
All Other Systems: ROS reviewed and negative except as documented in HPI and ROS
Phy Exam
<Rae Gilmore PA-C - Last Filed: 12/08/24 07:57>
Physical Exam
Physical Exam:
General: Patient is well appearing and in no acute distress; non-toxic
Skin: Warm and dry, no rashes or lesions
Head: Normocephalic, atraumatic
Eyes: Sclera non-icteric. EOMs intact.
Cardiac: Regular rate and rhythm, no murmurs, tenderness over the right lateral chest wall extending to the right para thoracic region no palpable crepitus no overlying ecchymosis
Peripheral Vascular: Bilateral lower extremity edema
Pulm: Increased respiratory rate, lungs clear bilaterally, patient satting 90% on room air, patient did desat to 88 to 87% on room air she was placed on 2 L via nasal cannula
Abdomen: No abdominal tenderness to palpation, no signs of trauma
Musculoskeletal: No midline thoracic or lumbar spinal tenderness, no midline cervical spine tenderness no pain with internal/external rotation of the right and left hip
Neuro: CN II-XII intact, no focal neurologic deficits.
Psychiatric: Appropriate mood and affect.
Course
<Rae Gilmore PA-C - Last Filed: 12/08/24 07:57>
Orders/Labs/Results
Orders:
Orders
12/08/24 04:51
CT Cervical Spine W/o Iv Contr Urgent
Comment:
Reason For Exam: neck pain following fall
CT Chest W/o Iv Contrast Urgent
Reason For Exam: right sided chest pain, back pain following fall
12/08/24 04:53
CT Head W/o Iv Contrast Urgent
Comment:
Reason For Exam: headache following fall
12/08/24 04:55
Lidocaine [Lidocaine 4% Patch] 1 patch TOPICAL DAILY ONE
Apply Lidocaine patch(s) to:: right flank/right lateral chest
12/08/24 06:49
Electrocardiogram (*1) Urgent
Reason for Study: Chest Pain
EKG- Treatment ONCE
12/08/24 06:50
IV Insert/Care/Rem.- Treatment PRN
12/08/24 07:19
Complete Blood Count/With Diff Urgent
Comprehensive Metabolic Panel Urgent
NT-proBNP Urgent
Troponin I Urgent
Abnormal Lab Results
12/08/24
07:19
RBC 2.41 L 10^6/uL
(4.20-5.40)
Hgb 7.3 L g/dL
(12.0-16.0)
Hct 23.1 L %
(37.0-47.0)
MCHC 31.6 L g/dL
(33.0-37.0)
Abs Immat Gran (auto) 0.1 H 10^3/uL
(0-0.05)
Absolute Lymphs (auto) 0.8 L 10^3/uL
(1.2-3.4)
Immature Gran % 1.0 H %
(0-0.5)
Lymphocytes % 16.2 L %
(20.5-51.1)
Monocytes % 9.7 H %
(1.7-9.3)
Potassium 3.2 L mmol/L
(3.5-5.1)
BUN 60 H mg/dl
(7-17)
Creatinine 3.1 H mg/dL
(0.6-1.0)
Total Protein 5.3 L g/dl
(6.3-8.2)
Albumin 3.3 L g/dl
(3.5-5.0)
12/08/24 07:19
12/08/24 07:19
Vital Signs
Initial and Last Documented VS:
Initial Vital Signs
BP
141/55
12/08/24 04:26
Last Documented Vital Signs
Temp Pulse Resp BP Pulse Ox
98.5 F 72 16 134/64 94
12/08/24 04:28 12/08/24 07:31 12/08/24 04:28 12/08/24 07:20 12/08/24 07:20
<Shay Duque, DO - Last Filed: 12/08/24 07:19>
Orders/Labs/Results
Orders:
Orders
12/08/24 04:51
CT Cervical Spine W/o Iv Contr Urgent
Comment:
Reason For Exam: neck pain following fall
CT Chest W/o Iv Contrast Urgent
Reason For Exam: right sided chest pain, back pain following fall
12/08/24 04:53
CT Head W/o Iv Contrast Urgent
Comment:
Reason For Exam: headache following fall
12/08/24 04:55
Lidocaine [Lidocaine 4% Patch] 1 patch TOPICAL DAILY ONE
Apply Lidocaine patch(s) to:: right flank/right lateral chest
12/08/24 06:49
Electrocardiogram (*1) Urgent
Reason for Study: Chest Pain
EKG- Treatment ONCE
12/08/24 06:50
IV Insert/Care/Rem.- Treatment PRN
12/08/24 07:19
Complete Blood Count/With Diff Urgent
Comprehensive Metabolic Panel Urgent
NT-proBNP Urgent
Troponin I Urgent
Abnormal Lab Results
12/08/24
07:19
RBC 2.41 L 10^6/uL
(4.20-5.40)
Hgb 7.3 L g/dL
(12.0-16.0)
Hct 23.1 L %
(37.0-47.0)
MCHC 31.6 L g/dL
(33.0-37.0)
Abs Immat Gran (auto) 0.1 H 10^3/uL
(0-0.05)
Absolute Lymphs (auto) 0.8 L 10^3/uL
(1.2-3.4)
Immature Gran % 1.0 H %
(0-0.5)
Lymphocytes % 16.2 L %
(20.5-51.1)
Monocytes % 9.7 H %
(1.7-9.3)
Potassium 3.2 L mmol/L
(3.5-5.1)
BUN 60 H mg/dl
(7-17)
Creatinine 3.1 H mg/dL
(0.6-1.0)
Total Protein 5.3 L g/dl
(6.3-8.2)
Albumin 3.3 L g/dl
(3.5-5.0)
12/08/24 07:19
12/08/24 07:19
Vital Signs
Initial and Last Documented VS:
Initial Vital Signs
BP
141/55
12/08/24 04:26
Last Documented Vital Signs
Temp Pulse Resp BP Pulse Ox
98.5 F 72 16 134/64 94
12/08/24 04:28 12/08/24 07:31 12/08/24 04:28 12/08/24 07:20 12/08/24 07:20
Mertlt;Rae Gilmore PA-C - Last Filed: 12/08/24 07:57>
MDM/Problems Addressed
Differential Diagnosis Includes:
Differentials include rib fracture, pneumothorax, intracerebral hemorrhage
MDM/Problems Addressed:
79-year-old female presents to the ER today with concerns of rib pain and back pain following a fall. She takes aspirin but no anticoagulant medication. On physical exam, she is well-appearing in no acute distress. She does have palpable
tenderness in the right lateral and posterior chest wall. She went for CAT scan which revealed moderate pleural effusion on the right side as well as multiple rib fractures. Will add on blood work. In the setting of rib fractures with hypoxia and
pleural effusion, will refer for transfer to trauma center [facility] case discussed with the ED attending.
EKG reviewed, atrial flutter with left bundle branch block, no acute changes today. Troponin 0.029. BNP trending down. Renal function at baseline. Hemoglobin at baseline.
Chronic conditions affecting care:
CKD, atrial flutter, hypothyroidism, dermatomyositis
<Rae Gilmore PA-C - Last Filed: 12/08/24 07:57>
*Pulse Oximetry
SaO2: 92
Oxygen Mode of Delivery: Room air
Patient hypoxic: yes
*Critical Care Note
Total Time (30-74mins, 75-104mins- exclusive of procedures): Not Applicable
ED Attending Note
<Rae Gilmoer PA-C - Last Filed: 12/08/24 07:57>
-
Portions of this chart may have been created with voice recognition software.� Occasional wrong word or��sound alike� substitutions may have occurred due to the inherent limitations of voice recognition software.
<Shay Duque DO - Last Filed: 12/08/24 07:19>
ED Attending Note
Patient seen and examined by attending physician: Yes
ED Attending Note:
I reviewed and agree with history treatment plan by Rae Gilmore. My exam revealed
79-year-old female no acute distress, with 2 L nasal cannula oxygen. Mild tenderness to palpation right ribs. No flail chest. Patient with 3 rib fractures on the right, no pneumothorax, pleural effusion. Will transfer to [place] for further
trauma management. Labs pending, possibly chf associated with effusion.
Discharge Plan
Departure
Patient Disposition: Acute Care Hospital
Date of Disposition: 12/08/24
Time of Disposition: 07:46
Admit to doctor: Dr. Mcmanus
Patient with high blood pressure during this ER visit?: Yes
Condition: Fair
Discharge Problem:
Multiple fractures of ribs of right side, Pleural effusion
Prescriptions:
No Action
cyanocobalamin (vitamin B-12) 1,000 MCG tablet
1,000 mcg PO DAILY
cholecalciferol (vitamin D3) [Vitamin D3] 50 mcg (2,000 unit) Tablet
50 mcg PO DAILY
ezetimibe [Zetia] 10 mg Tablet
10 mg PO DAILY
CoQmax Ubiquinol 200 mg Capsule
400 mg PO DAILY
aspirin 81 mg Tablet,Delayed Release (Dr/Ec)
81 mg PO DAILY
levothyroxine 75 mcg Tablet
75 mcg PO DAILY@0600
sodium bicarbonate 650 mg Tablet
1,300 mg PO BID
hydralazine 100 mg Tablet
100 mg PO BID
trazodone 50 mg tablet
50 mg PO HS
amlodipine [Norvasc] 5 mg Tablet
5 mg PO BID
acetaminophen [Tylenol 8 Hour] 650 mg Tablet Extended Release
1,300 mg PO [id number] PRN (Reason: mild pain)
benazepril 40 mg Tablet
40 mg PO DAILY
nifedipine 60 mg Tablet Extended Release
60 mg PO BID Qty: 60 2RF
furosemide [Lasix] 40 mg tablet
40 mg PO BID AT 0800,1600 Qty: 0 0RF
(DME) bmp
See Rx Instructions .Route .MEDSUPPLY Qty: 1 0RF
Rx Instructions:
BMP in 1 week
Forward result to cardiology and primary care physician
Referrals:
Jonathan Teran Sr., MD [Family Provider, Family Practice]
Hospital Transfer
Other hospital: [facility]
I certify that the patient requires transfer: Yes
Discussed case with accepting physician: Dr. Mcmanus
Reason for transfer: higher level of care
Interventions
Interventions:
*Neglect/Abuse Screening Last Done: 12/08/24 04:28
*General Assessment Last Done: 12/08/24 04:28
*ED- Fall Risk Assessment Last Done: 12/08/24 04:28
*Risk Screen - Suicide Last Done: 12/08/24 04:28
*ED COVID-19 Vaccine History Last Done: 12/08/24 04:28
*ED Influenza Vaccine History Last Done: 12/08/24 04:28
ED-Musculoskeletal Assessment Last Done: 12/08/24 04:40
ED- Neurological Assessment Last Done: 12/08/24 04:40
ED-Skin Assessment Last Done: 12/08/24 04:40
Discharge Date and Time
Print Language: [place]
[2024-12-08 05:00] VITALS: BP 136/50
[2024-12-08] MEDS: LIDOCAINE 4% PATCH 1 PATCH TOPICAL (05:09)
[2024-12-08 07:20] VITALS: BP 134/64
[2024-12-08 07:43] LABS: Hematocrit 23.1 % (37.0-47.0); Hemoglobin 7.3 g/dL (12.0-16.0); Mean Corp Hgb Conc. 31.6 g/dL (33.0-37.0); Mean Corpuscular Volume 95.9 fL (81.0-99.0); Nucleated Red Blood Cells % 0 %; Platelet Count 185 10^3/uL (130-400); Red Cell Dist. Width 12.9 % (11.5-14.5)
[2024-12-08 07:45] LABS: ALT (SGPT) 11 U/L (0-35); AST (SGOT) 20 U/L (14-36); Albumin 3.3 g/dl (3.5-5.0); Alkaline Phosphatase 58 U/L (38-126); Blood Urea Nitrogen 60 mg/dl (7-17); Calcium 8.6 mg/dl (8.4-10.2); Carbon Dioxide 29 mmol/L (22-30); Chloride 102 mmol/L (98-107); Estimated Creatinine Clearance 14 ml/min; Glucose 93 mg/dl (70-99); Potassium 3.2 mmol/L (3.5-5.1); Sodium 138 mmol/L (135-145); Total Protein 5.3 g/dl (6.3-8.2); eGFR 14.74
[2024-12-08 07:50] LABS: Troponin I 0.029 ng/ml
[2024-12-08 08:00] VITALS: BP 137/66
== END 2024-12-08 09:45 | disposition short-term general hospital (02) ==
LOC: EMR 04:26
PROVIDERS: Physician Assistant; EMERGENCY PHYSICIAN Emergency Medicine; FAMILY PHYSICIAN Family Medicine
DX: S22.41XA Multiple fractures of ribs, right side, initial encounter for closed fracture (principal); J90 Pleural effusion, not elsewhere classified; R09.02 Hypoxemia; I48.92 Unspecified atrial flutter; I44.7 Left bundle-branch block, unspecified; I48.91 Unspecified atrial fibrillation; I13.0 Hypertensive heart and chronic kidney disease with heart failure and stage 1 through stage 4 chronic kidney disease, or unspecified chronic kidney disease; I50.9 Heart failure, unspecified; N18.4 Chronic kidney disease, stage 4 (severe); E78.00 Pure hypercholesterolemia, unspecified; E03.9 Hypothyroidism, unspecified; M33.13 Other dermatomyositis without myopathy; M19.90 Unspecified osteoarthritis, unspecified site; Z79.82 Long term (current) use of aspirin; Z86.711 Personal history of pulmonary embolism; Z96.653 Presence of artificial knee joint, bilateral; W17.89XA Other fall from one level to another, initial encounter; Y92.122 Bedroom in nursing home as the place of occurrence of the external cause
CPT/HCPCS: 99285; 70450; 71250; 72125; 80053; 83880; 84484; 85025; 93005

== ENCOUNTER 2024-12-22 09:15 | Emergency (ER) | payer MEDICARE, OTHER, SELFPAY ==
[2024-12-22] VITALS (8 sets, daily range): BP systolic 98–146; BP diastolic 48–60; BMI 25.0
--- NOTE | 2024-12-22 09:34 | ED.MUSCINJ ---
HPI-Injury
General
Chief Complaint: Fall
Source: patient
Exam Limitations: none
Time Seen by Provider: 12/22/24 09:23
History of Present Illness-Injury
Initial Injury comments:
79-year-old female presents from nursing facility after falling going to the bathroom. She hit her head on the floor. No loss of conscious. She is on a baby aspirin no other blood thinners. She denies any significant headache or neck pain. No
arm or leg pain. No other complaints at this time
Past History
Past History
ED Past Medical History: Arrthythmia, HTN, Hypercholesterolemia, Renal failure, Valvular disease, Hypothyroidism and Other (Dermatomyositis, PE, heart failure, arthritis, LVH, hypertension)
ED Past Surgical History: Orthopedic (Left arthroscopic knee surgery, right knee arthroscopy, left foot, bilateral total knee replacement, carpal tunnel)
Social History
Tobacco: Non-smoker
Alcohol: None
Drug: None
Personal:
Living: with family
Employment: Retired
Phy Exam
Physical Exam
Physical Exam:
General: Well-appearing female in no acute respiratory distress
HEENT normocephalic hematoma noted left posterior scalp with vertically oriented laceration in the center of the hematoma measuring 2 cm. Pupils equal round react light TMs normal
Heart: Regular rate and rhythm
Lungs: Clear no wheeze
Musculoskeletal exam: No deformities to the extremities. No significant tenderness to the spine
Neurologic alert and oriented good strength
Injury Course
Orders/Labs/Results
Orders:
Orders
12/22/24 09:31
CT Cervical Spine W/o Iv Contr Urgent
Comment:
Reason For Exam: fall
CT Head W/o Iv Contrast Urgent
Comment:
Reason For Exam: fall
12/22/24 12:00
CR Chest Portable - 1 View Urgent
Comment:
Reason For Exam: cough
Reason Study Needs to be Portable: Patient Unstable
MDM/Problems Addressed
Differential Diagnosis Includes:
Fall with head strike there is a hematoma with laceration. CT of the head and cervical spine ordered to evaluate for skull fracture or intracranial hemorrhage or cervical spine fracture. The wound was cleansed with saline and will require staple
closure
*Pulse Oximetry
SaO2: 99
Oxygen Mode of Delivery: Room air
Patient hypoxic: no
*Critical Care Note
Total Time (30-74mins, 75-104mins- exclusive of procedures): Not Applicable
Update Note
Update Note:
The scalp laceration was irrigated with saline anesthetized with 1% lidocaine with epinephrine. This was closed with [address] of the head and cervical spine negative for acute traumatic injury. Cervical spine CT did cloth picker on some
questionable findings in the upper lungs. This was followed by a chest x-ray which demonstrates pulmonary fibrosis. Patient is not hypoxic no respiratory distress. I suspect this is more of a chronic issue. No indication for admission. Will
discharge back to the facility. Upon my reassessment, the [id number] was in the room and I relayed this information to her as well.
ED Attending Note
-
Portions of this chart may have been created with voice recognition software.� Occasional wrong word or��sound alike� substitutions may have occurred due to the inherent limitations of voice recognition software.
Discharge Plan
Departure
Patient Disposition: Home (Routine Discharge)
Date of Disposition: 12/22/24
Time of Disposition: 13:19
Patient with high blood pressure during this ER visit?: No
Discharge Problem:
Fall
Prescriptions:
No Action
cyanocobalamin (vitamin B-12) 1,000 MCG tablet
2,000 mcg PO DAILY
cholecalciferol (vitamin D3) [Vitamin D3] 50 mcg (2,000 unit) Tablet
50 mcg PO DAILY
ezetimibe [Zetia] 10 mg Tablet
10 mg PO DAILY
CoQmax Ubiquinol 200 mg Capsule
400 mg PO DAILY
aspirin 81 mg Tablet,Delayed Release (Dr/Ec)
81 mg PO DAILY
levothyroxine 75 mcg Tablet
75 mcg PO DAILY@0600
sodium bicarbonate 650 mg Tablet
1,300 mg PO BID
hydralazine 100 mg Tablet
100 mg PO BID
trazodone 50 mg tablet
50 mg PO HS
amlodipine [Norvasc] 5 mg Tablet
5 mg PO BID
acetaminophen [Tylenol 8 Hour] 650 mg Tablet Extended Release
1,300 mg PO [id number] PRN (Reason: mild pain)
benazepril 40 mg Tablet
40 mg PO DAILY
furosemide [Lasix] 40 mg tablet
40 mg PO BID AT 0800,1600 Qty: 0 0RF
(DME) bmp
See Rx Instructions .Route .MEDSUPPLY Qty: 1 0RF
Rx Instructions:
BMP in 1 week
Forward result to cardiology and primary care physician
amlodipine 5 mg Tablet
5 mg PO BID
Referrals:
Ramon Manley DO [Family Provider, Family Practice]
Activity Restrictions/Additional Instructions:
There are 2 madelin and a scalp laceration. Please have these removed in 7 to 10 days. Return if worse otherwise
Interventions
Interventions:
*Risk Screen - Suicide Last Done: 12/22/24 09:17
*General Assessment Last Done: 12/22/24 09:17
*Neglect/Abuse Screening Last Done: 12/22/24 09:17
*ED- Fall Risk Assessment Last Done: 12/22/24 09:17
*ED COVID-19 Vaccine History Last Done: 12/22/24 09:17
*ED Influenza Vaccine History Last Done: 12/22/24 09:17
ED-Musculoskeletal Assessment Last Done: 12/22/24 09:37
ED- Neurological Assessment Last Done: 12/22/24 09:37
ED-Skin Assessment Last Done: 12/22/24 09:51
Discharge Date and Time
Print Language: BELGI[place]
== END 2024-12-22 16:49 | disposition home or self-care (01) ==
LOC: EMR 09:15
PROVIDERS: EMERGENCY PHYSICIAN Emergency Medicine; FAMILY PHYSICIAN Student in an Organized Health Care Education/Training Program
DX: Z03.89 Encounter for observation for other suspected diseases and conditions ruled out (principal); W19.XXXA Unspecified fall, initial encounter; I11.0 Hypertensive heart disease with heart failure; I50.9 Heart failure, unspecified; I38 Endocarditis, valve unspecified; E03.9 Hypothyroidism, unspecified; E78.00 Pure hypercholesterolemia, unspecified; M33.90 Dermatopolymyositis, unspecified, organ involvement unspecified; Z79.82 Long term (current) use of aspirin; Z96.653 Presence of artificial knee joint, bilateral
CPT/HCPCS: 99284; 70450; 71045; 72125

== ENCOUNTER → 2024-12-24 10:22 | Outpatient (REF) | payer OTHER, MEDICARE, SELFPAY ==
[2024-12-24 10:58] LABS: Hematocrit 29.3 % (37.0-47.0); Hemoglobin 9.2 g/dL (12.0-16.0); Mean Corp Hgb Conc. 31.4 g/dL (33.0-37.0); Mean Corpuscular Volume 96.4 fL (81.0-99.0); Nucleated Red Blood Cells % 0 %; Platelet Count 213 10^3/uL (130-400); Red Cell Dist. Width 14.9 % (11.5-14.5)
[2024-12-24 11:04] LABS: Blood Urea Nitrogen 60 mg/dl (7-17); Calcium 8.6 mg/dl (8.4-10.2); Carbon Dioxide 33 mmol/L (22-30); Chloride 97 mmol/L (98-107); Glucose 89 mg/dl (70-99); Magnesium 2.5 mg/dl (1.6-2.3); Potassium 3.4 mmol/L (3.5-5.1); Sodium 134 mmol/L (135-145); eGFR 14.19
[2024-12-24 11:36] LABS: TSH 0.67 uIU/ml (0.47-4.68)
== END ==
LOC: OLABN 10:22
PROVIDERS: ATTENDING PHYSICIAN Student in an Organized Health Care Education/Training Program
DX: I48.91 Unspecified atrial fibrillation (principal); N18.4 Chronic kidney disease, stage 4 (severe); S22.41XA Multiple fractures of ribs, right side, initial encounter for closed fracture
CPT/HCPCS: 36415; 80048; 83735; 84443; 85025

== ENCOUNTER → 2025-01-29 11:55 | Outpatient (REF) | payer MEDICARE, OTHER, SELFPAY ==
[2025-01-29 12:35] LABS: Hematocrit 29.2 % (37.0-47.0); Hemoglobin 9.2 g/dL (12.0-16.0); Mean Corp Hgb Conc. 31.5 g/dL (33.0-37.0); Mean Corpuscular Volume 97.7 fL (81.0-99.0); Platelet Count 204 10^3/uL (130-400); Red Cell Dist. Width 13.5 % (11.5-14.5)
[2025-01-29 13:25] LABS: Blood Urea Nitrogen 71 mg/dl (7-17); Calcium 8.9 mg/dl (8.4-10.2); Carbon Dioxide 28 mmol/L (22-30); Chloride 97 mmol/L (98-107); Glucose 87 mg/dl (70-99); Magnesium 2.5 mg/dl (1.6-2.3); Potassium 4.5 mmol/L (3.5-5.1); Sodium 133 mmol/L (135-145); eGFR 9.68
== END ==
LOC: OLABN 11:55
PROVIDERS: ATTENDING PHYSICIAN Student in an Organized Health Care Education/Training Program
DX: I48.91 Unspecified atrial fibrillation (principal); I50.32 Chronic diastolic (congestive) heart failure; I13.0 Hypertensive heart and chronic kidney disease with heart failure and stage 1 through stage 4 chronic kidney disease, or unspecified chronic kidney disease
CPT/HCPCS: 36415; 80048; 83735; 85027

== ENCOUNTER → 2025-02-02 10:26 | Outpatient (REF) | payer MEDICARE, OTHER, SELFPAY ==
[2025-02-02 11:48] LABS: AST (SGOT) 17 U/L (14-36); Albumin 3.3 g/dl (3.5-5.0); Alkaline Phosphatase 66 U/L (38-126); Blood Urea Nitrogen 76 mg/dl (7-17); Calcium 8.9 mg/dl (8.4-10.2); Carbon Dioxide 30 mmol/L (22-30); Chloride 100 mmol/L (98-107); Glucose 87 mg/dl (70-99); Potassium 4.7 mmol/L (3.5-5.1); Sodium 134 mmol/L (135-145); Total Protein 5.4 g/dl (6.3-8.2); eGFR 9.43
[2025-02-02 12:05] LABS: ALT (SGPT) 11 U/L (0-35)
== END ==
LOC: OLABN 10:26
PROVIDERS: ATTENDING PHYSICIAN Student in an Organized Health Care Education/Training Program
DX: N18.4 Chronic kidney disease, stage 4 (severe) (principal)
CPT/HCPCS: 36415; 80053